=== PATIENT | male | born 1945 | race Caucasian/White ===

== ENCOUNTER 2019-09-26 16:03 | Emergency (ER) | payer OTHER ==
--- OUTSIDE RECORDS SUMMARY | 2019-09-26 16:05 | XMS REPORT ---
:1945 [facility] Address [address] [place] [address] Care Team Providers Name Role Phone Unavailable Unavailable Unavailable Problems This patient has no known problems. Allergies, Adverse Reactions, Alerts This patient has no known allergies or adverse reactions. Medications This patient has no known medications. Encounters Start End Encounter Admission Attending Care Care Encounter Date/Time Date/Time Type Type Clinicians Facility Department ID 2018-12-19 Outpatient [facility] CAR [id number] 15:19:24 2018-12-12 Inpatient [facility] CAR [id number] 06:06:00 2019-06-15 2019-06-15 Outpatient [facility] [id number] 09:59:00 09:59:00 2019-04-20 2019-04-20 Outpatient [facility] CAR [id number] 09:30:00 09:30:00 2019-01-12 2019-01-12 Outpatient [facility] CAR [id number] 08:48:00 08:48:00 2018-12-18 2018-12-18 Emergency [id number] 14:36:00 14:36:00 2018-11-20 2018-11-20 Out[facility] [id number] 06:55:00 06:55:00 2018-11-03 2018-11-03 Outpatient [facility] CAR [id number] 10:24:00 10:24:00 2018-10-24 2018-10-24 Outpatient [facility] CAR [id number] 10:00:00 10:00:00
[2019-09-26] MEDS ORDERED: LIDOCAINE 1% MPF 5 ML VIAL ONE (19:48)
[2019-09-26] MEDS ORDERED: TETANUS & DIPHTHERIA TOX,ADULT 0.5 ML VIAL ONE (19:48)
--- NOTE | 2019-09-26 20:32 | EDPHYS ---
Physician Documentation [facility] Name: Sadiq Arguelles IV Age: 74 yrs Sex: Male : 1945 Arrival Date: 09/26/2019 Time: 16:04 Bed 14 Private MD: ED Physician Luis Finney HPI: 09/26 19:07 This 74 yrs old Male presents to ER via Ambulatory with complaints of pm1 Laceration To Hand, Dizziness. 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 Historical: - Allergies: 16:56 PENICILLINS; aj1 16:56 Morphine; aj1 - PMHx: 16:56 Myocardial infarction; aortic valve replacement; cardiac stent; aj1 - Immunization history:: Last tetanus immunization: unknown, Flu vaccine is up to date. - Coronavirus screen:: The patient has NOT traveled to [place] in the past 14 days. - Social history:: Smoking status: Patient/guardian denies using tobacco. - Ebola Screening: : Patient denies travel to an Ebola-affected area in the 21 days before illness onset. ROS: 19:07 Constitutional: Negative for fever, chills, and weight loss, Cardiovascular: Negative pm1 for chest pain, palpitations, and edema, Respiratory: Negative for shortness of breath, cough, wheezing, and pleuritic chest pain, Back: Negative for injury and pain. 19:07 MS/extremity: Positive for laceration, of the Left first web space, Negative for decreased range of motion, deformity. 19:07 Skin: Positive for laceration(s), of the Left first web space. 19:07 Neuro: Negative for numbness, tingling. 19:07 All other systems are negative. Exam: 19:07 Constitutional: This is a well developed, well nourished patient who is awake, alert, pm1 and in no acute distress. Head/Face: Normocephalic, atraumatic. Chest/axilla: Normal chest wall appearance and motion. Nontender with no deformity. No lesions are appreciated. Cardiovascular: Regular rate and rhythm with a normal S1 and S2. No gallops, murmurs, or rubs. Normal PMI, no JVD. No pulse deficits. Respiratory: Lungs have equal breath sounds bilaterally, clear to auscultation and percussion. No rales, rhonchi or wheezes noted. No increased work of breathing, no retractions or nasal flaring. Back: No spinal tenderness. No costovertebral tenderness. Full range of motion. 19:07 Musculoskeletal/extremity: Extremities: grossly normal except: noted in the Left first web space: laceration, There is no evidence of decreased ROM, deformity. 19:07 Skin: Appearance: normal except for affected area, injury, laceration(s), the wound is approximately 2 cm(s), of the Left first web space, that can be described as clean, no foreign body, irregular, without bleeding. Vital Signs: 16:56 BP 123 / 70; Pulse 61; Resp 18; Temp 97.2; Pulse Ox 100% on R/A; Weight 72.57 kg (R); aj1 Height 5 ft. 10 in. (177.80 cm) (R); Pain 3/10; 16:56 Body Mass Index 22.96 (72.57 kg, 177.80 cm) aj1 Laceration: 20:29 Wound Repair of 2cm ( 0.8in ) subcutaneous laceration to Left first web space. pm1 Irregularly shaped.. Distal neuro/vascular/tendon intact. Anesthesia: Local anesthetic administered with 3 mls of 1% lidocaine. Wound prep: Extensive cleansing with hibiclenz by nurse, Wound irrigation with saline by nurse, Wound explored extensively, Copious irrigation. Skin closed with 6 5-0 Prolene using simple sutures and sterile technique. Dressed with Neosporin, 4x4's, thumb spica. Patient tolerated well. MDM: 18:56 Patient medically screened. pm1 20:29 Data reviewed: vital signs. Data interpreted: Pulse oximetry: on room air is 100 %. pm1 Interpretation: normal. Counseling: I had a detailed discussion with the patient and/or guardian regarding: the historical points, exam findings, and any diagnostic results supporting the discharge/admit diagnosis, radiology results, the need for outpatient follow up, suture removal in 10-14 days, to return to the emergency department if symptoms worsen or persist or if there are any questions or concerns that arise at home. 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 Exp: lp1 07/03/2021. Lot #: [id number]. } Route: IM; Site: right deltoid; 20:50 Follow up: Response: No adverse reaction lp1 20:13 Drug: Lidocaine (1 %) 5 ml Volume: 5 ml; Route: Infiltration; lp1 Disposition: 09/27 07:05 Co-signature as Attending Physician, Luis Finney MD. rn Disposition: 09/26/19 20:31 Discharged to Home. Impression: Laceration without foreign body of left hand. - Condition is Stable. - Discharge Instructions: Laceration Care, Adult. - Prescriptions for Doxycycline Hyclate 100 mg Oral Tablet - take 1 tablet by ORAL route every 12 hours; 20 tablet. - Medication Reconciliation Form, Thank You Letter, Antibiotic Education, Prescription Opioid Use form. - Follow up: Emergency Department; When: As needed; Reason: Recheck today's complaints, Continuance of care, Re-evaluation by your physician. Follow up: Private Physician; When: 2 - 3 days; Reason: Recheck today's complaints, Continuance of care, Re-evaluation by your physician. - Problem is new. - Symptoms have improved. Signatures: Dispatcher [employer] EDMS Katina Willett RN RN aj1 Luis Finney MD MD rn Pena, Laura, RN RN lp1 Aniceot Mcnally NP JEWELRY APPRAISER pm1 Corrections: (The following items were deleted from the chart) 09/26 20:53 20:31 09/26/2019 20:31 Discharged to Home. Impression: Laceration without foreign body lp1 of left hand. Condition is Stable. Forms are Medication Reconciliation Form, Thank You Letter, Antibiotic Education, Prescription Opioid Use. Follow up: Emergency Department; When: As needed; Reason: Recheck today's complaints, Continuance of care, Re-evaluation by your physician. Follow up: Private Physician; When: 2 - 3 days; Reason: Recheck today's complaints, Continuance of care, Re-evaluation by your physician. Problem is new. Symptoms have improved. pm1
--- NOTE | 2019-09-26 20:32 | ER ---
Nurse's Notes [facility] Name: Sadiq Arguelles IV Age: 74 yrs Sex: Male : 1945 Arrival Date: 09/26/2019 Time: 16:04 Bed 14 Private MD: Diagnosis: Laceration without foreign body of left hand Presentation: 09/26 16:55 Presenting complaint: Patient states: "I stuck a chisel in my hand" Laceration noted to aj1 left hand, not bleeding at this time. Transition of care: patient was not received from another setting of care. Complicating Factors: There are no complicating factors for this patient. Onset of symptoms was September 26, 2019. Risk Assessment: Do you want to hurt yourself or someone else? Patient reports no desire to harm self or others. Initial Sepsis Screen: Does the patient meet any 2 criteria? No. Patient's initial sepsis screen is negative. Does the patient have a suspected source of infection? No. Patient's initial sepsis screen is negative. Care prior to arrival: None. 16:55 Method Of Arrival: Ambulatory aj1 16:55 Acuity: BELLA 4 aj1 Triage Assessment: 16:56 General: Appears in no apparent distress. comfortable, Behavior is calm, cooperative, aj1 appropriate for age. Pain: Complains of pain in Left first web space. Neuro: Level of Consciousness is awake, alert, obeys commands. Cardiovascular: Patient's skin is warm and dry. Respiratory: Airway is patent Respiratory effort is even, unlabored, Respiratory pattern is regular, symmetrical. Injury Description: Laceration sustained to Left first web space. Historical: - Allergies: 16:56 PENICILLINS; aj1 16:56 Morphine; aj1 - PMHx: 16:56 Myocardial infarction; aortic valve replacement; cardiac stent; aj1 - Immunization history:: Last tetanus immunization: unknown, Flu vaccine is up to date. - Coronavirus screen:: The patient has NOT traveled to [place] in the past 14 days. - Social history:: Smoking status: Patient/guardian denies using tobacco. - Ebola Screening: : Patient denies travel to an Ebola-affected area in the 21 days before illness onset. Screenin:12 Abuse screen: Denies threats or abuse. Denies injuries from another. Nutritional lp1 screening: No deficits noted. Tuberculosis screening: No symptoms or risk factors identified. Fall Risk None identified. Assessment: 19:20 General: Appears in no apparent distress. Behavior is calm, cooperative, appropriate lp1 for age. Pain: Denies pain. Neuro: No deficits noted. Cardiovascular: No deficits noted. Respiratory: No deficits noted. GI: No signs and/or symptoms were reported involving the gastrointestinal system. : No signs and/or symptoms were reported regarding the genitourinary system. EENT: No signs and/or symptoms were reported regarding the EENT system. Derm: Wound noted Left first web space Wound is jagged laceration, not actively bleeding. Musculoskeletal: Circulation, motion, and sensation intact. Range of motion:. Injury Description: Laceration is jagged, 0.5 to 2.5 cm long, not bleeding. 20:12 Reassessment: Augustus Mcnally NP at bedside to laceration repair. lp1 20:52 Reassessment: suture site dressed with non-adherent pad and foam tape to left hand. lp1 Vital Signs: 16:56 BP 123 / 70; Pulse 61; Resp 18; Temp 97.2; Pulse Ox 100% on R/A; Weight 72.57 kg (R); aj1 Height 5 ft. 10 in. (177.80 cm) (R); Pain 3/10; 16:56 Body Mass Index 22.96 (72.57 kg, 177.80 cm) aj1 ED Course: 16:04 Patient arrived in ED. as 16:55 Triage completed. aj1 16:56 Arm band placed on Patient placed in waiting room, Patient notified of wait time. aj1 18:56 Aniceto Mcnally NP is PHCP. pm1 18:56 Luis Fniney MD is Attending Physician. pm1 19:30 Patient has correct armband on for positive identification. lp1 19:32 Ximena Petty, YAQUELIN is Primary Nurse. lp1 20:10 Wound care: to laceration located on Left first web space was irrigated with normal lp1 saline, Patient tolerated well. 20:50 No provider procedures requiring assistance completed. Patient did not have IV access lp1 during this emergency room visit. pre-formed thumb spica splint to left arm. 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 Exp: lp1 07/03/2021. Lot #: [id number]. } Route: IM; Site: right deltoid; 20:50 Follow up: Response: No adverse reaction lp1 20:13 Drug: Lidocaine (1 %) 5 ml Volume: 5 ml; Route: Infiltration; lp1 Outcome: 20:31 Discharge ordered by MD. pm1 20:51 Discharged to home ambulatory. lp1 20:51 Condition: good 20:51 Discharge instructions given to patient, Instructed on discharge instructions, follow up and referral plans. medication usage, Demonstrated understanding of instructions, follow-up care, medications, Prescriptions given X 1. 20:53 Patient left the ED. lp1 Signatures: Katina Willett RN RN aj1 Tamara Smith Laura, YAQUELIN RN lp1 Aniceto Mcnally, AVANI PERSONAL CARE AIDE pm1
--- NOTE | 2019-09-26 20:41 | RAD REPORT ---
EXAM DESCRIPTION: RAD - Hand Left 3 View - 09/26/2019 8:02 pm CLINICAL HISTORY: Left hand pain, laceration COMPARISON: None. FINDINGS: No fracture, dislocation or periosteal reaction noted. No acute bone or joint finding. Deg enerative calcifications are seen along the dorsal margin of the first carpal row. Site of left and l aceration is not noted. There is bandaging material in the soft tissues between the first and second metacarpal bones. This is the presumed laceration site. There is no foreign body. IMPRESSION: No foreign body. No acute bone or joint finding.
[2019-09-26 20:59] VITALS: BP 123/70; TEMP 97.2; O2SAT 100
== END 2019-09-26 20:53 | disposition home or self-care (01) ==
LOC: ER 16:03
PROC: 0JQK0ZZ Repair Left Hand Subcutaneous Tissue and Fascia, Open Approach (ICD-10-PCS; principal; 2019-09-26)
DX: S61.412A Laceration without foreign body of left hand, initial encounter (principal); W27.8XXA Contact with other nonpowered hand tool, initial encounter; Y93.89 Activity, other specified; Y92.019 Unspecified place in single-family (private) house as the place of occurrence of the external cause; Z23 Encounter for immunization
CPT/HCPCS: 90471; 90714; 99284

== ENCOUNTER 2020-04-02 10:15 | Emergency (ER) | payer OTHER ==
--- OUTSIDE RECORDS SUMMARY | 2020-04-02 10:18 | XMS REPORT | Clinical Summary ---
:1945 Author Organization [facility] Address [address] [place] [address] Care Team Providers Name Role Phone Avery Ross MD Primary Care Provider Allergies Active Allergy Reactions Severity Noted Date Comments Morphine Hives 03/22/2017 Penicillins Rash Low 03/22/2017 Medications Medication Sig Dispensed Refills Start Date End Date Status CYANOCOBALAMIN, Take by mouth. 0 Active VITAMIN B-12, (B-12 DOTS ORAL) COQ10, UBIQUINOL, Take by mouth. 0 Active ORAL cholecalciferol, Take 1,000 0 Ac tive vitamin D3, (VITAMIN Units by mouth D3) 1,000 unit daily. capsule aspirin (ECOTRIN) 81 Take 81 mg by 0 Active MG enteric coated mouth daily. tablet amLODIPine (NORVASC) Take 1 tablet 90 tablet 2 05/12/2018 Active 10 mg (10 mg total) tabletIndications: by mouth daily. Essential hypertension lisinopril Take 1 tablet 90 tablet 2 05/12/2018 Acti ve (PRINIVIL,ZESTRIL) 20 (20 mg total) mg tabletIndications: by mouth daily. Essential hypertension carvedilol CR (COREG Take 1 capsule 90 capsule 2 05/12/2018 Active CR) 20 MG 24 hr (20 mg total) capsuleIndications: by mouth daily. Essential hypertension atorvastatin TAKE ONE (1) 90 tablet 0 02/23/2019 Act rad (LIPITOR) 40 MG TABLET(S) BY tabletIndications: MOUTH ONCE A Coronary artery DAY. disease involving [place] heart with angina pectoris, unspecified vessel or lesion type (HCC), Aortic valve disorder atorvastatin Take 1 tablet 90 tablet 3 05/29/2018 05/29/2019 E xpired (LIPITOR) 40 MG (40 mg total) tabletIndications: by mouth daily. 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
--- OUTSIDE RECORDS SUMMARY | 2020-04-02 10:21 | XMS REPORT | Continuity of Care Document ---
:1945 Author Organization [employer] Care Team Providers Name Role Phone [employer] Unavailable Un available Problems Problem Status Onset Classification Date Comments Sourc e Date Reported PRESENCE OF Active [facility] PROSTHETIC HEART 020 [facility] VALVE Center 4 MONTH FOLLOW UP Active [address] 2 MOS F/U Active [address] 3MOS F/U Active [address] R19.09 - OTHER Active OP ID INTRA-ABDOMINAL AND [address] [place] [address] PELV ECHO Active [address] Pain in left leg 12/21/2018 [facility] LEG CRAMPS, POST Active [facility] orial SURGERY [facility] [place] FOLLOW UP Active [address] PREADMIT / TAVR / Active [facility] / TTE [address] [place] [address] AORTIC STNOSIS Active [address] 1 MONTH FOLLOW Active [facility] xa UP/ECHO [address] [place] [address] HOSPITAL D/C FOLLOW Active [address] CHEST PAIN Active [address] JERMAINE BILLING Active [address] Actinic Keratosis Active 10/28/2013 [facility] Aortic valve Resolved Problem 01/03/2020 [place] [facility] stenosis (disorder) [facility], Shashank Reyes nn Coronary Resolved Problem 01/03/2020 [facility] arteriosclerosis Med ical (disorder) Center, Shashank Reyes nn Hyperlipidemia Resolved Problem 01/03/2020 [place] (disorder) Medical [place], Shashank Reyes Hypertensive Resolved Problem 01/03/2020 [place] disorder, systemic M edical arterial (disorder) Center, Shashank Reyes nn 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) edical [place], Eric,Shashank EULOGIO Carreon nn Myocardial Resolved Problem 01/03/2020 [facility] infarction Medical (disorder) [place],[facility],Shashank EULOGIO [place] 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 Ct dicmt (disorder) [place], Eric,Shashank EULOGIO Carreon nn History of aortic Active Problem 01/03/2020 [facility] valve replacement [facility] (situation) [place] Medications Medication Details Route Status Patient Ordering Order Source Instructions Provider Date ticagrelor 90 mg 90 mg = 1 tab, Active [place] oral tablet PO, Q12H, # 180 2019 Medi gianni tab, 3 Center Refill(s), Pharmacy: [facility] lisinopril 5 mg 5 mg = 1 tab, Active [place] oral tablet PO, Daily, # 90 2019 Medi gianni tab, 3 Center Refill(s), Pharmacy: [facility] lisinopril 2.5 2.5 mg = 1 tab, Active 04/20/ M H [place] mg oral tablet PO, Daily, # 90 2019 M edical tab, 3 Center Refill(s), Pharmacy: [facility] spironolactone 12.5 mg = 0.5 Active [place] 25 mg oral tab, PO, Daily, 2019 Medic al tablet # 45 tab, 3 Center Refill(s), Pharmacy: [facility] 24 HR Metoprolol 25 mg = 0.5 Active [place] Tartrate 50 MG tab, PO, Daily, 2019 M edical Extended Release # 45 tab, [address] Tablet [Toprol] Refill(s), Pharmacy: [facility] ticagrelor 90 mg 90 mg = 1 tab, Active [place] oral tablet PO, Q12H, # 180 2019 Medi gianni tab, 3 Center Refill(s), Pharmacy: [facility] atorvastatin 40 40 mg = 1 tab, Active 04/20/ M H [place] mg oral tablet PO, Daily, # 90 2019 M edical tab, 3 Center Refill(s), Pharmacy: [facility] spironolactone 12.5 mg = 0.5 Active [place] 25 mg oral tab, PO, Daily, 2019 Medic al tablet # 45 tab, 3 Center Refill(s), Pharmacy: [facility] lisinopril 2.5 2.5 mg = 1 tab, Active H [place] mg oral tablet PO, Daily, # 90 2019 M edical tab, 3 Center Refill(s), Pharmacy: [facility] Saline Flush Notes: Same as: Inactive [place] 0.9% BD Posiflush 2019 Sterile Furosemide 40 MG 40 mg = 1 tab, Active [place] Oral Tablet PO, Daily, # 30 2019 Medi gianni [Lasix] tab, 0 Center Refill(s), given to patient clopidogrel Notes: (Same Inactive [place] As: Plavix) 2018 [facility] Aspirin 81 MG Notes: Do not Inactive [facility] Enteric Coated crush or chew. 2019 Ct dical Tablet (Same As: [place] Ecotrin) potassium Notes: (Same Inactive [facility] chloride 20 mEq as: K-Dur 20) 2019 Ct dical oral tablet, "Do Not Crush" Cent er extended release Give with food and full glass of water For patients unable to swallow tablet, dissolve in one half glass of water. Allow about 2 minutes for the tablets to disintegrate. Stir before giving to prepare slurry and administer. Please exclude Patient’s with feeding tube less than 14 Nigerien (Dobhoff, J-tube etc) and pediatric and patients. 24 HR Metoprolol Notes: (Same Inactive [facility] Tartrate 50 MG as: Toprol XL) 2018 Ct dical Extended Release May split tab, Center Tablet [Toprol] but do not crush. atorvastatin Notes: (Same Inactive [place] as: Lipitor) 2019 [facility] Brilinta Notes: (Same Inactive [place] as: Brilinta) [address] [place] [address] ticagrelor 90 mg 90 mg = 1 tab, Active [place] oral tablet PO, Q12H, # 180 2019 Medi gianni tab, 3 Center Refill(s) 24 HR Metoprolol 25 mg = 0.5 Active [facility] Tartrate 50 MG tab, PO, Daily, 2019 M edical Extended Release # 15 tab, [address] Tablet [Toprol] Refill(s) Aspirin 81 MG 81 mg = 1 tab, Active [place] [facility] Coated PO, Daily, # 90 2019 M edical Tablet tab, 3 Center Refill(s) atorvastatin 40 40 mg = 1 tab, Active H [place] mg oral tablet PO, Daily, # 90 2019 M edical tab, 0 Center Refill(s) tramadol Notes: Not to Inactive [place] hydrochloride 50 exceed 2019 Medical MG Oral Tablet 400mg/day. Center (Same As: Ultra) Tylenol Notes: Do not Inactive [place] exceed 4 2019 Medical gm/day. (Same Center as: Tylenol) Sodium Chloride 250 mL, Rate: No Longer [place]ge 0.9% IV 250 mL 20 ml/hr, Active 2018 Medical Infuse over: Center 12.5 hr, Route: IV, Dosing Weight 74.545 kg, Total Volume: 250, Start date: 12/12/18 12:52:00 CDT, Duration: 24 hr, Stop date: 12/13/18 12:51:00 CDT, 1.95, m2 heparin (ANES) Route: IV, Drug Inactive [place] form: INJ, 2018 Medical ONCE, Stop Center date: 12/12/18 12:02:00 CDT Naloxone Notes: Same as Inactive [place] Narcan 2019 [facility] Flumazenil Notes: (Same Inactive [place] as: Romazicon) 2019 [facility] Center Fentanyl Notes: (Same Inactive 12/[facility] Marge as: Sublimaze) 2019 Medical Preservative Center free. Ondansetron Notes: (Same Inactive [place] as as: Zofran) 2019 Medical MEDICATION Center WASTE Product Size: 4 mg Product Wasted: ___ mg fentaNYL (ANES) Route: IV, Drug Inactive [place] form: INJ, 2018 Medical ONCE, Stop Center date: 12/12/18 11:27:00 CDT ceFAZolin (ANES) Route: IV, Drug Inactive 12/12[facility] Marge form: INJ, 2018 Medical ONCE, Stop Center date: 12/12/18 11:27:00 CDT Naloxone Notes: Same as [place] Narcan 2019 [facility] Flumazenil Notes: (Same Inactive [place] as: Romazicon) 2019 Medical Center Ondansetron Notes: (Same Inactive [place] as as: Zofran) 2019 Medical MEDICATION Center WASTE Product Size: 4 mg Product Wasted: ___ mg Acetaminophen Notes: Max Inactive [place] as acetaminophen 2019 Medical 4000 mg/day (4 Center gm/day). (Same as: Tylenol Extra Strength) propofol (ANES) Route: IV, Drug Inactive [place] 10 mg form: INJ, 2019 Medical Start date: Center 12/12/18 10:41:00 CDT, Stop date: 12/12/18 11:41:00 CDT Sodium Chloride Route: IV, Inactive [place] 0.9% IV (ANES) Total Volume: 2018 Med ical 250 mL 250, Start Center date: 12/12/18 10:20:00 CDT, Stop date: 12/12/18 11:20:00 CDT Vitamin D3 2000 2,000 IntlUnit Active H [place] intl units oral = 1 cap, PO, 2019 Med ical capsule Daily, # 100 Center cap, 3 Refill(s) 24 HR Metoprolol 50 mg = 1 tab, Active [place] Tartrate 50 MG PO, Daily, # 30 2019 M edical Extended Release tab, 6 Center Tablet [Toprol] Refill(s), Pharmacy: [facility] atorvastatin 40 40 mg = 1 tab, Active H [place] mg oral tablet PO, Daily, 0 2019 Medi gianni Refill(s) [place] potassium 20 mEq = 1 tab, Active [place] chloride 20 mEq PO, Daily, # 90 2019 Medical oral tablet, tab, 1 Center extended release Refill(s) DME Prescription See Active Cristia s Instructions, 2019 Medical MISC, ONCE, [place] hepatic function panel on , 09/25/2018 Dx: Transaminitis, # 1 ea, 0 Refill(s) Aspirin 81 MG 81 mg = 1 tab, Active [place] [facility] Coated PO, Daily, # 90 2019 M edical Tablet tab, 3 Center Refill(s) ticagrelor 90 mg 90 mg = 1 tab, Active [place] oral tablet PO, Q12H, # 180 2019 Medi gianni tab, 3 Center Refill(s) metoprolol 25 mg = 1 tab, Active [place] as tartrate 25 mg PO, Q12H, # 60 [address] Ct dical oral tablet tab, 0 Center Refill(s) Furosemide 40 MG 40 mg = 1 tab, Active [place] Oral Tablet PO, BID, # 60 2019 Medica l tab, 0 Center Refill(s) Furosemide 40 MG Notes: (Same No Longer [place] Oral Tablet as: Lasix) December Active 2018 Medi gianni cause GI upset. Center Give with food or milk. Albuterol 0.833 Notes: (Same No Longer H [place] MG/ML / as: Duoneb) Active 2018 Medical Ipratropium [facility] [place] 0.167 MG/ML Inhalant Solution [DuoNeb] Calcium Notes: WASTE: No Longer [place] Gluconate F/P - Sink; E - Active [facility] Bin Magnesium Oxide Notes: (Same No Longer [place] as: Mag-Ox 400) Active 2018 [facility] Magnesium oxide Center [id number] elemental magnesium Dose=____mg magnesium oxide (___mg elemental magnesium) sodium phosphate Notes: Infuse No Longer [place] over 4 hour. Do Active 2018 Medical not infuse Center phosphorous concurrently in the same line as TPN or IVF that contains calcium. For double lumen central lines, phosphorous may be infused in a separate lumen from TPN. Magnesium Notes: WASTE: No Longer [place] as Sulfate F/P - Sink; E - Active 2018 Medical [facility] Trash Center Bin potassium Notes: (Same No Longer a s phosphate as: K Active 2019 Medical Phosphate.) Do Center not infuse phosphorous concurrently in the same line as TPN or IVF that contains calcium. For double lumen central lines, phosphorous may be infused in a separate lumen from TPN. 1 mMol phoshate has 1.47 mEq potassium Infuse over 4 hours Potassium Notes: (Same No Longer [place] Chloride as: K-Dur 20) Active 2019 Medical "Do Not Crush" Center Give with food and full glass of water For patients unable to swallow tablet, dissolve in one half glass of water. Allow about 2 minutes for the tablets to disintegrate. Stir before giving to prepare slurry and administer. Please exclude Patient’s with feeding tube less than 14 Nigerien (Dobhoff, J-tube etc) and pediatric and patients. potassium Notes: ([facility]odium as: Phos-NaK) Active 2018 edical phosphate 250 Each 1.5 gm pkt Ce nter mg-280 mg-160 mg has 250mg oral powder for phosphorous. reconstitution Mix w/2.5oz water and stir. Blistex Lip [place] Route: MISC, Inactive [facility] Dosing Weight 2019 [facility] 79.545, kg, Center BID, Start date: 09/21/18 9:00:00 JAVASCRIPT PROGRAMMER, Duration: 30 day, Stop date: 10/20/18 17:00:00 CDT allantoin/campho Notes: Same as: No Longer 09/21 [facility] r/phenol topical Blistex Active 2019 [facility] Furosemide Notes: (Same No Longer [facility] as as: Lasix) Active 2019 Medical MEDICATION Center WASTE Product Size: 40 mg Product Wasted: ___ mg K-Dur 20 Notes: (Same Inactive [facility] as: K-Dur 20) 2019 Medical "Do Not Crush" Center Give with food and full glass of water For patients unable to swallow tablet, dissolve in one half glass of water. Allow about 2 minutes for the tablets to disintegrate. Stir before giving to prepare slurry and administer. Please exclude Patient’s with feeding tube less than 14 Nigerien (Dobhoff, J-tube etc) and pediatric and patients. cefepime Notes: (Same No Longer [facility] As: Maxipime) Active 2019 Medical MEDICATION Center WASTE Product Size: 1000 mg Product Wasted: ___ mg Vancomycin 2001 mg: No Longer [facility] infuse over 2.5 Active 2019 [facility] hours Center Tylenol Notes: Max No Longer [facility] acetaminophen = Active 2019 Medical 4000mg/day (4 Center gm/day). (Same as: Tylenol) Albuterol 0.833 Notes: (Same Active [place] MG/ML / as: Duoneb) 2019 [facility] Ipratropium [place] 0.167 MG/ML Inhalant Solution [DuoNeb] Lasix Notes: (Same Inactive [place] as: Lasix) 2019 Medical Center Potassium Notes: (Same [facility] Chloride as: KCL) Active 2018 Medical Infuse no Center faster than 10 mEq/hr if given peripherally. sodium phosphate Notes: Infuse No Longer [place] over 4 hour. Do Active 2019 Medical not infuse Center phosphorous concurrently in the same line as TPN or IVF that contains calcium. For double lumen central lines, phosphorous may be infused in a separate lumen from TPN. potassium Notes: (Same [facility] Long[facility] phosphate as: K Active 2018 Medical Phosphate.) Do Center not infuse phosphorous concurrently in the same line as TPN or IVF that contains calcium. For double lumen central lines, phosphorous may be infused in a separate lumen from TPN. 1 mMol phoshate has 1.47 mEq potassium Infuse over 4 hours potassium Notes: (Same No Longer [facility] s phosphate-sodium as: Phos-NaK) Active 2018 edical phosphate 250 Each 1.5 gm pkt Ce nter mg-280 mg-160 mg has 250mg oral powder for phosphorous. reconstitution Mix w/2.5oz water and stir. Magnesium Notes: WASTE: No Longer [place] as Sulfate F/P - Sink; E - Active 2018 [facility] Trash Center Bin Calcium Notes: WASTE: No Longer [place] Gluconate F/P - Sink; E - Active 2018 Medica l [facility] [place] Bin Calcium Notes: (Same No Longer [place] Carbonate 500 MG As: Tums) Active 2018 Medic al Chewable Tablet Calcium Center Carbonate 500 mg = 200 mg elemental calcium Dose = mg calcium carbonate ( mg elemental calcium) Magnesium Oxide Notes: (Same No Longer H [place] as: Mag-Ox 400) Active 2018 [facility] Magnesium oxide [place] [id number] elemental magnesium Dose=____mg magnesium oxide (___mg elemental magnesium) Ticagrelor Notes: (Same No Longer [place] as as: Brilinta) Active 2019 [facility] Brilinta Notes: (Same Inactive [place] as: Brilinta) 2019 [facility] Aspirin 81 MG Notes: Do not No Longer [place] Enteric Coated crush or chew. Active 2019 Ct dical Tablet (Same As: [place] Ecotrin) Lovenox Notes: (Same No Longer [place] as: Lovenox) Active 2019 [facility] metoprolol Notes: (Same No Longer [place] as tartrate as: Lopressor) Active 2019 [facility] atorvastatin Notes: Same as No Longer [facility] Lipitor Active 2019 [facility] Saline Flush Notes: Same as: No Longer H [place] 0.9% BD Posiflush Active 2019 [facility] Saline Flush Notes: Same as: No Longer H [place] 0.9% BD Posiflush Active 2019 [facility] Sodium Chloride 500 mL, Rate: No Longer [place] 0.9% IV 500 mL 20 ml/hr, Active 2019 Medical Infuse over: 25 Center hr, Route: IV, Total Volume: 500, Start date: 09/17/18 12:35:00 JAVASCRIPT PROGRAMMER, Duration: 24 hr, Stop date: 09/18/18 12:34:00 JAVASCRIPT PROGRAMMER Ticagrelor 180 mg, Route: Inactive [place] PO, ONCE, kg, 2018 Medical Priority: NOW, Center Start date: 09/17/18 12:33:00 JAVASCRIPT PROGRAMMER, Stop date: 09/17/18 12:33:00 JAVASCRIPT PROGRAMMER Lisinopril TABS (Active) Active [facility] Aspirin TABS (Active) Active [facility] Allergies, Adverse Reactions, Alerts Substance Category Reaction Severity Reaction Status Date Comments S ource type Reported Penicillins drug drug Active [facility] allergy allergy Physicia n s Morphine drug drug Active [facility] Derivatives allergy allergy Phys ician s penicillin Assertion Drug Active [facility] morphine Assertion penicillin Drug Active [facility] Immunizations No Data Provided for This Section Results Order Name Results Value Reference Date Interpretation Comments [place] rce Range CARDIAC BNP 67 <=100 12/31 [facility] ENZYMES pg/mL [facility] CHEM PANEL Glucose Lvl 92 70 - 99 12/[address] CHEM PANEL BUN 19 7 - 22 12/[address] CHEM PANEL Creatinine 1.00 0.50 - 12/31 [facility] Lvl 1.40 /2019 [facility] CHEM PANEL Sodium Lvl 137 135 - 145 12/[address] CHEM PANEL Potassium 4.4 3.5 - 5.1 12/31 [facility] [place] [address] CHEM PANEL Chloride Lvl 106 95 - 109 12/[address] CHEM PANEL CO2 25 24 - 32 12/[address] CHEM PANEL Calcium Lvl 9.0 8.5 - 10.5 12/31 [facility] as [address] CHEM PANEL Total 7.5 6.4 - 8.4 12/31 [facility] Protein [address] CHEM PANEL Albumin Lvl 3.6 3.5 - 5.0 12/[address] CHEM PANEL ALT 43 0 - 65 12/[address] CHEM PANEL AST 28 0 - 37 12/[address] CHEM PANEL Alk Phos 91 39 - 136 12/[address] CHEM PANEL Bili Total 0.5 0.2 - 1.3 12/[address] CHEM PANEL AGAP 10.4 10.0 - 12/31 [facility] 20.0 /2019 [facility] CHEM PANEL B/C Ratio 19 6 - 25 12/[address] CHEM PANEL Globulin 3.9 2.7 - 4.2 12/[address] CHEM PANEL A/G Ratio 0.9 0.7 - 1.6 12/[address] CHEM PANEL eGFR 75 12/31 [place] [id number] Comment: The Medical eGFR is Center calculated using the CKD-EPI formula. In most young, healthy individuals the eGFR will be >90 mL/min/1.73m2 . The eGFR declines with age. An eGFR of 60-89 may be normal in some populations, particularly the elderly, for whom the CKD-EPI formula has not been extensively validated. Use of the eGFR is not recommended in the following populations:< br/>
Rylee viduals with unstable creatinine concentration s, including patients and those with serious co-morbid conditions.<b r/>
Patie nts with extremes in muscle mass or diet.

The data above are obtained from the National Kidney Disease Education Program (NKDEP) which additionally recommends that when the eGFR is used in patients with extremes of body mass index for purposes of drug dosing, the eGFR should be multiplied by the estimated BMI. HEMATOLOGY WBC 5.9 3.7 - 10.4 12/[address] HEMATOLOGY RBC 4.58 4.70 - 12/31 [place] 6.10 [facility] HEMATOLOGY Hgb 14.9 14.0 - 12/31 [place] 18.0 /2019 [facility] HEMATOLOGY Hct 44.8 42.0 - 12/31 [place] 54.0 /2019 [facility] HEMATOLOGY MCV 97.7 80.0 - 12/31 [facility] 94.0 2019 [facility] HEMATOLOGY MCH 32.5 27.0 - 12/31 [facility] 31.0 /2019 [facility] HEMATOLOGY MCHC 33.3 32.0 - 12/31 [place] 36.0 [facility] HEMATOLOGY RDW 13.7 11.5 - 12/31 [place] 14.5 /2019 [facility] HEMATOLOGY Platelet 176 133 - 450 12/[address] HEMATOLOGY MPV 11.5 7.4 - 10.4 12/[address] HEMATOLOGY Segs 52.5 45.0 - 12/31 [facility] 75.0 [facility] HEMATOLOGY Lymphocytes 28.8 20.0 - 12/31 [place] 40.0 [facility] HEMATOLOGY Monocytes 12.1 2.0 - 12.0 12/[address] HEMATOLOGY Eosinophils 6.0 0.0 - 4.0 12/[address] HEMATOLOGY Basophils 0.6 0.0 - 1.0 12/[address] HEMATOLOGY Neutrophils 3.1 1.5 - 8.1 12/31 [facility] /2019 [facility] HEMATOLOGY Lymphocytes 1.7 1.0 - 5.5 12/31 [facility] /2019 [facility] HEMATOLOGY Monocytes # 0.7 0.0 - 0.8 12/[address] HEMATOLOGY Eosinophils 0.4 0.0 - 0.5 12/31 [facility] /2019 [facility] CHEM PANEL Glucose Lvl 96 70 - 99 06/[address] CHEM PANEL BUN 16 7 - 22 06/[address] CHEM PANEL Creatinine 0.98 0.50 - 06/15 [place] Lvl 1.40 [facility] CHEM PANEL Sodium Lvl 138 135 - 145 06/[address] CHEM PANEL Potassium 4.2 3.5 - 5.1 06/15 [facility] [place] [address] CHEM PANEL Chloride Lvl 104 95 - 109 06/[address] CHEM PANEL CO2 28 24 - 32 06/[address] CHEM PANEL Calcium Lvl 9.5 8.5 - 10.5 06/15 [facility] CHEM PANEL Total 7.2 6.4 - 8.4 06/15 [facility] Protein [address] CHEM PANEL Albumin Lvl 3.6 3.5 - 5.0 06/15 [facility]2018 [facility] CHEM PANEL ALT 40 0 - 65 06/[address] CHEM PANEL AST 27 0 - 37 06/[address] CHEM PANEL Alk Phos 81 39 - 136 06/[address] CHEM PANEL Bili Total 0.4 0.2 - 1.3 06/[address] CHEM PANEL AGAP 10.2 10.0 - 06/15 [place] 20.0 [facility] CHEM PANEL B/C Ratio 16 6 - 25 06/[address] CHEM PANEL Globulin 3.6 2.7 - 4.2 06/[address] CHEM PANEL A/G Ratio 1.0 0.7 - 1.6 06/[address] CHEM PANEL eGFR 76 06/15 [facility] Comment: The Medical eGFR is Center calculated using the CKD-EPI formula. In most young, healthy individuals the eGFR will be >90 mL/min/1.73m2 . The eGFR declines with age. An eGFR of 60-89 may be normal in some populations, particularly the elderly, for whom the CKD-EPI formula has not been extensively validated. Use of the eGFR is not recommended in the following populations:< br/>
Rylee viduals with unstable creatinine concentration s, including patients and those with serious co-morbid conditions.<b r/>
Patie nts with extremes in muscle mass or diet.

The data above are obtained from the National Kidney Disease Education Program (NKDEP) which additionally recommends that when the eGFR is used in patients with extremes of body mass index for purposes of drug dosing, the eGFR should be multiplied by the estimated BMI. ELECTROLYTE AGAP 12.2 10.0 - 01/12 [facility] 20.0 [facility] ELECTROLYTE A/G Ratio 1.2 0.7 - 1.6 01/12 [facility] S /2018 [facility] ELECTROLYTE Globulin 3.3 2.7 - 4.2 01/12 [facility] S /2018 [facility] ELECTROLYTE B/C Ratio 22 6 - 25 01/12 [facility] S /2018 [facility] ELECTROLYTE eGFR 74 01/12 [facility] Comment: The Medical eGFR is Center calculated using the CKD-EPI formula. In most young, healthy individuals the eGFR will be >90 mL/min/1.73m2 . The eGFR declines with age. An eGFR of 60-89 may be normal in some populations, particularly the elderly, for whom the CKD-EPI formula has not been extensively validated. Use of the eGFR is not recommended in the following populations:< br/>
Rylee viduals with unstable creatinine concentration s, including patients and those with serious co-morbid conditions.<b r/>
Patie nts with extremes in muscle mass or diet.

The data above are obtained from the National Kidney Disease Education Program (NKDEP) which additionally recommends that when the eGFR is used in patients with extremes of body mass index for purposes of drug dosing, the eGFR should be multiplied by the estimated BMI. ELECTROLYTE Alk Phos 91 39 - 136 01/12 [facility] S /2018 [facility] ELECTROLYTE Bili Total 0.6 0.2 - 1.3 01/12 [facility] ELECTROLYTE Albumin Lvl 4.1 3.5 - 5.0 01/12 [place] [facility] S 2018 [facility] ELECTROLYTE Total 7.4 6.4 - 8.4 01/12 [facility] /2018 [facility] ELECTROLYTE Calcium Lvl 9.2 8.5 - 10.5 01/12 [place] /2018 [facility] ELECTROLYTE AST 20 0 - 37 01/12 [facility] S 2018 [facility] ELECTROLYTE ALT 28 0 - 65 01/12 [facility] S /2019 [facility] ELECTROLYTE Sodium Lvl 140 135 - 145 01/12 [facility] S /2019 [facility] ELECTROLYTE Potassium 4.2 3.5 - 5.1 01/12 [facility] S Lvl /2018 [facility] ELECTROLYTE CO2 27 24 - 32 01/12 [facility] S 2019 [facility] ELECTROLYTE Chloride Lvl 105 95 - 109 01/12 [facility] as S /2019 [facility] ELECTROLYTE Glucose Lvl 84 70 - 99 01/12 [facility] S /2019 [facility] ELECTROLYTE Creatinine 1.02 0.50 - 01/12 [facility] S Lvl 1.40 [facility] ELECTROLYTE BUN 22 7 - 22 01/12 [facility] S /2019 [facility] HEMATOLOGY Monocytes # 0.6 0.0 - 0.8 01/12 [facility] s /2019 [facility] HEMATOLOGY Eosinophils 0.3 0.0 - 0.5 01/12 [facility] /2019 [facility] HEMATOLOGY Lymphocytes 1.8 1.0 - 5.5 01/12 [facility] /2019 [facility] HEMATOLOGY Eosinophils 4.0 0.0 - 4.0 01/12 [facility] s /2019 [facility] HEMATOLOGY Neutrophils 3.7 1.5 - 8.1 01/12 [facility] /2019 [facility] HEMATOLOGY Basophils 0.5 0.0 - 1.0 01/12 [facility] HEMATOLOGY Monocytes 9.5 2.0 - 12.0 01/12 [facility]2019 [facility] HEMATOLOGY Segs 58.3 45.0 - 01/12 [facility] 75.0 [facility] HEMATOLOGY Lymphocytes 27.7 20.0 - 01/12 [place] 40.0 2019 [facility] HEMATOLOGY MPV 11.2 7.4 - 10.4 01/12 /2019 [facility] HEMATOLOGY Platelet 150 133 - 450 01/12 [facility]2018 [facility] HEMATOLOGY MCHC 32.4 32.0 - 01/12 [place] 36.0 2019 [facility] HEMATOLOGY RDW 14.3 11.5 - 01/12 [place] 14.5 /2019 [facility] HEMATOLOGY MCH 31.9 27.0 - 01/12 [place] 31.0 2019 [facility] HEMATOLOGY Hct 45.9 42.0 - 01/12 [place] 54.0 /2019 [facility] HEMATOLOGY MCV 98.2 80.0 - 01/12 [place] 94.0 /2019 [facility] HEMATOLOGY WBC 6.4 3.7 - 10.4 01/12 [place] [facility] HEMATOLOGY RBC 4.68 4.70 - 06 [place] 6.10 [facility] HEMATOLOGY Hgb 14.9 14.0 - 06 [facility] 18.0 [facility] CARDIAC Troponin-I 0.02 0.00 - 12/18 [facility] 0.40 /2018 [place] CARDIAC Total CK 97 12 - 191 12/18 [facility] /2018 [place] CHEM PANEL eGFR 81 12/18 [facility] [[email or web address] Comment: The [place] eGFR is calculated using the CKD-EPI formula. In most young, healthy individuals the eGFR will be >90 mL/min/1.73m2 . The eGFR declines with age. An eGFR of 60-89 may be normal in some populations, particularly the elderly, for whom the CKD-EPI formula has not been extensively validated. Use of the eGFR is not recommended in the following populations:< br/>
Rylee viduals with unstable creatinine concentration s, including patients and those with serious co-morbid conditions.<b r/>
Patie nts with extremes in muscle mass or diet.

The data above are obtained from the National Kidney Disease Education Program (NKDEP) which additionally recommends that when the eGFR is used in patients with extremes of body mass index for purposes of drug dosing, the eGFR should be multiplied by the estimated BMI. CHEM PANEL Albumin Lvl 3.4 3.5 - 5.0 12/18 [place] CHEM PANEL Total 7.6 6.4 - 8.4 12/18 [place] CHEM PANEL Calcium Lvl 9.1 8.5 - 10.5 12/18 [place] CHEM PANEL CO2 25 24 - 32 12/18 [place] CHEM PANEL Chloride Lvl 103 95 - 109 12/18 [place] CHEM PANEL Potassium 4.1 3.5 - 5.1 12/18 Lvl [place] CHEM PANEL Bili Total 0.9 0.2 - 1.3 12/18 [place] CHEM PANEL Alk Phos 91 39 - 136 12/18 [place] CHEM PANEL AST 19 0 - 37 12/18 [place] CHEM PANEL ALT 24 0 - 65 12/18 [place] CHEM PANEL Sodium Lvl 137 135 - 145 12/18 [place] CHEM PANEL Creatinine 0.94 0.50 - 05 [facility]vl 1.40 /2018 [place] CHEM PANEL BUN 28 7 - 22 12/18 [place] CHEM PANEL Glucose Lvl 95 70 - 99 12/18 [place] CHEM PANEL A/G Ratio 0.8 0.7 - 1.6 12/18 [place] CHEM PANEL B/C Ratio 30 6 - 25 12/18 [place] CHEM PANEL Globulin 4.2 2.7 - 4.2 12/18 [place] CHEM PANEL AGAP 13.1 10.0 - 05 [facility] 20.0 [place] HEMATOLOGY MCV 96.2 80.0 - 12/18 [facility] 94.0 [place] HEMATOLOGY Hct 40.0 42.0 - 12/18 [facility] 54.0 [place] HEMATOLOGY RBC 4.15 4.70 - 12/18 [facility] 6.10 [place] HEMATOLOGY Hgb 13.6 14.0 - 12/18 [facility] 18.0 [place] HEMATOLOGY MCHC 33.9 32.0 - 05 [facility] 36.0 [place] HEMATOLOGY MCH 32.7 27.0 - 12/18 [facility] 31.0 [place] HEMATOLOGY RDW 14.3 11.5 - 12/18 [facility] 14.5 [place] HEMATOLOGY Platelet 147 133 - 450 12/18 [place] HEMATOLOGY MPV 11.3 7.4 - 10.4 12/18 [place] HEMATOLOGY WBC 7.7 3.7 - 10.4 12/18 [place] HEMATOLOGY Eosinophils 0.3 0.0 - 0.5 12/18 [facility] # /2018 [place] HEMATOLOGY Monocytes # 0.9 0.0 - 0.8 12/18 [place] HEMATOLOGY Neutrophils 5.3 1.5 - 8.1 12/18 [facility] # /2018 [place] HEMATOLOGY Segs 68.5 45.0 - 05 [facility] 75.0 [place] HEMATOLOGY Lymphocytes 16.1 20.0 - 05 [facility] 40.0 [place] HEMATOLOGY Monocytes 11.1 2.0 - 12.0 12/18 [place] HEMATOLOGY Basophils 0.6 0.0 - 1.0 12/18 [place] HEMATOLOGY Lymphocytes 1.2 1.0 - 5.5 12/18 [place] HEMATOLOGY Eosinophils 3.7 0.0 - 4.0 12/18 [place] CHEM PANEL eGFR 92 12/13 Result Comment: The Medical eGFR is Center calculated using the CKD-EPI formula. In most young, healthy individuals the eGFR will be >90 mL/min/1.73m2 . The eGFR declines with age. An eGFR of 60-89 may be normal in some populations, particularly the elderly, for whom the CKD-EPI formula has not been extensively validated. Use of the eGFR is not recommended in the following populations:< br/>
Rylee viduals with unstable creatinine concentration s, including patients and those with serious co-morbid conditions.<b r/>
Patie nts with extremes in muscle mass or diet.

The data above are obtained from the National Kidney Disease Education Program (NKDEP) which additionally recommends that when the eGFR is used in patients with extremes of body mass index for purposes of drug dosing, the eGFR should be multiplied by the estimated BMI. CHEM PANEL CO2 22 24 - 32 12/13 [facility] CHEM PANEL Calcium Lvl 8.5 8.5 - 10.5 12/13 [facility] CHEM PANEL Chloride Lvl 114 95 - 109 12/13 [facility] CHEM PANEL Potassium 3.9 3.5 - 5.1 12/13 [facility] CHEM PANEL Creatinine 0.76 0.50 - 12/13 [facility] Lvl 1.40 [facility] CHEM PANEL Sodium Lvl 143 135 - 145 12/13 [facility] CHEM PANEL BUN 14 7 - 22 12/13 [facility] CHEM PANEL Glucose Lvl 98 70 - 99 12/13 [facility] CHEM PANEL AGAP 10.9 10.0 - 12/13 20.0 [facility] CHEM PANEL Magnesium 2.2 1.8 - 2.4 12/13 [facility] HEMATOLOGY Platelet 143 133 - 450 12/13 2018 [facility] HEMATOLOGY RDW 14.1 11.5 - 12/13 [place] 14.5 [facility] HEMATOLOGY MCHC 33.8 32.0 - 12/13 [place] 36.0 [facility] HEMATOLOGY MCV 98.0 80.0 - 0511 [place] 94.0 /2019 [facility] HEMATOLOGY MCH 33.2 27.0 - 05 [place] 31.0 2019 [facility] HEMATOLOGY MPV 11.8 7.4 - 10.4 12/13 [facility] HEMATOLOGY Hct 37.5 42.0 - 12/13 [place] 54.0 /2019 [facility] HEMATOLOGY WBC 9.1 3.7 - 10.4 12/13 [facility] HEMATOLOGY Hgb 12.7 14.0 - 05 [place] 18.0 /2019 [facility] HEMATOLOGY RBC 3.83 4.70 - 05 [place] 6.10 /2019 [facility] HEMATOLOGY INR 1.08 0.85 - 12/13 [place] 1.17 /2018 [facility] HEMATOLOGY PTT 28.0 22.9 - 12/13 [place] 35.8 /2019 [facility] HEMATOLOGY PT 13.8 12.0 - 12/13 [place] 14.7 /2019 [facility] HEMATOLOGY Eosinophils 0.2 0.0 - 0.5 12/13 [place] # /2019 [facility] HEMATOLOGY Monocytes # 0.8 0.0 - 0.8 12/13 [place]2019 [facility] HEMATOLOGY Basophils 0.4 0.0 - 1.0 12/13 [facility] HEMATOLOGY Eosinophils 2.2 0.0 - 4.0 12/13 [place] [facility] HEMATOLOGY Monocytes 8.5 2.0 - 12.0 12/13 2019 [facility] HEMATOLOGY Lymphocytes 1.5 1.0 - 5.5 12/13 [place] # /2019 [facility] HEMATOLOGY Neutrophils 6.7 1.5 - 8.1 12/13 [place] # /2019 [facility] HEMATOLOGY Segs 73.0 45.0 - 05 [place] 75.0 /2019 [facility] HEMATOLOGY Lymphocytes 15.9 20.0 - 0511 [place] 40.0 /2019 [facility] HEMATOLOGY MCV 98.7 80.0 - 05 [place] 94.0 /2019 [facility] HEMATOLOGY MCH 33.4 27.0 - 05 [place] 31.0 /2019 [facility] HEMATOLOGY Hgb 13.0 14.0 - 05 [place] 18.0 /2019 [facility] HEMATOLOGY Hct 38.4 42.0 - 05 [place] 54.0 /2019 [facility] HEMATOLOGY MCHC 33.9 32.0 - 12/12 [place] 36.0 [facility] HEMATOLOGY Platelet 175 133 - 450 12/12 [facility] HEMATOLOGY MPV 12.0 7.4 - 10.4 12/12 [facility] HEMATOLOGY RDW 14.0 11.5 - 12/12 [place] 14.5 [facility] HEMATOLOGY WBC 8.8 3.7 - 10.4 12/12 [facility] HEMATOLOGY RBC 3.89 4.70 - 12/12 [place] 6.10 [facility] HEMATOLOGY Monocytes 5.3 2.0 - 12.0 12/12 [facility] HEMATOLOGY Lymphocytes 24.2 20.0 - 12/12 [place] 40.0 [facility] HEMATOLOGY Eosinophils 2.7 0.0 - 4.0 12/12 [place] [facility] HEMATOLOGY Segs 67.3 45.0 - 12/12 [place] 75.0 [facility] HEMATOLOGY Basophils 0.5 0.0 - 1.0 12/12 [facility] HEMATOLOGY Eosinophils 0.2 0.0 - 0.5 12/12 [place] # /2018 [facility] HEMATOLOGY Monocytes # 0.5 0.0 - 0.8 12/12 [place] [facility] HEMATOLOGY Neutrophils 5.9 1.5 - 8.1 12/12 [place] # /2019 [facility] HEMATOLOGY Lymphocytes 2.1 1.0 - 5.5 12/12 [facility] BLOOD BANK FFP product Product available 12/12 [facility] RESULTS (12/12/18 6:35 AM) /2018 [facility] BLOOD BANK RBC product Product available 12/12 [facility] RESULTS (12/12/18 6:35 AM) /2018 [facility] BLOOD BANK ABO/Rh O POS 12/12 [facility] RESULTS /2018 [facility] BLOOD BANK Antibody Negative 12/12 [facility] RESULTS Scrn (12/12/18 6:35 AM) /2018 [facility] CHEM PANEL A/G Ratio 1.0 0.7 - 1.6 12/12 [facility] CHEM PANEL Globulin 3.7 2.7 - 4.2 12/12 [facility] CHEM PANEL B/C Ratio 19 6 - 25 12/12 [facility] CHEM PANEL AGAP 11.7 10.0 - 12/12 [facility] 20.0 [facility] CHEM PANEL Albumin Lvl 3.6 3.5 - 5.0 12/12 [facility] CHEM PANEL ALT 34 0 - 65 12/12 [facility]2018 [facility] CHEM PANEL Alk Phos 83 39 - 136 12/12 [facility]2018 [facility] CHEM PANEL AST 23 0 - 37 12/12 [facility]2018 [facility] CHEM PANEL Total 7.3 6.4 - 8.4 12/12 [facility] Protein [facility] CHEM PANEL Bili Total 0.4 0.2 - 1.3 12/12 [facility] CHEM PANEL eGFR 75 12/12 Result Comment: The Medical eGFR is Center calculated using the CKD-EPI formula. In most young, healthy individuals the eGFR will be >90 mL/min/1.73m2 . The eGFR declines with age. An eGFR of 60-89 may be normal in some populations, particularly the elderly, for whom the CKD-EPI formula has not been extensively validated. Use of the eGFR is not recommended in the following populations:< br/>
Rylee viduals with unstable creatinine concentration s, including patients and those with serious co-morbid conditions.<b r/>
Patie nts with extremes in muscle mass or diet.

The data above are obtained from the National Kidney Disease Education Program (NKDEP) which additionally recommends that when the eGFR is used in patients with extremes of body mass index for purposes of drug dosing, the eGFR should be multiplied by the estimated BMI. CHEM PANEL Calcium Lvl 9.5 8.5 - 10.5 12/12 [facility] CHEM PANEL CO2 27 24 - 32 12/12 [facility]2018 [facility] CHEM PANEL Chloride Lvl 107 95 - 109 12/12 [facility] CHEM PANEL Potassium 3.7 3.5 - 5.1 12/12 [facility] CHEM PANEL Glucose Lvl 93 70 - 99 12/[address] CHEM PANEL Creatinine 1.00 0.50 - 12/12 [facility] 1.40 [facility] CHEM PANEL Sodium Lvl 142 135 - 145 12/12 [facility]2018 [facility] CHEM PANEL BUN 19 7 - 22 05 [facility] CHEM PANEL Magnesium 2.2 1.8 - 2.4 05/ [place] Lvl /2019 [facility] HEMATOLOGY Basophils # 0.1 0.0 - 0.2 05 [place]2019 [facility] HEMATOLOGY Lymphocytes 24.6 20.0 - 0510 [place] 40.0 /2019 [facility] HEMATOLOGY Monocytes 9.5 2.0 - 12.0 05/10 /2019 [facility] HEMATOLOGY Eosinophils 3.7 0.0 - 4.0 05 [place]2019 [facility] HEMATOLOGY Basophils 0.8 0.0 - 1.0 05/ /2019 [facility] HEMATOLOGY Neutrophils 4.3 1.5 - 8.1 05 [place] # /2019 [facility] HEMATOLOGY Lymphocytes 1.7 1.0 - 5.5 12/12 [place] # /2019 [facility] HEMATOLOGY Monocytes # 0.7 0.0 - 0.8 12/12 [place] /2019 [facility] HEMATOLOGY Eosinophils 0.3 0.0 - 0.5 12/12 [place] # 2019 [facility] HEMATOLOGY Segs 61.4 45.0 - 0510 [place] 75.0 2019 [facility] HEMATOLOGY PT 13.6 12.0 - 05 [place] 14.7 2019 [facility] HEMATOLOGY PTT 27.0 22.9 - 0510 [place] 35.8 2019 [facility] HEMATOLOGY INR 1.06 0.85 - 12/12 [place] 1.17 2019 [facility] HEMATOLOGY Platelet 189 133 - 450 05 [facility] HEMATOLOGY MPV 11.5 7.4 - 10.4 05 [facility] HEMATOLOGY WBC 7.0 3.7 - 10.4 05 2019 [facility] HEMATOLOGY RBC 4.45 4.70 - 0510 [place] 6.10 2019 [facility] HEMATOLOGY Hgb 14.8 14.0 - 0510 [place] 18.0 /2019 [facility] HEMATOLOGY Hct 44.1 42.0 - 05/10 [place] 54.0 /2019 [facility] HEMATOLOGY MCH 33.2 27.0 - 05/10 [place] 31.0 /2019 [facility] HEMATOLOGY RDW 14.2 11.5 - 05/10 [place] 14.5 2019 [facility] HEMATOLOGY MCV 99.1 80.0 - 05/10 [facility] 94.0 [facility] HEMATOLOGY MCHC 33.5 32.0 - 12/12 [facility] 36.0 [facility] CHEM PANEL eGFR 86 11/20 Result Comment: The Medical eGFR is Center calculated using the CKD-EPI formula. In most young, healthy individuals the eGFR will be >90 mL/min/1.73m2 . The eGFR declines with age. An eGFR of 60-89 may be normal in some populations, particularly the elderly, for whom the CKD-EPI formula has not been extensively validated. Use of the eGFR is not recommended in the following populations:< br/>
Rylee viduals with unstable creatinine concentration s, including patients and those with serious co-morbid conditions.<b r/>
Patie nts with extremes in muscle mass or diet.

The data above are obtained from the National Kidney Disease Education Program (NKDEP) which additionally recommends that when the eGFR is used in patients with extremes of body mass index for purposes of drug dosing, the eGFR should be multiplied by the estimated BMI. CHEM PANEL POC 0.9 0.5 - 1.4 11/20 [facility] CHEM PANEL eGFR 88 09/22 Result Comment: The Medical eGFR is Center calculated using the CKD-EPI formula. In most young, healthy individuals the eGFR will be >90 mL/min/1.73m2 . The eGFR declines with age. An eGFR of 60-89 may be normal in some populations, particularly the elderly, for whom the CKD-EPI formula has not been extensively validated. Use of the eGFR is not recommended in the following populations:< br/>
Rylee viduals with unstable creatinine concentration s, including patients and those with serious co-morbid conditions.<b r/>
Patie nts with extremes in muscle mass or diet.

The data above are obtained from the National Kidney Disease Education Program (NKDEP) which additionally recommends that when the eGFR is used in patients with extremes of body mass index for purposes of drug dosing, the eGFR should be multiplied by the estimated BMI. CHEM PANEL Globulin 4.3 2.7 - 4.2 09/22 [facility] CHEM PANEL A/G Ratio 0.5 0.7 - 1.6 09/[address] CHEM PANEL BUN 22 7 - 22 09/22 [facility]2018 [facility] CHEM PANEL Glucose Lvl 106 70 - 99 09/[address] CHEM PANEL Potassium 3.5 3.5 - 5.1 09/22 [facility] /2018 [facility] CHEM PANEL Creatinine 0.85 0.50 - 09/22 [place] Lvl 1.40 [facility] CHEM PANEL Sodium Lvl 133 135 - 145 09/[address] CHEM PANEL Total 6.6 6.4 - 8.4 09/22 [facility] Protein [facility] CHEM PANEL ALT 102 0 - 65 09/[address] CHEM PANEL Albumin Lvl 2.3 3.5 - 5.0 09/22 [facility]2018 [facility] CHEM PANEL CO2 23 24 - 32 09/[address] CHEM PANEL Chloride Lvl 100 95 - 109 09/22 [facility]2018 [facility] CHEM PANEL Calcium Lvl 8.3 8.5 - 10.5 09/22 [facility] CHEM PANEL Bili Total 0.9 0.2 - 1.3 09/[address] CHEM PANEL B/C Ratio 26 6 - 25 09/[address] CHEM PANEL AGAP 13.5 10.0 - 09/22 [place] 20.0 [facility] CHEM PANEL Alk Phos 54 39 - 136 09/[address] CHEM PANEL AST 116 0 - 37 09/[address] CHEM PANEL Phosphorus 3.6 2.5 - 4.5 09/22 [facility]2018 [facility] CHEM PANEL Magnesium 2.3 1.8 - 2.4 09/22 [facility] /2018 [facility] HEMATOLOGY Hct 38.1 42.0 - 09/22 [place] 54.0 2019 [facility] HEMATOLOGY RBC 3.84 4.70 - 09/22 [place] 6.10 [facility] HEMATOLOGY Hgb 13.6 14.0 - 09/22 [place] 18.0 [facility] HEMATOLOGY WBC 7.2 3.7 - 10.4 09/[address] HEMATOLOGY MCV 99.3 80.0 - 09/22 [place] 94.0 [facility] HEMATOLOGY MCH 35.3 27.0 - 0218 [facility] 31.0 /2019 [facility] HEMATOLOGY Platelet 183 133 - 450 09/22 [facility] HEMATOLOGY MCHC 35.5 32.0 - 09/22 [facility] 36.0 /2018 [facility] HEMATOLOGY RDW 13.1 11.5 - 02 [facility] 14.5 /2018 [facility] HEMATOLOGY MPV 11.1 7.4 - 10.4 09/22 [facility]2018 [facility] HEMATOLOGY Basophils 0.5 0.0 - 1.0 09/22 [facility] /2018 [facility] HEMATOLOGY Lymphocytes 1.3 1.0 - 5.5 09/22 [facility] s # /2019 [facility] HEMATOLOGY Neutrophils 4.8 1.5 - 8.1 09/22 [facility] s # /2019 [facility] HEMATOLOGY Eosinophils 0.2 0.0 - 0.5 09/22 [facility] # /2018 [facility] HEMATOLOGY Monocytes # 0.8 0.0 - 0.8 09/22 [facility] /2018 [facility] HEMATOLOGY Monocytes 11.7 2.0 - 12.0 09/22 [facility] /2018 [facility] HEMATOLOGY Lymphocytes 18.1 20.0 - 09/22 [place] 40.0 [facility] HEMATOLOGY Eosinophils 2.8 0.0 - 4.0 09/22 [facility] s /2018 [facility] HEMATOLOGY Segs 66.9 45.0 - 09/22 [facility] 75.0 [facility] CARDIAC BNP 613 <=100 09/21 [facility] ENZYMES pg/mL [facility] CHEM PANEL Procalcitoni 0.21 0.00 - 09/21 [facility] n Lvl 0.10 [facility] CHEM PANEL Phosphorus 2.4 2.5 - 4.5 09/21 [facility] /2018 [facility] CHEM PANEL Magnesium 2.2 1.8 - 2.4 09/21 [facility] Lvl [facility] CHEM PANEL eGFR 78 09/21 [facility] Comment: The Medical eGFR is Center calculated using the CKD-EPI formula. In most young, healthy individuals the eGFR will be >90 mL/min/1.73m2 . The eGFR declines with age. An eGFR of 60-89 may be normal in some populations, particularly the elderly, for whom the CKD-EPI formula has not been extensively validated. Use of the eGFR is not recommended in the following populations:< br/>
Rylee viduals with unstable creatinine concentration s, including patients and those with serious co-morbid conditions.<b r/>
Patie nts with extremes in muscle mass or diet.

The data above are obtained from the National Kidney Disease Education Program (NKDEP) which additionally recommends that when the eGFR is used in patients with extremes of body mass index for purposes of drug dosing, the eGFR should be multiplied by the estimated BMI. CHEM PANEL Calcium Lvl 8.5 8.5 - 10.5 09/21 [facility] CHEM PANEL Chloride Lvl 100 95 - 109 09/21 [facility] s 2018 [facility] CHEM PANEL BUN 22 7 - 22 09/[address] CHEM PANEL Creatinine 0.97 0.50 - 09/21 [facility] Lvl 1.40 [facility] CHEM PANEL CO2 20 24 - 32 09/[address] CHEM PANEL Potassium 3.5 3.5 - 5.1 09/21 [facility] /2018 [facility] CHEM PANEL Sodium Lvl 132 135 - 145 09/[address] CHEM PANEL Glucose Lvl 118 70 - 99 09/[address] CHEM PANEL AGAP 15.5 10.0 - 09/21 [facility] 20.0 [facility] CHEM PANEL AST 96 0 - 37 09/[address] CHEM PANEL ALT 44 0 - 65 09/[address] CHEM PANEL Albumin Lvl 2.3 3.5 - 5.0 09/21 [facility]2018 [facility] CHEM PANEL Bili Total 0.9 0.2 - 1.3 09/[address] CHEM PANEL Alk Phos 53 39 - 136 09/[address] CHEM PANEL Bili Direct 0.1 0.0 - 0.3 09/[address] CHEM PANEL A/G Ratio 0.5 0.7 - 1.6 09/[address] CHEM PANEL Globulin 4.4 2.7 - 4.2 09/[address] CHEM PANEL Bili 0.8 0.0 - 1.0 09/21 [facility] Indirect [address] CHEM PANEL Total 6.7 6.4 - 8.4 09/21 [facility] [place] Protein /2018 [facility] HEMATOLOGY PTT 33.3 22.9 - 09/21 [place] 35.8 /2019 [facility] HEMATOLOGY PT 14.1 12.0 - 09/21 [place] 14.7 /2019 [facility] HEMATOLOGY INR 1.11 0.85 - 09/21 [place] 1.17 [facility] HEMATOLOGY MPV 11.0 7.4 - 10.4 09/21 /2018 [facility] HEMATOLOGY Platelet 154 133 - 450 09/21 [facility] HEMATOLOGY RDW 13.5 11.5 - 09/21 [place] 14.5 /2019 [facility] HEMATOLOGY Hct 40.8 42.0 - 09/21 [place] 54.0 /2019 [facility] HEMATOLOGY Hgb 14.0 14.0 - 09/21 [place] 18.0 /2019 [facility] HEMATOLOGY MCHC 34.3 32.0 - 09/21 [place] 36.0 /2019 [facility] HEMATOLOGY MCV 99.4 80.0 - 09/21 [place] 94.0 /2019 [facility] HEMATOLOGY MCH 34.1 27.0 - 09/21 [place] 31.0 /2019 [facility] HEMATOLOGY RBC 4.11 4.70 - 09/21 [place] 6.10 2019 [facility] HEMATOLOGY WBC 9.0 3.7 - 10.4 09/21 [facility] HEMATOLOGY Eosinophils 0.4 0.0 - 4.0 09/21 [facility] s /2018 [facility] HEMATOLOGY Lymphocytes 1.3 1.0 - 5.5 09/21 [place] # /2018 [facility] HEMATOLOGY Monocytes # 1.0 0.0 - 0.8 09/21 [facility] s [facility] HEMATOLOGY Basophils 0.2 0.0 - 1.0 09/21 [facility] HEMATOLOGY Lymphocytes 14.2 20.0 - 09/21 [place] 40.0 2019 [facility] HEMATOLOGY Neutrophils 6.7 1.5 - 8.1 09/21 [place] # /2018 [facility] HEMATOLOGY Monocytes 10.8 2.0 - 12.0 09/21 [facility] HEMATOLOGY Segs 74.4 45.0 - 09/21 [place] 75.0 /2019 [facility] CHEM PANEL eGFR 67 09/20 [facility] Comment: The Medical eGFR is Center calculated using the CKD-EPI formula. In most young, healthy individuals the eGFR will be >90 mL/min/1.73m2 . The eGFR declines with age. An eGFR of 60-89 may be normal in some populations, particularly the elderly, for whom the CKD-EPI formula has not been extensively validated. Use of the eGFR is not recommended in the following populations:< br/>
Rylee viduals with unstable creatinine concentration s, including patients and those with serious co-morbid conditions.<b r/>
Patie nts with extremes in muscle mass or diet.

The data above are obtained from the National Kidney Disease Education Program (NKDEP) which additionally recommends that when the eGFR is used in patients with extremes of body mass index for purposes of drug dosing, the eGFR should be multiplied by the estimated BMI. CHEM PANEL Calcium Lvl 8.2 8.5 - 10.5 09/20 [facility] CHEM PANEL Potassium 3.4 3.5 - 5.1 09/20 [facility] CHEM PANEL Chloride Lvl 96 95 - 109 09/20 [facility] CHEM PANEL CO2 20 24 - 32 09/[address] CHEM PANEL AGAP 16.4 10.0 - 09/20 [facility] 20.0 [facility] CHEM PANEL Glucose Lvl 151 70 - 99 09/[address] CHEM PANEL BUN 19 7 - 22 09/[address] CHEM PANEL Creatinine 1.10 0.50 - 09/20 [facility] Lvl 1.40 [facility] CHEM PANEL Sodium Lvl 129 135 - 145 09/[address] HEMATOLOGY Macrocyte 1+ None Seen 09/20 [facility] *ABN* /2018 [facility] (09/20/18 2:08 PM) [place] HEMATOLOGY Plt Morph See Note 1 09/20 Result [facility] (09/20/18 2:08 PM) Comment: Due M edical to Center occassional clumps, the actual count may be slightly higher. HEMATOLOGY Monocytes # 0.7 0.0 - 0.8 09/20 [facility] /2018 [facility] HEMATOLOGY Lymphocytes 0.9 1.0 - 5.5 09/20 [facility] s # [facility] HEMATOLOGY Neutrophils 9.5 1.5 - 8.1 09/20 [facility] # /2018 [facility] HEMATOLOGY Basophils 0.4 0.0 - 1.0 09/20 [facility] HEMATOLOGY Eosinophils 0.1 0.0 - 4.0 09/20 [facility] HEMATOLOGY Monocytes 6.0 2.0 - 12.0 09/20 [facility]2018 [facility] HEMATOLOGY Lymphocytes 8.4 20.0 - 09/20 [facility] 40.0 [facility] HEMATOLOGY Segs 85.1 45.0 - 09/20 [facility] 75.0 [facility] HEMATOLOGY RBC 4.16 4.70 - 09/20 [place] 6.10 2019 [facility] HEMATOLOGY Hgb 14.5 14.0 - 09/20 [facility] 18.0 [facility] HEMATOLOGY WBC 11.2 3.7 - 10.4 09/20 [facility]2018 [facility] HEMATOLOGY Platelet 171 133 - 450 09/20 [facility]2018 [facility] HEMATOLOGY MPV 10.9 7.4 - 10.4 09/20 [facility]2018 [facility] HEMATOLOGY RDW 13.0 11.5 - 09/20 [facility] 14.5 [facility] HEMATOLOGY MCH 34.9 27.0 - 09/20 [facility] 31.0 2019 [facility] HEMATOLOGY MCHC 34.7 32.0 - 09/20 [facility] 36.0 2019 [facility] HEMATOLOGY Hct 41.8 42.0 - 09/20 [facility] 54.0 2019 [facility] HEMATOLOGY MCV 100.5 80.0 - 09/20 [facility] 94.0 [facility] CHEM PANEL Bili Direct 0.2 0.0 - 0.3 09/20 [facility] CHEM PANEL Bili Total 1.2 0.2 - 1.3 09/20 [facility]2018 [facility] CHEM PANEL Bili 1.0 0.0 - 1.0 09/20 [facility] CHEM PANEL Globulin 4.1 2.7 - 4.2 09/[address] CHEM PANEL A/G Ratio 0.6 0.7 - 1.6 09/[address] CHEM PANEL Albumin Lvl 2.4 3.5 - 5.0 09/20 [facility]2018 [facility] CHEM PANEL Alk Phos 47 39 - 136 09/[address] CHEM PANEL ALT 37 0 - 65 09/[address] CHEM PANEL Total 6.5 6.4 - 8.4 09/20 [facility] Protein [facility] CHEM PANEL AST 109 0 - 37 09/20 [place] [facility] CARDIAC BNP 783 <=100 09/20 [facility] ENZYMES pg/mL [facility] CHEM PANEL Lactic Acid 1.6 0.5 - 2.2 09[place] [facility] CHEM PANEL Procalcitoni 0.16 0.00 - 09/20 [facility] n Lvl 0.10 [facility] CARDIAC BNP 514 <=100 09/19 [facility] ENZYMES pg/mL /2018 [facility] CHEM PANEL Procalcitoni 0.13 0.00 - 09/19 [facility] n Lvl 0.10 [facility] IMMUNOLOGY Hep C Ab Negative 09/19 [place] *NA* [facility] (09/19/18 5:03 PM) [place] IMMUNOLOGY Hep B Core Negative Negative 09/19 [facility] IgM *NA* [facility] (09/19/18 5:03 PM) Center IMMUNOLOGY Hep A IgM Negative Negative 09/19 [facility] *NA* [facility] (09/19/18 5:03 PM) Center IMMUNOLOGY Hep Bs Ag Negative Negative 09/19 [facility] *NA* [facility] (09/19/18 5:03 PM) Center CHEM PANEL Phosphorus 2.6 2.5 - 4.5 09/19 [facility] CHEM PANEL Magnesium 2.0 1.8 - 2.4 09/19 [facility] HEMATOLOGY INR 1.09 0.85 - 09/19 [facility] 1.17 [facility] HEMATOLOGY PT 13.9 12.0 - 09/19 [facility] 14.7 [facility] HEMATOLOGY PTT 33.0 22.9 - 09/19 [facility] 35.8 [facility] HEMATOLOGY Macrocyte 1+ None Seen 09/19 [facility] *ABN* Medical (09/19/18 12:07 AM) Cente r HEMATOLOGY Basophils # 0.1 0.0 - 0.2 09/19 [facility] s [facility] PARATHYROID Ca Ion WB 1.08 1.05 - 09/19 [place] PROFILE . [facility] PARATHYROID Ca Norm WB 1.11 1.05 - 09/19 [facility] PROFILE 08.29 [facility] CHEM PANEL Bili Direct 0.1 0.0 - 0.3 09/18 [facility] s [facility] CHEM PANEL Bili 0.6 0.0 - 1.0 09/18 [facility] Indirect [facility] PARATHYROID Ca Norm WB 1.14 1.05 - 09/18 [facility] PROFILE 08.29 [facility] PARATHYROID Ca Ion WB 1.14 1.05 - 09/18 [facility] PROFILE 08.29 [facility] CHEM PANEL LDH 650 98 - 192 09/18 [facility]2018 [facility] CHEM PANEL B/C Ratio 16 6 - 25 09/18 [facility] /2018 [facility] LIPIDS VLDL 26 09/18 [facility] LIPIDS Chol 164 <=199 09/18 [facility] mg/dL [facility] LIPIDS HDL 81 >=61 mg/dL 09/18 [facility] LIPIDS LDL 57 <=99 mg/dL 09/18 [facility] (Calculated) [facility] LIPIDS Trig 129 <=149 09/18 [facility] mg/dL [facility] LIPIDS CHD Risk 2.02 4.00 - 09/18 [facility] 7.30 [facility] SPECIAL Hgb A1C 5.9 <=5.6 % 09/18 [facility] CHEMISTRY [facility] BLOOD BANK Antibody Negative 09/17 [facility] RESULTS Scrn (09/17/18 12:57 PM) [facility] BLOOD BANK ABO/Rh O POS 09/17 [facility] RESULTS /2018 [facility] HEMATOLOGY PTT >200 22.9 - 09/17 Result [facility] seconds 35.8 /2019 Comment: [facility] Result(s) called to Nani Mccollum at 09/17/2018 14:14 byJP. Read back OK. HEMATOLOGY PT 14.7 12.0 - 09/17 [facility] 14.7 [facility] HEMATOLOGY INR 1.17 0.85 - 09/17 [place] 08.21 [facility] PARATHYROID Ca Ion WB 1.07 1.05 - 09/17 [facility] PROFILE 08.29 [facility] PARATHYROID Ca Norm WB 1.04 1.05 - 09/17 [facility] PROFILE 08.29 [facility] Pathology Reports No Data Provided for This Section Diagnostic Reports Report Value Date Source Ext Lower Arterial EXAM: US RIGHT LOWER EXTREMITY ARTERIAL DOPPL ER 12/25/2018 [facility] [place] Doppler unilat US DATE: 12/25/2018 11:20 CDT INDICATION: - EDEMA RIGHT GROIN ADDITIONAL INFORMATION: None. COMPARISON: None. TECHNIQUE: Multiplanar jose a tavia, color Doppler and spectral Doppler ultrasound of the right lower extremity arteries. FINDINGS: Atherosclerotic plaque is se en without any focal areas of narrowing or significantly increased velocities to indicate hemodynamically significant stenosis. Right Extremity Waveforms: Common Femoral Artery: Normal velocity. Triphasi c. Profunda Femoral Artery: Normal velocity. Tripha sic. Superficial Femoral Artery: Normal velocity. Tri phasic. Popliteal Artery: Normal velocity. Triphasic. Posterior Tibialis Artery: N ormal velocity. Monophasic with sharp upstrokes proximally, but more restricted flow distally. Anterior Tibialis Artery: Normal velocity. Monop hasic sharp upstrokes. Dorsalis Pedis Artery: Normal velocity. Triphasi c. Other: None. IMPRESSION: Right posterior tibialis mon ophasic waveforms with some restriction of flow distally. If the patient has symptoms of claudication, rest pain or non-healing wounds, further evaluation by the Intervention al Radiology division at [facility] is recommended for possible endovascular treatment. Ext Lower Venous Clinical Indication: - pain in limb. 9 [facility] Doppler Bilat US Comparison: None. TECHNIQUE: Sonographic evaluation of th e bilateral lower extremity veins was performed using high resolution B-mode imaging, along with pulse and color Doppler imaging. FINDINGS: Right lower extremity: The common femoral vein, sup erficial femoral vein, popliteal vein and visualized posterior tibial/calf veins are patent. There is no echogenic debris to suggest deep matthew ous thrombosis. The saphenofemoral junction is unremarkable. Left lower extremity: The common femoral vein, sup erficial femoral vein, popliteal vein and visualized posterior tibial/calf veins are patent. There is no echogenic debris to suggest deep matthew ous thrombosis. The saphenofemoral junction is unremarkable. IMPRESSION: 1. No deep venous thrombosis of bilateral lower extremities. REFERENCE: Deep veins include: common f emoral vein, superficial femoral vein (also can be referred to as 'femoral vein'), popliteal vein, posterior tibial vein Superficial veins include: greater and lesser sa phenous veins SL: MARU-M Chest 1view DX EXAM: XR CHEST 1 VIEW 12/12/2018 [facility] edical DATE: 12/12/2018 12:52 CDT Center INDICATION: Arrhythmias - Post TAVR COMPARISON: 09/21/2018 TECHNIQUE: AP chest. FINDINGS: Postsurgical changes followi ng TAVR. The cardiomediastinal silhouette is stable in size. No pleural effusions are pneumothorax. Mild bibasilar subsegmental atelectasis. IMPRESSION: 1. Postsurgical changes following TAVR. 2. Mild bibasilar subsegmental atelectasis. Chest/Abd/Pelvis TAVR EXAM: VIR CT angiogram thora x abdomen and pelvis. TAVR protocol 11/20/2018 [facility] CTA INDICATION: 73 years old Male with aortic stenos is Center TECHNIQUE: Following the adm inistration of intravenous contrast, 3 mm slices from the thoracic inlet through the pubic symphysis were obtained in arterial phase. Images are reviewed on 3D workstation. COMPARISON: None FINDINGS: Vascular Measurements: Ascending aorta: 39 mm x 40 mm Aortic arch: 31 mm Mid-descending thoracic aorta: 25 mm x 26 mm Aorta at diaphragm: 22 mm x 22 mm Aorta at celiac axis: 23 mm x 21 mm Aorta at superior mesenteric artery: 12 mm x 16 mm Mid-infrarenal aorta: 12 mm x 16 mm Right common iliac artery: 8 mm x 9 mm Right external iliac artery: 8 mm x 10 mm Right common femoral artery: 11 mm x 10 mm Left common iliac artery: 7 mm x 7 mm Left external iliac artery: 8 mm x 9 mm Left common femoral artery: 11 mm x 9 mm Right subclavian artery: 13 mm x 40 mm Left subclavian artery: 10 mm x 12 mm Calcific scores: Ascending aorta: 1 Aortic arch: 1 Descending thoracic aorta: 1 Aorta at diaphragm: 2 Suprarenal abdominal aorta: 3 Infrarenal abdominal aorta: 3 0 :none 1 :punctate calcifications 2 : <50% of vessel circumference is confluent ca lcification 3 : >50% of vessel circumference is confluent ca lcification Other vascular findings: Inc identally noted, the common hepatic artery arises from the superior mesenteric artery. Minimal subsegmental atelect asis is seen in the dependent portion of the lungs. There is a calcified granuloma in the left upper lobe. Bilateral predominantly subpleural <4 mm nodules noted. The heart is enlarged. There is a small pericardial effusion. Three-vessel coronary artery disease is present. For other findings within the heart, please refer to same date CT A heart/coronary arteries. Calcifications are seen at the aortic root. No thoracic lymphadenopathy. The liver, pancreas, gallbla dder, and adrenal glands are unremarkable. Multiple punctate chronic calcifications. Nonspecific subcentimeter le ft lower pole low-density lesion (22/50) too small to characterize. No hydronephrosis. The small and large bowel ar e normal in caliber. There is extensive diverticulosis without CT evidence of diverticulitis in the rectosigmoid colon. The prostate is enlarged and causes mass effect on the bladder. Minimal degenerative changes are seen within the spine. Hernia mesh repair is seen in the right lower qu adrant. Impression: 1. CTA performed for TAVR planning, with measur ements as indicated above. 2. Cardiomegaly with trace pericardial effusion . 3. Prostatomegaly with mass effect on the bladd er. 4. Diverticulosis of the rectosigmoid colon. 5. Bilateral predominantly subpleural <4 mm nod ules noted. I have reviewed these images and agree with the above findings. Heart/coronary art EXAM: CTA HEART WITH CONTRAST 11/20/2018 [facility] TAVR CTA DATE: 11/20/2018 8:18 CDT Center INDICATION: TAVR workup. Aortic stenosis COMPARISON: No available prior cardiac CTA for c omparison. TECHNIQUE: Contrast imaging was perform ed on a [employer] [address] scanner utilizing a single breath hold, at 760 mA and 100 kVp. Retrospective ECG gating was performed, at a heart rate of 70 bpm. Images were reformatted at 0.5 mm i ntervals and sent to the [employer] workstation for interpretation of both systolic and diastolic phases. IV contrast: 65 mL of Omnipa que 350 contrast was delivered intravenously at 5 mL/sec followed by a 50 mL normal saline bolus chaser. DLP: 257 mGy-cm STUDY QUALITY: Good FINDINGS: Aortic root landmarks (dimensions determined in systolic phases) Aortic valve: Trileaflet: as ymmetricallycalcified; bulky leaflet: No; right/left/noncoronary Aortic annulus: 32 x 27 mm; average 29 m m; area 6.4 sq cm; circumference 92 mm Sino-tubular junction: 36 x 34 mm; average 35 mm Ao annulus to coronary height: left main: 15 mm; right: 19 mm Ao annulus to STJ length: 23 mm Sinuses of Valsalva: width 36 mm Ascending aorta width at 40 mm from annulus: 38 mm Descending thoracic aorta: width: 24 mm Coplanar TAVR angle: TIJERINA 16 and CAUDAL 12 Coronary Arteries: This patient has a right dom inant system, with normal origins of the coronary arteries. Moderate calcifications are seen along the 3 coronary arteries. Further evaluation of the different stenotic segme nt cannot be adequately perf ormed mid as the study is not tailored for dedicated coronary artery evaluation. Correlation with coronary cath is recommended if clinically indicated Basal septal hypertrophy: Yes Severe hypertrophy (1.5 cm wall thickness): Yes, 1.6 cm Intracardiac masses: None. Other cardiac findings: Pacemaker: None. Artificial valve: No; Location: N/A Intracardiac closure device: No Trace pericardial effusion/pericardial thickenin g. Left ventricular function: Left ventricular ejection fraction: 32% Left ventricular end-diastolic volume: 166 mL Left ventricular end-systolic volume: 114 mL Left ventricular stroke volume: 52 mL IMPRESSION: 1. Trileaflet asymmetricall y calcified aortic valve and with aortic annular measurements as described above. 2. Moderately depressed left ventricular functi on with LVEF of 32%. 3. Moderate calcifications are seen along the 3 coronary arteries. Chest 1view DX EXAM: XR CHEST 1 VIEW 09/21/2018 [facility] edical DATE: 09/21/2018 7:25 AM [facility] Cent er INDICATION: - dyspnea COMPARISON: 09/20/2018 TECHNIQUE: AP chest. FINDINGS: There is interval improvemen t of bilateral patchy opacities with left lung predominance that may represent asymmetric edema, aspiration or multifocal pneumonia. Stable trace left pleural effusion. No pneumothorax. Stable enlarged cardiac mediastinal silhouette. IMPRESSION: 1. Interval improvement of bilateral patchy opacities with left lung predominance that may represent asymmetric edema, aspiration or multifocal infection. Chest 1view DX EXAM: XR CHEST 1 VIEW 09/20/2018 [facility] edical DATE: 09/20/2018 5:36 AM [facility]CRIPT PROGRAMMER Cent er INDICATION: - hypoxia COMPARISON: 09/19/2018 TECHNIQUE: AP chest. FINDINGS: Stable cardiomediastinal silhouette. Increased bilateral patchy o pacities with left lung predominance may represent asymmetric edema, aspiration or multifocal pneumonia. Trace left pleural effusion. No pneumothorax. IMPRESSION: 1. Increased bilateral patc hy opacities with left lung predominance may represent asymmetric edema, aspiration or multifocal pneumonia. Trace left pleural effusion. Abdomen RUQ US EXAM: US ABDOMEN LIMITED 09/19/2018 [facility] DATE: 09/19/2018 9:05 [employer] PROGRAMMER Center INDICATION: - evaluate for liver disease ADDITIONAL INFORMATION: None. COMPARISON: None. TECHNIQUE: Multiplanar jose a tavia and color Doppler ultrasound of the right upper quadrant. FINDINGS: Liver: Craniocaudal length: 16 cm. Echogenicity: Normal. Surface nodularity: Normal. Mass (size and location): None. Portal vein: Normal. Bile ducts: Common bile duct diameter: 0.7 cm. Intrahepatic ducts: Normal. Gallbladder: Gallstones: None. Gallbladder sludge: None. Gallbladder wall: 0.2 cm. Pericholecystic fluid: None. Sonographic Correa sign: Absent. Pancreas: Head and uncinate process: Normal. Body and tail: Not seen. Spleen: Craniocaudal length: 7.5 x 3.0 x 3.5 cm. Mass or focal lesion (size and location): None . Right kidney: Hydronephrosis: None. Size: 10.4 x 6.1 x 5.9 cm. Echogenicity: Normal. Mass/Stone/Cyst (size and location): None. Ascites: None. IMPRESSION: 1. Normal abdominal ultrasound. Chest 1view DX EXAM: XR CHEST 1 VIEW 09/19/2018 [facility] DATE: 09/19/2018 8:56 JAVASCRIPT PROGRAMMER Center INDICATION: - hypoxia COMPARISON: 09/17/2017 TECHNIQUE: AP chest. FINDINGS: Stable cardiac mediastinal silhouette. Trace left pleural effusion. Increased patchy opacities t hrough the left lung may represent infectious/inflammatory etiology such as pneumonia or aspiration or asymmetric edema. No pneumothorax. IMPRESSION: 1. Increased patchy opacities through the left lung. Chest 1 v for FINDINGS: 2 AP semierect vie ws of the chest are submitted without a prior study for comparison. 09/17/2018 [facility] DX The heart is not enlarged. T he lower lobe platelike atelectasis. No pleural effusions. Scattered thoracic spine osteophytes. Center IMPRESSION: Left lower lobe platelike atelectasi s. Consultation Notes No Data Provided for This Section Discharge Summaries No Data Provided for This Section History and Physicals No Data Provided for This Section Vital Signs Vital Sign Value Date Comments Source Systolic (mm Hg) 121 10/05/2019 [facility] dical [place] Diastolic (mm Hg) 77 10/05/2019 [facility] Heart Rate 65 10/05/2019 [facility] [place] [facility] Respitory Rate 18 10/05/2019 [facility] gianni Center Temperature Oral (F) 97.7 F 10/05/2019 [facility] Height 180.34 cm 10/05/2019 [facility] Weight 76.108 10/05/2019 [facility] BMI Calculated 23.4 10/05/2019 [facility] gianni Center Systolic (mm Hg) 115 06/15/2019 [facility] dical Center Diastolic (mm Hg) 70 [facility] 69 06/15/2019 [facility] Respitory Rate 18 06/15/2019 [facility] Center Temperature Oral (F) 98.0 F 06/15/2019 [facility] Height 180.09 cm 06/15/[facility] Weight 74.545 06/15/2019 [facility] BMI Calculated 22.98 06/15/2019 [facility] Center Systolic (mm Hg) 118 04/20/2019 [facility] dical Center Diastolic (mm Hg) 68 04/20/2019 [facility] Center Heart Rate 61 04/20/2019 [facility] Center Respitory Rate 18 04/20/2019 [facility] Center Temperature Oral (F) 98.0 F 04/20/2019 [facility] Height 180.34 cm 04/20/2019 [facility] Weight 73.665 04/20/2019 [facility] BMI Calculated 22.65 04/20/2019 [facility] BMI Calculated 23.28 01/12/2019 [facility] Center Weight 75.5 01/12/2019 [facility] Height 180.09 cm 01/12/2019 [facility] Respitory Rate 18 01/12/2019 [facility] Center Temperature Oral (F) 97.8 F 01/12/2019 [facility] Heart Rate 66 01/12/2019 [facility] Center Systolic (mm Hg) 109 01/12/2019 [facility]ical Center Diastolic (mm Hg) 65 01/12/2019 [facility] edical Center BMI Calculated 22.94 12/22/2018 [facility] Center Weight 74.409 12/22/2018 [facility] Height 180.09 cm 12/22/[facility] Respitory Rate 18 12/22/2018 [facility] Heart Rate 63 12/22/[facility] Temperature Oral (F) 98.3 F 12/22/2018 [facility] Systolic (mm Hg) 110 12/22/2018 [facility] dical Center Diastolic (mm Hg) 72 12/22/2018 [facility] edical Center Temperature Oral (F) 98.0 F 12/19/2018 [place] Heart Rate 65 12/19/2018 [place] Respitory Rate 17 12/19/2018 [place] Systolic (mm Hg) 125 12/19/2018 [place] Diastolic (mm Hg) 71 12/19/2018 [place] Heart Rate 62 12/18/2018 [facility] Temperature Oral (F) 97.7 F 12/18/2018 [place] Respitory Rate 18 12/18/2018 [place] Systolic (mm Hg) 129 12/18/2018 [place] Diastolic (mm Hg) 74 12/18/2018 [place] Systolic (mm Hg) 115 12/18/2018 [place] Diastolic (mm Hg) 68 12/18/2018 [place] Respitory Rate 18 12/18/2018 [place] Heart Rate 75 12/18/2018 [facility] Temperature Oral (F) 97.6 F 12/18/2018 [facility] Height 182.88 cm 12/18/2018 [facility] BMI Calculated 22.42 12/18/2018 [place] Weight 75 12/18/2018 [place] Respitory Rate 20 12/13/2018 [facility] Center Systolic (mm Hg) 122 12/13/2018 [facility] dical Center Diastolic (mm Hg) 68 12/13/2018 [facility] edical Center Respitory Rate 16 12/13/2018 [facility] Center Systolic (mm Hg) 109 12/13/2018 [facility] dical Center Diastolic (mm Hg) 56 12/13/2018 [facility] edical Center Systolic (mm Hg) 126 12/13/2018 [facility] dical Center Diastolic (mm Hg) 58 12/13/2018 [facility] edical Center Respitory Rate 17 12/13/2018 [facility] Temperature Oral (F) 97.6 F 12/13/2018 [facility] Temperature Oral (F) 98.5 F 12/13/2018 [facility] Center Temperature Oral (F) 97.8 F 12/13/2018 [facility] Center BMI Calculated 22.29 12/12/2018 [facility] Center Weight 74.545 12/12/2018 [facility] Height 182.88 cm 12/12/[facility] BMI Calculated 23.83 11/20/2018 [facility] Weight 77.273 11/20/2018 [facility] Height 180.09 cm 11/20/2018 [facility] Heart Rate 73 11/20/[facility] Respitory Rate 18 11/20/2018 [facility] Center Systolic (mm Hg) 103 11/20/2018 [facility] dical Center Diastolic (mm Hg) 69 11/20/2018 [facility] Temperature Oral (F) 97.1 F 11/20/2018 [facility] Height 182.88 cm 11/20/[facility] Weight 77.273 11/20/[facility] BMI Calculated 23.1 11/20/2018 [facility] Center Height 182.88 cm 11/03/2018 [facility] BMI Calculated 23.38 11/03/2018 [facility] Center Weight 78.182 11/03/2018 [facility] Heart Rate 74 11/03/2018 [facility] Respitory Rate 18 11/03/2018 [facility] Temperature Oral (F) 98.3 F 11/03/2018 [facility] Center Systolic (mm Hg) 107 11/03/2018 [facility] dical Center Diastolic (mm Hg) 66 11/03/2018 [facility] Center BMI Calculated 22.59 09/29/2018 [facility] Center Weight 75.54 09/29/2018 [facility] Height 182.88 cm 09/29/2018 [facility] Respitory Rate 18 09/29/2018 [facility] Center Temperature Oral (F) 97.3 F 09/29/2018 [facility] Heart Rate 76 09/29/2018 [facility] Center Systolic (mm Hg) 96 09/29/2018 [facility] dical Center Diastolic (mm Hg) 61 09/29/2018 [facility] edical Center Respitory Rate 16 09/22/2018 [facility] Center Systolic (mm Hg) 97 09/22/2018 [facility] d[facility] Center Diastolic (mm Hg) 61 [facility] Oral (F) 98.9 F 09/22/2018 [facility] Systolic (mm Hg) 101 09/22/2018 [facility] dical Center Diastolic (mm Hg) 59 09/22/2018 [facility] edical Center Respitory Rate 16 09/22/2018 [facility] Center Respitory Rate 18 09/22/2018 [facility] Center Systolic (mm Hg) 89 09/22/2018 [facility] dical Center Diastolic (mm Hg) 54 09/22/2018 [facility] Temperature Oral (F) 99.4 F 09/22/2018 [facility] [facility] Height 182.88 cm 09/22/2018 [facility] Temperature Oral (F) 98.2 F 09/22/2018 [facility] BMI Calculated 23.78 09/17/2018 [facility] Weight 79.545 09/17/2018 [facility] Height 182.88 cm 09/17/2018 [facility] Encounters Location Location Encounter Encounter Reason Attending ADM [place] Stat Source Details Type Number For Provider Date Date Visit AUDIT [id number] 02/17 /2012 [facility] AUDIT [id number] 02/19 /2012 [facility] EP1, [id number] 06/12 02/19 [place] Provider: Jacobo Garvey olyn, Status: Pen, Time: 8:50 AM AUDIT [id number] 10/09 /2013 [facility] AUDIT [id number] 10/16 /2013 Phys[facility] AUDIT [id number] 10/28 /2013 [facility] EP1, [id number] 01/08 10/28 [place] Provider: Jacobo Garvey olyn, Status: Pen, Time: 9:00 AM [facility] [id number] Velasquez 09/17 09/22 [facility] [id number] Marwan 09/29 09/30 [facility] [place] [facility] Advanced [facility] Outpatient [id number] Octwan 10/24 10/25 [facility] [place] [facility] [id number] Marwan 11/03 11/04 [facility] Advanced [facility] Outpatient [id number] Octwan 11/20 11/21 [facility] [place] [facility] [id number] Biswajit 12/12 12/13 [facility] Edy [facility] Emergency [id number] Meka Barbie 12/18 12/19 [facility] /2018 [facility] Outpatient [id number] Biswajit 12/22 12/23 [facility] Advanced Heart Failure [facility] Outpt Diag [id number] jit 12/25 12/26 [facility] for Outpatient [id number] Biswajit 01/12 01/13 [facility] Medical Failure [facility] Outpatient [id number] Octwan 04/20 04/21 [facility] Advanced [facility] Outpatient [id number] Marwan 06/15 06/16 [facility] Outpatient [id number] Octwan 10/04 10/05 [facility] Failure [facility] for [facility] [id number] Octwan 12/31 01/01 [facility] Procedures Procedure Code Date Perfomer Comments Source Bilateral inguinal [id number] Cristi as hernia repair [facility] [place] Cardiac [id number] [facility] catheterisation, Medical left heart Center, [facility] [place] Replacement of right [id number] [facility] ex knee joint [facility] Reconstruction of [id number] Teresa lucila ligament of knee Medical joint Center, Eric, EULOGIO High Assessment and Plan Assessment and Plan Date Source Extracted from:Title: AHF progress note 12/13/2018 [facility] Author: Radha Houston Date: 12/13/18 Impression and Plan Mr. Real is a pleasant 73 year-old gen tleman with past medical history significant for severe aortic stenosis, hypertension, hyperlipidemia and coronary artery disease with recent STEMI s/p PCI to pro ximal LAD on 09/17/18. He is s/p TAVR on 12/12/2018. #Severe aortic stenosis s/p TAVR 12/12/2018 - pre TAVR TTE hemodynamics: peak veloci ty of the AV is 4.01 m/sec, mean gradient of 40mmHg and VITOR, by VTI's, is calculated at 0.58cm2 - patient with some concern for expandin g hematoma of the right groin. S/p fem stop, currently appears stable. hemoglobin stable. - start heparin DVT prophylaxis from tomorrow morning, SCDs for now. - Transthoracic echocardiogram - reviewed. - ASA 81 mg po qday - Cardio-pulmonary rehabilitation after hospital discharge. #Coronary artery disease s/p PCI to proximal LAD on 09/17/18 - Continue DAPT, uninterrupted for at least 1 year. - Continue statin and beta garrett therapy. - continue with cardiac rehab. #Systolic heart failure - Compensated on exam today off diuretics. - slight decline in LVEF to 30-35%, continue beta blockade. #Hypertension - Well controlled, continue current regimen. #Hyperlipidemia - Continue statin therapy. discharge home today Extracted from:Title: Clinical Document Author: Kenan Montes MD Date: 12/12/18 DATE OF OPERATION/PROCEDURE: 12/12/18 *_*_* CARDIOVASCULAR SURGEON: Kenan Willingham M.D. INTERVENTIONAL CARDIOLOGY ATTENDING Frieda Snow M.D. PROCEDURES PERFORMED: 1. Antiembolic device placement. 2. Temporary transvenous pacemaker insertion. 3. Aortic root angiogram. 4. Transcatheter aortic valve replaceme nt with a 29 mm Elier 3 valve via right common femoral artery. 5. Peripheral angiography. 6. Right common femoral arteriotomy closure with a ProGlide closure device. INDICATIONS FOR THE PROCEDURE: Patient is a 73 y/o female with severe s ymptomatic and intermediate risk for SAVR PREOPERATIVE DIAGNOSIS: Severe symptomatic aortic stenosis. POSTOPERATIVE DIAGNOSIS: Severe symptomatic aortic stenosis. PROCEDURE IN DETAIL: The patient was brought to the cardiac c atheterization laboratory suite. Patient was placed in supine position. Sedation was provided and monitored by anesthesia team, and patient was prepped and drap ed in the usual sterile fashion. The ma in vascular access was the right common femoral artery. Please see [employer] note for further details. Basically, after rapid ventricular paci ng, a 29 mm Davis ELIER S3 valve, serial [id number] was depl oyed. I was present and available for the enti re procedure and after the Davis sheath was removed, they successfully closed the right common femoral artery with a ProGlide device. The peripheral angiograp hy showed patency of femoral artery and SFA with no extravasation. After the procedure, the patient was transferred to ICU in good condition. ESTIMATED BLOOD LOSS: 20 mm COMPLICATIONS: None. ATTESTATION: there was no resident of [facility] qualified for this procedure for the cardiovascular surgery portion. POSTOPERATIVE INSTRUCTIONS: Transferred to PACU for postoperative care. Extracted from:Title: Preoperative H&P: HF Surgery 9 [facility] Author: Harmony Toure Date: 11/20/18 73 y/o WM with hypertension, hyp derlipidemia, coronary artery disease with recent STEMI s/p PCI to proximal LAD on 09/17/18 (now on DAPT with ASA and Brillinta), new onset systolic heart failure (EF 30-35%), and aortic stenosis who was referred to our clinic by Dr. Stout for evaluation forTAVR vs SAVR. -Patient seen by and discussed with Dr. Zayas. -Patient is a better candidate for TAVR than SAVRgiven recent STEMI with DAMIR to LAD on dual antiplatelet therapy that should not be held for at least 1 year after stent placement, new onset systolic he art failure, and as he failed 2 of the f railty tests. Patient aware and agrees with this plan. -Details of the surgery/procedure inclu ding risks and benefits of TAVR versus SAVR have been explained to the patient. Discussion regarding anticoagulation, renal failure, respiratory failure, need for pacemaker/ICD, stroke, infection, bleed ing, and possibility of even were discussed in detail.Risk of surgical cutdown, alternative access, and emergent sternotomy were also discussed. Patient&apo s;s questions were all answered and were understood. TAVR coordinator will ensure we have a ll necessary diagnostic studies per protocol prior to scheduling for TAVR including but not limited to: CBC, CMP, TTE, PFTs, CTA chest/abdomen/pelvis, and CT with contrast heart. STS Risk Score (Isolated AVR) Case Timestamp: 2018 Mortality Risk: 1.696% Any Morbidity or Mortality Risk: 14.481% Long LOS Risk: 5.176% Short LOS Estimate: 43.419% Permanent Stroke Risk: 0.943% Prolonged Ventilation Risk: 8.239% Deep Sternal Wound Infection Risk: 0.431% Renal Failure Risk: 2.787% Reoperation Risk: 7.220% -Lao: No Aortic Insufficiency: Mild Aortic Stenosis: Yes Arrhythmia: No : No Atrial fib/flutter: NA CHF: Yes CVA When: NA Cardiogenic Shock: No Cerebrovascular Disease: No Chronic Lung Disease: Mild Creatinine: 0.85 mg/dl Diabetes: No Diabetes Control: NA Dialysis: No EF: 30 Endocarditis: No Endocarditis Type: NA Female: No Height: 182 cm : No Hypertension: Yes IABP: No IABP When: NA Immunosuppression: No Incidence: First Operation Left Main Disease: No IN: No IN When: NA Mitral Insufficiency: Mild Mitral Stenosis: No NYHA Class: I Number of Diseased Vessels: 0 PCI When: > 6 hours Patient Age: 73 Peripheral Vascular Disease: No Preoperative Inotropes: No Previous CABG: No Previous PCI: Yes Previous Valve: No Prior CVA: NA Procedure: Aortic Valve Replacement Resuscitation: No Status: Elective Tricuspid Insufficiency: Trivial Weight: 77 kg Addendum by Harmony Toure on 11/20/2018 16:14 CDT Corrected STS Risk Score (Isolated AVR) Case Timestamp: November Mortality Risk: 1.696% Any Morbidity or Mortality Risk: 14.481% Long LOS Risk: 5.176% Short LOS Estimate: 43.419% Permanent Stroke Risk: 0.943% Prolonged Ventilation Risk: 8.239% Deep Sternal Wound Infection Risk: 0.431% Renal Failure Risk: 2.787% Reoperation Risk: 7.220% -Lao: No Aortic Insufficiency: Mild Aortic Stenosis: Yes Arrhythmia: No : No Atrial fib/flutter: NA CHF: Yes CVA When: NA Cardiogenic Shock: No Cerebrovascular Disease: No Chronic Lung Disease: Mild Creatinine: 0.85 mg/dl Diabetes: No Diabetes Control: NA Dialysis: No EF: 30 Endocarditis: No Endocarditis Type: NA Female: No Height: 182 cm : No Hypertension: Yes IABP: No IABP When: NA Immunosuppression: No Incidence: First Operation Left Main Disease: No IN: Yes IN When: > 21 days Mitral Insufficiency: Mild Mitral Stenosis: No NYHA Class: II Number of Diseased Vessels: 0 PCI When: > 6 hours Patient Age: 73 Peripheral Vascular Disease: No Preoperative Inotropes: No Previous CABG: No Previous PCI: Yes Previous Valve: No Prior CVA: NA Procedure: Aortic Valve Replacement Resuscitation: No Status: Elective Tricuspid Insufficiency: Trivial Weight: 77 kg Plan of Care No Data Provided for This Section Social History Social History Date Source Social History TypeResponse 11/20/2018 E[facility]OG[facility] espinosa Substance Abuse Use: None. Alcohol Past, Type Beer, Wine, Liquor. Frequenc y: Daily. Alcohol use interferes with work or home: No. Drinks more than intended: No. Others hurt by drinking: No. Ready to change: Yes. Household alcohol concerns: No. Smoking Status Former smoker; Type: Cigarettes; Exposur e to Tobacco Smoke None; Cigarette Smoking Last 365 Days No; Reg Smoking Cessation Counseling No; Started at age: 42.0; Stopped at age: 67; entered on: 12/22/18 Social History TypeResponse 11/20/2018 [place] Substance Abuse Use: None. Alcohol Past, Type Beer, Wine, Liquor. Frequenc y: Daily. Alcohol use interferes with work or home: No. Drinks more than intended: No. Others hurt by drinking: No. Ready to change: Yes. Household alcohol concerns: No. Smoking Status Former smoker; Type: Cigarettes; Exposur e to Tobacco Smoke None; Cigarette Smoking Last 365 Days No; Reg Smoking Cessation Counseling No; Started at age: 42.0; Stopped at age: 67; entered on: 12/18/18 Social History TypeResponse 11/20/2018 [facility] Alcohol Past, Type Beer, Wine, Liquor. Frequenc y: Daily. Alcohol use interferes with work or home: No. Drinks more than intended: No. Others hurt by drinking: No. Ready to change: Yes. Household alcohol concerns: No. Substance Abuse Use: None. Smoking Status Former smoker; Type: Cigarettes; Exposur e to Tobacco Smoke None; Cigarette Smoking Last 365 Days No; Reg Smoking Cessation Counseling No; Started at age: 42.0; Stopped at age: 67; entered on: 10/05/19 Current Smoker (305.1); 10/28/2013 [facility] (Active) Former Smoker (V15.82); (Active) Family History No Data Provided for This Section Advance Directives Order Name Results Value Date Source Advance Directives Advance Directives No Advance 10/28/2013 [facility] Directives available. Advance Directives Advance Directives No Advance 10/17/2013 [facility] Directives available. Advance Directives Advance Directives No Advance 10/09/2013 [facility] Directives available. Advance Directives Advance Directives No Advance 02/19/2013 [facility] Directives available. Advance Directives Advance Directives No Advance 02/17/2013 [facility] Directives available. Functional Status No Data Provided for This Section
--- OUTSIDE RECORDS SUMMARY | 2020-04-02 10:22 | XMS REPORT | Summary of Care ---
:1945 Author Organization [facility] Address [address], [place] [address]- Encounter HQ Nelsonntr_[id number](FIN) [id number] Date(s): 01/01/20 - 01/01/20 [facility] [address] [place] [address]- [phone] Discharge Disposition: Home or Self Care Attending Physician: Velasquez Stout MD Referring Physician: Velasquez Stout MD Vital Signs No data available for this section Problem List Condition Effective Dates Status Health Status Informant Aortic stenosis(Confirmed) Resolved Coronary artery disease(Confirmed) Resolved 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) Hyperlipidemia(Confirmed) Resolved Hypertension(Confirmed) Resolved Myocardial infarction(Confirmed) Resolved Squamous cell skin cancer(Confirmed) Resolved Systolic heart failure(Confirmed) Resolved Allergies, Adverse Reactions, Alerts Substance Reaction Severity Status penicillin Active morphine penicillin Active Medications No data available for this section Results Most recent to oldest [Reference Range]: 1 Neutrophils # [1.5-8.1 K/CMM] 3.1 K/CMM (01/01/20 3:46 PM) Lymphocytes # [1.0-5.5 K/CMM] 1.7 K/CMM (01/01/20 3:46 PM) Monocytes # [0.0-0.8 K/CMM] 0.7 K/CMM (01/01/20 3:46 PM) Eosinophils # [0.0-0.5 K/CMM] 0.4 K/CMM (01/01/20 3:46 PM) BNP [<=100 pg/mL] 67 pg/mL (01/01/20 3:46 PM) eGFR 75 mL/min/1.73m2 1 *NA* (01/01/20 3:46 PM) A/G Ratio [0.7-1.6] 0.9 (01/01/20 3:46 PM) Albumin Lvl [3.5-5.0 g/dL] 3.6 g/dL (01/01/20 3:46 PM) Alk Phos [39-136 unit/L] 91 unit/L (01/01/20 3:46 PM) ALT [0-65 unit/L] 43 unit/L (01/01/20 3:46 PM) AGAP [10.0-20.0 mEq/L] 10.4 mEq/L (01/01/20 3:46 PM) AST [0-37 unit/L] 28 unit/L (01/01/20 3:46 PM) B/C Ratio [6-25] 19 (01/01/20 3:46 PM) Basophils [0.0-1.0 %] 0.6 % (01/01/20 3:46 PM) BUN [7-22 mg/dL] 19 mg/dL (01/01/20 3:46 PM) Calcium Lvl [8.5-10.5 mg/dL] 9.0 mg/dL (01/01/20 3:46 PM) Chloride Lvl [95-109 mEq/L] 106 mEq/L (01/01/20 3:46 PM) CO2 [24-32 mEq/L] 25 mEq/L (01/01/20 3:46 PM) Creatinine Lvl [0.50-1.40 mg/dL] 1.00 mg/dL (01/01/20 3:46 PM) Eosinophils [0.0-4.0 %] 6.0 % *HI* (01/01/20 3:46 PM) Globulin [2.7-4.2 g/dL] 3.9 g/dL (01/01/20 3:46 PM) Glucose Lvl [70-99 mg/dL] 92 mg/dL (01/01/20 3:46 PM) Hct [42.0-54.0 %] 44.8 % (01/01/20 3:46 PM) Hgb [14.0-18.0 g/dL] 14.9 g/dL (01/01/20 3:46 PM) Potassium Lvl [3.5-5.1 mEq/L] 4.4 mEq/L (01/01/20 3:46 PM) Lymphocytes [20.0-40.0 %] 28.8 % (01/01/20 3:46 PM) MCH [27.0-31.0 pg] 32.5 pg *HI* (01/01/20 3:46 PM) MCHC [32.0-36.0 g/dL] 33.3 g/dL (01/01/20 3:46 PM) MCV [80.0-94.0 fL] 97.7 fL *HI* (01/01/20 3:46 PM) Monocytes [2.0-12.0 %] 12.1 % *HI* (01/01/20 3:46 PM) MPV [7.4-10.4 fL] 11.5 fL *HI* (01/01/20 3:46 PM) Sodium Lvl [135-145 mEq/L] 137 mEq/L (01/01/20 3:46 PM) Platelet [133-450 K/CMM] 176 K/CMM (01/01/20 3:46 PM) Segs [45.0-75.0 %] 52.5 % (01/01/20 3:46 PM) Total Protein [6.4-8.4 g/dL] 7.5 g/dL (01/01/20 3:46 PM) RBC [4.70-6.10 M/CMM] 4.58 M/CMM *LOW* (01/01/20 3:46 PM) RDW [11.5-14.5 %] 13.7 % (01/01/20 3:46 PM) Bili Total [0.2-1.3 mg/dL] 0.5 mg/dL (01/01/20 3:46 PM) WBC [3.7-10.4 K/CMM] 5.9 K/CMM (01/01/20 3:46 PM) 1Result Comment: The eGFR is calculated using the CKD-EPI formula. In most young, healthy individualsthe eGFR will be >90 mL/min/1.73m2. The eGFR declines with age. An eGFR of 60-89 may be normal insome populations, particularly the elderly, for whom the CKD-EPI formula has not been extensively validated. Use of the eGFR is not recommended in the following populations: Individuals with unstable creatinine concentrations, including patients and those with serious co-morbid conditions. Patients with extremes in muscle mass or diet. The data above are obtained from the National Kidney Disease Education Program (NKDEP) which additionally recommends that when the eGFR is used in patients with extremes of body mass index for purposesof drug dosing, the eGFR should be multiplied by the estimated BMI. Immunizations No data available for this section Procedures Procedure Date Related Diagnosis Body Site Status Bilateral inguinal hernia repair Completed Cardiac catheterisation, left heart Completed Reconstruction of ligament of knee joint Completed Social History Social History Type Response Alcohol Past, Type Beer, Wine, Liquo r. Frequency: Daily. Alcohol use interferes with work or home : No. Drinks more than intended: No. Others hurt by drinking: No . Ready to change: Yes. Household alcohol concerns: No. Substance Abuse Use: None. Smoking Status Former smoker; Type: Cigaret karrie; Exposure to Tobacco Smoke None; Cigarette Smoking Last 365 Days No; Reg Smoking Cessation Counseling No; Started at age: 42.0; Stopped at age: 67; entered on: 10/05/19 Assessment and Plan No data available for this section
--- OUTSIDE RECORDS SUMMARY | 2020-04-02 10:25 | XMS REPORT | Continuity of Care Document ---
:1945 Author Organization [facility] t Address [address] [place] [address] Care Team Providers Name Role Phone Avery Ross MD Primary Care Physician Marcy Stout Attending Clinician Edy Attending Clinician Amy Valentin Attending Clinician Edy Admitting Clinician Marcy Stout Admitting Clinician Problems Condition Condition Condition Status Onset Resolution Last Treating Co mments Source Name Details Category Date Date Treatment Clinician Date PRESENCE Diagnosis Active 2020-01-01 M emoria OF -18 11:04:00 l PROSTHETIC PRESENCE 00:00: He rmann HEART OF 00 VALVE PROSTHETIC HEART VALVE Active 10/21/2019 [facility] 4 MONTH Diagnosis Active 2018-082019-10-05 Me moria FOLLOW UP -14 09:26:00 l 4 MONTH 00:00: [place] FOLLOW UP 00 Active 06/18/2019 [facility] 2 MOS F/U Diagnosis Active 2019-06-15 Memoria -16 09:59:00 l 2 MOS 00:00: [place] F/U 00 Active 04/20/2019 [facility] 3MOS F/U Diagnosis Active 2019-04-20 M emoria 6-10 09:30:00 l 3MOS F/U 00:00: Tom n 00 Active 01/12/2019 [facility] R19.09 - Diagnosis Active 2019-0 2019-04-20 M emoria OTHER 12-23 23:43:00 l INTRA-ABDO R19.09 - 00:01: He rmann KAYLEE AND OTHER 00 PELV INTRA-ABDO KAYLEE AND PELV Active 12/23/2018 [facility] [place] ECHO Diagnosis Active 2019-01-12 Mem oria 5-20 08:59:00 l ECHO 00:00: [place] 00 Active 12/22/2018 [facility] LEG Diagnosis Active 2018-12-18 Mem oria CRAMPS, 5-16 15:40:00 l POST LEG 00:00: [place] SURGERY CRAMPS, 00 POST SURGERY Active 12/18/2018 [facility] [place] FOLLOW UP Diagnosis Active 2018-12-22 Memoria 5- 13:28:00 l FOLLOW 00:00: [place] UP 00 Active 9 [facility] PREADMIT / Diagnosis Active 2018-12-18 Memoria TAVR / MAC 12-11 08:59:00 l / TTE PREADMIT 00:00: Tom n / TAVR / 00 MAC / TTE Active 12/11/2018 [facility] AORTIC Diagnosis Active 2018-11-20 Mem oria STNOSIS 4-15 09:12:00 l AORTIC 00:00: [place] STNOSIS 00 Active 11/17/2018 [facility] 1 MONTH Diagnosis Active 2018-11-03 Me moria FOLLOW 10-31 10:24:00 l UP/ECHO 1 MONTH 00:00: Tom n FOLLOW 00 UP/ECHO Active 10/31/2018 [facility] HOSPITAL Diagnosis Active 2018-09-29 M emoria D/C FOLLOW 09-23 09:43:00 l UP HOSPITAL 00:00: Tom n D/C FOLLOW 00 UP Active 9 [facility] CHEST PAIN Diagnosis Active 2018-09-24 Memoria 2- 15:47:00 l CHEST 00:00: [place] PAIN 00 Active 09/17/2018 [facility] JERMAINE Diagnosis Active 2018-09-24 Memoria BILLING 2-13 09:40:00 l 00:00: [place] JERMAINE 00 BILLING Active 09/17/2018 [facility] Aortic Aortic Disease Active Roger valve valve 8-18 Methodi disorder disorder 00:00: st 00 Aortic Aortic Disease Active Banks valve valve 2-07 Methodi disease disease 00:00: st 00 Aortic Problem Resolve 2020-01-03 Santos fletcher valve d 22:24:50 l stenosis Aortic Tom n (disorder) valve stenosis (disorder) Resolved Problem 01/03/2020 [facility] [place] Coronary Problem Resolve 2020-01-03 Me moria arterioscl d 22:24:50 l erosis Coronary Tom n (disorder) arterioscl erosis (disorder) Resolved Problem 01/03/2020 [facility] OPID [place] Hyperlipid Problem Resolve 2020-01-03 Memoria emia d 22:24:50 l (disorder) Tom n Hyperlipid emia (disorder) Resolved Problem 01/03/2020 [facility] OPIBillie [place] Hypertensi Problem Resolve 2020-01-03 Memoria ve d 22:24:50 l disorder, [place] systemic Hypertensi arterial ve (disorder) disorder, systemic arterial (disorder) Resolved Problem 01/03/2020 [facility] OPID [place] Systolic Problem Resolve 2020-01-03 Me moria heart d 22:24:50 l failure Systolic Velma nn (disorder) heart failure (disorder) Resolved Problem 01/03/2020 [facility] OPID [place] Myocardial Problem Resolve 2020-01-03 Memoria infarction d 22:24:50 l (disorder) Tom n Myocardial infarction (disorder) Resolved Problem 01/03/2020 [facility] OPID [place] 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 [facility] History of Problem Active 2020-01-03 M emoria aortic 22:24:50 l valve History [place] replacemen of aortic t valve (situation replacemen ) t (situation ) Active Problem 01/03/2020 [facility] Pain in Problem 2019-0 2018-12-21 2018-12-21 Memoria left leg 5-16 00:21:24 00:21:24 l Pain in 17:00: [place] left leg 00 9 12/21/2018 [facility] Allergies, Adverse Reactions, Alerts Allergy Allergy Status Severity Reaction(s) Onset Inactive Treating Comm ents Source Name Type Date Date Clinician Morphine Propensi Active Hives [place] ty to 03-22 Methodi adverse 00:00: st reaction 00 s to drug Penicill Propensi Active Rash [place] ins ty to 03-22 Methodi adverse 00:00: st reaction 00 s to drug Penicill Penicill Active Memori a ins ins l [place] Morphine Morphine Active Memori a Derivati Derivati l ves ves [place] penicill penicill Active Memori a in in l [place] morphine morphine Active Memori a l [place] Family History Family Member Diagnosis Comments Start Date Stop Date Source Natural father Heart attack [facility] Social History Social Habit Start Date Stop Date Quantity Comments Source History of Cigarette Smoker [facility] tobacco use Sex Assigned [facility] ethodist Alcohol intake 2018-03-21 2018-03-21 Current [facility] thodist 00:00:00 00:00:00 non-drinker of alcohol (finding) Social History 2013-10-28 2013-10-28 [facility] ermfrancisca 21:45:20 21:45:20 Smoking Status Start Date Stop Date Source Former smoker 2018-03-21 00:00:00 2018-03-21 00:00:00 [facility] Medications Ordered Filled Start Stop Current Ordering Indication Dosage Frequency Signature Comments Components Source Medication Medication Date Date Medication? Clinician (SIG) Name Name ticagrelor 2018-08 Yes 90 mg = 1 Me moria 90 mg oral 1-11 tab, PO, l tablet 16:59: Q12H, # [place] 12 180 tab, 3 Refill(s), Pharmacy: [facility] [place] lisinopril 2018-08 Yes 5 mg = 1 Mem oria 5 mg oral 1-11 tab, PO, l tablet 16:57: Daily, # [place] 00 90 tab, 3 Refill(s), Pharmacy: [facility] [place] lisinopril Yes 2.5 mg = 1 M emoria 2.5 mg oral 9-16 tab, PO, l tablet 15:26: Daily, # [place] 16 90 tab, 3 Refill(s), Pharmacy: [facility] spironolact Yes 12.5 mg = M emoria one 25 mg 9-16 0.5 tab, l oral tablet 15:25: PO, Daily, [place] 47 # 45 tab, 3 Refill(s), Pharmacy: [facility] 24 HR Yes 25 mg = Memoria Metoprolol 9-16 0.5 tab, l Tartrate 50 15:25: PO, Daily, [place] MG Extended 17 # 45 tab, Release 3 Tablet Refill(s), [Toprol] Pharmacy: [facility] ticagrelor Yes 90 mg = 1 Me moria 90 mg oral 9-16 tab, PO, l tablet 15:25: Q12H, # [place] 08 180 tab, 3 Refill(s), Pharmacy: [facility] atorvastati Yes 40 mg = 1 M emoria n 40 mg 9-16 tab, PO, l oral tablet 15:25: Daily, # He rmann 01 90 tab, 3 Refill(s), Pharmacy: [facility] atorvastati Yes Aortic TAKE ONE Roger n (LIPITOR) 7-22 valve (1) Methodi 40 MG 00:00: disorder TABLET(S) st tablet 00 BY MOUTH ONCE A DAY. spironolact Yes 12.5 mg = M emoria one 25 mg 6-10 0.5 tab, l oral tablet 16:34: PO, Daily, [place] 00 # 45 tab, 3 Refill(s), Pharmacy: [facility] lisinopril Yes 2.5 mg = 1 M emoria 2.5 mg oral 6-10 tab, PO, l tablet 16:34: Daily, # [place] 00 90 tab, 3 Refill(s), Pharmacy: [facility] Saline No Notes: Memoria Flush 0.9% 5-16 Same as: l 19:55: BD [place] 00 Posiflush Sterile Furosemide Yes 40 mg = 1 Me moria 40 MG Oral 5-12 tab, PO, l Tablet 12:55: Daily, # [place] [Lasix] 00 30 tab, 0 Refill(s), given to patient clopidogrel No Notes: Santos fletcher 5-11 (Same As: l 14:00: Plavix) Aspirin 81 No Notes: Do Me moria MG Enteric 5-11 not crush l Coated 14:00: or chew. [place] Tablet 00 (Same As: Ecotrin) potassium No Notes: Memori a chloride 20 5-11 (Same as: l mEq oral 14:00: K-Dur 20) Herm francisca tablet, 00 "Do Not extended Crush" release Give with food and full glass of water For patients unable to swallow tablet, dissolve in one half glass of water. Allow about 2 minutes for the tablets to disintegra te. Stir before giving to prepare slurry and administer . Please exclude Patient s with feeding tube less than 14 Burmese (Dobhoff, J-tube etc) and pediatric and patients. 24 HR No Notes: Memoria Metoprolol 5-11 (Same as: l Tartrate 50 14:00: Toprol XL) Dunn MG Extended 00 May split Release tab, but Tablet do not [Toprol] crush. atorvastati No Notes: Santos fletcher n 5-11 (Same as: l 14:00: Lipitor) 00 Brilinta No Notes: Memoria 5-11 (Same as: l 14:00: Brilinta) ticagrelor Yes 90 mg = 1 Me moria 90 mg oral 5-11 tab, PO, l tablet 13:17: Q12H, # [place] 37 180 tab, 3 Refill(s) 24 HR Yes 25 mg = Memoria Metoprolol 5-11 0.5 tab, l Tartrate 50 13:17: PO, Daily, Dunn MG Extended 27 # 15 tab, Release 6 Tablet Refill(s) [Toprol] Aspirin 81 Yes 81 mg = 1 Me moria MG Enteric 5-11 tab, PO, l Coated 13:17: Daily, # [place] Tablet 14 90 tab, 3 Refill(s) atorvastati Yes 40 mg = 1 M emoria n 40 mg 5-11 tab, PO, l oral tablet 13:17: Daily, # Jones rmann 00 90 tab, 0 Refill(s) tramadol No Notes: Not Mem oria hydrochlori -11 to exceed l de 50 MG 05:56: 400mg/day. Her khalil Oral Tablet 00 (Same As: Ultram) Tylenol No Notes: Do Memor ia 5-11 not exceed l 05:56: 4 gm/day. [place] (Same as: Tylenol) Sodium No 250 mL, Memoria Chloride 5-10 Rate: 20 l 0.9% IV 250 17:52: ml/hr, Herm francisca mL 00 Infuse over: 12.5 hr, Route: IV, Dosing Weight 74.545 kg, Total Volume: 250, Start date: 12/12/18 12:52:00 CDT, Duration: 24 hr, Stop date: 12/13/18 12:51:00 CDT, 1.95, m2 heparin No Route: IV, Santos fletcher (ANES) 5-10 Drug form: l 17:02: INJ, ONCE, Stop date: 12/12/18 12:02:00 CDT Naloxone No Notes: Memoria 5-10 Same as l 16:39: Narcan Flumazenil No Notes: Memor ia 5-10 (Same as: l 16:39: Romazicon) Fentanyl No Notes: Memoria 5-10 (Same as: l 16:39: Sublimaze) Preservat rad free. Ondansetron No Notes: Santos fletcher 5-10 (Same as: l 16:39: Zofran) MEDICATION WASTE Product Size: 4 mg Product Wasted: ___ mg fentaNYL No Route: IV, Mem oria (ANES) 5-10 Drug form: l 16:27: INJ, ONCE, Stop date: 12/12/18 11:27:00 CDT ceFAZolin No Route: IV, Me moria (ANES) 5-10 Drug form: l 16:27: INJ, ONCE, Stop date: 12/12/18 11:27:00 CDT Naloxone No Notes: Memoria 5-10 Same as l 15:57: Narcan Flumazenil No Notes: Memor ia 5-10 (Same as: l 15:57: Romazicon) Ondansetron No Notes: Santos fletcher 5-10 (Same as: l 15:57: Zofran) MEDICATION WASTE Product Size: 4 mg Product Wasted: ___ mg Acetaminoph No Notes: Max Memoria en 5-10 acetaminop l 15:57: hen 4000 [place] 00 mg/day (4 gm/day). (Same as: Tylenol Extra Strength) propofol No Route: IV, Mem oria (ANES) 10 5-10 Drug form: l mg 15:41: INJ, Start [place] 00 date: 12/12/18 10:41:00 CDT, Stop date: 12/12/18 11:41:00 CDT Sodium No Route: IV, Memor ia Chloride 5-10 Total l 0.9% IV 15:20: Volume: [place] (ANES) 250 00 250, Start mL date: 12/12/18 10:20:00 CDT, Stop date: 12/12/18 11:20:00 CDT Vitamin D3 Yes 2,000 Memori a 2000 intl 4-18 IntlUnit = l units oral 12:27: 1 cap, PO, H ermann capsule 00 Daily, # 100 cap, 3 Refill(s) 24 HR Yes 50 mg = 1 Memoria Metoprolol 2-25 tab, PO, l Tartrate 50 16:45: Daily, # He rmann MG Extended 00 30 tab, 6 Release Refill(s), Tablet Pharmacy: [[facility]] [facility] [place] atorvastati Yes 40 mg = 1 M emoria n 40 mg 2-25 tab, PO, l oral tablet 15:50: Daily, 0 He rmann 00 Refill(s) potassium Yes 20 mEq = 1 Me moria chloride 20 2-18 tab, PO, l mEq oral 18:44: Daily, # Velma nn tablet, 00 90 tab, 1 extended Refill(s) release DME Yes See Memoria Prescriptio 2-18 Instructio l n 17:54: ns, MISC, [place] 00 ONCE, hepatic function panel on , 09/25/2018 Dx: Transamini tis, # 1 ea, 0 Refill(s) Aspirin 81 Yes 81 mg = 1 Me moria MG Enteric 2-18 tab, PO, l Coated 17:43: Daily, # [place] Tablet 00 90 tab, 3 Refill(s) ticagrelor Yes 90 mg = 1 Me moria 90 mg oral 2-18 tab, PO, l tablet 17:43: Q12H, # [place] 00 180 tab, 3 Refill(s) metoprolol Yes 25 mg = 1 Me moria tartrate 25 2-18 tab, PO, l mg oral 17:43: Q12H, # 60 Herm francisca tablet 00 tab, 0 Refill(s) Furosemide Yes 40 mg = 1 Me moria 40 MG Oral 2-18 tab, PO, l Tablet 17:43: BID, # 60 Tom n 00 tab, 0 Refill(s) Furosemide No Notes: Memor ia 40 MG Oral 2-17 (Same as: l Tablet 23:00: Lasix) [place] 00 May cause GI upset. Give with food or milk. Albuterol No Notes: Memori a 0.833 MG/ML 2-17 (Same as: l / 17:48: Duoneb) [place] Ipratropium 00 [place] 0.167 MG/ML Inhalant Solution [DuoNeb] Calcium No Notes: Memoria Gluconate 2-17 WASTE: F/P l 16:47: - Sink; E Dunn 00 - Municipal Trash Bin Magnesium No Notes: Memori a Oxide 2-17 (Same as: l 16:47: Mag-Ox [place] 00 400) Magnesium oxide 395cb=150m g elemental magnesium Dose=____m g magnesium oxide (___mg elemental magnesium) sodium No Notes: Memoria phosphate 2-17 Infuse l 16:47: over 4 [place] 00 hour. Do not infuse phosphorou s concurrent ly in the same line as TPN or IVF that contains calcium. For double lumen central lines, phosphorou s may be infused in a separate lumen from TPN. Magnesium No Notes: Memori a Sulfate 2-17 WASTE: F/P l 16:47: - Sink; E - Municipal Trash Bin potassium No Notes: Memori a phosphate 2-17 (Same as: l 16:47: K Phosphate. ) Do not infuse phosphorou s concurrent ly in the same line as TPN or IVF that contains calcium. For double lumen central lines, phosphorou s may be infused in a separate lumen from TPN. 1 mMol phoshate has 1.47 mEq potassium Infuse over 4 hours Potassium No Notes: Memori a Chloride 2-17 (Same as: l 16:47: K-Dur ) "Do Not Crush" Give with food and full glass of water For patients unable to swallow tablet, dissolve in one half glass of water. Allow about 2 minutes for the tablets to disintegra te. Stir before giving to prepare slurry and administer . Please exclude Patient s with feeding tube less than 14 Burmese (Dobhoff, J-tube etc) and pediatric and patients. potassium No Notes: Memori a phosphate-s -17 (Same as: l odium 16:47: Phos-NaK) Each 1.5 250 mg-280 gm pkt has mg-160 mg 250mg oral powder phosphorou for s. Mix reconstitut w/2.5oz ion water and stir. Blistex Lip No Route: Santos fletcher [place] 2-17 MISC, l 15:00: Dosing Weight 79.545, kg, BID, Start date: 09/21/18 9:00:00 HEALTH POLICY ANALYST, Duration: 30 day, Stop date: 10/20/18 17:00:00 CDT allantoin/c No Notes: Santos fletcher amphor/phen 2-17 Same as: l ol topical 15:00: Blistex Furosemide No Notes: Memor ia 2-16 (Same as: l 22:00: Lasix) MEDICATION WASTE Product Size: 40 mg Product Wasted: ___ mg K-Dur 20 No Notes: Memoria 2-16 (Same as: l 20:50: K-Dur 20) "Do Not Crush" Give with food and full glass of water For patients unable to swallow tablet, dissolve in one half glass of water. Allow about 2 minutes for the tablets to disintegra te. Stir before giving to prepare slurry and administer . Please exclude Patient s with feeding tube less than 14 Burmese (Dobhoff, J-tube etc) and pediatric and patients. cefepime No Notes: Memoria 2-16 (Same As: l 06:00: Maxipime) MEDICATION WASTE Product Size: 1000 mg Product Wasted: ___ mg Vancomycin No 2000 mg: Me moria 2-16 infuse l 05:31: over 2.5 [place] 00 hours Tylenol No Notes: Max Santos fletcher 2-16 acetaminop l 03:00: hen = [place] 00 4000mg/day (4 gm/day). (Same as: Tylenol) Albuterol Yes Notes: Memori a 0.833 MG/ML 2-16 (Same as: l / 02:00: Duoneb) Ipratropium 00 [place] 0.167 MG/ML Inhalant Solution [DuoNeb] Lasix No Notes: Memoria 2-15 (Same as: l 22:48: Lasix) Potassium No Notes: Memori a Chloride 2-15 (Same as: l 08:50: KCL) Infuse no faster than 10 mEq/hr if given peripheral ly. sodium No Notes: Memoria phosphate 2-15 Infuse l 08:50: over 4 [place] 00 hour. Do not infuse phosphorou s concurrent ly in the same line as TPN or IVF that contains calcium. For double lumen central lines, phosphorou s may be infused in a separate lumen from TPN. potassium No Notes: Memori a phosphate 2-15 (Same as: l 08:50: K [place] 00 Phosphate. ) Do not infuse phosphorou s concurrent ly in the same line as TPN or IVF that contains calcium. For double lumen central lines, phosphorou s may be infused in a separate lumen from TPN. 1 mMol phoshate has 1.47 mEq potassium Infuse over 4 hours potassium No Notes: Memori a phosphate-s 2-15 (Same as: l odium 08:50: Phos-NaK) [place] phosphate 00 Each 1.5 250 mg-280 gm pkt has mg-160 mg 250mg oral powder phosphorou for s. Mix reconstitut w/2.5oz ion water and stir. Magnesium No Notes: Memori a Sulfate 2-15 WASTE: F/P l 08:50: - Sink; E [place] - Municipal Trash Bin Calcium No Notes: Memoria Gluconate 2-15 WASTE: F/P l 08:50: - Sink; E [place] - Municipal Trash Bin Calcium No Notes: Memoria Carbonate 2-15 (Same As: l 500 MG 08:50: Tums) [place] Chewable 00 Calcium Tablet Carbonate 500 mg = 200 mg elemental calcium Dose = mg calcium carbonate ( mg elemental calcium) Magnesium No Notes: Memori a Oxide 2-15 (Same as: l 08:50: Mag-Ox [place] 00 400) Magnesium oxide 596ob=469p g elemental magnesium Dose=____m g magnesium oxide (___mg elemental magnesium) Ticagrelor No Notes: Memor ia 2-15 (Same as: l 05:00: Brilinta) [place] Brilinta No Notes: Memoria 2-14 (Same as: l 15:00: Brilinta) [place] Aspirin 81 No Notes: Do Me moria MG Enteric 2-14 not crush l Coated 15:00: or chew. [place] Tablet 00 (Same As: Ecotrin) Lovenox No Notes: Memoria 2-14 (Same as: l 12:00: Lovenox) [place] metoprolol No Notes: Memor ia tartrate 2-14 (Same as: l 03:00: Lopressor) atorvastati No Notes: Santos fletcher n 2-14 Same as l 03:00: Lipitor [place] Saline No Notes: Memoria Flush 0.9% 2-14 Same as: l 03:00: BD Posiflush Sterile Saline No Notes: Memoria Flush 0.9% 2-13 Same as: l 19:55: BD [place] 00 Posiflush Sterile Sodium No 500 mL, Memoria Chloride 2- Rate: 20 l 0.9% IV 500 18:35: ml/hr, Herm francisca mL 00 Infuse over: 25 hr, Route: IV, Total Volume: 500, Start date: 09/17/18 12:35:00 HEALTH POLICY ANALYST, Duration: 24 hr, Stop date: 09/18/18 12:34:00 HEALTH POLICY ANALYST Ticagrelor No 180 mg, Santos fletcher 2-13 Route: PO, l 18:33: ONCE, kg, [place] 00 Priority: NOW, Start date: 09/17/18 12:33:00 HEALTH POLICY ANALYST, Stop date: 09/17/18 12:33:00 HEALTH POLICY ANALYST atorvastati 2017-08 2019- No Aortic 40mg QD Take [address] [facility] n (LIPITOR) 0-25 10-25 valve tablet (40 Methodi 40 MG 00:00: 23:59 disorder mg total) st tablet 00 :00 by mouth daily. amLODIPine 2017-08 Yes Essential 10mg QD Take 1 Banks (NORVASC) 0-08 hypertensio tablet (10 Methodi 10 mg 00:00: n mg total) st tablet 00 by mouth daily. lisinopril 2017-08 Yes Essential 20mg QD Take 1 [place] (PRINIVIL,Z 0-08 hypertensio tablet (20 Methodi ESTRIL) 20 00:00: n mg total) st mg tablet 00 by mouth daily. carvedilol 2017-08 Yes Essential 20mg QD Take 1 Banks CR (COREG 0-08 hypertensio capsule Methodi CR) 20 MG 00:00: n ([address] 24 hr 00 total) by capsule mouth daily. CYANOCOBALA Yes Take by Jhonatan yao MIN, 8-17 mouth. Methodi VITAMIN 08:38: st B-12, (B-12 56 DOTS ORAL) COQ10, Yes Take by Banks UBIQUINOL, 8-17 mouth. Methodi ORAL 08:38: st 56 cholecalcif Yes 1000U QD Take 1,000 Banks mildred, 8-17 Units by Methodi vitamin D3, 08:38: mouth st (VITAMIN 56 daily. D3) 1,000 unit capsule aspirin Yes 81mg QD Take 81 mg [place] (ECOTRIN) 8-17 by mouth Method i 81 MG 08:38: daily. st enteric 56 coated tablet Lisinopril Yes (Active) Me moria TABS 3-26 l 21:45: [place] 20 Aspirin Yes (Active) Memor ia TABS 3-26 l 21:45: [place] 20 Vital Signs Vital Name Observation Time Observation Value Comments Source Systolic (mm Hg) 2019-10-05 16:20:00 Santos rial [place] Diastolic (mm Hg) 2019-10-05 16:20:00 Mem orial [place] Heart Rate 2019-10-05 16:20:00 [facility] [place] Respitory Rate 2019-10-05 16:20:00 Memori al [place] Temperature Oral (F) 2019-10-05 16:20:00 97.7 F [facility] [place] Height 2019-10-05 16:20:00 180.34 cm [facility] [place] Weight 2019-10-05 16:20:00 [facility] [place] BMI Calculated 2019-10-05 16:20:00 Memori al [place] Systolic (mm Hg) 2019-06-15 18:11:00 Santos rial [place] Diastolic (mm Hg) 2019-06-15 18:11:00 Mem orial [place] Heart Rate 2019-06-15 18:11:00 [facility] [place] Respitory Rate 2019-06-15 18:11:00 Memori al [place] Temperature Oral (F) 2019-06-15 18:11:00 98.0 F [facility] [place] Height 2019-06-15 18:11:00 180.09 cm [facility] [place] Weight 2019-06-15 18:11:00 [facility] [place] BMI Calculated 2019-06-15 18:11:00 Memori al [place] Systolic (mm Hg) 2019-04-20 14:43:00 Santos rial [place] Diastolic (mm Hg) 2019-04-20 14:43:00 Mem orial [place] Heart Rate 2019-04-20 14:43:00 [facility] [place] Respitory Rate 2019-04-20 14:43:00 Memori al [place] Temperature Oral (F) 2019-04-20 14:43:00 98.0 F [facility] [place] Height 2019-04-20 14:43:00 180.34 cm [facility] [place] Weight 2019-04-20 14:43:00 [facility] [place] BMI Calculated 2019-04-20 14:43:00 Memori al [place] BMI Calculated 2019-01-12 14:19:00 Memori al [place] Weight 2019-01-12 14:19:00 [facility] [place] Height 2019-01-12 14:19:00 180.09 cm [facility] [place] Respitory Rate 2019-01-12 14:19:00 Memori al [place] Temperature Oral (F) 2019-01-12 14:19:00 97.8 F [facility] [place] Heart Rate 2019-01-12 14:19:00 [facility] [place] Systolic (mm Hg) 2019-01-12 14:19:00 Santos rial [place] Diastolic (mm Hg) 2019-01-12 14:19:00 Mem orial [place] BMI Calculated 2018-12-22 18:42:00 Memori al [place] Weight 2018-12-22 18:42:00 [facility] [place] Height 2018-12-22 18:42:00 180.09 cm [facility] [place] Respitory Rate 2018-12-22 18:42:00 Memori al [place] Heart Rate 2018-12-22 18:42:00 [facility] [place] Temperature Oral (F) 2018-12-22 18:42:00 98.3 F [facility] [place] Systolic (mm Hg) 2018-12-22 18:42:00 Santos rial [place] Diastolic (mm Hg) 2018-12-22 18:42:00 Mem orial [place] Temperature Oral (F) 2018-12-19 00:18:00 98.0 F [facility] [place] Heart Rate 2018-12-19 00:18:00 [facility] [place] Respitory Rate 2018-12-19 00:18:00 Memori al [place] Systolic (mm Hg) 2018-12-19 00:18:00 Santos rial [place] Diastolic (mm Hg) 2018-12-19 00:18:00 Mem orial [place] Heart Rate 2018-12-18 23:07:00 [facility] [place] Temperature Oral (F) 2018-12-18 23:07:00 97.7 F [facility] [place] Respitory Rate 2018-12-18 23:07:00 Memori al [place] Systolic (mm Hg) 2018-12-18 23:07:00 Santos rial [place] Diastolic (mm Hg) 2018-12-18 23:07:00 Mem orial [place] Systolic (mm Hg) 2018-12-18 19:48:00 Santos rial [place] Diastolic (mm Hg) 2018-12-18 19:48:00 Mem orial [place] Respitory Rate 2018-12-18 19:48:00 Memori al [place] Heart Rate 2018-12-18 19:48:00 [facility] [place] Temperature Oral (F) 2018-12-18 19:48:00 97.6 F [facility] [place] Height 2018-12-18 19:48:00 182.88 cm [facility] [place] BMI Calculated 2018-12-18 19:48:00 Memori al [place] Weight 2018-12-18 19:48:00 [facility] [place] Respitory Rate 2018-12-13 17:00:00 Memori al [place] Systolic (mm Hg) 2018-12-13 17:00:00 Santos rial [place] Diastolic (mm Hg) 2018-12-13 17:00:00 Mem orial [place] Respitory Rate 2018-12-13 16:00:00 Memori al [place] Systolic (mm Hg) 2018-12-13 16:00:00 Santos rial [place] Diastolic (mm Hg) 2018-12-13 16:00:00 Mem orial [place] Systolic (mm Hg) 2018-12-13 15:00:00 Santos rial [place] Diastolic (mm Hg) 2018-12-13 15:00:00 Mem orial [place] Respitory Rate 2018-12-13 15:00:00 Memori al [place] Temperature Oral (F) 2018-12-13 12:44:00 97.6 F [facility] Temperature Oral (F) 2018-12-13 09:00:00 98.5 F [facility] Temperature Oral (F) 2018-12-13 05:00:00 97.8 F [facility] BMI Calculated 2018-12-12 11:33:00 [facility] Weight 2018-12-12 11:33:00 [facility] Height 2018-12-12 11:33:00 182.88 cm [facility] BMI Calculated 2018-11-20 15:02:00 [facility] Weight 2018-11-20 15:02:00 [facility] Height 2018-11-20 15:02:00 180.09 cm [facility] Heart Rate 2018-11-20 15:02:00 [facility] Respitory Rate 2018-11-20 15:02:00 [facility] Systolic (mm Hg) 2018-11-20 15:02:00 [facility] Diastolic (mm Hg) 2018-11-20 15:02:00 [facility] Temperature Oral (F) 2018-11-20 15:02:00 97.1 F [facility] Height 2018-11-20 12:09:00 182.88 cm [facility] Weight 2018-11-20 12:09:00 [facility] BMI Calculated 2018-11-20 12:09:00 [facility] Height 2018-11-03 15:54:00 182.88 cm [facility] BMI Calculated 2018-11-03 15:54:00 [facility] Weight 2018-11-03 15:54:00 [facility] Heart Rate 2018-11-03 15:54:00 [facility] Respitory Rate 2018-11-03 15:54:00 [facility] Temperature Oral (F) 2018-11-03 15:54:00 98.3 F [facility] Systolic (mm Hg) 2018-11-03 15:54:00 [facility] Diastolic (mm Hg) 2018-11-03 15:54:00 [facility] BMI Calculated 2018-09-29 15:58:00 [facility] Weight 2018-09-29 15:58:00 [facility] Height 2018-09-29 15:58:00 182.88 cm [facility] Respitory Rate 2018-09-29 15:58:00 [facility] Temperature Oral (F) 2018-09-29 15:58:00 97.3 F [facility] Heart Rate 2018-09-29 15:58:00 [facility] Systolic (mm Hg) 2018-09-29 15:58:00 [facility] Diastolic (mm Hg) 2018-09-29 15:58:00 [facility] Respitory Rate 2018-09-22 18:00:00 [facility] Systolic (mm Hg) 2018-09-22 18:00:00 [facility] Diastolic (mm Hg) 2018-09-22 18:00:00 [facility] Temperature Oral (F) 2018-09-22 18:00:00 98.9 F [facility] Systolic (mm Hg) 2018-09-22 16:30:00 [facility] Diastolic (mm Hg) 2018-09-22 16:30:00 [facility] Respitory Rate 2018-09-22 16:30:00 [facility] Respitory Rate 2018-09-22 16:00:00 [facility] Systolic (mm Hg) 2018-09-22 16:00:00 [facility] Diastolic (mm Hg) 2018-09-22 16:00:00 [facility] Temperature Oral (F) 2018-09-22 14:00:00 99.4 F [facility] Height 2018-09-22 11:19:00 182.88 cm [facility] Temperature Oral (F) 2018-09-22 10:00:00 98.2 F [facility] BMI Calculated 2018-09-17 18:52:00 [facility] Weight 2018-09-17 18:52:00 [facility] Height 2018-09-17 18:52:00 182.88 cm [facility] Procedures Procedure Date / Time Performed Performing Clinician [facility] e Bilateral inguinal hernia [facility] repair Cardiac catheterisation, Niranjan [facility] left heart Replacement of right knee [facility] joint Reconstruction of ligament [facility] of knee joint Plan of Care Planned Activity Planned Date Details Comments Source Future Scheduled 2020-05-05 [facility]ACCINE [place] 00:00:00 [code = INFLUENZA VACCINE] Future Scheduled 2012 65+ PNEUMOCOCCAL [facility] 00:00:00 VACCINE (1 of 2 - PCV13) [code = 65+ PNEUMOCOCCAL VACCINE (1 of 2 - PCV13)] Future Scheduled 1997 COLONOSCOPY SCREENING [facility] 00:00:00 [code = COLONOSCOPY SCREENING] Future Scheduled 1997 SHINGLES VACCINES (#1) [facility] 00:00:00 [code = SHINGLES VACCINES (#1)] Encounters Start End Encounter Admission Attending Care Care Encounter Source Date/Time Date/Time Type Type Clinicians Facility Department ID 2018-12-19 Outpatient [facility] CAR [id number] MH 15:19:24 2018-12-12 Inpatient [facility] CAR [id number] [facility] 06:06:00 2020-01-01 2020-01-01 Out[facility], [facility] [id number] 11:00:00 23:59:00 Marwan 12 [facility] 2020-01-01 2020-01-01 Outpatient [facility] CAR [id number] [facility] 11:00:00 11:00:00 2019-10-05 2019-10-05 Outpatient [facility]gel[facility], [facility] [id number] 09:19:00 23:59:00 Marwan 10 [facility] 2019-10-05 2019-10-05 Outpatient [facility] CAR [id number] [facility] 09:19:00 09:19:00 2019-06-15 2019-06-15 Outpatient Argelia, [facility] [id number] 09:59:00 23:59:00 Marwan 09 [facility] 2019-06-15 2019-06-15 Outpatient [facility] CAR [id number] [facility] 09:59:00 09:59:00 2019-04-20 2019-04-20 Outpatient Argelia, [facility] [id number] 09:30:00 23:59:00 [facility] 2019-04-20 2019-04-20 Outpatient [facility] CAR [id number] [facility] 09:30:00 09:30:00 2019-01-12 2019-01-12 Outpatient Edy, [facility] [id number] 08:48:00 23:59:00 [facility] 2019-01-12 2019-01-12 Outpatient [facility] CAR [id number] [facility] 08:48:00 08:48:00 2018-12-25 2018-12-25 Outpatient Edy, [facility] [id number] 10:18:00 23:59:00 [facility] 2018-12-22 2018-12-22 Outpatient Edy, [facility] [id number] 13:28:00 23:59:00 wat 2018-12-18 2018-12-18 Outpatient Meka Valentin MHPL MHPL [id number] 14:36:34 19:23:00 Amy 2018-12-18 2018-12-18 Emergency E MHBL MHBL [id number] MHBL 14:36:00 14:36:00 2018-12-12 2018-12-13 Outpatient Edy [facility] [id number] 06:06:00 15:30:00 [place]2018-11-20 2018-11-20 Outpatient Argelia [facility] [id number] 06:55:00 23:59:00 Marwan 2018-11-20 2018-11-20 Outpatient [facility] CAR [id number] [facility] 06:55:00 06:55:00 2018-11-03 2018-11-03 Outpatient Argelia [facility] [id number] 10:24:00 23:59:00 Marwan Marcy 2018-11-03 2018-11-03 Outpatient [facility] CAR [id number] [facility] 10:24:00 10:24:00 2018-10-24 2018-10-24 [facility] [id number] 10:00:00 23:59:00 Marwan [facility] 2018-10-24 2018-10-24 Outpatient [facility] CAR [id number] [facility] 10:00:00 10:00:00 2018-09-29 2018-09-29 Outpatient Argelia [facility] [id number] 09:33:00 23:59:00 Marwan [facility] 2018-09-17 2018-09-22 [facility] [id number] 10:48:00 13:45:00 Velasquez [facility] 2013-10-28 2013-10-28 Outpatient MHIE [facility]IE [id number] 16:45:20 16:45:20 2013-10-16 2013-10-16 Outpatient MHIE [facility] [id number] 19:00:17 19:00:17 2013-10-09 2013-10-09 Outpatient MHIE [facility]IE [id number] 13:20:30 13:20:30 2013-02-19 2013-02-19 Outpatient MHIE [facility]IE [id number] 17:01:02 17:00:41 2013-02-17 2013-02-17 Outpatient MHIE MHIE [id number] 11:56:19 11:55:59 Results Test Description Test Time Test Comments Results Result Comments Source CARDIAC ENZYMES 2020-01-01 67 [facility] 20:46:08 CHEM PANEL 2020-01-01 92 [facility] 20:46:08 CHEM PANEL 2020-01-01 19 [facility] 20:46:08 CHEM PANEL 2020-01-01 1.00 [facility] 20:46:08 CHEM PANEL 2020-01-01 137 [facility] 20:46:08 CHEM PANEL 2020-01-01 4.4 [facility] 20:46:08 CHEM PANEL 2020-01-01 106 [facility] 20:46:08 CHEM PANEL 2020-01-01 25 [facility] 20:46:08 CHEM PANEL 2020-01-01 9.0 [facility] 20:46:08 CHEM PANEL 2020-01-01 7.5 [facility] 20:46:08 CHEM PANEL 2020-01-01 3.6 [facility] 20:46:08 CHEM PANEL 2020-01-01 43 [facility] 20:46:08 CHEM PANEL 2020-01-01 28 [facility] 20:46:08 CHEM PANEL 2020-01-01 91 [facility] 20:46:08 CHEM PANEL 2020-01-01 0.5 [facility] 20:46:08 CHEM PANEL 2020-01-01 10.4 [facility] 20:46:08 CHEM PANEL 2020-01-01 20:46:08 Test Item Value Reference Range Interpretation Comme nts B/C Ratio (test code = B/C Ratio) 19 1 6-25 [facility] TJMJB5240-39-27 20:46:083.9[facility]CHE[facility] PANEL 2020-01-01 20:46:08 Test Item Value Reference Range Interpretation Comments A/G Ratio (test code = A/G Ratio) 0.9 1 0.7-1.6 [facility] FOCBD2960-35-14 20:46:0875[facility]annHEMATOLOGY 2020-01-01 20:46:085.9[facility] LkbrlvuZFSXSHDPLZ3047-39-16 20:46:084.58[facility] FljjpntVOKORNOTNU6066-94-95 20:46:0814.9[facility] QatawqcFYIFBFWQNK8929-28-92 20:46:0844.8[facility] HmoktgeQGEEVMEFHM3314-38-81 20:46:0897.7[facility] DOPQVTFJXW4462-65-36 20:46:08 Test Item Value Reference Range Interpretation Comments MCH (test code = MCH) 32.5 pg 27.0-31.0 [facility] FyyqwqoFMYAPOYVKI3746-35-08 20:46:0833.3[facility]annHEMATOLOGY 2020-01-01 20:46:0813.7[facility] MvbgmwgUDVXJCJIIH0724-99-56 20:46:91156Xufcapjs IxpjzgcTERTUPLBGA2571-17-98 20:46:0811.5[facility] BzrlpdcZYKTBOCDTV5198-26-91 20:46:0852.5[facility] DrhktewRXJJRXOMNQ0148-54-59 20:46:0828.8[facility] JEHEFHLLHB2623-53-66 20:46:0812.1[facility] AgbxdgyUGQHZTHMSJ9098-13-15 20:46:08 6.0[facility] RjqqbssFWOWWXAPLV4819-26-17 20:46:080.6[facility]annHEMATOLOGY 2020-01-01 20:46:083.1[facility] PnlypirKDPQIGNPBC1766-91-65 20:46:081.7[facility] StckavzCGFOBINRMQ4330-60-59 20:46:080.7[facility] MnhtwlcIQHITLLGST0657-80-32 20:46:080.4[facility]annCHEM WIUCV6949-50-49 17:19:0096[facility]annCHEM OHMHW0360-79-47 17:19:0016[facility]annCHE[facility] WHVXJ0654-06-42 17:19:000.98 [facility] DGIIY5869-11-02 17:19:77479Ocejmwjr HermannCHEM PANEL 2019-06-15 17:19:004.2[facility]annCHE[facility] CGLKU3694-98-06 17:19:46220Hbghuijj HermannCHEM HTEIE1102-84-18 17:19:0028[facility]ann[facility] KKMJN8392-08-91 17:19:009.5[facility]annCHE[facility] TQHHO3206-19-39 17:19:007.2[facility]annCHE[facility] ODAUC9708-39-63 17:19:003.6[facility]annCHE[facility] DFREH4098-08-43 17:19:0040 [facility] NWLNB0735-50-53 17:19:0027[facility]annCHE[facility] PANEL 2019-06-15 17:19:0081[facility]annCHE[facility] BAGQN1750-84-18 17:19:000.4[facility]CHE[facility] SYVTE6787-21-49 17:19:0010.2[facility]ann[facility] AUWCL8724-25-50 17:19:00 Test Item Value Reference Range Interpretation Comments B/C Ratio (test code = B/C Ratio) 16 1 01-27 [facility] SBJPA1872-23-47 17:19:003.6[facility]annCHE[facility] PANEL 2019-06-15 17:19:00 Test Item Value Reference Range Interpretation Comments A/G Ratio (test code = A/G Ratio) 1.0 1 0.7-1.6 [facility] YODCJ5440-00-18 17:19:0076[facility]annELECTROLYTES 2019-01-12 16:37:0012.2[facility] XfbvirdODNHBHYRIILP8488-51-08 16:37:00 Test Item Value Reference Range Interpretation Comments A/G Ratio (test code = A/G Ratio) 1.2 1 0.7-1.6 [facility] NuszgqwKKEZHKZKSQHD3178-31-53 16:37:003.3[facility]annELECTROLYTES 2019-01-12 16:37:00 Test Item Value Reference Range Interpretation Comments B/C Ratio (test code = B/C Ratio) 22 1 01-27 [facility] FbtozvsTDJYXIHZWLIV5251-60-62 16:37:0074[facility]annELECTROLYTES 2019-01-12 16:37:0091[facility] AommnvfMNMINRMZZZDK6514-23-90 16:37:000.6[facility] MvonmjyRSHZQUCWLCXK2665-58-60 16:37:004.1[facility] ZzfaoaqNYMZCBKENDFN1304-56-57 16:37:007.4[facility] CogatucIIQVJLTVIHLH7146-36-35 16:37:009.2[facility] HFLMOYBSLTMO6602-34-01 16:37:0020[facility] JhdoyzdOFYYFSHCMQZH8002-17-75 16:37:00 28[facility] BjovzqlNRDMIWZJJDTB9215-96-35 16:37:33005Azleyxwe HermannELECTROLYTES 2019-01-12 16:37:004.2[facility] LpzklneSYQDKRWVNGQE6377-93-54 16:37:0027[facility] NaxahejOALBMRPJQDRC7189-88-85 16:37:69219Qayonuby KepkdxoNDSDGUGXFZVW9936-49-02 16:37:0084[facility] TweeuiyOETZRGUCHHFR2344-25-57 16:37:001.02[facility] OCUURWPJJYTD0539-11-99 16:37:0022[facility] ZmulnczFLWVMVDVKE5419-65-84 16:37:00 0.6[facility] TznwswpAWDLRWUARV2212-63-78 16:37:000.3[facility]annHEMATOLOGY 2019-01-12 16:37:001.8[facility] ZpfdromIWKSVWVWET5384-39-19 16:37:004.0[facility] EtmgxbjYFLNHKNNVV5511-88-62 16:37:003.7[facility] YcmlfsaBFDGZYGQFV2626-66-43 16:37:000.5[facility] RhytxjuIDBLGSHRNL2849-31-13 16:37:009.5[facility] YDMEVZUASR0961-56-58 16:37:0058.3[facility] KynqsyeIYCQOURYCU3421-15-47 16:37:00 27.7[facility] WimhymbNTQFZFTOOJ1026-05-11 16:37:0011.2[facility]annHEMATOLOGY 2019-01-12 16:37:39122Eizgcnre QhuctgbJJHGZKYIAA8235-66-78 16:37:0032.4[facility] FzpbyawHMAMWLDQJF0858-98-07 16:37:0014.3[facility] IebsckxCITEUHYLJB5077-65-84 16:37:00 Test Item Value Reference Range Interpretation Comments MCH (test code = MCH) 31.9 pg 27.0-31.0 [facility] QwsamcbVMPFBCWNHH4780-67-07 16:37:0045.9[facility]annHEMATOLOGY 2019-01-12 16:37:0098.2[facility] IyvsnhaWXHAYYLYZJ8569-43-79 16:37:006.4[facility] EjxgjtrQAPOVAGZNA9965-00-22 16:37:004.68[facility] XfwllpxWBXVOGUGUU0532-03-87 16:37:0014.9[facility] HermannCARDIAC IEGDQMX7701-12-87 20:44:000.02[facility]annCARDIAC ZZRHMSO7349-81-57 20:44:0097[facility]annCHEM VHELM3536-41-86 20:44:0081[facility]annCHEM BGIBY5976-04-76 20:44:003.4[facility]annCHEM OJYFE0982-82-45 20:44:007.6[facility]annCHEM DKKRH6750-50-66 20:44:009.1 [facility]annCHE[facility] LBDAL6119-21-26 20:44:0025[facility]annCHEM PANEL 2018-12-18 20:44:65585Ljdxtvfa HermannCHEM QENHA3529-20-61 20:44:004.1[facility]annCHE[facility] YFHWP2598-63-34 20:44:000.9[facility]annCHE[facility] VGNDU5558-76-51 20:44:0091[facility]annCHEM ILSWL4148-73-50 20:44:0019[facility]annCHEM ZOEDV5612-26-92 20:44:0024[facility]annCHE[facility] KTTQV4210-98-17 20:44:09476 [facility]CHE[facility] XGNEB4079-00-00 20:44:000.94[facility]annCHEM PANEL 2018-12-18 20:44:0028[facility]annCHE[facility] CSHZM4942-31-07 20:44:0095[facility]annCHE[facility] GWYBD2284-86-46 20:44:00 Test Item Value Reference Range Interpretation Comments A/G Ratio (test code = A/G Ratio) 0.8 1 0.7-1.6 [facility] YKHHF8409-84-34 20:44:00 Test Item Value Reference Range Interpretation Comments B/C Ratio (test code = B/C Ratio) 30 1 6-25 [facility] NSYSA5458-42-03 20:44:004.2[facility]annCHEM PANEL 2018-12-18 20:44:0013.1[facility] PaanohbWGTIRCVOLZ5980-65-31 20:44:0096.2[facility] SipbfdpSMONCDYKQG5820-42-49 20:44:0040.0[facility] SftsqxiAQGQDKRILW1294-16-98 20:44:004.15[facility] InsgzxqWITTYBTXIS4669-06-41 20:44:0013.6[facility] YQBNBBKWZP4602-53-67 20:44:0033.9[facility] XlmpwvsUAYNXEDLVN0220-59-66 20:44:00 Test Item Value Reference Range Interpretation Comments MCH (test code = MCH) 32.7 pg 27.0-31.0 [facility] VwkupcsXOOAZZLJDG9876-72-25 20:44:0014.3[facility]annHEMATOLOGY 2018-12-18 20:44:74540Yrqthpse IjvmvewRXVTGUHPSV8619-15-04 20:44:0011.3[facility] JnoygqhAAJKIPHUTS0553-55-92 20:44:007.7[facility] StnjxwhLDLFGTMQHT4291-25-52 20:44:000.3[facility] GctjuhhMNIJZLGITK5760-94-08 20:44:000.9[facility] TWIDFQHQHV3245-82-65 20:44:005.3[facility] NvpgvbgJUWAAHLEVO4318-22-60 20:44:00 68.5[facility] DstwrkkQUSQKUFFCQ7977-31-65 20:44:0016.1[facility]annHEMATOLOGY 2018-12-18 20:44:0011.1[facility] EilhqcuFUHZEQCPME6460-22-89 20:44:000.6[facility] TfqtullGRPBIVXLLU0062-61-23 20:44:001.2[facility] EntbjqdPCWMOQAYBX3699-67-18 20:44:003.7[facility]annCHEM RDQSM9242-81-57 11:49:0092[facility]annCHEM YKZPP5453-34-65 11:49:0022[facility]annCHE[facility] YPNAL6745-58-14 11:49:008.5 [facility]annCHE[facility] XUIAW8791-13-04 11:49:25496Bscmekql HermannCHEM PANEL 2018-12-13 11:49:003.9[facility]annCHEM MCYGH3276-64-50 11:49:000.76[facility]annCHEM BRBKS8510-41-11 11:49:06865Mpzjjnsy HermannCHEM YUQGD8654-42-04 11:49:0014[facility]annCHEM RFCHD1783-79-75 11:49:0098[facility]annCHEM YECYS3333-79-11 11:49:0010.9[facility]annCHEM JXIQO1429-63-56 11:49:002.2 [facility] BussuxiFYWVDCUSPR3713-75-83 11:49:76594Ksmolieg HermannHEMATOLOGY 2018-12-13 11:49:0014.1[facility] KzwfhhfJGEVWEPMTH6546-67-91 11:49:0033.8[facility] EfvwdycHRJBAHSUTQ4567-12-25 11:49:0098.0[facility] BxcpomsTNPNIILSOE5311-10-77 11:49:00 Test Item Value Reference Range Interpretation Comments MCH (test code = MCH) 33.2 pg 27.0-31.0 [facility] KrjnhzsEDRIEGXPVD3550-76-44 11:49:0011.8[facility]annHEMATOLOGY 2018-12-13 11:49:0037.5[facility] KtvwzdoVCEXTBWTBV3372-76-97 11:49:009.1[facility] XwojejlXYQCOZCPJU2976-27-23 11:49:0012.7[facility] UvbtmolSNRRBLXXWZ7529-56-05 11:49:003.83[facility] JebdxjgTREKJPFZXE8160-58-84 11:49:00 Test Item Value Reference Range Interpretation Comments INR (test code = INR) 1.08 1 0.85-1.17 [facility] BdjwubwRXUYOGGKWC1446-84-30 11:49:00 Test Item Value Reference Range Interpretation Comments PTT (test code = PTT) 28.0 s 22.9-35.8 [facility] AsezjddHWHNGBVJNU3537-14-56 11:49:00 Test Item Value Reference Range Interpretation Comments PT (test code = PT) 13.8 s 12.0-14.7 [facility] IyfothuCHHHMWUMDW0834-03-37 11:49:000.2[facility]annHEMATOLOGY 2018-12-13 11:49:000.8[facility] ZjymkxrVZJEBZJDKU7236-47-50 11:49:000.4[facility] SweogcjTBCTBKKJIN1554-71-88 11:49:002.2[facility] NaccnmrPFPYKHZCSW6003-93-09 11:49:008.5[facility] LgervckZQQABXPJVM2555-57-99 11:49:001.5[facility] TICGRTZXZS4003-37-32 11:49:006.7[facility] LyldvyjUPMJVMFYOS2793-44-19 11:49:00 73.0[facility] NcxwciwKCEPJUTPDF3840-68-68 11:49:0015.9[facility]annHEMATOLOGY 2018-12-12 20:21:0098.7[facility] DbeedlvNJMWGDPWUA6289-53-35 20:21:00 Test Item Value Reference Range Interpretation Comments MCH (test code = MCH) 33.4 pg 27.0-31.0 [facility] YpvujzuFVJPXPWXTP8822-13-69 20:21:0013.0[facility]annHEMATOLOGY 2018-12-12 20:21:0038.4[facility] BefdgwtFPBJTQIJXX3744-37-62 20:21:0033.9[facility] BftocuxLDTTSSMRJM4465-16-81 20:21:26515Cxojwdnx ZxymmhfTSORIFWESL6438-19-82 20:21:0012.0[facility] UvtghocFGQMAGLKDL4136-21-64 20:21:0014.0[facility] DEHBHLFAOW6435-54-37 20:21:008.8[facility] MhqvtvwICJVOWAJHW7063-13-61 20:21:00 3.89[facility] OiobsnhPKGKKIJPPZ8978-74-14 20:21:005.3[facility] HermannHEMATOLOGY 2018-12-12 20:21:0024.2[facility] HvibbnaFQAAVVXPWN5039-75-29 20:21:002.7[facility] CgewckjRJIRRRFUOK7131-40-77 20:21:0067.3[facility] SixhwavAISFQNEOKC5757-33-57 20:21:000.5[facility] KrcvpvrWUDHHQKPNR5909-15-89 20:21:000.2[facility] QHZWUAAYIX4034-25-07 20:21:000.5[facility] MgdsoxfMGPQGKJGRW8173-66-91 20:21:005.9 [facility] JbqhijjPSCGRODECM0304-93-10 20:21:002.1[facility]annBLOOD BANK UJOTHQL8574-38-02 11:35:00Product available (12/12/18 6:35 AM)[facility] BLO[facility] SYFNFNG9288-22-68 11:35:00Product available (12/12/18 6:35 AM)[facility] BWANVDL5025-71-33 11:35:00Negative (12/12/18 6:35 AM)[facility]annCHEM YLZUR2299-11-27 11:35:00 Test Item Value Reference Range Interpretation Comments A/G Ratio (test code = A/G Ratio) 1.0 1 0.7-1.6 [facility]annCHEM LIGUT2104-75-34 11:35:003.7[facility] HermannCHEM PANEL 2018-12-12 11:35:00 Test Item Value Reference Range Interpretation Comments B/C Ratio (test code = B/C Ratio) 19 1 6-25 [facility]annCHE[facility] GBTSF4483-07-16 11:35:0011.7[facility]annCHEM PANEL 2018-12-12 11:35:003.6[facility]annCHEM INRZC0201-99-98 11:35:0034[facility]annCHEM TLMDM8214-61-26 11:35:0083[facility]annCHEM FTXWG3451-56-76 11:35:0023[facility]annCHEM GDAFC1685-96-44 11:35:007.3[facility]annCHEM DAGVK1311-12-89 11:35:000.4[facility]annCHEM BRYXR7312-68-50 11:35:0075 [facility]annCHE[facility] PZNCU9444-36-56 11:35:009.5[facility]annCHEM PANEL 2018-12-12 11:35:0027[facility]annCHEM SMDCS2977-26-80 11:35:40406Rictsvkg HermannCHEM MCJOX0403-68-97 11:35:003.7[facility] HermannCHEM QLEDK1658-09-57 11:35:0093[facility]annCHEM YMCAK0767-68-85 11:35:001.00[facility] HermannCHEM GHUPA9877-67-73 11:35:05285Bettxegz HermannCHEM WPPFZ3536-81-96 11:35:0019 [facility]annCHEM VTGGM1521-61-51 11:35:002.2[facility] HermannHEMATOLOGY 2018-12-12 11:35:000.1[facility] BspsshhPFJZYDZNRU5734-64-91 11:35:0024.6[facility] LsalehtSZGGUHICZX3078-25-67 11:35:009.5[facility] HwysfmiNAUUXMZTUS8105-22-75 11:35:003.7[facility] ZofbwqkOODLQQNTGQ4201-97-97 11:35:000.8[facility] YOZNPRFJOF9641-17-44 11:35:004.3[facility] NqhzuudASCKEJUZFD1123-89-88 11:35:001.7 [facility] FctqoovUIUNSXPVOC8745-35-60 11:35:000.7[facility] HermannHEMATOLOGY 2018-12-12 11:35:000.3[facility] DmjyvirXJXYUYMFLW4327-21-00 11:35:0061.4[facility] WmwobsjRXOJNWSYLT8550-03-92 11:35:00 Test Item Value Reference Range Interpretation Comments PT (test code = PT) 13.6 s 12.0-14.7 [facility] TdfndagHKPQBFAYFA8525-51-68 11:35:00 Test Item Value Reference Range Interpretation Comments PTT (test code = PTT) 27.0 s 22.9-35.8 [facility] ZklvjggHRVJIPQVNI1687-49-38 11:35:00 Test Item Value Reference Range Interpretation Comments INR (test code = INR) 1.06 1 0.85-1.17 [facility] HhctfzhMYPPKCJSRO2476-50-53 11:35:88767Vcspoins HermannHEMATOLOGY 2018-12-12 11:35:0011.5[facility] QmghrzfMDKWZYVFNY4565-06-11 11:35:007.0[facility] FyvgymdDZOMETJHRB9945-79-57 11:35:004.45[facility] EvvkzcoXOIHGINXBO6306-10-51 11:35:0014.8[facility] LcnjsbuDXCZJWPPNP8620-60-55 11:35:0044.1[facility] EUECORCVQA9375-76-30 11:35:00 Test Item Value Reference Range Interpretation Comments MCH (test code = MCH) 33.2 pg 27.0-31.0 [facility] JhrawyyVIJYVTDMCS3354-29-03 11:35:0014.2[facility]annHEMATOLOGY 2018-12-12 11:35:0099.1[facility] WuaocsyVVGFEMDAMU7377-72-32 11:35:0033.5[facility]annCHEM AYMPH1403-04-56 12:45:0086[facility]annCHEM AVWGF3060-43-65 12:45:000.9[facility]annCHEM CWFCL1146-19-33 11:15:0088[facility]annCHEM VZNEH9132-07-94 11:15:004.3[facility]annCHEM VZJES2211-89-09 11:15:00 Test Item Value Reference Range Interpretation Comments A/G Ratio (test code = A/G Ratio) 0.5 1 0.7-1.6 [facility]annCHE[facility] OKNBN6782-25-93 11:15:0022[facility]annCHEM PANEL 2018-09-22 11:15:37184Zqeczybd HermannCHEM KYSFU8499-06-96 11:15:003.5[facility]annCHE[facility] GGDBQ3232-20-14 11:15:000.85[facility]annCHEM KDYPH0874-70-56 11:15:37949Vmfztaww [facility]annCHEM HNOFS8992-96-45 11:15:006.6[facility]annCHEM QGAWU5281-11-13 11:15:38824Yxosdrbz [facility]annCHE[facility] YLJXF4760-63-75 11:15:002.3 [facility]CHE[facility] UJBDW2096-92-85 11:15:0023[facility]annCHEM PANEL 2018-09-22 11:15:94812Ccxpcvhj HermannCHEM UENQI6664-66-41 11:15:008.3[facility]annCHEM KDLBS0795-90-32 11:15:000.9[facility]annCHEM XPEDH8522-11-96 11:15:00 Test Item Value Reference Range Interpretation Comments B/C Ratio (test code = B/C Ratio) 26 1 6-25 [facility]annCHE[facility] AMHRG8990-31-74 11:15:0013.5[facility]annCHEM PANEL 2018-09-22 11:15:0054[facility]annCHEM XBIQD0285-09-09 11:15:45788Sekrwzbf HermannCHEM RJWFE3481-21-31 11:15:003.6[facility]annCHEM FNBYF8961-08-38 11:15:002.3[facility] LcxtwxdJFVRUBHXOG2882-43-52 11:15:0038.1[facility] IZSQCHPIXU9835-12-57 11:15:003.84[facility] HwhvnbsFQDHDRDOGM4071-28-52 11:15:00 13.6[facility] BgtrxalACJCABEILP5005-52-92 11:15:007.2[facility]annHEMATOLOGY 2018-09-22 11:15:0099.3[facility] EjnqgivCDVSUYTBVM7461-16-91 11:15:00 Test Item Value Reference Range Interpretation Comments MCH (test code = MCH) 35.3 pg 27.0-31.0 [facility] XcnzhyyVDAOVTDPVK5946-01-72 11:15:72859Cpudvcqx HermannHEMATOLOGY 2018-09-22 11:15:0035.5[facility] QmwcwvzAPZVTRJQAE8248-23-39 11:15:0013.1[facility] AveahtnREUWDDUNXJ6807-03-56 11:15:0011.1[facility] TfvvdqhVBFAXTZJMS6222-66-73 11:15:000.5[facility] KjzjjdvFZATNKTUUV1500-45-30 11:15:001.3[facility] OXIEDVHGGM1987-39-28 11:15:004.8[facility] QixejocRIMJOCBQCX9806-46-96 11:15:000.2 [facility] KvvmihzAPBSNQONSZ4738-11-19 11:15:000.8[facility]annHEMATOLOGY 2018-09-22 11:15:0011.7[facility] AssoftgDSBFDSRATW8209-05-12 11:15:0018.1[facility] PqwfcfuLOZIJHFAWU9701-54-86 11:15:002.8[facility] WksxzqaCQODWDJWLL8504-12-65 11:15:0066.9[facility] HermannCARDIAC UOFEQEO2263-96-75 10:00:69407Hwcdgcto HermannCHEM LOUWX6272-54-52 10:00:000.21[facility]annCHEM VFRPG7253-53-25 10:00:002.4[facility]annCHEM LFLHQ5289-92-30 10:00:002.2[facility]annCHEM YVXUA1530-51-95 10:00:0078[facility]annCHEM FVYUC2224-39-90 10:00:008.5 [facility]annCHEM QNQYQ8559-93-67 10:00:51741Cjzuukgs HermannCHEM PANEL 2018-09-21 10:00:0022[facility]annCHEM VPGQO6903-16-38 10:00:000.97[facility]annCHEM KUCSW9614-66-30 10:00:0020[facility]annCHEM EKMXA7517-10-45 10:00:003.5[facility]annCHEM HSCDU3804-74-03 10:00:34870Abxufife HermannCHEM OEMTL9012-89-40 10:00:07944Fsbpdhvz HermannCHEM UBSMS1240-19-46 10:00:0015.5 [facility]annCHE[facility] OKDLD5131-66-05 10:00:0096[facility]annCHEM PANEL 2018-09-21 10:00:0044[facility]annCHEM XJILC9048-64-76 10:00:002.3[facility]annCHEM ARBPD6563-09-60 10:00:000.9[facility]annCHEM RCIXK3693-55-24 10:00:0053[facility]annCHEM AOZGQ6401-08-55 10:00:000.1[facility]annCHEM RIWIB1013-00-96 10:00:00 Test Item Value Reference Range Interpretation Comments A/G Ratio (test code = A/G Ratio) 0.5 1 0.7-1.6 [facility]annCHEM STYUP2615-62-34 10:00:004.4[facility]annCHEM PANEL 2018-09-21 10:00:000.8[facility] HermannCHEM VIWRC5258-56-50 10:00:006.7[facility] EmhmuadDLZWSXTZNK6747-15-85 10:00:00 Test Item Value Reference Range Interpretation Comments PTT (test code = PTT) 33.3 s 22.9-35.8 [facility] QkpkjtoPEAFDCNUUS6059-09-27 10:00:00 Test Item Value Reference Range Interpretation Comments PT (test code = PT) 14.1 s 12.0-14.7 [facility] PrnkvyaMBFIZWZJAM2924-24-71 10:00:00 Test Item Value Reference Range Interpretation Comments INR (test code = INR) 1.11 1 0.85-1.17 [facility] IyuvqvjNUDUMDOOHV8585-33-06 10:00:0011.0[facility]annHEMATOLOGY 2018-09-21 10:00:07355Lqabsaxt FuuvmzyCJONHDUXOK9670-69-74 10:00:0013.5[facility] QmeponzVUQXQNXVLI9650-45-15 10:00:0040.8[facility] YwpybxgSLUBOILKDZ6530-31-95 10:00:0014.0[facility] NgmfqnlFPKNSUDWOK8703-80-09 10:00:0034.3[facility] UMYYBOUQOX2187-22-84 10:00:0099.4[facility] BgqheanFMWFUSLMXE8862-38-52 10:00:00 Test Item Value Reference Range Interpretation Comments MCH (test code = MCH) 34.1 pg 27.0-31.0 [facility] IefzhgkIPJVSRKPVD6620-14-65 10:00:004.11[facility]annHEMATOLOGY 2018-09-21 10:00:009.0[facility] KuqcquiRVAXFQBNRL1382-45-23 10:00:000.4[facility] WqtbkqfKHXPUCRVCS1518-45-05 10:00:001.3[facility] HvfeudnSGOBCTJYEP2844-74-07 10:00:001.0[facility] VegmdloHRNHCLAIJP1010-60-54 10:00:000.2[facility] CIQUTEMDYZ6720-73-94 10:00:0014.2[facility] EfjghdxBHIHWIGREF5522-98-71 10:00:00 6.7[facility] SichvxnJAOIIDPTKM2791-50-58 10:00:0010.8[facility]annHEMATOLOGY 2018-09-21 10:00:0074.4[facility] HermannCHEM MVCZM6999-04-70 20:08:0067[facility]annCHEM JUWEN2141-68-31 20:08:008.2[facility]annCHEM HOTOJ0499-32-67 20:08:003.4[facility]annCHEM WBYYM7761-30-97 20:08:0096[facility]annCHEM VNBAZ4674-00-96 20:08:0020[facility]annCHEM DWROU3482-45-98 20:08:0016.4 [facility]annCHEM ONLIA8363-46-36 20:08:39577Qlsjzzdu HermannCHEM PANEL 2018-09-20 20:08:0019[facility]annCHEM RRDUP0780-04-03 20:08:001.10[facility]annCHEM IBNER9978-32-12 20:08:63634Kzanuzgx YivjxsjSVEPUKQMJF6785-60-17 20:08:001+ *ABN*(09/20/18 2:08 PM)[facility] BbyrxkoPUVOURARBD9331-02-61 20:08:00 See Note 1(09/20/18 2:08 PM)[facility] ZxhfamiEHRFVOWXXO6313-78-83 20:08:000.7 [facility] OuerafzANHCAWQBGJ0217-93-24 20:08:000.9[facility]annHEMATOLOGY 2018-09-20 20:08:009.5[facility] QroigteGIFTPAVLCU0308-92-35 20:08:000.4[facility] XhstzsoDZJPKCYLRB1236-71-42 20:08:000.1[facility] DsffyprUKPKXYFRKS8344-60-62 20:08:006.0[facility] RngyvmbZXCSFTGGVH1090-34-81 20:08:008.4[facility] ZJBVEZLGLQ9689-52-90 20:08:0085.1[facility] UbgejurZZCGOWVODH9133-80-35 20:08:00 4.16[facility] XsjdcyoIOPBUYMSQJ0004-91-67 20:08:0014.5[facility]annHEMATOLOGY 2018-09-20 20:08:0011.2[facility] PnjgxypLXFVJOMUGL1408-09-25 20:08:49255Vvusqzqz ZqksushLLGETVCULM3025-27-31 20:08:0010.9[facility] RwdwavzGLWKVHHOVR3525-97-74 20:08:0013.0[facility] RnerjemYXPHEVLPLG3200-28-45 20:08:00 Test Item Value Reference Range Interpretation Comments MCH (test code = MCH) 34.9 pg 27.0-31.0 [facility] NiezkfpGNIOGVJNAK1004-58-28 20:08:0034.7[facility]annHEMATOLOGY 2018-09-20 20:08:0041.8[facility] LxkdsdcRTVUCHRMTC3129-70-42 20:08:51486.5 [facility]annCHEM YXVUC9209-74-08 11:26:000.2[facility]annCHEM PANEL 2018-09-20 11:26:001.2[facility]annCHEM EMFFH8740-83-35 11:26:001.0[facility]annCHEM ZFTNO3117-18-05 11:26:004.1[facility]annCHEM IXLUR7518-64-25 11:26:00 Test Item Value Reference Range Interpretation Comments A/G Ratio (test code = A/G Ratio) 0.6 1 0.7-1.6 [facility]annCHE[facility] XAELP5479-56-37 11:26:002.4[facility]annCHEM PANEL 2018-09-20 11:26:0047[facility]annCHEM GCSYH1540-85-85 11:26:0037[facility]annCHEM DOGON7290-23-14 11:26:006.5[facility]annCHEM PUVYW3665-58-02 11:26:57401Kmzzezzu HermannCARDIAC DAKDIKC8310-68-82 06:09:57426Uvhkvily [facility] CHEM CRAYV6813-90-45 06:09:001.6[facility] HermannCHEM RCWHC5806-94-14 06:09:00 0.16[facility] HermannCARDIAC LUPOCOD3454-08-21 23:03:14351Dkqyxzhr HermannCHEM PVTHR2292-20-02 23:03:000.13[facility] ZmmzypiGQWCHBRLXG3225-33-42 23:03:00 Negative *NA*(09/19/18 5:03 PM)[facility] ZwhnyvdKPJUOMVAQF7367-34-10 23:03:00 Negative *NA*(09/19/18 5:03 PM)[facility] TzyttyzYHPRDQOPWE3250-12-19 23:03:00 Negative *NA*(09/19/18 5:03 PM)[facility] ZzdccxuYSPOKSLOKC0330-29-93 23:03:00 Negative *NA*(09/19/18 5:03 PM)[facility]annCHEM UZOYX1415-28-31 06:07:002.6 [facility]annCHEM PEVGS8341-60-74 06:07:002.0[facility]annHEMATOLOGY 2018-09-19 06:07:00 Test Item Value Reference Range Interpretation Comments INR (test code = INR) 1.09 1 0.85-1.17 [facility] NiltcjiSZDJPHZKHQ1366-03-64 06:07:00 Test Item Value Reference Range Interpretation Comments PT (test code = PT) 13.9 s 12.0-14.7 [facility] CugdxetWHAEZPTWNU8150-16-11 06:07:00 Test Item Value Reference Range Interpretation Comments PTT (test code = PTT) 33.0 s 22.9-35.8 [facility] UaoozduKOLBBZHVEA8026-13-89 06:07:001+ *ABN*(09/19/18 12:07 AM)[facility] GmtcftcPZCUQMEMWR0715-71-04 06:07:000.1[facility] HermannPARATHYROID PROFILE 2018-09-19 06:07:001.08[facility] HermannPARATHYROID DNREURW2690-08-88 06:07:00 1.11[facility] HermannCHEM QZLSR4262-18-87 12:21:000.1[facility] HermannCHEM PANEL 2018-09-18 12:21:000.6[facility] HermannPARATHYROID VYNTUVQ6376-94-73 09:14:001.14 [facility] HermannPARATHYROID VEZPXFE1368-84-25 09:14:001.14[facility] HermannCHEM QXUHO0847-68-10 01:10:19172Iqnrewjn HermannCHEM CEYIT3838-44-73 01:10:00 Test Item Value Reference Range Interpretation Comments B/C Ratio (test code = B/C Ratio) 16 1 6-25 [facility] DjuhyyrBMWSDS3319-94-97 01:10:00 Test Item Value Reference Range Interpretation Comments VLDL (test code = VLDL) 26 1 [facility] CnwrcfpCPOYZJ3211-43-75 01:10:12538Mldtmfcw PvflqgrNGADMB2885-40-36 01:10:0081[facility] EbsnrtjUSSQRD0046-70-09 01:10:0057[facility] HermannLIPIDS 2018-09-18 01:10:69958Upfgcthj UcpaskwTCFWRP2407-59-01 01:10:00 Test Item Value Reference Range Interpretation Comments CHD Risk (test code = CHD Risk) 2.02 1 4.00-7.30 [facility]ann[facility] POFCFXHON8511-36-29 01:10:005.9[facility] HermannBLOOD BANK IHFPMLV2374-45-31 18:57:00Negative (09/17/18 12:57 PM)[facility] OBTGFYQIFE3882-31-35 18:57:00 Test Item Value Reference Range Interpretation Comments PT (test code = PT) 14.7 s 12.0-14.7 [facility] QmtdwmySQHMKJPYPU5600-29-47 18:57:00 Test Item Value Reference Range Interpretation Comments INR (test code = INR) 1.17 1 0.85-1.17 [facility] HermannPARATHYROID TSWGTTC6484-11-11 18:57:001.07[facility] PARATHYROID YYCOXMJ6018-32-88 18:57:001.04[facility]
--- NOTE | 2020-04-02 11:20 | EDPHYS ---
Physician Documentation [facility] Name: Sadiq Arguelles IV Age: 74 yrs Sex: Male : 1945 Arrival Date: 04/02/2020 Time: 10:16 Bed 2 Private MD: ED Physician Yuri Turner HPI: 04/02 10:33 This 74 yrs old Male presents to ER via Ambulatory with complaints of cp Laceration. 10:33 The patient has a laceration occurred at home. cp 10:33 The laceration(s) is(are) located on the right arm, left arm and left leg. Onset: The cp symptoms/episode began/occurred just prior to arrival. 10:35 Patient reports shutter boards on home fell onto him causing injuries. cp Historical: - Allergies: 10:20 Morphine; hb 10:20 PENICILLINS; hb - PMHx: 10:20 aortic valve replacement; cardiac stent; Myocardial infarction; hb - Immunization history:: Adult Immunizations up to date. - Social history:: Smoking status: Patient denies any tobacco usage or history of. ROS: 10:35 Skin: Positive for of the right arm, left arm and left leg, multiple skin tears. cp 10:35 Constitutional: Negative for body aches, chills, fever. cp 10:35 Cardiovascular: Negative for chest pain. 10:35 Respiratory: Negative for shortness of breath, wheezing. 10:35 Neuro: Negative for altered mental status, headache, weakness. 10:35 All other systems are negative. Exam: 10:40 Constitutional: The patient appears in no acute distress, alert, awake, cp non-diaphoretic, well developed, well nourished. 10:40 Head/Face: Normocephalic, atraumatic. cp 10:40 Neck: C-spine: vertebral tenderness, is not appreciated, crepitus, is not appreciated, ROM/movement: is normal, is supple, without pain, no range of motions limitations, no nuchal rigidity. 10:40 Chest/axilla: Inspection: normal, Palpation: is normal, no crepitus, no tenderness. 10:40 Cardiovascular: Rate: normal. 10:40 Respiratory: the patient does not display signs of respiratory distress, Respirations: normal, no use of accessory muscles, no retractions, Breath sounds: are clear throughout. 10:40 Abdomen/GI: Inspection: abdomen appears normal, Palpation: abdomen is soft and non-tender, in all quadrants. 10:40 Back: vertebral tenderness, is not appreciated. 10:40 Musculoskeletal/extremity: Joints: the right elbow displays swelling, tenderness. 10:40 Skin: multiple ill defined skin tears noted to left arm and right arm and left leg with cp mild bleeding noted. Vital Signs: 10:25 BP 126 / 77; Pulse 88; Resp 16; Temp 98; Pulse Ox 99% ; sv MDM: 10:31 Patient medically screened. cp 11:20 Data reviewed: vital signs, nurses notes, and as a result, I will discharge patient. cp 11:20 Differential diagnosis: superficial laceration, skin tear, fracture, multiple trauma. cp 11:20 Counseling: I had a detailed discussion with the patient and/or guardian regarding: the cp historical points, exam findings, and any diagnostic results supporting the discharge/admit diagnosis, to return to the emergency department if symptoms worsen or persist or if there are any questions or concerns that arise at home. 11:20 ED course: VSS. Wounds cleaned and dressed. Patient reports tetanus is up to date. Will cp discharge to home for continued monitoring. 11:39 Test interpretation: by ED physician or midlevel provider: xrays of left elbow negative cp for fracture. 04/02 11:23 Order name: XRAY Elbow LEFT 3 view; Complete Time: 12:02 cp 04/02 12:02 Interpretation: Report reviewed. 04/02 10:18 Order name: Wound dressing: please clean and dress wounds; Complete Time: 11:21 cp Administered Medications: No medications were administered Disposition: 11:30 Chart complete. cp 13:29 Co-signature as Attending Physician, Yuri Turner MD. ma2 Disposition: 04/02/20 11:20 Discharged to Home. Impression: Multiple Skin Tears, left arm and right arm and right leg. - Condition is Stable. - Discharge Instructions: Skin Tear Care. - Medication Reconciliation Form, Thank You Letter, Antibiotic Education, Prescription Opioid Use form. - Follow up: Private Physician; When: 2 - 3 days; Reason: Wound Recheck. - Problem is new. - Symptoms have improved. Signatures: Dispatcher [facility] Fiordaliza Freeman RN RN Jose Trevino PA PA cp Baxter, Heather, RN RN Yuri Turner MD MD ma2 Corrections: (The following items were deleted from the chart) 12:09 11:20 04/02/2020 11:20 Discharged to Home. Impression: Multiple Skin Tears, left arm ss and right arm and right leg. Condition is Stable. Forms are Medication Reconciliation Form, Thank You Letter, Antibiotic Education, Prescription Opioid Use. Follow up: Private Physician; When: 2 - 3 days; Reason: Wound Recheck. Problem is new. Symptoms have improved. cp
--- NOTE | 2020-04-02 11:20 | ER ---
Nurse's Notes [facility] Name: Sadiq Arguelles IV Age: 74 yrs Sex: Male : 1945 Arrival Date: 04/02/2020 Time: 10:16 Bed 2 Private MD: Diagnosis: Multiple Skin Tears, left arm and right arm and right leg Presentation: 04/02 10:22 Chief complaint: Patient states: he was taking down his shutter boards and it was sv starting to fall on him and he didn't step back far enough and has mx skin tears to bilateral arms. Onset of symptoms was April 02, 2020. 10:22 Method Of Arrival: Ambulatory sv 10:22 Acuity: BELLA 3 sv 10:22 Coronavirus screen: Client denies travel out of the [place] in the last 14 days. At this sv time, the client does not indicate any symptoms associated with coronavirus-19. Ebola Screen: No symptoms or risks identified at this time. Complicating Factors: There are no complicating factors for this patient. Risk Assessment: Do you want to hurt yourself or someone else? Patient reports no desire to harm self or others. 10:25 Initial Sepsis Screen: Does the patient meet any 2 criteria? No. Patient's initial sv sepsis screen is negative. Does the patient have a suspected source of infection? No. Patient's initial sepsis screen is negative. Triage Assessment: 10:22 General: Appears in no apparent distress. comfortable, slender, Behavior is calm, sv cooperative, appropriate for age. Pain: Complains of pain in right arm, left arm and left leg. Neuro: Level of Consciousness is awake, alert, obeys commands, Oriented to person, place, time, situation, Moves all extremities. Full function Gait is steady, Speech is normal, Denies syncope. Respiratory: Airway is patent Respiratory effort is even, unlabored, Respiratory pattern is regular, symmetrical. Derm: Skin is fragile, is thin, with poor turgor has skin tears on right lower forearm, left upper and lower arm, and left knee Skin is pink, warm \T\ dry. Historical: - Allergies: 10:20 Morphine; hb 10:20 PENICILLINS; hb - PMHx: 10:20 aortic valve replacement; cardiac stent; Myocardial infarction; hb - Immunization history:: Adult Immunizations up to date. - Social history:: Smoking status: Patient denies any tobacco usage or history of. Screenin:20 Abuse screen: Denies threats or abuse. Denies injuries from another. Nutritional hb screening: No deficits noted. Tuberculosis screening: No symptoms or risk factors identified. Fall Risk None identified. Assessment: 11:27 Reassessment: Pt up for discharge but needs his xray done and resulted prior to sv discharge. 12:05 Reassessment: Patient appears in no apparent distress at this time. Patient and/or sv family updated on plan of care and expected duration. Pain level reassessed. Patient is alert, oriented x 3, equal unlabored respirations, skin warm/dry/pink. Patient states symptoms have improved. 12:08 Reassessment: florence wrap applied to bilateral arms. ss Vital Signs: 10:25 BP 126 / 77; Pulse 88; Resp 16; Temp 98; Pulse Ox 99% ; sv ED Course: 10:16 Patient arrived in ED. ds1 10:17 Jose Higginbotham PA is PHCP. cp 10:17 Yuri Turner MD is Attending Physician. cp 10:18 Patti Latif, YAQUELIN is Primary Nurse. sv 10:20 Patient has correct armband on for positive identification. Bed in low position. Call hb light in reach. Side rails up X 1. 10:22 Arm band placed on Patient placed in an exam room, on a stretcher. sv 10:23 Triage completed. sv 11:25 One-on-one care X 60 minutes. sv 11:25 Wound care: to multiple skin tears to the right lower forearm, left upper and lower sv arm, and left knee located on dorsal aspect of right forearm, palmar aspect of right forearm, left bicep, dorsal aspect of left forearm, left tricep, left elbow, palmar aspect of left forearm and lateral aspect of left knee was cleaned with with NS and gauze, dressed with Neosporin, Kerlix, steri-strips, non-adherent gauze., Patient tolerated well. 11:29 X-ray(s) taken. sv 11:42 XRAY Elbow LEFT 3 view In Process Unspecified. EDMS 12:08 No provider procedures requiring assistance completed. Patient did not have IV access ss during this emergency room visit. Administered Medications: No medications were administered Outcome: 11:20 Discharge ordered by . cp 12:08 Discharged to home ambulatory. 12:08 Condition: good 12:08 Discharge instructions given to patient, Instructed on discharge instructions, follow up and referral plans. wound care, Demonstrated understanding of instructions, follow-up care. 12:09 Patient left the ED. Signatures: Dispatcher [employer] Patti Johnson RN RN Gabbi Weiss ds1 Fiordaliza Azar RN RN Jose Higginbotham, Luisa Thomas cp, RN RN hb
--- NOTE | 2020-04-02 12:00 | RAD REPORT ---
EXAM DESCRIPTION: RAD - Elbow Left 3 View - 04/02/2020 11:41 am CLINICAL HISTORY: SWELLINGtrauma with skin laceration COMPARISON: None. FINDINGS: No fracture is identified and no elevated posterior fat pad. There is no dislocation or pe riosteal reaction noted. Soft tissue wounds are evident. No foreign body identified. IMPRESSION: Negative left elbow examination.
== END 2020-04-02 12:09 | disposition home or self-care (01) ==
LOC: ER 10:15
DX: S41.112A Laceration without foreign body of left upper arm, initial encounter (principal); S41.111A Laceration without foreign body of right upper arm, initial encounter; S81.811A Laceration without foreign body, right lower leg, initial encounter; W22.8XXA Striking against or struck by other objects, initial encounter; Y93.9 Activity, unspecified; Y92.009 Unspecified place in unspecified non-institutional (private) residence as the place of occurrence of the external cause; Z88.0 Allergy status to penicillin; Z88.5 Allergy status to narcotic agent; Z95.4 Presence of other heart-valve replacement; Z95.818 Presence of other cardiac implants and grafts
CPT/HCPCS: 99283

== ENCOUNTER 2020-04-03 10:43 | Emergency (ER) | payer OTHER ==
--- OUTSIDE RECORDS SUMMARY | 2020-04-03 10:45 | XMS REPORT | Clinical Summary ---
:1945 Author Organization [facility] Address [address] [place] [address] Care Team Providers Name Role Phone Avery [...] ONCE A Coronary artery DAY. disease involving [place] heart with angina pectoris, unspecified vessel or lesion type (HCC), Aortic valve disorder atorvastatin Take 1 tablet 90 tablet 3 05/29/2018 05/29/2019 E xpired (LIPITOR) 40 MG (40 mg total) tabletIndications: by mouth daily. 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
--- OUTSIDE RECORDS SUMMARY | 2020-04-03 10:49 | XMS REPORT | Continuity of Care Document ---
:1945 Author Organization [employer] Care Team Providers Name Role Phone [employer] Unavailable Un available Problems Problem Status Onset Classification Date Comments Sourc e Date Reported PRESENCE OF Active [facility] PROSTHETIC HEART 020 [facility] VALVE Center 4 MONTH FOLLOW UP Active [address] 2 MOS F/U Active [address] 3MOS F/U Active [address] R19.09 - OTHER Active OP ID INTRA-ABDOMINAL AND [address] [place] [address] PELV ECHO Active [address] Pain in left leg 12/21/2018 [facility] LEG CRAMPS, POST Active [facility] orial SURGERY [facility] [place] FOLLOW UP Active [address] PREADMIT / TAVR / Active [facility] / TTE [address] [place] [address] AORTIC STNOSIS Active [address] 1 MONTH FOLLOW Active [facility] xa UP/ECHO [address] [place] [address] HOSPITAL D/C FOLLOW Active [address] CHEST PAIN Active [address] JERMAINE BILLING Active [address] Actinic Keratosis Active 10/28/2013 [facility] Aortic valve Resolved Problem 01/03/2020 Cristi as stenosis (disorder) [facility], Shashank Reeys nn Coronary Resolved Problem 01/03/2020 [facility] arteriosclerosis Med ical (disorder) Center, Shashank Reyes nn Hyperlipidemia Resolved Problem 01/03/2020 [place] (disorder) Medical [place], Shashank Reyes Hypertensive Resolved Problem 01/03/2020 Cristi as disorder, systemic M edical arterial (disorder) Center, Shashank Reyes nn 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) edical [place], Eric,Shashank EULOGIO Carreon nn Myocardial Resolved Problem 01/03/2020 [facility] infarction Medical (disorder) [place],[facility],Shashank EULOGIO [place] nn 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 Mi dicde (disorder) [place], Eric,Shashank EULOGIO Carreon nn History of aortic Active Problem 01/03/2020 [facility] [place] valve replacement [facility] (situation) [place] Medications Medication Details Route Status Patient Ordering Order Source Instructions Provider Date ticagrelor 90 mg 90 mg = 1 tab, Active [place] oral tablet PO, Q12H, # 180 2019 Medi gianni tab, 3 Center Refill(s), Pharmacy: [facility] lisinopril 5 mg 5 mg = 1 tab, Active [place] oral tablet PO, Daily, # 90 2019 Medi gianni tab, 3 Center Refill(s), Pharmacy: [facility] lisinopril 2.5 2.5 mg = 1 tab, Active 04/20/ M [facility] [place] mg oral tablet PO, Daily, # 90 2019 M edical tab, 3 Center Refill(s), Pharmacy: [facility] spironolactone 12.5 mg = 0.5 Active [place] 25 mg oral tab, PO, Daily, 2019 Medic al tablet # 45 tab, 3 Center Refill(s), Pharmacy: [facility] 24 HR Metoprolol 25 mg = 0.5 Active [place] Tartrate 50 MG tab, PO, Daily, 2019 M edical Extended Release # 45 tab, [address] Tablet [Toprol] Refill(s), Pharmacy: [facility] [place] ticagrelor 90 mg 90 mg = 1 tab, Active [place] oral tablet PO, Q12H, # 180 2019 Medi gianni tab, 3 Center Refill(s), Pharmacy: [facility] atorvastatin 40 40 mg = 1 tab, Active 04/20/ M H [place] mg oral tablet PO, Daily, # 90 2019 M edical tab, 3 Center Refill(s), Pharmacy: [facility] spironolactone 12.5 mg = 0.5 Active [place] 25 mg oral tab, PO, Daily, 2019 Medic al tablet # 45 tab, 3 Center Refill(s), Pharmacy: [facility] [place] lisinopril 2.5 2.5 mg = 1 tab, Active H [place] mg oral tablet PO, Daily, # 90 2019 M edical tab, 3 Center Refill(s), Pharmacy: [facility] [place] Saline Flush Notes: Same as: Inactive [place] 0.9% BD Posiflush 2019 Sterile Furosemide 40 MG 40 mg = 1 tab, Active [place] Oral Tablet PO, Daily, # 30 2019 Medi gianni [Lasix] tab, 0 Center Refill(s), given to patient clopidogrel Notes: (Same Inactive Cristi as As: Plavix) 2018 [facility] Aspirin 81 MG Notes: Do not Inactive [facility] Enteric Coated crush or chew. 2019 Mi dical Tablet (Same As: [place] Ecotrin) potassium Notes: (Same Inactive [facility] chloride 20 mEq as: K-Dur 20) 2019 Mi dical oral tablet, "Do Not Crush" Cent er extended release Give with food and full glass of water For patients unable to swallow tablet, dissolve in one half glass of water. Allow about 2 minutes for the tablets to disintegrate. Stir before giving to prepare slurry and administer. Please exclude Patient’s with feeding tube less than 14 Bulgarian (Dobhoff, J-tube etc) and pediatric and patients. 24 HR Metoprolol Notes: (Same Inactive [facility] Tartrate 50 MG as: Toprol XL) 2018 Mi dical Extended Release May split tab, Center Tablet [Toprol] but do not crush. atorvastatin Notes: (Same Inactive [place] as: Lipitor) 2019 [facility] Brilinta Notes: (Same Inactive [place] as: Brilinta) [address] [place] [address] ticagrelor 90 mg 90 mg = 1 tab, Active [place] oral tablet PO, Q12H, # 180 2019 Medi gianni tab, 3 Center Refill(s) 24 [place] Metoprolol 25 mg = 0.5 Active [facility] Tartrate 50 MG tab, PO, Daily, 2019 M edical Extended Release # 15 tab, [address] Tablet [Toprol] Refill(s) Aspirin 81 MG 81 mg = 1 tab, Active [place] Enteric Coated PO, Daily, # 90 2019 [...] Same as Inactive [place] s Narcan 2019 [facility] Flumazenil Notes: (Same Inactive Teresa s as: Romazicon) 2019 [facility] Fentanyl Notes: (Same Inactive 12/12[facility] Marge as: Sublimaze) 2019 Medical Preservative Center free. Ondansetron Notes: (Same Inactive Cristi as as: Zofran) 2019 Medical MEDICATION Center WASTE Product Size: 4 mg Product Wasted: ___ mg fentaNYL (ANES) Route: IV, Drug Inactive Marge form: INJ, 2018 Medical ONCE, Stop Center date: 12/12/18 11:27:00 CDT ceFAZolin (ANES) Route: IV, Drug Inactive 12/12[facility] Marge form: INJ, 2018 Medical ONCE, [...] Vitamin D3 2000 2,000 IntlUnit Active H [place] intl units oral = 1 cap, PO, 2019 Med ical capsule Daily, # 100 Center cap, 3 Refill(s) 24 HR Metoprolol 50 mg = 1 tab, Active [place] Tartrate 50 MG PO, Daily, # 30 2019 M edical Extended Release tab, 6 Center Tablet [Toprol] Refill(s), Pharmacy: [facility] [place] atorvastatin 40 40 mg = 1 tab, Active H [place] mg oral tablet PO, Daily, 0 2019 Medi gianni Refill(s) [place] potassium 20 mEq = 1 tab, Active Cristi as chloride 20 mEq PO, Daily, # 90 2019 Medical oral tablet, tab, 1 Center extended release Refill(s) DME Prescription See Active Cristia s Instructions, 2019 Medical MISC, ONCE, [place] hepatic function panel on , 09/25/2018 Dx: [...] 25 mg PO, Q12H, # 60 2019 Mi dical oral tablet tab, 0 Center Refill(s) Furosemide 40 MG 40 mg = 1 tab, Active [place] Oral Tablet PO, BID, # 60 2019 Medica l tab, 0 Center Refill(s) Furosemide 40 MG Notes: (Same No Longer [place] Oral Tablet as: Lasix) December Active 2018 Medi gianni cause GI upset. Center Give with food or milk. Albuterol 0.833 Notes: (Same No Longer H [place] MG/ML / as: Duoneb) Active 2018 Medical Ipratropium Center [place] 0.167 MG/ML Inhalant Solution [DuoNeb] Calcium Notes: WASTE: No Longer [place] Gluconate F/P - Sink; E - [facility] Bin Magnesium Oxide Notes: (Same No Longer [place] as: Mag-Ox 400) Active 2018 [facility] Magnesium oxide Center [id number] elemental magnesium Dose=____mg magnesium oxide (___mg elemental [...] - Sink; E - Active 2018 Medical [facility] Trash Center Bin potassium Notes: (Same No [...] Patient’s with feeding tube less than 14 Bulgarian (Dobhoff, J-tube etc) and pediatric and patients. potassium Notes: ([facility]-sodium as: Phos-NaK) Active 2018 edical phosphate 250 Each 1.5 gm pkt Ce nter mg-280 mg-160 mg has 250mg oral powder for phosphorous. reconstitution Mix w/2.5oz water and stir. Blistex Lip [place] Route: MISC, Inactive [facility] Dosing Weight 2019 [facility] 79.545, kg, Center BID, Start date: 09/21/18 9:00:00 [facility] [employer], Duration: 30 day, Stop date: 10/20/18 17:00:00 CDT allantoin/campho Notes: Same as: No Longer 09/21 [facility] r/phenol topical Blistex Active 2019 [facility] Furosemide Notes: (Same No Longer [facility] as as: Lasix) Active 2019 Medical MEDICATION Center WASTE Product Size: 40 mg Product Wasted: ___ mg K-Dur 20 Notes: (Same Inactive [facility] as: K-Dur 20) 2019 Medical "Do Not Crush" Center Give with food and full glass of water For patients unable to swallow tablet, dissolve in one half glass of water. Allow about 2 minutes for the tablets to disintegrate. Stir before giving to prepare slurry and administer. Please exclude Patient’s with feeding tube less than 14 Bulgarian (Dobhoff, J-tube etc) and pediatric and patients. cefepime Notes: (Same No Longer [facility] As: Maxipime) Active 2019 Medical MEDICATION Center WASTE Product Size: 1000 mg Product Wasted: ___ mg Vancomycin 2001 mg: No Longer [facility] infuse over 2.5 Active 2019 [facility] hours Center Tylenol Notes: Max No Longer [facility] acetaminophen = Active 2019 Medical 4000mg/day (4 Center gm/day). (Same as: Tylenol) Albuterol 0.833 Notes: (Same Active [place] MG/ML / as: Duoneb) 2019 [facility] Ipratropium Center [place] 0.167 MG/ML Inhalant Solution [DuoNeb] Lasix Notes: (Same Inactive [place] as: Lasix) 2019 [facility] Center Potassium Notes: (Same No Long[facility] Chloride as: KCL) Active 2018 Medical Infuse no Center faster than 10 mEq/hr if given peripherally. sodium phosphate Notes: Infuse No Longer [place] over 4 hour. Do Active 2019 Medical not infuse Center phosphorous concurrently in the same line as TPN or IVF that contains calcium. For double lumen central lines, phosphorous may be infused in a separate lumen from TPN. potassium Notes: (Same No Longer [facility] phosphate as: K Active 2018 Medical Phosphate.) Do Center not infuse phosphorous concurrently in the same line as TPN or IVF that contains calcium. For double lumen central lines, phosphorous may be infused in a separate lumen from TPN. 1 mMol phoshate has 1.47 mEq potassium Infuse over 4 hours potassium Notes: (Same No Longer [facility] s phosphate-sodium as: Phos-NaK) Active 2018 edical phosphate 250 Each 1.5 gm pkt Ce nter mg-280 mg-160 mg has 250mg oral powder for phosphorous. reconstitution Mix w/2.5oz water and stir. Magnesium Notes: WASTE: No Longer Cristi as Sulfate F/P - Sink; E - Active 2018 [facility] Bin Calcium Notes: WASTE: No Longer [place] Gluconate F/P - Sink; E - Active 2018 [facility]ica l [facility] [place] Bin Calcium Notes: (Same No Longer [place] Carbonate 500 MG As: Tums) Active 2018 Medic al Chewable Tablet Calcium Center Carbonate 500 mg = 200 mg elemental calcium Dose = mg calcium carbonate ( mg elemental calcium) Magnesium Oxide Notes: (Same No Longer H [place] as: Mag-Ox 400) Active 2018 [facility] Magnesium oxide [place] [id number] elemental magnesium Dose=____mg magnesium oxide (___mg elemental magnesium) Ticagrelor Notes: (Same No Longer [place] as as: Brilinta) Active 2019 [facility] Brilinta Notes: (Same Inactive [place] as: Brilinta) 2019 [facility] Aspirin 81 MG Notes: Do not No Longer [place] Enteric Coated crush or chew. Active 2019 Mi dical Tablet (Same As: [place] Ecotrin) Lovenox Notes: (Same No Longer [place] as: Lovenox) Active 2019 [facility] metoprolol Notes: (Same No Longer Cristi as tartrate as: Lopressor) Active 2019 [facility] atorvastatin Notes: Same as No Longer [facility] Lipitor Active 2019 [facility] Saline Flush Notes: Same as: No Longer H [place] 0.9% BD Posiflush Active 2019 [facility] Saline Flush Notes: Same as: No Longer H [place] 0.9% BD Posiflush Active 2019 [facility] Sodium Chloride 500 mL, Rate: No Longer [place] 0.9% IV 500 mL 20 ml/hr, Active 2019 Medical Infuse over: 25 Center hr, Route: IV, Total Volume: 500, Start date: 09/17/18 12:35:00 [facility] [employer], Duration: 24 hr, Stop date: 09/18/18 12:34:00 [facility] [employer] Ticagrelor 180 mg, Route: Inactive [place] PO, ONCE, kg, 2018 Medical Priority: NOW, Center Start date: 09/17/18 12:33:00 [facility] [employer], Stop date: 09/17/18 12:33:00 [facility] [employer] Lisinopril TABS (Active) [facility] Aspirin TABS (Active) Active [facility] Allergies, Adverse Reactions, Alerts Substance Category Reaction Severity Reaction Status Date Comments S ource type Reported Penicillins drug drug Active [place] allergy allergy Physicia n s Morphine drug drug Active [place] Derivatives allergy allergy Phys ician s penicillin Assertion Drug Active [facility] morphine Assertion penicillin Drug Active [facility] Immunizations No Data Provided for This Section Results Order Name Results Value Reference Date Interpretation Comments Paloma rce Range CARDIAC BNP 67 <=100 12/31 [facility] ENZYMES pg/mL [facility] CHEM PANEL Glucose Lvl 92 70 - 99 12/[address] CHEM PANEL BUN 19 7 - 22 12/[address] CHEM PANEL Creatinine 1.00 0.50 - 12/31 [facility] Lvl 1.40 /2019 [facility] CHEM PANEL Sodium Lvl 137 135 - 145 12/[address] CHEM PANEL Potassium 4.4 3.5 - 5.1 12/31 [facility] [place] [address] CHEM PANEL Chloride Lvl 106 95 - 109 12/[address] CHEM PANEL CO2 25 24 - 32 12/[address] CHEM PANEL Calcium Lvl 9.0 8.5 - 10.5 12/31 [facility] as [address] CHEM PANEL Total 7.5 6.4 - 8.4 12/31 [facility] Protein [address] CHEM PANEL Albumin Lvl 3.6 3.5 - 5.0 12/[address] CHEM PANEL ALT 43 0 - 65 12/[address] CHEM PANEL AST 28 0 - 37 12/[address] CHEM PANEL Alk Phos 91 39 - 136 12/[address] CHEM PANEL Bili Total 0.5 0.2 - 1.3 12/[address] CHEM PANEL AGAP 10.4 10.0 - 12/31 [facility] 20.0 /2019 [facility] CHEM PANEL B/C Ratio 19 6 - 25 12/[address] CHEM PANEL Globulin 3.9 2.7 - 4.2 12/[address] CHEM PANEL A/G Ratio 0.9 0.7 - 1.6 12/[address] CHEM PANEL eGFR 75 12/31 [place] [id number] Comment: The Medical eGFR is Center calculated [...] HEMATOLOGY WBC 5.9 3.7 - 10.4 12/[address] HEMATOLOGY RBC 4.58 4.70 - 12/31 [place] 6.10 [facility] HEMATOLOGY Hgb 14.9 14.0 - 12/31 [place] 18.0 /2019 [facility] HEMATOLOGY Hct 44.8 42.0 - 12/31 [place] 54.0 /2019 [facility] HEMATOLOGY MCV 97.7 80.0 - 12/31 [facility] 94.0 2019 [facility] HEMATOLOGY MCH 32.5 27.0 - 12/31 [facility] 31.0 /2019 [facility] HEMATOLOGY MCHC 33.3 32.0 - 12/31 [place] 36.0 [facility] HEMATOLOGY RDW 13.7 11.5 - 12/31 [place] 14.5 /2019 [facility] HEMATOLOGY Platelet 176 133 - 450 12/[address] HEMATOLOGY MPV 11.5 7.4 - 10.4 12/[address] HEMATOLOGY Segs 52.5 45.0 - 12/31 [facility] 75.0 [facility] HEMATOLOGY Lymphocytes 28.8 20.0 - 12/31 [place] 40.0 [facility] HEMATOLOGY Monocytes 12.1 2.0 - 12.0 12/[address] HEMATOLOGY Eosinophils 6.0 0.0 - 4.0 12/[address] HEMATOLOGY Basophils 0.6 0.0 - 1.0 12/[address] HEMATOLOGY Neutrophils 3.1 1.5 - 8.1 12/31 [place] [facility] # /2019 [facility] HEMATOLOGY Lymphocytes 1.7 1.0 - 5.5 12/31 [facility] /2019 [facility] HEMATOLOGY Monocytes # 0.7 0.0 - 0.8 12/[address] HEMATOLOGY Eosinophils 0.4 0.0 - 0.5 12/31 [facility] /2019 [facility] CHEM PANEL Glucose Lvl 96 70 - 99 06/[address] CHEM PANEL BUN 16 7 - 22 06/[address] CHEM PANEL Creatinine 0.98 0.50 - 06/15 [place] Lvl 1.40 [facility] CHEM PANEL Sodium Lvl 138 135 - 145 06/[address] CHEM PANEL Potassium 4.2 3.5 - 5.1 06/15 [facility] /[address] [place] [address] CHEM PANEL Chloride Lvl 104 95 - 109 06/[address] CHEM PANEL CO2 28 24 - 32 06/[address] CHEM PANEL Calcium Lvl 9.5 8.5 - 10.5 06/15 [facility] CHEM PANEL Total 7.2 6.4 - 8.4 06/15 [facility] Protein [address] CHEM PANEL Albumin Lvl 3.6 3.5 - 5.0 06/15 [facility] CHEM PANEL ALT 40 0 - 65 06/[address] CHEM PANEL AST 27 0 - 37 06/[address] CHEM PANEL Alk Phos 81 39 - 136 06/[address] CHEM PANEL Bili Total 0.4 0.2 - 1.3 06/[address] CHEM PANEL AGAP 10.2 10.0 - 06/15 [place] 20.0 [facility] CHEM PANEL B/C Ratio 16 6 - 25 06/[address] CHEM PANEL Globulin 3.6 2.7 - 4.2 06/[address] CHEM PANEL A/G Ratio 1.0 0.7 - 1.6 06/[address] CHEM PANEL eGFR 76 06/15 [facility] Comment: The Medical eGFR is Center calculated [...] BMI. ELECTROLYTE AGAP 12.2 10.0 - 01/12 [facility] 20.0 [facility] ELECTROLYTE A/G Ratio 1.2 0.7 - 1.6 01/12 [facility] S /2018 [facility] ELECTROLYTE Globulin 3.3 2.7 - 4.2 01/12 [facility] S /2018 [facility] ELECTROLYTE B/C Ratio 22 6 - 25 01/12 [facility] S /2018 [facility] ELECTROLYTE eGFR 74 01/12 [facility] Comment: The Medical eGFR is Center [...] Alk Phos 91 39 - 136 01/12 [facility] S /2018 [facility] ELECTROLYTE Bili Total 0.6 0.2 - 1.3 01/12 [facility] /2018 [facility] ELECTROLYTE Albumin Lvl 4.1 3.5 - 5.0 01/12 Cristi as S 2018 [facility] ELECTROLYTE Total 7.4 6.4 - 8.4 01/12 [facility] /2018 [facility] ELECTROLYTE Calcium Lvl 9.2 8.5 - 10.5 01/12 [place] S /2018 [facility] ELECTROLYTE AST 20 0 - 37 01/12 [facility] S 2018 [facility] ELECTROLYTE ALT 28 0 - 65 01/12 [facility] S /2019 [facility] ELECTROLYTE Sodium Lvl 140 135 - 145 01/12 [facility] S /2019 [facility] ELECTROLYTE Potassium 4.2 3.5 - 5.1 01/12 [facility] S Lvl /2018 [facility] ELECTROLYTE CO2 27 24 - 32 01/12 [facility] S 2019 [facility] ELECTROLYTE Chloride Lvl 105 95 - 109 01/12 [facility] as S /2019 [facility] ELECTROLYTE Glucose Lvl 84 70 - 99 01/12 [facility] S /2019 [facility] ELECTROLYTE Creatinine 1.02 0.50 - 01/12 [facility] S Lvl 1.40 [facility] ELECTROLYTE BUN 22 7 - 22 01/12 [facility] S /2019 [facility] HEMATOLOGY Monocytes # 0.6 0.0 - 0.8 01/12 [facility] s /2019 [facility] HEMATOLOGY Eosinophils 0.3 0.0 - 0.5 01/12 [facility] /2019 [facility] HEMATOLOGY Lymphocytes 1.8 1.0 - 5.5 01/12 [facility] /2019 [facility] HEMATOLOGY Eosinophils 4.0 0.0 - 4.0 01/12 [facility] s /2019 [facility] HEMATOLOGY Neutrophils 3.7 1.5 - 8.1 01/12 [facility] /2019 [facility] HEMATOLOGY Basophils 0.5 0.0 - 1.0 01/12 [facility] HEMATOLOGY Monocytes 9.5 2.0 - 12.0 01/12 [facility]2019 [facility] HEMATOLOGY Segs 58.3 45.0 - 01/12 [facility] 75.0 [facility] HEMATOLOGY Lymphocytes 27.7 20.0 - 01/12 [place] 40.0 2019 [facility] HEMATOLOGY MPV 11.2 7.4 - 10.4 01/12 /2019 [facility] HEMATOLOGY Platelet 150 133 - 450 01/12 [facility]2018 [facility] HEMATOLOGY MCHC 32.4 32.0 - 01/12 [place] 36.0 2019 [facility] HEMATOLOGY RDW 14.3 11.5 - 01/12 [place] 14.5 /2019 [facility] HEMATOLOGY MCH 31.9 27.0 - 01/12 [place] 31.0 2019 [facility] HEMATOLOGY Hct 45.9 42.0 - 01/12 [place] 54.0 /2019 [facility] HEMATOLOGY MCV 98.2 80.0 - 01/12 [place] 94.0 /2019 [facility] HEMATOLOGY WBC 6.4 3.7 - 10.4 01/12 [place] [facility] HEMATOLOGY RBC 4.68 4.70 - 06 [place] 6.10 [facility] HEMATOLOGY Hgb 14.9 14.0 - 06 [facility] 18.0 [facility] CARDIAC Troponin-I 0.02 0.00 - 12/18 EN[facility] 0.40 /2018 [place] CARDIAC Total CK 97 12 - 191 12/18 EN[facility] /2018 [place] CHEM PANEL eGFR 81 12/18 [facility] Comment: The [place] eGFR is calculated using the CKD-EPI formula. [...] Albumin Lvl 3.4 3.5 - 5.0 12/18 [place] CHEM PANEL Total 7.6 6.4 - 8.4 12/18 [place] CHEM PANEL Calcium Lvl 9.1 8.5 - 10.5 12/18 [place] CHEM PANEL CO2 25 24 - 32 12/18 [place] CHEM PANEL Chloride Lvl 103 95 - 109 12/18 [place] CHEM PANEL Potassium 4.1 3.5 - 5.1 12/18 Lvl [place] CHEM PANEL Bili Total 0.9 0.2 - 1.3 12/18 [place] CHEM PANEL Alk Phos 91 39 - 136 12/18 [place] CHEM PANEL AST 19 0 - 37 12/18 [place] CHEM PANEL ALT 24 0 - 65 12/18 [place] CHEM PANEL Sodium Lvl 137 135 - 145 12/18 [place] CHEM PANEL Creatinine 0.94 0.50 - 05 [facility] Lvl 1.40 /2018 [place] CHEM PANEL BUN 28 7 - 22 12/18 [place] CHEM PANEL Glucose Lvl 95 70 - 99 12/18 [place] CHEM PANEL A/G Ratio 0.8 0.7 - 1.6 12/18 [place] CHEM PANEL B/C Ratio 30 6 - 25 12/18 [place] CHEM PANEL Globulin 4.2 2.7 - 4.2 12/18 [place] CHEM PANEL AGAP 13.1 10.0 - 05 MH 20.0 [place] HEMATOLOGY MCV 96.2 80.0 - 12/18 [facility] 94.0 [place] HEMATOLOGY Hct 40.0 42.0 - 12/18 [facility] 54.0 [place] HEMATOLOGY RBC 4.15 4.70 - 12/18 MH 6.10 [place] HEMATOLOGY Hgb 13.6 14.0 - 12/18 MH 18.0 [place] HEMATOLOGY MCHC 33.9 32.0 - 05 MH 36.0 [place] HEMATOLOGY MCH 32.7 27.0 - 12/18 MH 31.0 [place] HEMATOLOGY RDW 14.3 11.5 - 12/18 [facility] 14.5 [place] HEMATOLOGY Platelet 147 133 - 450 12/18 [place] HEMATOLOGY MPV 11.3 7.4 - 10.4 12/18 [place] HEMATOLOGY WBC 7.7 3.7 - 10.4 12/18 [place] HEMATOLOGY Eosinophils 0.3 0.0 - 0.5 12/18 [facility] # /2018 [place] HEMATOLOGY Monocytes # 0.9 0.0 - 0.8 12/18 [place] HEMATOLOGY Neutrophils 5.3 1.5 - 8.1 12/18 [facility] # /2018 [place] HEMATOLOGY Segs 68.5 45.0 - 05 MH 75.0 [place] HEMATOLOGY Lymphocytes 16.1 20.0 - 05 MH 40.0 [place] HEMATOLOGY Monocytes 11.1 2.0 - 12.0 12/18 [place] HEMATOLOGY Basophils 0.6 0.0 - 1.0 12/18 [place] HEMATOLOGY Lymphocytes 1.2 1.0 - 5.5 12/18 [place] HEMATOLOGY Eosinophils 3.7 0.0 - 4.0 12/18 [place] CHEM PANEL eGFR 92 12/13 Result Comment: [...] PANEL CO2 22 24 - 32 12/13 [facility] CHEM PANEL Calcium Lvl 8.5 8.5 - 10.5 12/13 Cristi [facility] CHEM PANEL Chloride Lvl 114 95 - 109 12/13 [facility] CHEM PANEL Potassium 3.9 3.5 - 5.1 12/13 [facility] [facility] CHEM PANEL Creatinine 0.76 0.50 - 12/13 [facility] Lvl 1.40 [facility] CHEM PANEL Sodium Lvl 143 135 - 145 12/13 [facility] CHEM PANEL BUN 14 7 - 22 12/13 [facility] CHEM PANEL Glucose Lvl 98 70 - 99 12/13 [facility] CHEM PANEL AGAP 10.9 10.0 - 12/13 20.0 [facility] CHEM PANEL Magnesium 2.2 1.8 - 2.4 12/13 [facility] HEMATOLOGY Platelet 143 133 - 450 12/13 2018 [facility] HEMATOLOGY RDW 14.1 11.5 - 12/13 [place] 14.5 [facility] HEMATOLOGY MCHC 33.8 32.0 - 12/13 [place] 36.0 [facility] HEMATOLOGY MCV 98.0 80.0 - 0511 [place] 94.0 /2019 [facility] HEMATOLOGY MCH 33.2 27.0 - 05 [place] 31.0 2019 [facility] HEMATOLOGY MPV 11.8 7.4 - 10.4 12/13 [facility] HEMATOLOGY Hct 37.5 42.0 - 12/13 [place] 54.0 /2019 [facility] HEMATOLOGY WBC 9.1 3.7 - 10.4 12/13 [facility] HEMATOLOGY Hgb 12.7 14.0 - 05 [place] 18.0 /2019 [facility] HEMATOLOGY RBC 3.83 4.70 - 05 [place] 6.10 /2019 [facility] HEMATOLOGY INR 1.08 0.85 - 12/13 [place] 1.17 /2018 [facility] HEMATOLOGY PTT 28.0 22.9 - 12/13 [place] 35.8 /2019 [facility] HEMATOLOGY PT 13.8 12.0 - 12/13 [place] 14.7 /2019 [facility] HEMATOLOGY Eosinophils 0.2 0.0 - 0.5 12/13 [place] # /2019 [facility] HEMATOLOGY Monocytes # 0.8 0.0 - 0.8 12/13 [place]2019 [facility] HEMATOLOGY Basophils 0.4 0.0 - 1.0 12/13 [facility] HEMATOLOGY Eosinophils 2.2 0.0 - 4.0 12/13 [place] [facility] HEMATOLOGY Monocytes 8.5 2.0 - 12.0 12/13 2019 [facility] HEMATOLOGY Lymphocytes 1.5 1.0 - 5.5 12/13 [place] # /2019 [facility] HEMATOLOGY Neutrophils 6.7 1.5 - 8.1 12/13 [place] # /2019 [facility] HEMATOLOGY Segs 73.0 45.0 - 05 [place] 75.0 /2019 [facility] HEMATOLOGY Lymphocytes 15.9 20.0 - 0511 [place] 40.0 /2019 [facility] HEMATOLOGY MCV 98.7 80.0 - 05 [place] 94.0 /2019 [facility] HEMATOLOGY MCH 33.4 27.0 - 05 [place] 31.0 /2019 [facility] HEMATOLOGY Hgb 13.0 14.0 - 05 [place] 18.0 /2019 [facility] HEMATOLOGY Hct 38.4 42.0 - 05 [place] 54.0 /2019 [facility] HEMATOLOGY MCHC 33.9 32.0 - 12/12 [place] 36.0 [facility] HEMATOLOGY Platelet 175 133 - 450 12/12 [facility] HEMATOLOGY MPV 12.0 7.4 - 10.4 12/12 [facility] HEMATOLOGY RDW 14.0 11.5 - 12/12 [place] 14.5 [facility] HEMATOLOGY WBC 8.8 3.7 - 10.4 12/12 [facility] HEMATOLOGY RBC 3.89 4.70 - 12/12 [place] 6.10 [facility] HEMATOLOGY Monocytes 5.3 2.0 - 12.0 12/12 [facility] HEMATOLOGY Lymphocytes 24.2 20.0 - 12/12 [place] 40.0 [facility] HEMATOLOGY Eosinophils 2.7 0.0 - 4.0 12/12 [place] [facility] HEMATOLOGY Segs 67.3 45.0 - 12/12 [place] 75.0 [facility] HEMATOLOGY Basophils 0.5 0.0 - 1.0 12/12 [facility] HEMATOLOGY Eosinophils 0.2 0.0 - 0.5 12/12 [place] # /2018 [facility] HEMATOLOGY Monocytes # 0.5 0.0 - 0.8 12/12 [place] [facility] HEMATOLOGY Neutrophils 5.9 1.5 - 8.1 12/12 [place] # /2019 [facility] HEMATOLOGY Lymphocytes 2.1 1.0 - 5.5 12/12 [place] [facility] # [facility] BLOOD BANK FFP product Product available 12/12 [facility] RESULTS (12/12/18 6:35 AM) /2018 [facility] BLOOD BANK RBC product Product available 12/12 [facility] RESULTS (12/12/18 6:35 AM) /2018 [facility] BLOOD BANK ABO/Rh O POS 12/12 [facility] RESULTS /2018 [facility] BLOOD BANK Antibody Negative 12/12 [facility] RESULTS Scrn (12/12/18 6:35 AM) /2018 [facility] CHEM PANEL A/G Ratio 1.0 0.7 - 1.6 12/12 [facility] CHEM PANEL Globulin 3.7 2.7 - 4.2 12/12 [facility] CHEM PANEL B/C Ratio 19 6 - 25 12/12 [facility] CHEM PANEL AGAP 11.7 10.0 - 12/12 [facility] 20.0 [facility] CHEM PANEL Albumin Lvl 3.6 3.5 - 5.0 12/12 [facility] CHEM PANEL ALT 34 0 - 65 12/12 [facility]2018 [facility] CHEM PANEL Alk Phos 83 39 - 136 12/12 [facility]2018 [facility] CHEM PANEL AST 23 0 - 37 12/12 [facility]2018 [facility] CHEM PANEL Total 7.3 6.4 - 8.4 12/12 [facility] Protein [facility] CHEM PANEL Bili Total 0.4 0.2 - 1.3 12/12 [facility] CHEM PANEL eGFR 75 12/12 Result [...] Calcium Lvl 9.5 8.5 - 10.5 12/12 [facility] CHEM PANEL CO2 27 24 - 32 12/12 [facility]2018 [facility] CHEM PANEL Chloride Lvl 107 95 - 109 12/12 [facility] CHEM PANEL Potassium 3.7 3.5 - 5.1 12/12 [facility] CHEM PANEL Glucose Lvl 93 70 - 99 12/[address] CHEM PANEL Creatinine 1.00 0.50 - 12/12 [facility] 1.40 [facility] CHEM PANEL Sodium Lvl 142 135 - 145 12/12 [facility]2018 [facility] CHEM PANEL BUN 19 7 - 22 05 [facility] CHEM PANEL Magnesium 2.2 1.8 - 2.4 05/ [place] Lvl /2019 [facility] HEMATOLOGY Basophils # 0.1 0.0 - 0.2 05 [place]2019 [facility] HEMATOLOGY Lymphocytes 24.6 20.0 - 0510 [place] 40.0 /2019 [facility] HEMATOLOGY Monocytes 9.5 2.0 - 12.0 05/10 /2019 [facility] HEMATOLOGY Eosinophils 3.7 0.0 - 4.0 05 [place]2019 [facility] HEMATOLOGY Basophils 0.8 0.0 - 1.0 05/ /2019 [facility] HEMATOLOGY Neutrophils 4.3 1.5 - 8.1 05 [place] # /2019 [facility] HEMATOLOGY Lymphocytes 1.7 1.0 - 5.5 12/12 [place] # /2019 [facility] HEMATOLOGY Monocytes # 0.7 0.0 - 0.8 12/12 [place]2019 [facility] HEMATOLOGY Eosinophils 0.3 0.0 - 0.5 12/12 [place] # 2019 [facility] HEMATOLOGY Segs 61.4 45.0 - 0510 [place] 75.0 2019 [facility] HEMATOLOGY PT 13.6 12.0 - 05 [place] 14.7 2019 [facility] HEMATOLOGY PTT 27.0 22.9 - 0510 [place] 35.8 2019 [facility] HEMATOLOGY INR 1.06 0.85 - 12/12 [place] 1.17 2019 [facility] HEMATOLOGY Platelet 189 133 - 450 05 [facility] HEMATOLOGY MPV 11.5 7.4 - 10.4 05 [facility] HEMATOLOGY WBC 7.0 3.7 - 10.4 05 2019 [facility] HEMATOLOGY RBC 4.45 4.70 - 0510 [place] 6.10 2019 [facility] HEMATOLOGY Hgb 14.8 14.0 - 0510 [place] 18.0 /2019 [facility] HEMATOLOGY Hct 44.1 42.0 - 05/10 [place] 54.0 /2019 [facility] HEMATOLOGY MCH 33.2 27.0 - 05/10 [place] 31.0 /2019 [facility] HEMATOLOGY RDW 14.2 11.5 - 05/10 [place] 14.5 2019 [facility] HEMATOLOGY MCV 99.1 80.0 - 05/10 [facility] 94.0 [facility] HEMATOLOGY MCHC 33.5 32.0 - 12/12 [facility] 36.0 [facility] CHEM PANEL eGFR 86 11/20 Result [...] PANEL POC 0.9 0.5 - 1.4 11/20 [facility] CHEM PANEL eGFR 88 09/22 Result [...] PANEL Globulin 4.3 2.7 - 4.2 09/22 [facility] CHEM PANEL A/G Ratio 0.5 0.7 - 1.6 09/[address] CHEM PANEL BUN 22 7 - 22 09/22 [facility]2018 [facility] CHEM PANEL Glucose Lvl 106 70 - 99 09/[address] CHEM PANEL Potassium 3.5 3.5 - 5.1 09/22 [facility] /2018 [facility] CHEM PANEL Creatinine 0.85 0.50 - 09/22 [place] Lvl 1.40 [facility] CHEM PANEL Sodium Lvl 133 135 - 145 09/[address] CHEM PANEL Total 6.6 6.4 - 8.4 09/22 [facility] Protein [facility] CHEM PANEL ALT 102 0 - 65 09/[address] CHEM PANEL Albumin Lvl 2.3 3.5 - 5.0 09/22 [facility]2018 [facility] CHEM PANEL CO2 23 24 - 32 09/[address] CHEM PANEL Chloride Lvl 100 95 - 109 09/22 [facility]2018 [facility] CHEM PANEL Calcium Lvl 8.3 8.5 - 10.5 09/22 [facility] CHEM PANEL Bili Total 0.9 0.2 - 1.3 09/[address] CHEM PANEL B/C Ratio 26 6 - 25 09/[address] CHEM PANEL AGAP 13.5 10.0 - 09/22 [place] 20.0 [facility] CHEM PANEL Alk Phos 54 39 - 136 09/[address] CHEM PANEL AST 116 0 - 37 09/[address] CHEM PANEL Phosphorus 3.6 2.5 - 4.5 09/22 [facility]2018 [facility] CHEM PANEL Magnesium 2.3 1.8 - 2.4 09/22 [facility] /2018 [facility] HEMATOLOGY Hct 38.1 42.0 - 09/22 [place] 54.0 2019 [facility] HEMATOLOGY RBC 3.84 4.70 - 09/22 [place] 6.10 [facility] HEMATOLOGY Hgb 13.6 14.0 - 09/22 [place] 18.0 [facility] HEMATOLOGY WBC 7.2 3.7 - 10.4 09/[address] HEMATOLOGY MCV 99.3 80.0 - 09/22 [place] 94.0 [facility] HEMATOLOGY MCH 35.3 27.0 - 0218 [facility] 31.0 /2019 [facility] HEMATOLOGY Platelet 183 133 - 450 09/22 [facility] HEMATOLOGY MCHC 35.5 32.0 - 09/22 [facility] 36.0 /2018 [facility] HEMATOLOGY RDW 13.1 11.5 - 02 [facility] 14.5 /2018 [facility] HEMATOLOGY MPV 11.1 7.4 - 10.4 09/22 [facility]2018 [facility] HEMATOLOGY Basophils 0.5 0.0 - 1.0 09/22 [facility] /2018 [facility] HEMATOLOGY Lymphocytes 1.3 1.0 - 5.5 09/22 [facility] s # /2019 [facility] HEMATOLOGY Neutrophils 4.8 1.5 - 8.1 09/22 [facility] s # /2019 [facility] HEMATOLOGY Eosinophils 0.2 0.0 - 0.5 09/22 [facility] # /2018 [facility] HEMATOLOGY Monocytes # 0.8 0.0 - 0.8 09/22 [facility] /2018 [facility] HEMATOLOGY Monocytes 11.7 2.0 - 12.0 09/22 [facility] /2018 [facility] HEMATOLOGY Lymphocytes 18.1 20.0 - 09/22 [place] 40.0 [facility] HEMATOLOGY Eosinophils 2.8 0.0 - 4.0 09/22 [facility] s /2018 [facility] HEMATOLOGY Segs 66.9 45.0 - 09/22 [facility] 75.0 [facility] CARDIAC BNP 613 <=100 09/21 [facility] ENZYMES pg/mL [facility] CHEM PANEL Procalcitoni 0.21 0.00 - 09/21 [facility] n Lvl 0.10 [facility] CHEM PANEL Phosphorus 2.4 2.5 - 4.5 09/21 [facility] /2018 [facility] CHEM PANEL Magnesium 2.2 1.8 - 2.4 09/21 [facility] Lvl [facility] CHEM PANEL eGFR 78 09/21 [facility] Comment: The Medical eGFR is Center calculated [...] Calcium Lvl 8.5 8.5 - 10.5 09/21 [facility] as [facility] CHEM PANEL Chloride Lvl 100 95 - 109 09/21 [facility] s 2018 [facility] CHEM PANEL BUN 22 7 - 22 09/[address] CHEM PANEL Creatinine 0.97 0.50 - 09/21 [facility] Lvl 1.40 [facility] CHEM PANEL CO2 20 24 - 32 09/[address] CHEM PANEL Potassium 3.5 3.5 - 5.1 09/21 [facility]2018 [facility] CHEM PANEL Sodium Lvl 132 135 - 145 09/[address] CHEM PANEL Glucose Lvl 118 70 - 99 09/[address] CHEM PANEL AGAP 15.5 10.0 - 09/21 [facility] 20.0 [facility] CHEM PANEL AST 96 0 - 37 09/[address] CHEM PANEL ALT 44 0 - 65 09/[address] CHEM PANEL Albumin Lvl 2.3 3.5 - 5.0 09/21 [facility]2018 [facility] CHEM PANEL Bili Total 0.9 0.2 - 1.3 09/[address] CHEM PANEL Alk Phos 53 39 - 136 09/[address] CHEM PANEL Bili Direct 0.1 0.0 - 0.3 09/[address] CHEM PANEL A/G Ratio 0.5 0.7 - 1.6 09/[address] CHEM PANEL Globulin 4.4 2.7 - 4.2 09/[address] CHEM PANEL Bili 0.8 0.0 - 1.0 09/21 [facility] Indirect [address] CHEM PANEL Total 6.7 6.4 - 8.4 09/21 [facility] [place] Protein /2018 [facility] HEMATOLOGY PTT 33.3 22.9 - 09/21 [place] 35.8 /2019 [facility] HEMATOLOGY PT 14.1 12.0 - 09/21 [place] 14.7 /2019 [facility] HEMATOLOGY INR 1.11 0.85 - 09/21 [place] 1.17 [facility] HEMATOLOGY MPV 11.0 7.4 - 10.4 09/21 /2018 [facility] HEMATOLOGY Platelet 154 133 - 450 09/21 [facility] HEMATOLOGY RDW 13.5 11.5 - 09/21 [place] 14.5 /2019 [facility] HEMATOLOGY Hct 40.8 42.0 - 09/21 [place] 54.0 /2019 [facility] HEMATOLOGY Hgb 14.0 14.0 - 09/21 [place] 18.0 /2019 [facility] HEMATOLOGY MCHC 34.3 32.0 - 09/21 [place] 36.0 /2019 [facility] HEMATOLOGY MCV 99.4 80.0 - 09/21 [place] 94.0 /2019 [facility] HEMATOLOGY MCH 34.1 27.0 - 09/21 [place] 31.0 /2019 [facility] HEMATOLOGY RBC 4.11 4.70 - 09/21 [place] 6.10 2019 [facility] HEMATOLOGY WBC 9.0 3.7 - 10.4 09/21 [facility] HEMATOLOGY Eosinophils 0.4 0.0 - 4.0 09/21 [facility] s /2018 [facility] HEMATOLOGY Lymphocytes 1.3 1.0 - 5.5 09/21 [place] # /2018 [facility] HEMATOLOGY Monocytes # 1.0 0.0 - 0.8 09/21 [facility] s [facility] HEMATOLOGY Basophils 0.2 0.0 - 1.0 09/21 [facility] HEMATOLOGY Lymphocytes 14.2 20.0 - 09/21 [place] 40.0 2019 [facility] HEMATOLOGY Neutrophils 6.7 1.5 - 8.1 09/21 [place] # /2018 [facility] HEMATOLOGY Monocytes 10.8 2.0 - 12.0 09/21 [facility] HEMATOLOGY Segs 74.4 45.0 - 09/21 [place] 75.0 /2019 [facility] CHEM PANEL eGFR 67 09/20 [facility] Comment: The Medical eGFR is Center calculated [...] Calcium Lvl 8.2 8.5 - 10.5 09/20 [facility] CHEM PANEL Potassium 3.4 3.5 - 5.1 09/20 [facility] CHEM PANEL Chloride Lvl 96 95 - 109 09/20 [facility] CHEM PANEL CO2 20 24 - 32 09/[address] CHEM PANEL AGAP 16.4 10.0 - 09/20 [facility] 20.0 [facility] CHEM PANEL Glucose Lvl 151 70 - 99 09/[address] CHEM PANEL BUN 19 7 - 22 09/[address] CHEM PANEL Creatinine 1.10 0.50 - 09/20 [facility] Lvl 1.40 [facility] CHEM PANEL Sodium Lvl 129 135 - 145 09/[address] HEMATOLOGY Macrocyte 1+ None Seen 09/20 [facility] *ABN* /2018 [facility] (09/20/18 2:08 PM) [place] HEMATOLOGY Plt Morph See Note 1 09/20 Result [facility] (09/20/18 2:08 PM) Comment: Due M edical to Center occassional clumps, the actual count may be slightly higher. HEMATOLOGY Monocytes # 0.7 0.0 - 0.8 09/20 [facility] /2018 [facility] HEMATOLOGY Lymphocytes 0.9 1.0 - 5.5 09/20 [facility] s # [facility] HEMATOLOGY Neutrophils 9.5 1.5 - 8.1 09/20 [facility] # /2018 [facility] HEMATOLOGY Basophils 0.4 0.0 - 1.0 09/20 [facility] HEMATOLOGY Eosinophils 0.1 0.0 - 4.0 09/20 [facility] HEMATOLOGY Monocytes 6.0 2.0 - 12.0 09/20 [facility]2018 [facility] HEMATOLOGY Lymphocytes 8.4 20.0 - 09/20 [facility] 40.0 [facility] HEMATOLOGY Segs 85.1 45.0 - 09/20 [facility] 75.0 [facility] HEMATOLOGY RBC 4.16 4.70 - 09/20 [place] 6.10 2019 [facility] HEMATOLOGY Hgb 14.5 14.0 - 09/20 [facility] 18.0 [facility] HEMATOLOGY WBC 11.2 3.7 - 10.4 09/20 [facility]2018 [facility] HEMATOLOGY Platelet 171 133 - 450 09/20 [facility]2018 [facility] HEMATOLOGY MPV 10.9 7.4 - 10.4 09/20 [facility]2018 [facility] HEMATOLOGY RDW 13.0 11.5 - 09/20 [facility] 14.5 [facility] HEMATOLOGY MCH 34.9 27.0 - 09/20 [facility] 31.0 2019 [facility] HEMATOLOGY MCHC 34.7 32.0 - 09/20 [facility] 36.0 2019 [facility] HEMATOLOGY Hct 41.8 42.0 - 09/20 [facility] 54.0 2019 [facility] HEMATOLOGY MCV 100.5 80.0 - 09/20 [facility] 94.0 [facility] CHEM PANEL Bili Direct 0.2 0.0 - 0.3 09/20 [facility] CHEM PANEL Bili Total 1.2 0.2 - 1.3 09/20 [facility]2018 [facility] CHEM PANEL Bili 1.0 0.0 - 1.0 09/20 [facility] CHEM PANEL Globulin 4.1 2.7 - 4.2 09/[address] CHEM PANEL A/G Ratio 0.6 0.7 - 1.6 09/[address] CHEM PANEL Albumin Lvl 2.4 3.5 - 5.0 09/20 [facility]2018 [facility] CHEM PANEL Alk Phos 47 39 - 136 09/[address] CHEM PANEL ALT 37 0 - 65 09/[address] CHEM PANEL Total 6.5 6.4 - 8.4 09/20 [facility] Protein [facility] CHEM PANEL AST 109 0 - 37 09/20 [place] [facility] CARDIAC BNP 783 <=100 09/20 [facility] ENZYMES pg/mL [facility] CHEM PANEL Lactic Acid 1.6 0.5 - 2.2 09/20 [place] [facility] CHEM PANEL Procalcitoni 0.16 0.00 - 09/20 [facility] n Lvl 0.10 [facility] CARDIAC BNP 514 <=100 09/19 [facility] ENZYMES pg/mL /2018 [facility] CHEM PANEL Procalcitoni 0.13 0.00 - 09/19 [facility] n Lvl 0.10 [facility] IMMUNOLOGY Hep C Ab Negative 09/19 [place] *NA* [facility] (09/19/18 5:03 PM) [place] IMMUNOLOGY Hep B Core Negative Negative 09/19 [facility] IgM *NA* [facility] (09/19/18 5:03 PM) Center IMMUNOLOGY Hep A IgM Negative Negative 09/19 [facility] *NA* [facility] (09/19/18 5:03 PM) Center IMMUNOLOGY Hep Bs Ag Negative Negative 09/19 [facility] *NA* [facility] (09/19/18 5:03 PM) Center CHEM PANEL Phosphorus 2.6 2.5 - 4.5 09/19 [facility] CHEM PANEL Magnesium 2.0 1.8 - 2.4 09/19 [facility] HEMATOLOGY INR 1.09 0.85 - 09/19 [facility] 1.17 [facility] HEMATOLOGY PT 13.9 12.0 - 09/19 [facility] 14.7 [facility] HEMATOLOGY PTT 33.0 22.9 - 09/19 [facility] 35.8 [facility] HEMATOLOGY Macrocyte 1+ None Seen 09/19 [facility] *ABN* Medical (09/19/18 12:07 AM) Cente r HEMATOLOGY Basophils # 0.1 0.0 - 0.2 09/19 [facility] s [facility] PARATHYROID Ca Ion WB 1.08 1.05 - 09/19 [place] PROFILE . [facility] PARATHYROID Ca Norm WB 1.11 1.05 - 09/19 [facility] PROFILE 08.29 [facility] CHEM PANEL Bili Direct 0.1 0.0 - 0.3 09/18 [facility] s [facility] CHEM PANEL Bili 0.6 0.0 - 1.0 09/18 [facility] Indirect [facility] PARATHYROID Ca Norm WB 1.14 1.05 - 09/18 [facility] PROFILE 08.29 [facility] PARATHYROID Ca Ion WB 1.14 1.05 - 09/18 [facility] PROFILE 08.29 [facility] CHEM PANEL LDH 650 98 - 192 09/18 [facility]2018 [facility] CHEM PANEL B/C Ratio 16 6 - 25 09/18 [facility] /2018 [facility] LIPIDS VLDL 26 09/18 [facility] LIPIDS Chol 164 <=199 09/18 [facility] mg/dL [facility] LIPIDS HDL 81 >=61 mg/dL 09/18 [facility] LIPIDS LDL 57 <=99 mg/dL 09/18 [facility] (Calculated) [facility] LIPIDS Trig 129 <=149 09/18 [facility] mg/dL [facility] LIPIDS CHD Risk 2.02 4.00 - 09/18 [facility] 7.30 [facility] SPECIAL Hgb A1C 5.9 <=5.6 % 09/18 [facility] CHEMISTRY [facility] BLOOD BANK Antibody Negative 09/17 [facility] RESULTS Scrn (09/17/18 12:57 PM) [facility] BLOOD BANK ABO/Rh O POS 09/17 [facility] RESULTS /2018 [facility] HEMATOLOGY PTT >200 22.9 - 09/17 Result [facility] seconds 35.8 /2019 Comment: [facility] Result(s) called to Nani Mccollum at 09/17/2018 14:14 byJP. Read back OK. HEMATOLOGY PT 14.7 12.0 - 09/17 [facility] 14.7 [facility] HEMATOLOGY INR 1.17 0.85 - 09/17 [place] 08.21 [facility] PARATHYROID Ca Ion WB 1.07 1.05 - 09/17 [facility] PROFILE 08.29 [facility] PARATHYROID Ca Norm WB 1.04 1.05 - 09/17 [facility] PROFILE 08.29 [facility] Pathology Reports No Data Provided for This Section Diagnostic Reports Report Value Date Source Ext Lower Arterial EXAM: US RIGHT LOWER EXTREMITY ARTERIAL DOPPL ER 12/25/2018 [facility] [place] Doppler unilat US DATE: 12/25/2018 11:20 CDT [...] by the Intervention al Radiology division at [facility] is recommended for possible endovascular treatment. Ext Lower Venous Clinical Indication: - pain in limb. 9 [facility] [place] Doppler Bilat US Comparison: None. TECHNIQUE: Sonographic [...] DX EXAM: XR CHEST 1 VIEW 12/12/2018 [facility] edical DATE: 12/12/2018 12:52 CDT Center INDICATION: Arrhythmias - Post TAVR COMPARISON: 09/21/2018 TECHNIQUE: AP chest. FINDINGS: Postsurgical changes followi ng TAVR. The cardiomediastinal silhouette is stable in size. No pleural effusions are pneumothorax. Mild bibasilar subsegmental atelectasis. IMPRESSION: 1. Postsurgical changes following TAVR. 2. Mild bibasilar subsegmental atelectasis. Chest/Abd/Pelvis TAVR EXAM: VIR CT angiogram thora x abdomen and pelvis. TAVR protocol 11/20/2018 [facility] CTA INDICATION: 73 years old Male [...] art EXAM: CTA HEART WITH CONTRAST 11/20/2018 [facility] TAVR CTA DATE: 11/20/2018 8:18 CDT Center INDICATION: TAVR workup. Aortic stenosis COMPARISON: No available prior cardiac CTA for c omparison. TECHNIQUE: Contrast imaging was perform ed on a [employer] scanner utilizing a single breath hold, at 760 mA and 100 kVp. Retrospective ECG gating was performed, at a heart rate of 70 bpm. Images were reformatted at 0.5 mm i ntervals and sent to the [employer] workstation for interpretation of both systolic and [...] DX EXAM: XR CHEST 1 VIEW 09/21/2018 [facility] edical DATE: 09/21/2018 7:25 AM [facility] er INDICATION: - dyspnea COMPARISON: 09/20/2018 [...] DX EXAM: XR CHEST 1 VIEW 09/20/2018 [facility] DATE: 09/20/2018 5:36 AM [facility] Cent er INDICATION: - hypoxia COMPARISON: 09/19/2018 [...] US EXAM: US ABDOMEN LIMITED 09/19/2018 [facility] DATE: 09/19/2018 9:05 [facility] Center INDICATION: - evaluate for liver disease [...] DX EXAM: XR CHEST 1 VIEW 09/19/2018 [facility] DATE: 09/19/2018 8:56 [facility] Center INDICATION: - hypoxia COMPARISON: 09/17/2017 TECHNIQUE: [...] without a prior study for comparison. 09/17/2018 [facility] DX The heart is not enlarged. T [...] Comments Source Systolic (mm Hg) 121 10/05/2019 [facility] [place] Diastolic (mm Hg) 77 10/05/2019 [facility] Heart Rate 65 10/05/2019 [facility] Respitory Rate 18 10/05/2019 [facility] gianni Center Temperature Oral (F) 97.7 F 10/05/2019 [facility] Height 180.34 cm 10/05/2019 [facility] Weight 76.108 10/05/2019 [facility] BMI Calculated 23.4 10/05/2019 [facility] gianni Center Systolic (mm Hg) 115 06/15/2019 [facility] Center Diastolic (mm Hg) 70 06/15/2019 [facility] Heart Rate 69 06/15/2019 [facility] Respitory Rate 18 06/15/2019 [facility] iganni Center Temperature Oral (F) 98.0 F 06/15/2019 [facility] Height 180.09 cm 06/15/2019 [facility] Weight 74.545 06/15/2019 [facility] BMI Calculated 22.98 06/15/2019 [facility] gianni Center Systolic (mm Hg) 118 04/20/2019 [facility] Center Diastolic (mm Hg) 68 04/20/2019 [facility] Heart Rate 61 04/20/2019 [facility] Respitory Rate 18 04/20/2019 [facility] gianni Center Temperature Oral (F) 98.0 F 04/20/2019 [facility] Height 180.34 cm 04/20/2019 [facility] Weight 73.665 04/20/2019 [facility] BMI Calculated 22.65 04/20/2019 [facility] gianni Center BMI Calculated 23.28 01/12/2019 [facility] gianni Center Weight 75.5 01/12/2019 [facility] Height 180.09 cm 01/12/2019 [facility] Respitory Rate 18 01/12/2019 [facility] gianni Center Temperature Oral (F) 97.8 F 01/12/2019 [facility] Heart Rate 66 01/12/2019 [facility] Systolic (mm Hg) 109 01/12/2019 [facility] dical Center Diastolic (mm Hg) 65 01/12/2019 [facility] Center BMI Calculated 22.94 12/22/2018 [facility] gianni Center Weight 74.409 12/22/2018 [facility] Height 180.09 cm 12/22/2018 [facility] Respitory Rate 18 12/22/2018 [facility] Heart Rate 63 12/22/2018 [facility] Temperature Oral (F) 98.3 F 12/22/2018 [facility] Systolic (mm Hg) 110 12/22/2018 [facility] Center Diastolic (mm Hg) 72 12/22/2018 [facility] Center Temperature Oral (F) 98.0 F 12/19/2018 [place] Heart Rate 65 12/19/2018 [place] Respitory Rate 17 12/19/2018 [place] Systolic (mm Hg) 125 12/19/2018 [place] Diastolic (mm Hg) 71 12/19/2018 [place] Heart Rate 62 12/18/2018 [facility] Temperature Oral (F) 97.7 F 12/18/2018 [place] Respitory Rate 18 12/18/2018 [place] Systolic (mm Hg) 129 12/18/2018 [place] Diastolic (mm Hg) 74 12/18/2018 [place] Systolic (mm Hg) 115 12/18/2018 [place] Diastolic (mm Hg) 68 12/18/2018 [place] Respitory Rate 18 12/18/2018 [place] Heart Rate 75 12/18/2018 [facility] Temperature Oral (F) 97.6 F 12/18/2018 [facility] Height 182.88 cm 12/18/2018 [facility] BMI Calculated 22.42 12/18/2018 [place] Weight 75 12/18/2018 [place] Respitory Rate 20 12/13/2018 [facility] gianni Center Systolic (mm Hg) 122 12/13/2018 [facility] Center Diastolic (mm Hg) 68 12/13/2018 [facility] ed[facility] Center Respitory Rate 16 12/13/2018 [facility] gianni Center Systolic (mm Hg) 109 12/13/2018 [facility] Center Diastolic (mm Hg) 56 12/13/2018 [facility] Center Systolic (mm Hg) 126 12/13/2018 [facility] Center Diastolic (mm Hg) 58 12/13/2018 [facility] edical Center Respitory Rate 17 12/13/2018 [facility] Temperature Oral (F) 97.6 F 12/13/2018 [facility] Temperature Oral (F) 98.5 F 12/13/2018 [facility] Temperature Oral (F) 97.8 F 12/13/2018 [facility] Center BMI Calculated 22.29 12/12/2018 [facility] gianni Center Weight 74.545 12/12/2018 [facility] Height 182.88 cm 12/12/2018 [facility] BMI Calculated 23.83 11/20/2018 [facility] gianni Center Weight 77.273 11/20/2018 [facility] Height 180.09 cm 11/20/2018 [facility] Heart Rate 73 11/20/2018 [facility] Respitory Rate 18 11/20/2018 [facility] gianni Center Systolic (mm Hg) 103 11/20/2018 [facility] Center Diastolic (mm Hg) 69 11/20/2018 [facility] Temperature Oral (F) 97.1 F 11/20/2018 [facility] Height 182.88 cm 11/20/2018 [facility] Weight 77.273 11/20/2018 [facility] BMI Calculated 23.1 11/20/2018 [facility] gianni Center Height 182.88 cm 11/03/2018 [facility] BMI Calculated 23.38 11/03/2018 [facility] gianni Center Weight 78.182 11/03/2018 [facility] Heart Rate 74 11/03/2018 [facility] Center Respitory Rate 18 11/03/2018 [facility] Temperature Oral (F) 98.3 F 11/03/2018 [facility] Center Systolic (mm Hg) 107 11/03/2018 [facility] Center Diastolic (mm Hg) 66 11/03/2018 [facility] BMI Calculated 22.59 09/29/2018 [facility] gianni Center Weight 75.54 09/29/2018 [facility] Height 182.88 cm 09/29/2018 [facility] Respitory Rate 18 09/29/2018 [facility] gianni Center Temperature Oral (F) 97.3 F 09/29/2018 [facility] Heart Rate 76 09/29/2018 [facility] Center Systolic (mm Hg) 96 09/29/2018 [facility] Center Diastolic (mm Hg) 61 09/29/2018 [facility] Center Respitory Rate 16 09/22/2018 [facility] gianni Center Systolic (mm Hg) 97 09/22/2018 [facility] Center Diastolic (mm Hg) 61 09/22/2018 [facility] Temperature Oral (F) 98.9 F 09/22/2018 [facility] Systolic (mm Hg) 101 09/22/2018 [facility] Center Diastolic (mm Hg) 59 09/22/2018 [facility] Center Respitory Rate 16 09/22/2018 [facility] gianni Center Respitory Rate 18 09/22/2018 [facility] gianni Center Systolic (mm Hg) 89 09/22/2018 [facility] Center Diastolic (mm Hg) 54 09/22/2018 [facility] Temperature Oral (F) 99.4 F 09/22/2018 [facility] Height 182.88 cm 09/22/2018 [facility] Temperature Oral (F) 98.2 F 09/22/2018 [facility] BMI Calculated 23.78 09/17/2018 [facility] Weight 79.545 09/17/2018 [facility] Height 182.88 cm 09/17/2018 [facility] Encounters Location Location Encounter Encounter Reason Attending ADM [place] Stat Source Details Type Number For Provider Date Date Visit AUDIT [id number] 02/17 /2012 [facility] AUDIT [id number] 02/19 /2012 [facility] EP1, [id number] 06/12 02/19 [place] Provider: Jacobo Garvey olyn, Status: Pen, Time: 8:50 AM AUDIT [id number] 10/09 /2013 [facility] AUDIT [id number] 10/16 /2013 [facility] AUDIT [id number] 10/28 /2013 [facility] EP1, [id number] 01/08 10/28 [place] Provider: Jacobo Garvey olyn, Status: Pen, Time: 9:00 AM [facility] [id number] Velasquez 09[facility]17 [facility] [id number] [place] 09/29 09/30 [facility] [place] [facility] Outpatient [id number] Octwan 10/24 10/25 [facility] [place] [facility] [id number] Marwan 11/03 11/04 [facility] [place] [facility] Outpatient [id number] Oct[place] 11/20 11/21 [facility] [place] [facility] [id number] Biswajit 12/12 12/13 [facility] Emergency [id number] Meka Barbie 12/18 12/19 [facility] /2018 [facility] Outpatient [id number] Biswajit 12/22 12/23 [facility] Outpt Diag [id number] jit 12/25 12/26 [facility] [id number] Biswajit 01/12 01/13 [facility] Adv Heart Ed[facility] Outpatient [id number] Octwan 04/20 04/21 [facility] Outpatient [id number] Marwan 06/15 06/16 [facility] Outpatient [id number] Oct[place] 10/04 10/05 [facility] [id number] [place] 12/31 01/01 [facility] Procedures Procedure Code Date Perfomer Comments Source Bilateral inguinal [id number] Cristi as hernia repair [facility] [place] [facility] [id number] [facility] catheterisation, Medical left heart Center, Eric [facility] [place] Replacement of right [id number] [facility] ex knee joint [facility] Reconstruction of [id number] Teresa lucila ligament of knee Medical joint Center, Eric, EULOGIO High Assessment and Plan Assessment and Plan Date Source Extracted from:Title: AHF progress note 12/13/2018 [facility] Author: Radha [place] Date: 12/13/18 Impression and [...] the right common femoral artery. Please see [employer] note for further details. Basically, after rapid ventricular paci ng, a 29 mm Davis ELIER S3 valve, serial [id number] was depl oyed. I was present and [...] Extracted from:Title: Preoperative H&P: HF Surgery 9 [facility] Author: Harmony Toure Date: 11/20/18 73 y/o [...] Renal Failure Risk: 2.787% Reoperation Risk: 7.220% -Cuban: No Aortic Insufficiency: Mild Aortic Stenosis: Yes [...] Incidence: First Operation Left Main Disease: No VT: No VT When: NA Mitral Insufficiency: Mild Mitral Stenosis: [...] Renal Failure Risk: 2.787% Reoperation Risk: 7.220% -Cuban: No Aortic Insufficiency: Mild Aortic Stenosis: Yes [...] Incidence: First Operation Left Main Disease: No VT: Yes VT When: > 21 days Mitral Insufficiency: Mild [...] entered on: 12/22/18 Social History TypeResponse 11/20/2018 [place] Substance Abuse Use: None. Alcohol Past, Type [...] entered on: 12/18/18 Social History TypeResponse 11/20/2018 [facility] Alcohol Past, Type Beer, Wine, Liquor. Frequenc [...] entered on: 10/05/19 Current Smoker (305.1); 10/28/2013 [facility] (Active) Former Smoker (V15.82); (Active) Family History No Data Provided for This Section Advance Directives Order Name Results Value Date Source Advance Directives Advance Directives No Advance 10/28/2013 [facility] Directives available. Advance Directives Advance Directives No Advance 10/17/2013 [facility] Directives available. Advance Directives Advance Directives No Advance 10/09/2013 [facility] Directives available. Advance Directives Advance Directives No Advance 02/19/2013 [facility] Directives available. Advance Directives Advance Directives No Advance 02/17/2013 [facility] Directives available. Functional Status No Data Provided for This Section
--- OUTSIDE RECORDS SUMMARY | 2020-04-03 10:52 | XMS REPORT | Continuity of Care Document ---
:1945 Author Organization [facility] t Address [address] [place] [address] Care Team Providers Name Role Phone Dayday Ross MD Primary Care Physician Marcy Stout Attending Clinician dEy Attending Clinician Amy Valentin Attending Clinician Edy Admitting Clinician Marcy Stout Admitting Clinician Problems Condition Condition Condition Status Onset Resolution Last Treating Co mments Source Name Details Category Date Date Treatment Clinician Date PRESENCE Diagnosis Active 2020-01-01 M emoria OF 10-20 11:04:00 l PROSTHETIC PRESENCE 00:00: Jones rmann HEART OF 00 VALVE PROSTHETIC HEART VALVE Active 10/21/2019 [facility] 4 MONTH Diagnosis Active 2018-082019-10-05 Me moria FOLLOW UP -14 09:26:00 l 4 MONTH 00:00: [place] FOLLOW UP 00 Active 06/18/2019 [facility] 2 MOS F/U Diagnosis Active 2019-06-15 Memoria -16 09:59:00 l 2 MOS 00:00: [place] F/U 00 Active 04/20/2019 [facility] 3MOS F/U Diagnosis Active 2019-04-20 M emoria 6-10 09:30:00 l 3MOS F/U 00:00: Tom n 00 Active 01/12/2019 [facility] R19.09 - Diagnosis Active 2019-04-20 M emoria OTHER - 23:43:00 l INTRA-ABDO R19.09 - 00:01: He rmann AKYLEE AND OTHER 00 PELV INTRA-ABDO KAYLEE AND PELV Active 12/23/2018 EULOGIO Reyes ECHO Diagnosis Active 2019-01-12 Mem oria 5-20 08:59:00 l ECHO 00:00: [place] 00 Active 12/22/2018 [facility] LEG Diagnosis Active 2018-12-18 Mem oria CRAMPS, 5-16 15:40:00 l POST LEG 00:00: [place] SURGERY CRAMPS, 00 POST SURGERY Active 12/18/2018 [facility] FOLLOW UP Diagnosis Active 2018-12-22 Memoria 5- 13:28:00 l FOLLOW 00:00: [place] UP 00 Active 9 [facility] PREADMIT / Diagnosis Active 2018-12-18 Memoria TAVR / MAC 12-11 08:59:00 l / TTE PREADMIT 00:00: Tom n / TAVR / 00 MAC / TTE Active 12/11/2018 [facility] AORTIC Diagnosis Active 2018-11-20 Mem oria STNOSIS 4-15 09:12:00 l AORTIC 00:00: [place] STNOSIS 00 Active 11/17/2018 [facility] 1 MONTH Diagnosis Active 2018-11-03 Me moria FOLLOW - 10:24:00 l UP/ECHO 1 MONTH 00:00: Tom n FOLLOW 00 UP/ECHO Active 10/31/2018 [facility] HOSPITAL Diagnosis Active 2018-09-29 M emoria D/C FOLLOW 09-23 09:43:00 l UP HOSPITAL 00:00: Tom n D/C FOLLOW 00 UP Active 9 [facility] CHEST PAIN Diagnosis Active 2018-09-24 Memoria 2-13 15:47:00 l CHEST 00:00: [place] PAIN 00 Active 09/17/2018 [facility] JERMAINE Diagnosis Active 2018-09-24 Memoria BILLING 2-13 09:40:00 l 00:00: [place] JERMAINE 00 BILLING Active 09/17/2018 [facility] Aortic Aortic Disease Active [facility] valve valve 8-18 [facility] disorder disorder 00:00: st 00 Aortic Aortic Disease Active [facility] valve valve 2-07 [facility] disease disease 00:00: st 00 Aortic Problem Resolve 2020-01-03 Santos fletcher valve d 22:24:50 l stenosis Aortic Tom n (disorder) valve stenosis (disorder) Resolved Problem 01/03/2020 [facility], Shashank Reyes OPIBillie [place] Coronary Problem Resolve 2020-01-03 Me moria arterioscl d 22:24:50 l erosis Coronary Tom n (disorder) arterioscl erosis (disorder) Resolved Problem 01/03/2020 [facility], [facility] [place] Hyperlipid Problem Resolve 2020-01-03 Memoria emia d 22:24:50 l (disorder) Tom n Hyperlipid emia (disorder) Resolved Problem 01/03/2020 [facility] [place] Hypertensi Problem Resolve 2020-01-03 Memoria ve d 22:24:50 l disorder, [place] systemic Hypertensi arterial ve (disorder) disorder, systemic arterial (disorder) Resolved Problem 01/03/2020 [facility], [facility] [place] Systolic Problem Resolve 2020-01-03 Me moria heart d 22:24:50 l failure Systolic Velma nn (disorder) heart failure (disorder) Resolved Problem 01/03/2020 [facility] [place] Myocardial Problem Resolve 2020-01-03 Memoria infarction d 22:24:50 l (disorder) Tom n Myocardial infarction (disorder) Resolved Problem 01/03/2020 [facility] [place] 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) Resolved Problem 01/03/2020 [facility], Eric Falguni OPID [place] 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 Santos fletcher 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 [facility] History of Problem Active 2020-01-03 M emoria aortic 22:24:50 l valve History [place] replacemen of aortic t valve (situation replacemen ) t (situation ) Active Problem 01/03/2020 [facility] Pain in Problem 2018-2018-12-21 2018-12-21 Memoria left leg 5-16 00:21:24 00:21:24 l Pain in 17:00: [place] left leg 00 9 12/21/2018 [facility] Allergies, Adverse Reactions, Alerts Allergy Allergy Status [...] Penicill Active Memori a ins ins l [place] Morphine Morphine Active Memori a Derivati Derivati l ves ves [place] penicill penicill Active Memori a in in l [place] morphine morphine Active Memori a l [place] Family History Family Member Diagnosis Comments Start Date Stop Date Source Natural father Heart attack [facility] Social History Social Habit Start Date Stop Date Quantity Comments Source History of Cigarette Smoker [facility] tobacco use Sex Assigned At [facility] ethodist Alcohol intake 2018-03-21 2018-03-21 Current [facility] thodist 00:00:00 00:00:00 non-drinker of alcohol (finding) Social History 2013-10-28 2013-10-28 [facility] ermann 21:45:20 21:45:20 Smoking Status Start Date Stop Date Source Former smoker 2018-03-21 00:00:00 2018-03-21 00:00:00 [facility] Medications Ordered Filled Start Stop Current Ordering Indication Dosage Frequency Signature Comments Components Source Medication Medication Date Date Medication? Clinician (SIG) Name Name ticagrelor 2018-08 Yes 90 mg = 1 Me moria 90 mg oral 1-11 tab, PO, l tablet 16:59: Q12H, # [place] 12 180 tab, 3 Refill(s), Pharmacy: [facility] [place] lisinopril 2018-08 Yes 5 mg = 1 Mem oria 5 mg oral 1-11 tab, PO, l tablet 16:57: Daily, # [place] 00 90 tab, 3 Refill(s), Pharmacy: [facility] [place] lisinopril Yes 2.5 mg = 1 M emoria 2.5 mg oral 9-16 tab, PO, l tablet 15:26: Daily, # [place] 16 90 tab, 3 Refill(s), Pharmacy: [facility] spironolact Yes 12.5 mg = M emoria one 25 mg 9-16 0.5 tab, l oral tablet 15:25: PO, Daily, [place] 47 # 45 tab, 3 Refill(s), Pharmacy: [facility] 24 HR Yes 25 mg = Memoria Metoprolol 9-16 0.5 tab, l Tartrate 50 15:25: PO, Daily, [place] MG Extended 17 # 45 tab, Release 3 Tablet Refill(s), [Toprol] Pharmacy: [facility] ticagrelor Yes 90 mg = 1 Me moria 90 mg oral 9-16 tab, PO, l tablet 15:25: Q12H, # [place] 08 180 tab, 3 Refill(s), Pharmacy: [facility] atorvastati Yes 40 mg = 1 M emoria n 40 mg 9-16 tab, PO, l oral tablet 15:25: Daily, # He rmann 01 90 tab, 3 Refill(s), Pharmacy: [facility] atorvastati Yes Aortic TAKE ONE Roger n (LIPITOR) 7-22 valve (1) Methodi 40 MG 00:00: disorder TABLET(S) st tablet 00 BY MOUTH ONCE A DAY. spironolact Yes 12.5 mg = M emoria one 25 mg 6-10 0.5 tab, l oral tablet 16:34: PO, Daily, [place] 00 # 45 tab, 3 Refill(s), Pharmacy: [facility] lisinopril Yes 2.5 mg = 1 M emoria 2.5 mg oral 6-10 tab, PO, l tablet 16:34: Daily, # [place] 00 90 tab, 3 Refill(s), Pharmacy: [facility] Saline No Notes: Memoria Flush 0.9% 5-16 Same as: l 19:55: BD [place] 00 Posiflush Sterile Furosemide Yes 40 mg = 1 Me moria 40 MG Oral 5-12 tab, PO, l Tablet 12:55: Daily, # [place] [Lasix] 00 30 tab, 0 Refill(s), given to patient clopidogrel No Notes: Santos fletcher 5-11 (Same As: l 14:00: Plavix) Aspirin 81 No Notes: Do Me moria MG Enteric 5-11 not crush l Coated 14:00: or chew. [place] Tablet 00 (Same As: Ecotrin) potassium No [...] s with feeding tube less than 14 [place] (Dobhoff, J-tube etc) and pediatric and patients. 24 HR No Notes: Memoria Metoprolol 5-11 (Same as: l Tartrate 50 14:00: Toprol XL) [place] MG Extended 00 May split Release tab, but Tablet do not [Toprol] crush. atorvastati No Notes: Santos fletcher n 5-11 (Same as: l 14:00: Lipitor) Brilinta No Notes: Memoria 5-11 (Same as: l 14:00: Brilinta) ticagrelor Yes 90 mg = 1 Me moria 90 mg oral 5-11 tab, PO, l tablet 13:17: Q12H, # [place] 37 180 tab, 3 Refill(s) 24 HR Yes 25 mg = Memoria Metoprolol 5-11 0.5 tab, l Tartrate 50 13:17: PO, Daily, [place] MG Extended 27 # 15 tab, Release 6 Tablet Refill(s) [Toprol] Aspirin 81 Yes 81 mg = 1 Me moria MG Enteric 5-11 tab, PO, l Coated 13:17: Daily, # [place] Tablet 14 90 tab, 3 Refill(s) atorvastati Yes 40 mg = 1 M emoria n 40 mg 5-11 tab, PO, l oral tablet 13:17: Daily, # He rmann 00 90 tab, 0 Refill(s) tramadol No Notes: Not Mem oria hydrochlori 5-11 to exceed l de 50 MG 05:56: 400mg/day. Her khalil Oral Tablet 00 (Same As: Ultram) Tylenol No Notes: Do Memor ia 5-11 not exceed l 05:56: 4 gm/day. [place] (Same as: Tylenol) Sodium No 250 mL, [...] en 5-10 acetaminop l 15:57: hen 4000 mg/day (4 gm/day). (Same as: Tylenol Extra Strength) propofol No Route: IV, Mem oria (ANES) 10 5-10 Drug form: l mg 15:41: INJ, Start [place] 00 date: 12/12/18 10:41:00 CDT, Stop date: 12/12/18 11:41:00 CDT Sodium No Route: IV, Memor ia Chloride 5-10 Total l 0.9% IV 15:20: Volume: [place] (ANES) 250 00 250, Start mL date: [...] 30 tab, 6 Release Refill(s), Tablet Pharmacy: [Crystalrol] [facility] [place] atorvastati Yes 40 mg = 1 M [...] # 1 ea, 0 Refill(s) Aspirin 81 2019- Yes 81 mg = 1 Me moria MG Enteric 2-18 tab, PO, l Coated 17:43: Daily, # [place] Tablet 00 90 tab, 3 Refill(s) ticagrelor Yes 90 mg = 1 Me moria 90 mg oral 2-18 tab, PO, l tablet 17:43: Q12H, # [place] 00 180 tab, 3 Refill(s) metoprolol Yes [...] 2-17 (Same as: l Tablet 23:00: Lasix) May cause GI upset. Give with food or milk. Albuterol No Notes: Memori a 0.833 MG/ML 2-17 (Same as: l / 17:48: Duoneb) Ipratropium 00 [place] 0.167 MG/ML Inhalant Solution [DuoNeb] Calcium No Notes: Memoria Gluconate 2-17 WASTE: F/P l 16:47: - Sink; E [place] 00 - Municipal Trash Bin Magnesium No Notes: Memori a Oxide 2-17 (Same as: l 16:47: Mag-Ox [place] 00 400) Magnesium oxide [id number] g elemental magnesium Dose=____m g magnesium oxide (___mg elemental magnesium) sodium No Notes: Memoria phosphate 2-17 Infuse l 16:47: over 4 [place] 00 hour. Do not infuse phosphorou s [...] Chloride 2-17 (Same as: l 16:47: K-Dur 20) "Do Not Crush" Give with food and full glass of water For patients unable to swallow tablet, dissolve in one half glass of water. Allow about 2 minutes for the tablets to disintegra te. Stir before giving to prepare slurry and administer . Please exclude Patient s with feeding tube less than 14 [place] (Dobhoff, J-tube etc) and pediatric and patients. potassium No Notes: Memori a phosphate-s -17 (Same as: l odium 16:47: Phos-NaK) Each 1.5 250 mg-280 gm pkt has mg-160 mg 250mg oral powder phosphorou for s. Mix reconstitut w/2.5oz ion water and stir. Blistex Lip No Route: Santos fletcher [place] 2-17 MISC, l 15:00: Dosing Weight 79.545, kg, BID, Start date: 09/21/18 9:00:00 YARD COUPLER, Duration: 30 day, Stop date: 10/20/18 17:00:00 [...] s with feeding tube less than 14 [place] (Dobhoff, J-tube etc) and pediatric and patients. cefepime No Notes: Memoria 2-16 (Same As: l 06:00: Maxipime) MEDICATION WASTE Product Size: 1000 mg Product Wasted: ___ mg Vancomycin No 2001 mg: Me moria 2-16 infuse l 05:31: over 2.5 [place] 00 hours Tylenol No Notes: Max Santos fletcher 2-16 acetaminop l 03:00: hen = 4000mg/day (4 gm/day). (Same as: Tylenol) Albuterol Yes Notes: Memori a 0.833 MG/ML -16 (Same as: l / 02:00: Duoneb) Ipratropium 00 [place] 0.167 MG/ML Inhalant Solution [DuoNeb] Lasix No Notes: Memoria 2-15 (Same as: l 22:48: Lasix) Potassium No Notes: Memori a Chloride 2-15 (Same as: l 08:50: KCL) Infuse no faster than 10 mEq/hr if given peripheral ly. sodium No Notes: Memoria phosphate 2-15 Infuse l 08:50: over 4 [place] 00 hour. Do not infuse phosphorou s concurrent ly in the same line as TPN or IVF that contains calcium. For double lumen central lines, phosphorou s may be infused in a separate lumen from TPN. potassium No Notes: Memori a phosphate 2-15 (Same as: l 08:50: K [place] 00 Phosphate. ) Do not infuse phosphorou s concurrent ly in the same line as TPN or IVF that contains calcium. For double lumen central lines, phosphorou s may be infused in a separate lumen from TPN. 1 mMol phoshate has 1.47 mEq potassium Infuse over 4 hours potassium No Notes: Memori a phosphate-s 2-15 (Same as: l odium 08:50: Phos-NaK) [place] phosphate 00 Each 1.5 250 mg-280 gm pkt has mg-160 mg 250mg oral powder phosphorou for s. Mix reconstitut w/2.5oz ion water and stir. Magnesium No Notes: Memori a Sulfate 2-15 WASTE: F/P l 08:50: - Sink; E [place] - Municipal Trash Bin Calcium No Notes: Memoria Gluconate 2-15 WASTE: F/P l 08:50: - Sink; E [place] - Municipal Trash Bin Calcium No Notes: Memoria Carbonate 2-15 (Same As: l 500 MG 08:50: Tums) [place] Chewable 00 Calcium Tablet Carbonate 500 mg = 200 mg elemental calcium Dose = mg calcium carbonate ( mg elemental calcium) Magnesium No Notes: Memori a Oxide 2-15 (Same as: l 08:50: Mag-Ox [place] 00 400) Magnesium oxide [id number] g elemental magnesium Dose=____m g magnesium oxide (___mg elemental magnesium) Ticagrelor No Notes: Memor ia 2-15 (Same as: l 05:00: Brilinta) Brilinta No Notes: Memoria 2-14 (Same as: l 15:00: Brilinta) Aspirin 81 No Notes: Do Me moria MG Enteric 2-14 not crush l Coated 15:00: or chew. [place] Tablet 00 (Same As: Ecotrin) Lovenox No Notes: Memoria 2-14 (Same as: l 12:00: Lovenox) metoprolol No Notes: Memor ia tartrate 2-14 (Same as: l 03:00: Lopressor) atorvastati No Notes: Santos fletcher n 2-14 Same as l 03:00: Lipitor Saline No Notes: Memoria Flush 0.9% 2-14 Same as: l 03:00: BD [place] Posiflush Sterile Saline 2019- No Notes: Memoria Flush 0.9% 2-13 Same as: l 19:55: BD [place] Posiflush Sterile Sodium 2018-0 No 500 mL, Memoria Chloride 2-13 Rate: 20 l 0.9% IV 500 18:35: ml/hr, Herm francisca mL 00 Infuse over: 25 hr, Route: IV, Total Volume: 500, Start date: 09/17/18 12:35:00 YARD COUPLER, Duration: 24 hr, Stop date: 09/18/18 12:34:00 YARD COUPLER Ticagrelor No 180 mg, Santos fletcher 2-13 Route: PO, l 18:33: ONCE, kg, [place] 00 Priority: NOW, Start date: 09/17/18 12:33:00 YARD COUPLER, Stop date: 09/17/18 12:33:00 YARD COUPLER atorvastati 2017-08 2019- No Aortic 40mg QD Take 1 [facility] (LIPITOR) 0-25 10-25 valve tablet (40 [facility] 40 MG 00:00: 23:59 disorder mg total) st tablet 00 :00 by mouth daily. amLODIPine 2017-08 Yes Essential 10mg QD Take 1 [facility] (NORVASC) 0-08 hypertensio tablet (10 [facility]i 10 mg 00:00: n mg total) st tablet 00 by mouth daily. lisinopril 2017-08 Yes Essential 20mg QD Take 1 [facility] (PRINIVIL,Z 0-08 hypertensio tablet (20 [facility] ESTRIL) 20 00:00: n mg total) st mg tablet 00 by mouth daily. carvedilol 2017-08 Yes Essential 20mg QD Take 1 [facility] CR (COREG 0-08 hypertensio capsule Methodi CR) 20 MG 00:00: n ([address] 24 hr 00 total) by capsule mouth daily. CYANOCOBALA Yes Take by Jhonatan yao MIN, 8-17 mouth. [facility] VITAMIN 08:38: st B-12, (B-12 56 DOTS ORAL) COQ10, Yes Take by [facility] UBIQUINOL, 8-17 mouth. [facility] ORAL 08:38: st 56 cholecalcif Yes 1000U QD Take 1,000 [facility] mildred, 8-17 Units by [facility] vitamin D3, 08:38: mouth st (VITAMIN 56 daily. D3) 1,000 unit capsule aspirin Yes 81mg QD Take 81 mg [place] (ECOTRIN) 8-17 by mouth Method i 81 MG 08:38: daily. st enteric 56 coated tablet Lisinopril Yes (Active) Me moria TABS 3-26 l 21:45: [place] 20 Aspirin Yes (Active) Memor ia TABS 3-26 l 21:45: [place] 20 Vital Signs Vital Name Observation Time Observation Value Comments Source Systolic (mm Hg) 2019-10-05 16:20:00 Santos rial [place] Diastolic (mm Hg) 2019-10-05 16:20:00 Mem orial [place] Heart Rate 2019-10-05 16:20:00 [facility] Respitory Rate 2019-10-05 16:20:00 Memori al [place] Temperature Oral (F) 2019-10-05 16:20:00 97.7 F [facility] [place] Height 2019-10-05 16:20:00 180.34 cm [facility] [place] Weight 2019-10-05 16:20:00 [facility] [place] BMI Calculated 2019-10-05 16:20:00 Memori al [place] Systolic (mm Hg) 2019-06-15 18:11:00 Santos rial [place] Diastolic (mm Hg) 2019-06-15 18:11:00 Mem orial [place] Heart Rate 2019-06-15 18:11:00 [facility] [place] Respitory Rate 2019-06-15 18:11:00 Memori al [place] Temperature Oral (F) 2019-06-15 18:11:00 98.0 F [facility] [place] Height 2019-06-15 18:11:00 180.09 cm [facility] [place] Weight 2019-06-15 18:11:00 [facility] [place] BMI Calculated 2019-06-15 18:11:00 Memori al [place] Systolic (mm Hg) 2019-04-20 14:43:00 Santos rial [place] Diastolic (mm Hg) 2019-04-20 14:43:00 Mem orial [place] Heart Rate 2019-04-20 14:43:00 [facility] [place] Respitory Rate 2019-04-20 14:43:00 Memori al [place] Temperature Oral (F) 2019-04-20 14:43:00 98.0 F [facility] [place] Height 2019-04-20 14:43:00 180.34 cm [facility] [place] Weight 2019-04-20 14:43:00 [facility] BMI Calculated 2019-04-20 14:43:00 Memori al [place] BMI Calculated 2019-01-12 14:19:00 Memori al [place] Weight 2019-01-12 14:19:00 [facility] [place] Height 2019-01-12 14:19:00 180.09 cm [facility] Respitory Rate 2019-01-12 14:19:00 Memori al [place] Temperature Oral (F) 2019-01-12 14:19:00 97.8 F [facility] [place] Heart Rate 2019-01-12 14:19:00 [facility] [place] Systolic (mm Hg) 2019-01-12 14:19:00 Santos rial [place] Diastolic (mm Hg) 2019-01-12 14:19:00 Mem orial [place] BMI Calculated 2018-12-22 18:42:00 Memori al [place] Weight 2018-12-22 18:42:00 [facility] [place] Height 2018-12-22 18:42:00 180.09 cm [facility] [place] Respitory Rate 2018-12-22 18:42:00 Memori al [place] Heart Rate 2018-12-22 18:42:00 [facility] [place] Temperature Oral (F) 2018-12-22 18:42:00 98.3 F [facility] [place] Systolic (mm Hg) 2018-12-22 18:42:00 Santos rial [place] Diastolic (mm Hg) 2018-12-22 18:42:00 Mem orial [place] Temperature Oral (F) 2018-12-19 00:18:00 98.0 F [facility] [place] Heart Rate 2018-12-19 00:18:00 [facility] [place] Respitory Rate 2018-12-19 00:18:00 Memori al [place] Systolic (mm Hg) 2018-12-19 00:18:00 Santos rial [place] Diastolic (mm Hg) 2018-12-19 00:18:00 Mem orial [place] Heart Rate 2018-12-18 23:07:00 [facility] [place] Temperature Oral (F) 2018-12-18 23:07:00 97.7 F [facility] [place] Respitory Rate 2018-12-18 23:07:00 Memori al [place] Systolic (mm Hg) 2018-12-18 23:07:00 Santos rial [place] Diastolic (mm Hg) 2018-12-18 23:07:00 Mem orial [place] Systolic (mm Hg) 2018-12-18 19:48:00 Santos rial [place] Diastolic (mm Hg) 2018-12-18 19:48:00 Mem orial [place] Respitory Rate 2018-12-18 19:48:00 Memori al [place] Heart Rate 2018-12-18 19:48:00 [facility] [place] Temperature Oral (F) 2018-12-18 19:48:00 97.6 F [facility] [place] Height 2018-12-18 19:48:00 182.88 cm [facility] [place] BMI Calculated 2018-12-18 19:48:00 Memori al [place] Weight 2018-12-18 19:48:00 [facility] [place] Respitory Rate 2018-12-13 17:00:00 Memori al [place] Systolic (mm Hg) 2018-12-13 17:00:00 Santos rial [place] Diastolic (mm Hg) 2018-12-13 17:00:00 Mem orial [place] Respitory Rate 2018-12-13 16:00:00 Memori al [place] Systolic (mm Hg) 2018-12-13 16:00:00 Santos rial [place] Diastolic (mm Hg) 2018-12-13 16:00:00 Mem orial [place] Systolic (mm Hg) 2018-12-13 15:00:00 Santos rial [place] Diastolic (mm Hg) 2018-12-13 15:00:00 Mem orial [place] Respitory Rate 2018-12-13 15:00:00 Memori al [place] Temperature Oral (F) 2018-12-13 12:44:00 97.6 F [facility] [place] Temperature Oral (F) 2018-12-13 09:00:00 98.5 F [facility] [place] Temperature Oral (F) 2018-12-13 05:00:00 97.8 F [facility] BMI Calculated 2018-12-12 11:33:00 Memori al [place] Weight 2018-12-12 11:33:00 [facility] [place] Height 2018-12-12 11:33:00 182.88 cm [facility] [place] BMI Calculated 2018-11-20 15:02:00 Memori al [place] Weight 2018-11-20 15:02:00 [facility] [place] Height 2018-11-20 15:02:00 180.09 cm [facility] [place] Heart Rate 2018-11-20 15:02:00 [facility] [place] Respitory Rate 2018-11-20 15:02:00 Memori al [place] Systolic (mm Hg) 2018-11-20 15:02:00 Santos rial [place] Diastolic (mm Hg) 2018-11-20 15:02:00 Mem orial [place] Temperature Oral (F) 2018-11-20 15:02:00 97.1 F [facility] [place] Height 2018-11-20 12:09:00 182.88 cm [facility] [place] Weight 2018-11-20 12:09:00 [facility] [place] BMI Calculated 2018-11-20 12:09:00 Memori al [place] Height 2018-11-03 15:54:00 182.88 cm [facility] [place] BMI Calculated 2018-11-03 15:54:00 Memori al [place] Weight 2018-11-03 15:54:00 [facility] [place] Heart Rate 2018-11-03 15:54:00 [facility] [place] Respitory Rate 2018-11-03 15:54:00 Memori al [place] Temperature Oral (F) 2018-11-03 15:54:00 98.3 F [facility] [place] Systolic (mm Hg) 2018-11-03 15:54:00 Santos rial [place] Diastolic (mm Hg) 2018-11-03 15:54:00 Mem orial [place] BMI Calculated 2018-09-29 15:58:00 Memori al [place] Weight 2018-09-29 15:58:00 [facility] [place] Height 2018-09-29 15:58:00 182.88 cm [facility] [place] Respitory Rate 2018-09-29 15:58:00 Memori al [place] Temperature Oral (F) 2018-09-29 15:58:00 97.3 F [facility] [place] Heart Rate 2018-09-29 15:58:00 [facility] [place] Systolic (mm Hg) 2018-09-29 15:58:00 Santos rial [place] Diastolic (mm Hg) 2018-09-29 15:58:00 Mem orial [place] Respitory Rate 2018-09-22 18:00:00 Memori al [place] Systolic (mm Hg) 2018-09-22 18:00:00 Santos rial [place] Diastolic (mm Hg) 2018-09-22 18:00:00 Mem orial [place] Temperature Oral (F) 2018-09-22 18:00:00 98.9 F [facility] [place] Systolic (mm Hg) 2018-09-22 16:30:00 Santos rial [place] Diastolic (mm Hg) 2018-09-22 16:30:00 Mem orial [place] Respitory Rate 2018-09-22 16:30:00 Memori al [place] Respitory Rate 2018-09-22 16:00:00 Memori al [place] Systolic (mm Hg) 2018-09-22 16:00:00 Santos rial [place] Diastolic (mm Hg) 2018-09-22 16:00:00 Mem orial [place] Temperature Oral (F) 2018-09-22 14:00:00 99.4 F [facility] [place] Height 2018-09-22 11:19:00 182.88 cm [facility] [place] Temperature Oral (F) 2018-09-22 10:00:00 98.2 F [facility] [place] BMI Calculated 2018-09-17 18:52:00 Memori al [place] Weight 2018-09-17 18:52:00 [facility] [place] Height 2018-09-17 18:52:00 182.88 cm [facility] [place] Procedures Procedure Date / Time Performed Performing Clinician [facility] fallon Bilateral inguinal hernia Memori al [place] repair Cardiac catheterisation, Larsoria l [place] left heart Replacement of right knee Memori al [place] joint Reconstruction of ligament Memor ial [place] of knee joint Plan of Care Planned Activity Planned Date Details Comments Source Future Scheduled 2020-05-05 INFLUENZA VACCINE [place] [facility] 00:00:00 [code = INFLUENZA VACCINE] Future Scheduled 2012 65+ PNEUMOCOCCAL Roger [facility] Test 00:00:00 VACCINE (1 of 2 - PCV13) [code = 65+ PNEUMOCOCCAL VACCINE (1 of 2 - PCV13)] Future Scheduled 1997 COLONOSCOPY SCREENING [place] [facility] 00:00:00 [code = COLONOSCOPY SCREENING] Future Scheduled 1997 SHINGLES VACCINES (#1) H yusuf [facility] 00:00:00 [code = SHINGLES VACCINES (#1)] Encounters Start End Encounter Admission Attending Care Care Encounter Source Date/Time Date/Time Type Type Clinicians Facility Department ID 2018-12-19 Outpatient [facility] CAR [id number] 15:19:24 2018-12-12 Inpatient [id number] 06:06:00 2020-01-01 2020-01-01 Outpatient Ar[facility] [id number] 11:00:00 23:59:00 Marwan 12 [facility] 2020-01-01 2020-01-01 Outpatient [id number] 11:00:00 11:00:00 2019-10-05 2019-10-05 Outpatient Argelia [facility] [id number] 09:19:00 23:59:00 Marwan 10 [facility] 2019-10-05 2019-10-05 Outpatient [id number] 09:19:00 09:19:00 2019-06-15 2019-06-15 Outpatient Argelia [facility] [id number] 09:59:00 23:59:00 Marwan 09 [facility] 2019-06-15 2019-06-15 Outpatient [facility] CAR [id number] [facility] 09:59:00 09:59:00 2019-04-20 2019-04-20 Outpatient Argelia [facility] [id number] 09:30:00 23:59:00 Marwa 08 [facility] 2019-04-20 2019-04-20 Outpatient [facility] CAR [id number] [facility] 09:30:00 09:30:00 2019-01-12 2019-01-12 Outpatient Edy, [facility] [id number] 08:48:00 23:59:00 [facility] 2019-01-12 2019-01-12 Outpatient [facility] CAR [id number] [facility] 08:48:00 08:48:00 2018-12-25 2018-12-25 Outpatient Edy, [facility] [id number] 10:18:00 23:59:00 [facility] 2018-12-22 2018-12-22 Outpatient Edy, [facility] [id number] 13:28:00 23:59:00 Biswat 2018-12-18 2018-12-18 Outpatient BarbieLukasy [facility] [id number] 14:36:34 19:23:00 Amy 2018-12-18 2018-12-18 Emergency E MHBL MHBL [id number] MHBL 14:36:00 14:36:00 2018-12-12 2018-12-13 Outpatient Edy [facility] [id number] 06:06:00 15:30:00 Biswaji2018-11-20 2018-11-20 Outpatient Argelia [facility] [id number] 06:55:00 23:59:00 Marwan 2018-11-20 2018-11-20 Outpatient [facility] CAR [id number] [facility] 06:55:00 06:55:00 2018-11-03 2018-11-03 Outpatient Argelia [facility] [id number] 10:24:00 23:59:00 Marwan [facility] 2018-11-03 2018-11-03 Outpatient [facility] CAR [id number] [facility] 10:24:00 10:24:00 2018-10-24 2018-10-24 Outpatient Argelia [facility] [id number] 10:00:00 23:59:00 Marwan [facility] 2018-10-24 2018-10-24 Outpatient [facility] CAR [id number] [facility] 10:00:00 10:00:00 2018-09-29 2018-09-29 [facility] [id number] 09:33:00 23:59:00 Marwan [facility] 2018-09-17 2018-09-22 Outpatient Argelia [facility] [id number] 10:48:00 13:45:00 Octrios [facility] 2013-10-28 2013-10-28 Outpatient MHIE [facility] [id number] 16:45:20 16:45:20 2013-10-16 2013-10-16 Outpatient MHIE [facility] [id number] 19:00:17 19:00:17 2013-10-09 2013-10-09 Outpatient MHIE [facility] [id number] 13:20:30 13:20:30 2013-02-19 2013-02-19 Outpatient MHIE [facility] [id number] 17:01:02 17:00:41 2013-02-17 2013-02-17 Outpatient MHIE [facility] [id number] 11:56:19 11:55:59 Results Test Description Test Time Test Comments Results Result Comments Source CARDIAC ENZYMES 2020-01-01 67 [facility] 20:46:08 CHEM PANEL 2020-01-01 92 [facility] [...] B/C Ratio) 19 1 6-25 [facility] PWUAE9130-30-55 20:46:083.9[facility]annCHE[facility] PANEL 2020-01-01 20:46:08 Test Item Value Reference Range Interpretation Comments A/G Ratio (test code = A/G Ratio) 0.9 1 0.7-1.6 [facility] XVLJN3081-76-68 20:46:0875[facility]annHEMATOLOGY 2020-01-01 20:46:085.9[facility] RqqlqfhDTKDNBNGTF7916-66-26 20:46:084.58[facility] PbkfuhjHPWYLDHOWE3197-73-05 20:46:0814.9[facility] ZhckfquIBMIJTONPA4647-12-23 20:46:0844.8[facility] TpfxbnsFWYCHQNAES4153-63-27 20:46:0897.7[facility] XXYGQYCAQA9094-37-37 20:46:08 Test Item Value Reference Range Interpretation Comments MCH (test code = MCH) 32.5 pg 27.0-31.0 [facility] UmxdzuuZEEIRRCMIF8048-09-41 20:46:0833.3[facility] HermannHEMATOLOGY 2020-01-01 20:46:0813.7[facility] QuahueoUJXTBERXUW7806-45-42 20:46:78148Bpjaskjc OqzkybfRKJZASDWFE3170-32-70 20:46:0811.5[facility] CarbudaFNYZCVRPHI2024-14-40 20:46:0852.5[facility] JpflbkkUQUJBCPSKU3260-31-70 20:46:0828.8[facility] NGDPAFRCFO4374-83-57 20:46:0812.1[facility] RmvuykbTMZCQFTHKO2539-77-40 20:46:08 6.0[facility] WtqnyfqHATYBCMTTN2835-07-45 20:46:080.6[facility] HermannHEMATOLOGY 2020-01-01 20:46:083.1[facility] RvdxhdpFDJMZRQFHE6571-57-27 20:46:081.7[facility] QzdzodaVOHQDMCTAQ5713-10-77 20:46:080.7[facility] FdrlonjXNQVOJDJHU4496-05-99 20:46:080.4[facility] HermannCHEM RQAMP3562-28-83 17:19:0096[facility]annCHEM CTKKB5172-00-26 17:19:0016[facility]annCHEM FAQAU9833-34-89 17:19:000.98 [facility]annCHE[facility] AZXSV9723-02-73 17:19:24553Erybitaz HermannCHEM PANEL 2019-06-15 17:19:004.2[facility] HermannCHEM TOJFE3467-20-87 17:19:36670Uomrturn HermannCHEM PNVAR2906-11-44 17:19:0028[facility]annCHEM DGTTO7291-11-86 17:19:009.5[facility]annCHEM POXOC6887-34-19 17:19:007.2[facility]annCHEM HUTZL0616-93-46 17:19:003.6[facility]annCHEM SBFAI8519-16-18 17:19:0040 [facility]annCHEM OWNEU0422-96-54 17:19:0027[facility] HermannCHEM PANEL 2019-06-15 17:19:0081[facility] HermannCHEM OCAVN2316-75-48 17:19:000.4[facility]annCHEM FZNEX2656-01-76 17:19:0010.2[facility]annCHEM QDTKP9744-71-96 17:19:00 Test Item Value Reference Range Interpretation Comments B/C Ratio (test code = B/C Ratio) 16 1 - [facility] HermannCHEM YWYXY0220-78-87 17:19:003.6[facility] HermannCHEM PANEL 2019-06-15 17:19:00 Test Item Value Reference Range Interpretation Comments A/G Ratio (test code = A/G Ratio) 1.0 1 0.7-1.6 [facility] HermannCHEM ILGRV4531-67-87 17:19:0076[facility] HermannELECTROLYTES 2019-01-12 16:37:0012.2[facility] GyeahcwEPKAPBWBYDZM0644-03-36 16:37:00 Test Item Value Reference Range Interpretation Comments A/G Ratio (test code = A/G Ratio) 1.2 1 0.7-1.6 [facility] PjsrjkmKRYROANHSUXZ9091-11-38 16:37:003.3[facility] HermannELECTROLYTES 2019-01-12 16:37:00 Test Item Value Reference Range Interpretation Comments B/C Ratio (test code = B/C Ratio) 22 1 01-27 [facility] MraswdhSPUJBWIVFWYE9482-40-65 16:37:0074[facility] HermannELECTROLYTES 2019-01-12 16:37:0091[facility] HpiccevSTRSOPCOYDBO1046-95-77 16:37:000.6[facility] EswmhbqFHYXGZOZRESE2040-18-15 16:37:004.1[facility] LrwzjopTBCLSITZKJHQ8058-89-51 16:37:007.4[facility] AbpemxjROGKRYPHENTD1903-78-43 16:37:009.2[facility] NYRUOQDREQFY6426-42-14 16:37:0020[facility] PnmtqgsNIOODTWMZJJV9513-83-44 16:37:00 28[facility] UnihergZDMFAINUEHHN9693-06-69 16:37:66647Urpqsbvv HermannELECTROLYTES 2019-01-12 16:37:004.2[facility] ToljrurXRMYLRMDKTDZ7970-36-97 16:37:0027[facility] FmkceavDNABALGRNDGU2129-23-10 16:37:95771Mcixvore XpnxbvtOCJAUJXCZHLK3879-66-80 16:37:0084[facility] BmjxofrDOFCMRXSEVYI4671-35-92 16:37:001.02[facility] KVQVFRHZHDEF2667-87-60 16:37:0022[facility] HawgzzqEOOARVAPRM9625-26-01 16:37:00 0.6[facility] EnfdvhrHBEHXQNZKK4985-18-93 16:37:000.3[facility] HermannHEMATOLOGY 2019-01-12 16:37:001.8[facility] HkqolcyUKOWMIAOBX3835-26-52 16:37:004.0[facility] LayxussYPVGYRWTFD9433-51-41 16:37:003.7[facility] PvhexiaVDXUKPPHFS9444-82-89 16:37:000.5[facility] AmwzshvWARIQYBBHM1104-45-68 16:37:009.5[facility] ACFVWEFNYU1537-62-33 16:37:0058.3[facility] VjdmtcfVZEMGLLZHZ8352-31-38 16:37:00 27.7[facility] YtwrlfdTCFTZEJPEX8484-72-67 16:37:0011.2[facility] HermannHEMATOLOGY 2019-01-12 16:37:50464Ebfkilsi CgxjiswURHGRPSYAK4143-33-61 16:37:0032.4[facility] KknpitpXYMQKUDPQP7440-24-03 16:37:0014.3[facility] XtymuqlUEJZNYUYJC8407-13-39 16:37:00 Test Item Value Reference Range Interpretation Comments MCH (test code = MCH) 31.9 pg 27.0-31.0 [facility] SiqdhgfDCLWGGEKKV0309-44-62 16:37:0045.9[facility] HermannHEMATOLOGY 2019-01-12 16:37:0098.2[facility] SbxywcgCHQSWOOIVH3713-64-69 16:37:006.4[facility] OixlruqCTGVLXHVBB2907-89-53 16:37:004.68[facility] RuimivbMEHGYIIHBX7818-81-14 16:37:0014.9[facility] HermannCARDIAC NBDEKVZ6486-23-38 20:44:000.02[facility] HermannCARDIAC DGZNQKA4384-59-49 20:44:0097[facility] HermannCHEM STGXU6755-44-39 20:44:0081[facility] HermannCHEM ZXWCY1260-08-15 20:44:003.4[facility] HermannCHEM QZRMM3977-04-94 20:44:007.6[facility] HermannCHEM LZQUT9696-76-31 20:44:009.1 [facility] HermannCHEM OZMAY4379-79-86 20:44:0025[facility] HermannCHEM PANEL 2018-12-18 20:44:96263Bykkcwda HermannCHEM WTDCH7367-29-84 20:44:004.1[facility] HermannCHEM UBABN8841-87-50 20:44:000.9[facility] HermannCHEM BUXQO4336-30-69 20:44:0091[facility] HermannCHEM NUGIB0508-76-44 20:44:0019[facility] HermannCHEM OXAFF9253-03-74 20:44:0024[facility] HermannCHEM ZSIDC2959-43-54 20:44:15932 [facility]annCHEM WVAVD3527-98-87 20:44:000.94[facility] HermannCHEM PANEL 2018-12-18 20:44:0028[facility] HermannCHEM RVQJW0322-86-40 20:44:0095[facility] HermannCHEM DXQDE2273-77-93 20:44:00 Test Item Value Reference Range Interpretation Comments A/G Ratio (test code = A/G Ratio) 0.8 1 0.7-1.6 [facility] HermannCHEM UOUVJ7553-73-19 20:44:00 Test Item Value Reference Range Interpretation Comments B/C Ratio (test code = B/C Ratio) 30 1 6-25 [facility]annCHE[facility] TGTXY4159-13-11 20:44:004.2[facility] HermannCHEM PANEL 2018-12-18 20:44:0013.1[facility] UwqjmdgFVDUUKSQMU6397-41-55 20:44:0096.2[facility] YvjsjmkOAOSBLAVJU9538-98-39 20:44:0040.0[facility] FsqdvrjESQTAFENMF3148-03-38 20:44:004.15[facility] WrabamyZCRUYRQASX1333-85-82 20:44:0013.6[facility] AXPXAFDWHZ4039-07-27 20:44:0033.9[facility] OabbhfcJLWZPRWSMG0070-25-76 20:44:00 Test Item Value Reference Range Interpretation Comments MCH (test code = MCH) 32.7 pg 27.0-31.0 [facility] HmvidtcCXRWRWFGNK5138-79-60 20:44:0014.3[facility] HermannHEMATOLOGY 2018-12-18 20:44:06047Kbqnhwof MmfnjgeEJQSPZGCDM6908-86-82 20:44:0011.3[facility] IepwplbEGNLAUHPUD0017-87-11 20:44:007.7[facility] EkkcsxuVNBSIFGHJD2155-89-42 20:44:000.3[facility] XrlqvbvIFSTPYABGA1676-65-83 20:44:000.9[facility] KNOADPUPTD8137-32-49 20:44:005.3[facility] BxxejngBREGQAKSYT5391-39-54 20:44:00 68.5[facility] TdmlqinCLZSKZVXKD7317-55-49 20:44:0016.1[facility] HermannHEMATOLOGY 2018-12-18 20:44:0011.1[facility] QausghrMEQVFGXHOB9941-25-86 20:44:000.6[facility] UousjenRSYZEINVLW5501-91-25 20:44:001.2[facility] GhmhmnyWCOQVINLSH7551-43-09 20:44:003.7[facility] HermannCHEM HTBIO6372-04-22 11:49:0092[facility] HermannCHEM RCHVU1476-71-73 11:49:0022[facility] HermannCHEM SSNUU2652-15-61 11:49:008.5 [facility] HermannCHEM YBECS0700-99-93 11:49:17712Fnwacrcn HermannCHEM PANEL 2018-12-13 11:49:003.9[facility] HermannCHEM FZFJB0992-58-35 11:49:000.76[facility] HermannCHEM MGCDT9161-04-41 11:49:81225Amefayqr HermannCHEM UBTZB3528-84-16 11:49:0014[facility] HermannCHEM DYFKK1043-13-55 11:49:0098[facility] HermannCHEM CTYZN7617-15-40 11:49:0010.9[facility] HermannCHEM QFLCF4082-15-33 11:49:002.2 [facility] LqnoqraULTUPLXOEW8061-22-49 11:49:61627Icrcusmx HermannHEMATOLOGY 2018-12-13 11:49:0014.1[facility] VgtvhdrIGVSJUIONP5328-90-95 11:49:0033.8[facility] ZcejqahMYMEGCJNOP5846-32-06 11:49:0098.0[facility] DxmdpckBPPUJGEGWR1515-66-64 11:49:00 Test Item Value Reference Range Interpretation Comments MCH (test code = MCH) 33.2 pg 27.0-31.0 [facility] LdzffwuWOOXJMHQLT7597-52-18 11:49:0011.8[facility] HermannHEMATOLOGY 2018-12-13 11:49:0037.5[facility] PsredieLNRPLXSELM3037-74-28 11:49:009.1[facility] LfbpcfeQDOYEPAVOT9107-73-83 11:49:0012.7[facility] HjuvyzoRGHAHWFBJF4271-68-02 11:49:003.83[facility] MfnlyixOIEYWNQAOM3397-56-86 11:49:00 Test Item Value Reference Range Interpretation Comments INR (test code = INR) 1.08 1 0.85-1.17 [facility] UfopvzuFVHHHRKYCV2194-61-55 11:49:00 Test Item Value Reference Range Interpretation Comments PTT (test code = PTT) 28.0 s 22.9-35.8 [facility] EvfxrypCPVDNLZBPK6443-93-01 11:49:00 Test Item Value Reference Range Interpretation Comments PT (test code = PT) 13.8 s 12.0-14.7 [facility] TlwzjeuOKONCMGHSA2324-41-72 11:49:000.2[facility] HermannHEMATOLOGY 2018-12-13 11:49:000.8[facility] PclhxvcGIDWNQCOLF4660-00-28 11:49:000.4[facility] HnyburdREMUVAYYPB6454-02-50 11:49:002.2[facility] QyihctdFXEDCGOACA9515-28-56 11:49:008.5[facility] JjuezruKRJUWLUJCM2215-24-37 11:49:001.5[facility] WFABKDKDHO5065-80-14 11:49:006.7[facility] UkdxwgjWPMTZLMEWJ1382-84-52 11:49:00 73.0[facility] VbazyhaIOGYQBFLRP1941-33-44 11:49:0015.9[facility] HermannHEMATOLOGY 2018-12-12 20:21:0098.7[facility] QrzmglgZMXFWMBDRX3646-03-85 20:21:00 Test Item Value Reference Range Interpretation Comments MCH (test code = MCH) 33.4 pg 27.0-31.0 [facility] NbvgtgoJFOCLSSPKZ7989-36-24 20:21:0013.0[facility] HermannHEMATOLOGY 2018-12-12 20:21:0038.4[facility] TsogbesWPPJBDIJGI8411-89-81 20:21:0033.9[facility] RppshdjCTOYPTOQHC6844-10-15 20:21:73578Mrhwhrwv QxrjidgRZYWNVNBLC2482-84-87 20:21:0012.0[facility] LwsccqgGCLABFGHJQ8305-87-40 20:21:0014.0[facility] FAUEECNCNV1080-45-79 20:21:008.8[facility] AvnohqaMGAUCNCEYI7252-49-89 20:21:00 3.89[facility] NivwphgOAEARFCVFP1225-25-64 20:21:005.3[facility] HermannHEMATOLOGY 2018-12-12 20:21:0024.2[facility] HuvnzuuLFOIWYYRJX0226-33-83 20:21:002.7[facility] StpilabYLMAEEEOGR5161-15-43 20:21:0067.3[facility] DihusawWEAMNFPWRD8082-29-32 20:21:000.5[facility] KnlcddbCYVETVFMTT9195-18-49 20:21:000.2[facility] NCJZAARQWY7506-41-07 20:21:000.5[facility] KykncwsMZWHYWGVCO9942-58-78 20:21:005.9 [facility] SbuhzzxDGNGXFCVKU1133-60-86 20:21:002.1[facility] HermannBLOOD BANK ZKGKOEF0388-35-12 11:35:00Product available (12/12/18 6:35 AM)[facility] BLOOD B[facility] LURUZSZ3196-13-15 11:35:00Product available (12/12/18 6:35 AM)[facility]annBL[facility] B[facility] VQBSKWC1595-79-37 11:35:00Negative (12/12/18 6:35 AM)[facility] HermannCHEM WRFPR5731-93-90 11:35:00 Test Item Value Reference Range Interpretation Comments A/G Ratio (test code = A/G Ratio) 1.0 1 0.7-1.6 [facility] HermannCHEM VYUOR8158-97-48 11:35:003.7[facility] HermannCHEM PANEL 2018-12-12 11:35:00 Test Item Value Reference Range Interpretation Comments B/C Ratio (test code = B/C Ratio) 19 1 6-25 [facility] HermannCHEM QYGJO1329-19-20 11:35:0011.7[facility] HermannCHEM PANEL 2018-12-12 11:35:003.6[facility] HermannCHEM ITBSE5169-32-27 11:35:0034[facility] HermannCHEM EEUYU9425-43-94 11:35:0083[facility] HermannCHEM FUVZI9610-97-33 11:35:0023[facility] HermannCHEM GYARZ5881-06-73 11:35:007.3[facility] HermannCHEM CHLIO2390-18-91 11:35:000.4[facility] HermannCHEM FVNDC4042-37-71 11:35:0075 [facility]annCHEM UIHRB1011-91-88 11:35:009.5[facility] HermannCHEM PANEL 2018-12-12 11:35:0027[facility] HermannCHEM JNAIF4616-44-39 11:35:05154Hlwbzydl HermannCHEM ESTTM3448-85-32 11:35:003.7[facility] HermannCHEM GLAKQ0816-33-96 11:35:0093[facility] HermannCHEM YXDIK4889-43-75 11:35:001.00[facility] HermannCHEM BDUEO4883-94-48 11:35:90204Mdezayeh HermannCHEM APHMY7365-37-62 11:35:0019 [facility]annCHEM VMIDL2767-71-79 11:35:002.2[facility] HermannHEMATOLOGY 2018-12-12 11:35:000.1[facility] ZqefoqlNGQXVMYTRI4788-90-92 11:35:0024.6[facility] SkostknWWINRBCRVY5524-07-79 11:35:009.5[facility] KjcjbiyRYCRHVFXBP6812-50-09 11:35:003.7[facility] WkkaembBVSQHLAHQR7577-00-65 11:35:000.8[facility] LVWQROBHFZ9988-87-43 11:35:004.3[facility] OsozwdsABWVCVCVWH2025-71-50 11:35:001.7 [facility] CqeoywsDKZAQILDWB9593-87-53 11:35:000.7[facility] HermannHEMATOLOGY 2018-12-12 11:35:000.3[facility] VpumeiwHRUTBYEUFB5517-58-07 11:35:0061.4[facility] MlybzoeGNWOAEJGPF7865-11-64 11:35:00 Test Item Value Reference Range Interpretation Comments PT (test code = PT) 13.6 s 12.0-14.7 [facility] DkadhpoHPYNNBPQPK0034-40-06 11:35:00 Test Item Value Reference Range Interpretation Comments PTT (test code = PTT) 27.0 s 22.9-35.8 [facility] TkojdmpPNHZIBZBXT6246-84-42 11:35:00 Test Item Value Reference Range Interpretation Comments INR (test code = INR) 1.06 1 0.85-1.17 [facility] DnnlxcuRPRRHNIKRU0427-94-99 11:35:91118Snjtwyyo HermannHEMATOLOGY 2018-12-12 11:35:0011.5[facility] FuhbtixVIFRGQBOBX5963-95-13 11:35:007.0[facility] TgdslgpISIHNAWIYR3966-37-64 11:35:004.45[facility] ZusbrrnRLDDMPJYQF0259-71-54 11:35:0014.8[facility] CetxrgtVGXAJHQKFO4819-39-23 11:35:0044.1[facility] IWVUOACJCJ9032-36-93 11:35:00 Test Item Value Reference Range Interpretation Comments MCH (test code = MCH) 33.2 pg 27.0-31.0 [facility] VdwhpsfGMQLSCLHXP9783-61-33 11:35:0014.2[facility] HermannHEMATOLOGY 2018-12-12 11:35:0099.1[facility] MqspyleAWPBNBMPFZ4537-60-96 11:35:0033.5[facility] HermannCHEM NNGTF7018-86-70 12:45:0086[facility] HermannCHEM AFIXF2973-41-76 12:45:000.9[facility] HermannCHEM JLTPI4598-02-61 11:15:0088[facility] HermannCHEM NYKUH8085-91-29 11:15:004.3[facility] HermannCHEM OGPKQ3358-63-93 11:15:00 Test Item Value Reference Range Interpretation Comments A/G Ratio (test code = A/G Ratio) 0.5 1 0.7-1.6 [facility]annCHEM QBGYF4829-80-40 11:15:0022[facility] HermannCHEM PANEL 2018-09-22 11:15:84437Nyndgndr HermannCHEM WAOCE6290-26-15 11:15:003.5[facility] HermannCHEM TFLTR7725-10-97 11:15:000.85[facility] HermannCHEM LWKCQ8704-92-55 11:15:80585Dxvqyoxs HermannCHEM JYOEF5971-99-23 11:15:006.6[facility] HermannCHEM OBKLO5061-55-91 11:15:75927Wohjrvvt HermannCHEM IVFMW2389-66-16 11:15:002.3 [facility] HermannCHEM ODPRQ1996-29-23 11:15:0023[facility] HermannCHEM PANEL 2018-09-22 11:15:94704Thhyfjmx HermannCHEM RNXLH5647-06-94 11:15:008.3[facility] HermannCHEM ETNPD5157-45-69 11:15:000.9[facility] HermannCHEM QISHB1433-90-63 11:15:00 Test Item Value Reference Range Interpretation Comments B/C Ratio (test code = B/C Ratio) 26 1 6-25 [facility] HermannCHEM RUKZT9244-92-64 11:15:0013.5[facility] HermannCHEM PANEL 2018-09-22 11:15:0054[facility] HermannCHEM SYOAO9839-75-09 11:15:35495Qqmdwyci HermannCHEM EWKTY8358-54-69 11:15:003.6[facility] HermannCHEM LKXEI2295-40-88 11:15:002.3[facility] CozjoyqLSVFVBKSOB9706-35-59 11:15:0038.1[facility] JPHJQVHKVP7401-62-30 11:15:003.84[facility] MexwcobESAYVCXXEH3075-19-10 11:15:00 13.6[facility] XnrtzygELORTFEGSR8901-42-56 11:15:007.2[facility] HermannHEMATOLOGY 2018-09-22 11:15:0099.3[facility] VnzczhcVRCKWNOEGQ7503-41-04 11:15:00 Test Item Value Reference Range Interpretation Comments MCH (test code = MCH) 35.3 pg 27.0-31.0 [facility] GpbylbiJXOANQQFBG2745-62-88 11:15:25292Dxnrcnnr HermannHEMATOLOGY 2018-09-22 11:15:0035.5[facility] WyxgjliHOTNKLHDNW0245-87-90 11:15:0013.1[facility] SjupwwkRNRNWSQJXK2648-97-95 11:15:0011.1[facility] SoyubypIACLAOCGAU3853-38-39 11:15:000.5[facility] TewkaytIKSQMWAZMA3848-47-17 11:15:001.3[facility] VSFZSJTCEO1463-26-67 11:15:004.8[facility] HjocyvgACHCYTFFFK8433-67-37 11:15:000.2 [facility] GnagnxcDZWYITDHNT0866-30-65 11:15:000.8[facility] HermannHEMATOLOGY 2018-09-22 11:15:0011.7[facility] BjfrlqtIWMCENQPRG9778-84-24 11:15:0018.1[facility] LbsqwhbRBOTUMTVEU5597-29-37 11:15:002.8[facility] WtnlepeRIEIQIZCLP8440-69-82 11:15:0066.9[facility] HermannCARDIAC XYFDGGX3058-18-02 10:00:52569Qzpdncqf HermannCHEM QHHPE9477-60-69 10:00:000.21[facility] HermannCHEM HLYBZ4972-15-39 10:00:002.4[facility] HermannCHEM UQFEN5108-72-59 10:00:002.2[facility] HermannCHEM HPFXZ1075-89-22 10:00:0078[facility] HermannCHEM OOKVW1293-24-99 10:00:008.5 [facility] HermannCHEM LQRKT6338-33-89 10:00:92656Hinjenrt HermannCHEM PANEL 2018-09-21 10:00:0022[facility] HermannCHEM QCFZT2083-25-63 10:00:000.97[facility] HermannCHEM EIXYJ5763-19-57 10:00:0020[facility] HermannCHEM KDVRB5773-02-08 10:00:003.5[facility] HermannCHEM PXNZR7737-65-12 10:00:94881Blegwivq HermannCHEM BYITM2693-20-02 10:00:89214Egolvgaq HermannCHEM XRUKE9340-16-69 10:00:0015.5 [facility]annCHE[facility] VZNQM9539-92-95 10:00:0096[facility] HermannCHEM PANEL 2018-09-21 10:00:0044[facility] HermannCHEM FBESS5602-63-72 10:00:002.3[facility]annCHEM DFYRG3341-75-93 10:00:000.9[facility]annCHEM EZTHT2398-10-59 10:00:0053[facility]annCHEM ZZAGQ2411-29-29 10:00:000.1[facility]annCHEM XHNTG8568-16-66 10:00:00 Test Item Value Reference Range Interpretation Comments A/G Ratio (test code = A/G Ratio) 0.5 1 0.7-1.6 [facility]annCHEM ESWVT3312-25-84 10:00:004.4[facility] HermannCHEM PANEL 2018-09-21 10:00:000.8[facility] HermannCHEM BNCDR2151-39-53 10:00:006.7[facility] KpggkxcBAQCFQCMJL6199-19-32 10:00:00 Test Item Value Reference Range Interpretation Comments PTT (test code = PTT) 33.3 s 22.9-35.8 [facility] DafvovoNZUZRLTFZO6556-75-92 10:00:00 Test Item Value Reference Range Interpretation Comments PT (test code = PT) 14.1 s 12.0-14.7 [facility] ZknllhwMCSLGDUUDI9508-29-02 10:00:00 Test Item Value Reference Range Interpretation Comments INR (test code = INR) 1.11 1 0.85-1.17 [facility] OldfucrDHCOIACYGW7791-56-22 10:00:0011.0[facility] HermannHEMATOLOGY 2018-09-21 10:00:79875Ptpfahxo EdarhuyLXFCSWPWHN5848-41-56 10:00:0013.5[facility] CvyhoscAINUPFSHGR2209-44-40 10:00:0040.8[facility] BspsneeJKLZXVHVOV3220-52-88 10:00:0014.0[facility] RlrusyzWAKOIEIQSC0611-06-15 10:00:0034.3[facility] LDWNBKSHHM9955-02-38 10:00:0099.4[facility] FojdznyFHAUJCKFPI4006-83-66 10:00:00 Test Item Value Reference Range Interpretation Comments MCH (test code = MCH) 34.1 pg 27.0-31.0 [facility] ZrkabzrGJYGFJPTQC3082-27-80 10:00:004.11[facility] HermannHEMATOLOGY 2018-09-21 10:00:009.0[facility] TibwfncEDNRQCWXSN0622-89-26 10:00:000.4[facility] DyynrkjVFUDJJGXGX8364-93-78 10:00:001.3[facility] WrkhoeyQYULODCVGA1549-59-92 10:00:001.0[facility] KtrndujMZVEONKRHK2036-15-77 10:00:000.2[facility] SFZJMDVTZY0415-13-60 10:00:0014.2[facility] PvmnlsbWMJMOXRRPN6802-00-62 10:00:00 6.7[facility] LatlfjoRUZIDTIGRO5388-76-50 10:00:0010.8[facility] HermannHEMATOLOGY 2018-09-21 10:00:0074.4[facility] HermannCHEM FWQNQ7796-77-53 20:08:0067[facility] HermannCHEM MKMCC7667-49-62 20:08:008.2[facility]annCHEM TJBVA8013-96-56 20:08:003.4[facility]annCHEM UETRS9970-43-16 20:08:0096[facility]annCHEM XXGNV4346-84-50 20:08:0020[facility] HermannCHEM AAXCR2673-28-88 20:08:0016.4 [facility]annCHEM PFYLG2612-18-81 20:08:40630Eegxwcyw HermannCHEM PANEL 2018-09-20 20:08:0019[facility]annCHEM WDMYJ7926-28-32 20:08:001.10[facility] HermannCHEM PNROH5322-99-18 20:08:55043Fiblyfvb WnlczndDLYYBVVWRM9391-07-63 20:08:001+ *ABN*(09/20/18 2:08 PM)[facility] DhozewvQGQZAIBRFN6080-28-15 20:08:00 See Note 1(09/20/18 2:08 PM)[facility] GrzpflgZGPTJDSUGA8308-20-19 20:08:000.7 [facility] WlxkxpbGWQYHUJCFC0813-78-67 20:08:000.9[facility] HermannHEMATOLOGY 2018-09-20 20:08:009.5[facility] EluyeiyCVQGZHKDIR2772-91-73 20:08:000.4[facility] AbsnvzsOBKYDVPPKU0082-32-65 20:08:000.1[facility] RdlfhojRLRRVNBIQD5472-11-39 20:08:006.0[facility] LvphlsnJALAWQATMF7631-86-25 20:08:008.4[facility] DDJRHSQBSR8984-68-05 20:08:0085.1[facility] OzjzqkxKJXZMYMTDT8559-32-56 20:08:00 4.16[facility] DiurmubYTXNJUOVNA3835-24-98 20:08:0014.5[facility] HermannHEMATOLOGY 2018-09-20 20:08:0011.2[facility] IyfgasbXBSVAAXYID0195-52-73 20:08:25605Dcyhsbgp NcxyhqwHNAGSOXCHK4663-54-09 20:08:0010.9[facility] IlvjstvNZIFMOUSBF9981-08-18 20:08:0013.0[facility] TaywfsvIUPXWLSFPI4900-47-46 20:08:00 Test Item Value Reference Range Interpretation Comments MCH (test code = MCH) 34.9 pg 27.0-31.0 [facility] YgidgtoSFFTRGUSMM6566-92-07 20:08:0034.7[facility] HermannHEMATOLOGY 2018-09-20 20:08:0041.8[facility] PmwmgjrVGXUBAJRHM1481-66-12 20:08:83433.5 [facility] HermannCHEM VOULI8207-39-80 11:26:000.2[facility] HermannCHEM PANEL 2018-09-20 11:26:001.2[facility] HermannCHEM AAMSU2984-43-88 11:26:001.0[facility] HermannCHEM ZALMD3682-39-55 11:26:004.1[facility] HermannCHEM YZSDS8983-33-70 11:26:00 Test Item Value Reference Range Interpretation Comments A/G Ratio (test code = A/G Ratio) 0.6 1 0.7-1.6 [facility]annCHEM JXJKT2803-30-12 11:26:002.4[facility] HermannCHEM PANEL 2018-09-20 11:26:0047[facility] HermannCHEM TCLEE0711-68-63 11:26:0037[facility] HermannCHEM GHUIF2841-03-37 11:26:006.5[facility] HermannCHEM ZGBAP6855-92-77 11:26:43167Ssthnkdx HermannCARDIAC JQIQLZF3960-62-55 06:09:69617Qrptvgpr [place] CHEM DMBBV7009-55-13 06:09:001.6[facility] HermannCHEM SKBGY3256-15-43 06:09:00 0.16[facility] HermannCARDIAC EZAPAPJ6555-93-92 23:03:51341Yjhyqkcc HermannCHEM DNQKX3118-01-41 23:03:000.13[facility] BsgnkieCZYFWPDOWX9965-43-16 23:03:00 Negative *NA*(09/19/18 5:03 PM)[facility] YiwrddhAWDVSWNNED4497-41-56 23:03:00 Negative *NA*(09/19/18 5:03 PM)[facility] UsuiebrIWZSKCKOIY8764-16-21 23:03:00 Negative *NA*(09/19/18 5:03 PM)[facility] PdgmuxbJFUPNTSVQS9921-51-78 23:03:00 Negative *NA*(09/19/18 5:03 PM)[facility] HermannCHEM IDZXO3157-43-56 06:07:002.6 [facility] HermannCHEM JBATC6120-32-36 06:07:002.0[facility] HermannHEMATOLOGY 2018-09-19 06:07:00 Test Item Value Reference Range Interpretation Comments INR (test code = INR) 1.09 1 0.85-1.17 [facility] PedzasmFMMVDIPQBL6775-00-30 06:07:00 Test Item Value Reference Range Interpretation Comments PT (test code = PT) 13.9 s 12.0-14.7 [facility] VkezabiPMOVSQMWVS5783-44-72 06:07:00 Test Item Value Reference Range Interpretation Comments PTT (test code = PTT) 33.0 s 22.9-35.8 [facility] KbsicziBCJHOHVNHK3178-15-91 06:07:001+ *ABN*(09/19/18 12:07 AM)[facility] FnbjwpaACPNJGFXVL9198-05-63 06:07:000.1[facility] HermannPARATHYROID PROFILE 2018-09-19 06:07:001.08[facility] HermannPARATHYROID [id number] 06:07:00 1.11[facility]annCHEM [id number] 12:21:000.1[facility] HermannCHEM PANEL 2018-09-18 12:21:000.6[facility] HermannPARATHYROID [id number] 09:14:001.14 [facility]annPARATHYROID [id number] 09:14:001.14[facility] HermannCHEM [id number] 01:10:14899Ebettqyd HermannCHEM [id number] 01:10:00 Test Item Value Reference Range Interpretation Comments B/C Ratio (test code = B/C Ratio) 16 1 6-25 [facility] [id number] 01:10:00 Test Item Value Reference Range Interpretation Comments VLDL (test code = VLDL) 26 1 [facility] [id number] 01:10:19988Sdmtmvfs [id number] 01:10:0081[facility] [id number] 01:10:0057[facility] HermannLIPIDS 2018-09-18 01:10:62796Nnzjgcnf [id number] 01:10:00 Test Item Value Reference Range Interpretation Comments CHD Risk (test code = CHD Risk) 2.02 1 4.00-7.30 [facility] HermannSPECIAL [id number] 01:10:005.9[facility] HermannBLOOD BANK [id number] 18:57:00Negative (09/17/18 12:57 PM)[facility] [id number] 18:57:00 Test Item Value Reference Range Interpretation Comments PT (test code = PT) 14.7 s 12.0-14.7 [facility] [id number] 18:57:00 Test Item Value Reference Range Interpretation Comments INR (test code = INR) 1.17 1 0.85-1.17 [facility] HermannPARATHYROID [id number] 18:57:001.07[facility] PARATHYROID [id number] 18:57:001.04[facility]
--- NOTE | 2020-04-03 11:54 | ER ---
Nurse's Notes [facility] Name: Sadiq Arguelles IV Age: 74 yrs Sex: Male : 1945 Arrival Date: 04/03/2020 Time: 10:45 Bed 17 Private MD: Dayday Ross Diagnosis: Encounter for change or removal of nonsurgical wound dressing-left elbow Presentation: 04/03 10:47 Chief complaint: Patient states: unable to take her left elbow dressing off from his sv skin tears yesterday. Was seen here yesterday. Coronavirus screen: Client denies travel out of the [place] in the last 14 days. At this time, the client does not indicate any symptoms associated with coronavirus-19. Ebola Screen: No symptoms or risks identified at this time. Risk Assessment: Do you want to hurt yourself or someone else? Patient reports no desire to harm self or others. Onset of symptoms was April 02, 2020. 10:47 Method Of Arrival: Ambulatory sv 10:47 Acuity: BELLA 4 sv 10:52 Initial Sepsis Screen: Does the patient meet any 2 criteria? No. Patient's initial sv sepsis screen is negative. Does the patient have a suspected source of infection? No. Patient's initial sepsis screen is negative. Triage Assessment: 10:51 General: Appears in no apparent distress. comfortable, slender, Behavior is calm, sv cooperative, appropriate for age. Pain: Denies pain. Neuro: Level of Consciousness is awake, alert, obeys commands, Oriented to person, place, time, situation, Moves all extremities. Full function Gait is steady. Respiratory: Respiratory effort is even, unlabored. Historical: - Allergies: 10:51 Morphine; sv 10:51 PENICILLINS; sv - PMHx: 10:51 cardiac stent; Myocardial infarction; aortic valve replacement; sv - Immunization history:: Adult Immunizations up to date. - Social history:: Smoking status: Patient denies any tobacco usage or history of. Screenin:25 Abuse screen: Denies threats or abuse. Nutritional screening: No deficits noted. em Tuberculosis screening: No symptoms or risk factors identified. Fall Risk None identified. Assessment: 12:15 General: Appears in no apparent distress. comfortable, Behavior is calm, cooperative, em appropriate for age, Denies fever. Pain: Denies pain. Neuro: Level of Consciousness is awake, alert, obeys commands, Oriented to person, place, time, situation, Appropriate for age. Cardiovascular: Capillary refill < 3 seconds Patient's skin is warm and dry. Respiratory: Airway is patent Respiratory effort is even, unlabored, Respiratory pattern is regular, symmetrical. GI: Abdomen is flat. Derm: Skin is intact, is fragile, is thin, has skin tears on noted to left elbow. Musculoskeletal: Capillary refill < 3 seconds, Range of motion: intact in all extremities. Vital Signs: 10:47 BP 109 / 65; Pulse 76; Resp 16; Temp 98.1; Pulse Ox 98% ; sv ED Course: 10:45 Patient arrived in ED. mr 10:45 Dayday Ross MD is Private Physician. mr 10:47 Arm band placed on. sv 10:48 Triage completed. sv 11:32 Cam Farooq RN is Primary Nurse. em 11:33 Jose Higginbotham PA is PHCP. cp 11:33 Yuri Turner MD is Attending Physician. cp 12:25 Patient has correct armband on for positive identification. Bed in low position. Call em light in reach. 12:25 No provider procedures requiring assistance completed. Patient did not have IV access em during this emergency room visit. Administered Medications: No medications were administered Outcome: 11:53 Discharge ordered by MD. cp 12:27 Discharged to home ambulatory. em 12:27 Condition: good 12:27 Discharge instructions given to patient, Instructed on discharge instructions, follow up and referral plans. medication usage, Demonstrated understanding of instructions, follow-up care, medications, Prescriptions given X 1. 12:28 Patient left the ED. em Signatures: Patti Latif RN RN Lillie Mathews mr Cam Farooq RN RN em Jose Higginbotham PA PA cp Corrections: (The following items were deleted from the chart) 10:52 10:47 Chief complaint: Patient states: unable to take her left elbow dressing off from sv his skin tears. sv
--- NOTE | 2020-04-03 11:54 | EDPHYS ---
Physician Documentation [facility] Name: Sadiq Arguelles IV Age: 74 yrs Sex: Male : 1945 Arrival Date: 04/03/2020 Time: 10:45 Bed 17 Private MD: Dayday Ross ED Physician Yuri Turner HPI: 04/03 11:50 This 74 yrs old Male presents to ER via Ambulatory with complaints of Wound cp Recheck. 11:50 Patient presents to ED for recheck of: skin tear. The affected area is on the left cp elbow. Previous treatment: The patient was initially treated yesterday, the care was rendered at [facility], Treatment type: The patient's original treatment included dressing, steri strips. Outpatient prescription(s): The patient was given prescription(s) for nothing. Progress: The patient reports mild bleeding with no erythema, purulent drainage or increased swelling. 11:50 Patient would like dressing changed. cp Historical: - Allergies: 10:51 Morphine; sv 10:51 PENICILLINS; sv - PMHx: 10:51 cardiac stent; Myocardial infarction; aortic valve replacement; sv - Immunization history:: Adult Immunizations up to date. - Social history:: Smoking status: Patient denies any tobacco usage or history of. ROS: 11:50 Skin: Positive for of the left elbow, skin tear. cp 11:50 All other systems are negative. cp Exam: 11:51 Skin: Wound recheck: skin tear of left elbow appears with mild bleeding, mild swelling cp and no erythema of purulent discharge. 11:51 Constitutional: The patient appears in no acute distress, alert, awake, well developed, cp well nourished. Vital Signs: 10:47 BP 109 / 65; Pulse 76; Resp 16; Temp 98.1; Pulse Ox 98% ; sv MDM: 11:45 Patient medically screened. cp 11:53 Data reviewed: vital signs, nurses notes, and as a result, I will discharge patient. cp 11:53 Counseling: I had a detailed discussion with the patient and/or guardian regarding: the cp historical points, exam findings, and any diagnostic results supporting the discharge/admit diagnosis, the need for outpatient follow up, a family practitioner, to return to the emergency department if symptoms worsen or persist or if there are any questions or concerns that arise at home. 04/03 11:52 Order name: Dressing - Wound: left elbow nonadherent dressing; Complete Time: 12:28 cp Administered Medications: No medications were administered Disposition: 12:00 Chart complete. cp Disposition: 04/03/20 11:53 Discharged to Home. Impression: Encounter for change or removal of nonsurgical wound dressing - left elbow. - Condition is Stable. - Discharge Instructions: How to Change Your Dressing, Nonsutured Laceration Care, Wound Check. - Prescriptions for Keflex 500 mg Oral Capsule - take 1 capsule by ORAL route every 8 hours for 7 days; 21 capsule. - Medication Reconciliation Form, Thank You Letter, Antibiotic Education, Prescription Opioid Use form. - Follow up: Private Physician; When: 2 - 3 days; Reason: Wound Recheck. - Problem is new. - Symptoms have improved. Signatures: Patti Latif RN RN Cam Farooq RN RN em Jose Higginbotham PA PA cp Corrections: (The following items were deleted from the chart) 12:28 11:53 04/03/2020 11:53 Discharged to Home. Impression: Encounter for change or removal em of nonsurgical wound dressing - left elbow. Condition is Stable. Forms are Medication Reconciliation Form, Thank You Letter, Antibiotic Education, Prescription Opioid Use. Follow up: Private Physician; When: 2 - 3 days; Reason: Wound Recheck. Problem is new. Symptoms have improved. cp 04/04 12:14 04/03 11:52 Data reviewed: vital signs, nurses notes, and as a result, I will admit cp patient, cp
[2020-04-06 16:23] VITALS: BP 109/65; TEMP 98.1; O2SAT 98
== END 2020-04-03 12:28 | disposition home or self-care (01) ==
LOC: ER 10:43
DX: Z48.00 Encounter for change or removal of nonsurgical wound dressing (principal)
CPT/HCPCS: 99282

== ENCOUNTER 2020-08-21 20:41 | Emergency (ER) | payer OTHER ==
--- OUTSIDE RECORDS SUMMARY | 2020-08-21 20:44 | XMS REPORT | Clinical Summary ---
:1945 Author Organization [facility] Address [address] [place] [address] Care Team Providers Name Role Phone Avery Ross MD Primary Care Provider Allergies Active Allergy Reactions Severity Noted Date Comments Morphine Hives 03/22/2017 Penicillins Rash Low 03/22/2017 Medications Medication Sig Dispensed Refills Start Date End Date Status CYANOCOBALAMIN, Take by mouth. 0 Active VITAMIN B-12, (B-12 DOTS ORAL) COQ10, UBIQUINOL, ORAL Take by mouth. 0 Active cholecalciferol, Take 1,000 Units 0 Active vitamin D3, (VITAMIN by mouth daily. D3) 1,000 unit capsule aspirin (ECOTRIN) 81 Take 81 mg by 0 Active MG enteric coated mouth daily. tablet amLODIPine (NORVASC) Take 1 tablet (10 90 tablet 2 05/12/2018 Active 10 mg mg total) by tabletIndications: mouth daily. Essential hypertension lisinopril Take 1 tablet (20 90 tablet 2 05/12/2018 Active (PRINIVIL,ZESTRIL) 20 mg total) by mg tabletIndications: mouth daily. Essential hypertension carvedilol CR (COREG Take 1 capsule 90 capsule 2 05/12/2018 Active CR) 20 MG 24 hr (20 mg total) by capsuleIndications: mouth daily. Essential hypertension atorvastatin (LIPITOR) TAKE ONE (1) 90 tablet 0 02/23/2019 Active 40 MG TABLET(S) BY tabletIndications: MOUTH ONCE A DAY. Coronary artery disease involving [place] heart with angina pectoris, unspecified vessel or lesion type (HCC), Aortic valve disorder Active Problems Problem Noted Date Aortic valve disorder 03/22/2017 Aortic valve disease 09/11/2016 Coronary artery disease involving [place] heart with an kail[place] pectoris 09/11/2016 Surgical History Surgery Date Site/Laterality Comments CORONARY ANGIOPLASTY Medical History Medical History Date Comments Valvular disease Coronary artery disease Hypertension Hyperlipidemia Family History Medical History Relation Name Comments Heart attack Father Relation Name Status Comments Father Social History Tobacco Use Types Packs/Day Years Used Date Former Smoker Cigarettes Smokeless Tobacco: Never Used Alcohol Use Drinks/Week oz/Week Comments No Sex Assigned at Date Recorded Not on file Last Filed Vital Signs Not on file Plan of Treatment Health Maintenance Due Date Last Done Comments COVID-19 VACCINE (1 of 2) 1963 COLONOSCOPY SCREENING 1997 SHINGLES VACCINES (#1) 1997 65+ PNEUMOCOCCAL VACCINE (1 of 1 - PPSV23) 2012 INFLUENZA VACCINE 03/05/2020 Results Not on fileafter 08/21/2019 Insurance Payer Benefit Plan / Subscriber ID Effective Dates Phone Addre ss Type Group HU[employer]NA MEDICARE HU[employer]NA MEDICARE [id number] 2016-Present PPO PPO/PFFS/[facility] Advance Directives For more information, please contact: [phone] Type Date Recorded Patient Radio Technician Explanati on Advance Directives, Living Will and Medical Power of Merchandise Flow Team Leader
--- OUTSIDE RECORDS SUMMARY | 2020-08-21 20:46 | XMS REPORT | Continuity of Care Document ---
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 [address] [place] [address] VALVE Center 6MTH FOLLOWUP Active [facility] as [address] [place] [address] 4 MONTH FOLLOW UP Active [address] 2 MOS F/U Active [address] 3MOS F/U Active [address] R19.09 - OTHER Active OP ID INTRA-ABDOMINAL AND [address] [place] [address] PELV ECHO Active [address] Pain in left leg 12/21/2018 [place] [id number] LEG CRAMPS, POST Active [facility] orial SURGERY [address] [place] [address] FOLLOW UP Active [address] PREADMIT / TAVR / Active [facility] / TTE [address] [place] [address] AORTIC STNOSIS Active [address] 1 MONTH FOLLOW Active [facility] xa UP/ECHO [address] [place] [address] HOSPITAL D/C FOLLOW Active [address] CHEST PAIN Active [address] JERMAINE BILLING Active [address] Actinic Keratosis Active 10/28/2013 [facility] Aortic valve Resolved Problem 05/01/2020 Cristi as stenosis (disorder) Medical [place], Shashank Reyes nn Coronary Resolved Problem 05/01/2020 [facility] arteriosclerosis Med ical (disorder) Center, Shashank Reyes nn Hyperlipidemia Resolved Problem 05/01/2020 [facility] [place] (disorder) [facility], Shashank Reyes nn Hypertensive Resolved Problem 05/01/2020 [place] disorder, systemic [facility] arterial (disorder) Center, Shashank Reyes EULOGIO [place] nn 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 [place]ical (disorder) [place], [place] EUL[place] nn History of aortic Active Problem 05/01/2020 [facility] valve replacement [facility] (situation) [place] Medications Medication Details Route Status Patient Ordering Order Source Instructions Provider Date ticagrelor 90 mg 90 mg = 1 tab, Active [place] oral tablet PO, Q12H, # 180 2019 Medi gianni tab, 3 Center Refill(s), Pharmacy: [facility] lisinopril 5 mg 5 mg = 1 tab, Active [place] oral tablet PO, Daily, # 90 2019 Medi gianni tab, 3 Center Refill(s), Pharmacy: [facility] lisinopril 2.5 2.5 mg = 1 tab, Active M H [place] mg oral tablet PO, Daily, # 90 2019 M edical tab, 3 Center Refill(s), Pharmacy: [facility] spironolactone 12.5 mg = 0.5 Active [place] 25 mg oral tab, PO, Daily, 2019 Medic al tablet # 45 tab, 3 Center Refill(s), Pharmacy: [facility] 24 HR Metoprolol 25 mg = 0.5 Active [place] Tartrate 50 MG tab, PO, Daily, 2019 M edical Extended Release # 45 tab, [address] Tablet [Toprol] Refill(s), Pharmacy: [facility] ticagrelor 90 mg 90 mg = 1 tab, Active [place] oral tablet PO, Q12H, # 180 2019 Medi gianni tab, 3 Center Refill(s), Pharmacy: [facility] atorvastatin 40 40 mg = 1 tab, Active 04/20/ M H [place] mg oral tablet PO, Daily, # 90 2019 M edical tab, 3 Center Refill(s), Pharmacy: [facility] spironolactone 12.5 mg = 0.5 Active [place] 25 mg oral tab, PO, Daily, 2019 Medic al tablet # 45 tab, 3 Center Refill(s), Pharmacy: [facility] lisinopril 2.5 2.5 mg = 1 tab, Active H [place] mg oral tablet PO, Daily, # 90 2019 M edical tab, 3 Center Refill(s), Pharmacy: [facility] Saline Flush Notes: Same as: Inactive [place] 0.9% BD Posiflush 2018 Sterile Furosemide 40 MG 40 mg = 1 tab, Active [facility] Oral Tablet PO, Daily, # 30 2019 Medi gianni [Lasix] tab, 0 Center Refill(s), given to patient clopidogrel Notes: (Same Inactive Cristi as As: Plavix) [address] [place] [address] Aspirin 81 MG Notes: Do not Inactive [facility] Enteric Coated crush or chew. 2019 Ne dical Tablet (Same As: Center Ecotrin) potassium Notes: (Same Inactive [facility] chloride 20 mEq as: K-Dur 20) 2019 Ne dical oral tablet, "Do Not Crush" Cent er extended release Give with food and full glass of water For patients unable to swallow tablet, dissolve in one half glass of water. Allow about 2 minutes for the tablets to disintegrate. Stir before giving to prepare slurry and administer. Please exclude Patient’s with feeding tube less than 14 Macanese (Dobhoff, J-tube etc) and pediatric and patients. 24 [place] Metoprolol Notes: (Same Inactive H [place] Tartrate 50 MG as: Toprol XL) 2019 Ne dical Extended Release May split tab, Center Tablet [Toprol] but do not crush. atorvastatin Notes: (Same Inactive [place] as: Lipitor) 2019 [facility] Brilinta Notes: (Same Inactive [place] as: Brilinta) [address] [place] [address] ticagrelor 90 mg 90 mg = 1 tab, Active [facility] oral tablet PO, Q12H, # 180 2019 Medi gianni tab, 3 Center Refill(s) 24 HR Metoprolol 25 mg = 0.5 Active [place] Tartrate 50 MG tab, PO, Daily, 2019 [...] MG Oral Tablet 400mg/day. Center (Same As: [facility]) Tylenol Notes: Do not Inactive [place] exceed 4 2019 Medical gm/day. (Same Center as: Tylenol) Sodium Chloride 250 mL, Rate: No Longer [place]ge 0.9% IV 250 mL 20 ml/hr, Active 2019 Medical Infuse over: Center 12.5 hr, Route: IV, Dosing Weight 74.545 kg, Total Volume: 250, Start date: 12/12/18 12:52:00 CDT, Duration: 24 hr, Stop date: 12/13/18 12:51:00 CDT, 1.95, m2 heparin (ANES) Route: IV, Drug Inactive [place] form: INJ, 2018 Medical ONCE, Stop Center date: 12/12/18 12:02:00 CDT Naloxone Notes: Same as Inactive Cristia s Narcan 2019 [facility] Flumazenil Notes: (Same Inactive [place] as: Romazicon) 2019 [facility] Fentanyl Notes: (Same Inactive [place] as: Sublimaze) 2019 Medical Preservative Center free. Ondansetron Notes: (Same Inactive [place] as as: Zofran) 2019 Medical MEDICATION Center WASTE Product Size: 4 mg Product Wasted: ___ mg fentaNYL (ANES) Route: IV, Drug Inactive [place] form: INJ, 2019 Medical ONCE, Stop Center date: 12/12/18 11:27:00 CDT ceFAZolin (ANES) Route: IV, Drug Inactive [place] form: INJ, 2019 Medical ONCE, Stop Center date: 12/12/18 11:27:00 CDT Naloxone Notes: Same as [place] Narcan 2019 [facility] Flumazenil Notes: (Same Inactive [place] as: Romazicon) 2019 Medical Center Ondansetron Notes: (Same Inactive [place] as as: Zofran) 2019 Medical MEDICATION Center WASTE Product Size: 4 mg Product Wasted: ___ mg Acetaminophen Notes: Max Inactive Crist[place] as acetaminophen 2019 Medical 4000 mg/day (4 Center gm/day). (Same as: Tylenol Extra Strength) propofol (ANES) Route: IV, Drug Inactive [place] 10 mg form: INJ, 2018 Medical Start date: Center 12/12/18 10:41:00 CDT, Stop date: 12/12/18 11:41:00 CDT Sodium Chloride Route: IV, Inactive [place] 0.9% IV (ANES) Total Volume: 2019 Med ical 250 mL 250, Start Center date: 12/12/18 10:20:00 CDT, Stop date: 12/12/18 11:20:00 CDT Vitamin D3 2000 2,000 IntlUnit Active H [place] intl units oral = 1 cap, PO, 2019 Med ical capsule Daily, # 100 Center cap, 3 Refill(s) 24 HR Metoprolol 50 mg = 1 tab, Active [place] Tartrate 50 MG PO, Daily, # 30 2019 edical Extended Release tab, 6 Center Tablet [Toprol] Refill(s), Pharmacy: [facility] atorvastatin 40 40 mg = 1 tab, Active M H [place] mg oral tablet PO, Daily, 0 2019 Medi gianni Refill(s) Center potassium 20 mEq = 1 tab, Active Cristi as chloride 20 mEq PO, Daily, # 90 2019 Medical oral tablet, tab, 1 Center extended release Refill(s) DME Prescription See Active Cristia s Instructions, 2019 Medical MISC, ONCE, [place] hepatic function panel on , 09/25/2018 Dx: Transaminitis, # 1 ea, 0 Refill(s) Aspirin 81 MG 81 mg = 1 tab, Active [place] Enteric Coated PO, Daily, # 90 2019 edical Tablet tab, 3 Center Refill(s) ticagrelor 90 mg 90 mg = 1 tab, Active [place] oral tablet PO, Q12H, # 180 2019 Medi gianni tab, 3 Center Refill(s) metoprolol 25 mg = 1 tab, Active Cristi as tartrate 25 mg PO, Q12H, # 60 2019 Ne dical oral tablet tab, 0 Center Refill(s) Furosemide 40 MG 40 mg = 1 tab, Active [place] Oral Tablet PO, BID, # 60 2019 Medica l tab, 0 Center Refill(s) Furosemide 40 MG Notes: (Same No Longer [place] Oral Tablet as: Lasix) December Medi gianni cause GI upset. Center Give with food or milk. Albuterol 0.833 Notes: (Same No Longer H [place] MG/ML / as: Duoneb) Active 2018 [facility] Ipratropium Center [place] 0.167 MG/ML Inhalant Solution [DuoNeb] Calcium Notes: WASTE: No Longer [place] Gluconate F/P - Sink; E - Active 2018 [facility] Bin Magnesium Oxide Notes: (Same No Longer H [place] as: Mag-Ox 400) Active 2018 [facility] Magnesium oxide Center [id number] elemental magnesium Dose=____mg magnesium oxide (___mg elemental magnesium) sodium phosphate Notes: Infuse No Longer [place] over 4 hour. Do Active 2019 Medical not infuse Center phosphorous concurrently in the same line as TPN or IVF that contains calcium. For double lumen central lines, phosphorous may be infused in a separate lumen from TPN. Magnesium Notes: WASTE: No Longer Cristi as Sulfate F/P - Sink; E - Active 2018 [facility] Bin potassium Notes: (Same No Longer [facility] phosphate as: K Active 2018 Medical [...] Patient’s with feeding tube less than 14 Macanese (Dobhoff, J-tube etc) and pediatric and patients. potassium Notes: (Same No Longer [place] phosphate-sodium as: Phos-NaK) Active 2018 edical phosphate 250 Each 1.5 gm pkt Ce nter mg-280 mg-160 mg has 250mg oral powder for phosphorous. reconstitution Mix w/2.5oz water and stir. 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 Furosemide Notes: (Same No Longer [place] as: Lasix) Active 2019 Medical MEDICATION Center WASTE Product Size: 40 mg Product Wasted: ___ mg K-Dur 20 Notes: (Same Inactive [place] as: K-Dur 20) 2019 Medical "Do Not Crush" Center Give with food and full glass of water For patients unable to swallow tablet, dissolve in one half glass of water. Allow about 2 minutes for the tablets to disintegrate. Stir before giving to prepare slurry and administer. Please exclude Patient’s with feeding tube less than 14 Macanese (Dobhoff, J-tube etc) and pediatric and patients. cefepime Notes: (Same No Longer [place] As: Maxipime) Active 2019 Medical MEDICATION Center WASTE Product Size: 1000 mg Product Wasted: ___ mg Vancomycin 2001 mg: No Longer [place] infuse over 2.5 Active 2019 Medical hours Center Tylenol Notes: Max No Longer [place] acetaminophen = Active 2018 Medical 4000mg/day (4 Center gm/day). (Same as: Tylenol) Albuterol 0.833 Notes: (Same Active [place] MG/ML / as: Duoneb) 2019 Medical Ipratropium Center [place] 0.167 MG/ML Inhalant Solution [DuoNeb] Lasix Notes: (Same Inactive [place] as: Lasix) 2019 Medical Center Potassium Notes: (Same No Longer [facility] Chloride as: KCL) Active 2018 Medical Infuse no Center faster than 10 mEq/hr if given peripherally. sodium phosphate Notes: Infuse No Longer [place] over 4 hour. Do Active 2018 Medical not infuse Center phosphorous concurrently in the same line as TPN or IVF that contains calcium. For double lumen central lines, phosphorous may be infused in a separate lumen from TPN. potassium Notes: (Same No Longer [facility] phosphate as: K Active 2018 Medical Phosphate.) Do Center not infuse phosphorous concurrently in the same line as TPN or IVF that contains calcium. For double lumen central lines, phosphorous may be infused in a separate lumen from TPN. 1 mMol phoshate has 1.47 mEq potassium Infuse over 4 hours potassium Notes: (Same No Longer [facility] phosphate-sodium as: Phos-NaK) Active 2018 edical phosphate 250 Each 1.5 gm pkt Ce nter mg-280 mg-160 mg has 250mg oral powder for phosphorous. reconstitution Mix w/2.5oz water and stir. Magnesium Notes: WASTE: No Longer Cristi as Sulfate F/P - Sink; E - Active 2018 Medical [facility] Bin Calcium Notes: WASTE: No Longer [place] Gluconate F/P - Sink; E - Active 2018 [facility] Bin Calcium Notes: (Same No Longer [place] Carbonate 500 MG As: Tums) Active 2018 Medic al Chewable Tablet Calcium Center Carbonate 500 mg = 200 mg elemental calcium Dose = mg calcium carbonate ( mg elemental calcium) Magnesium Oxide Notes: (Same No Longer H [place] as: Mag-Ox 400) Active 2019 [facility] Magnesium oxide Center [id number] elemental magnesium Dose=____mg magnesium oxide (___mg elemental magnesium) Ticagrelor Notes: (Same No Longer [place] as: Brilinta) Active 2019 Medical [place] Brilinta Notes: (Same Inactive [place] as: Brilinta) 2019 [facility] Aspirin 81 MG Notes: Do not No Longer [facility] Enteric Coated crush or chew. Active 2019 Me dical Tablet (Same As: Center Ecotrin) Lovenox Notes: (Same No Longer [place] as: Lovenox) Active 2019 [facility] metoprolol Notes: (Same No Longer [place]i as tartrate as: Lopressor) Active 2019 [facility] atorvastatin Notes: Same as No Longer [facility] Lipitor Active 2019 [facility] Saline Flush Notes: Same as: No Longer [facility] 0.9% BD Posiflush Active 2019 [facility] Saline Flush Notes: Same as: No Longer [facility] 0.9% BD Posiflush Active 2019 [facility] Sodium Chloride 500 mL, Rate: No Longer [place] 0.9% IV 500 mL 20 ml/hr, Active 2019 Medical Infuse over: 25 Center hr, Route: IV, Total Volume: 500, Start date: 09/17/18 12:35:00 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, Duration: 24 hr, Stop date: 09/18/18 12:34:00 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 Ticagrelor 180 mg, Route: Inactive [place] PO, ONCE, kg, 2019 Medical Priority: NOW, Center Start date: 09/17/18 12:33:00 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, Stop date: 09/17/18 12:33:00 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 Lisinopril TABS (Active) Active [facility] Aspirin TABS (Active) Active [facility] Allergies, Adverse Reactions, Alerts Substance Category Reaction Severity Reaction Status Date Comments S ource type Reported Penicillins drug drug Active [place] allergy allergy Physicia n s Morphine drug drug Active [place] Derivatives allergy allergy Phys ician s penicillin Assertion Drug Active [facility] morphine Assertion penicillin Drug Active [facility] Immunizations No Data Provided for This Section Results Order Name Results Value Reference Date Interpretation Comments Paloma rce Range CARDIAC BNP 67 <=100 12/31 [facility] ENZYMES pg/mL [facility] CHEM PANEL Glucose Lvl 92 70 - 99 12/[address] CHEM PANEL BUN 19 7 - 22 12/[address] CHEM PANEL Creatinine 1.00 0.50 - 12/31 [facility] Lvl 1.40 [facility] CHEM PANEL Sodium Lvl 137 135 - 145 12/[address] CHEM PANEL Potassium 4.4 3.5 - 5.1 12/31 [facility] Lvl [facility] CHEM PANEL Chloride Lvl 106 95 - 109 12/31 [facility] s [address] CHEM PANEL CO2 25 24 - 32 12/[address] CHEM PANEL Calcium Lvl 9.0 8.5 - 10.5 12/31 [facility]2019 [facility] CHEM PANEL Total 7.5 6.4 - 8.4 12/31 [facility] Protein 2019 [facility] CHEM PANEL Albumin Lvl 3.6 3.5 - 5.0 12/[address] CHEM PANEL ALT 43 0 - 65 12/[address] CHEM PANEL AST 28 0 - 37 12/[address] CHEM PANEL Alk Phos 91 39 - 136 12/[address] CHEM PANEL Bili Total 0.5 0.2 - 1.3 12/[address] CHEM PANEL AGAP 10.4 10.0 - 12/31 [facility] 20.0 /2019 [facility] CHEM PANEL B/C Ratio 19 6 - 25 12/[address] CHEM PANEL Globulin 3.9 2.7 - 4.2 12/[address] CHEM PANEL A/G Ratio 0.9 0.7 - 1.6 12/[address] CHEM PANEL eGFR 75 12/31 [place] [id number] Comment: The Medical eGFR is Center calculated [...] HEMATOLOGY WBC 5.9 3.7 - 10.4 12/31 [facility] HEMATOLOGY RBC 4.58 4.70 - 12/31 [place] 6.10 [facility] HEMATOLOGY Hgb 14.9 14.0 - 12/31 [place] 18.0 [facility] HEMATOLOGY Hct 44.8 42.0 - 12/31 [place] 54.0 /2019 [facility] HEMATOLOGY MCV 97.7 80.0 - 12/31 [place] 94.0 /2019 [facility] HEMATOLOGY MCH 32.5 27.0 - 12/31 [place] 31.0 [facility] HEMATOLOGY MCHC 33.3 32.0 - 12/31 [place] 36.0 /2019 [facility] HEMATOLOGY RDW 13.7 11.5 - 12/31 [place] 14.5 /2019 [facility] HEMATOLOGY Platelet 176 133 - 450 12/[address] HEMATOLOGY MPV 11.5 7.4 - 10.4 12/[address] HEMATOLOGY Segs 52.5 45.0 - 12/31 [place] 75.0 [facility] HEMATOLOGY Lymphocytes 28.8 20.0 - 12/31 [place] 40.0 [facility] HEMATOLOGY Monocytes 12.1 2.0 - 12.0 12/[address] HEMATOLOGY Eosinophils 6.0 0.0 - 4.0 12/31 [place] /2019 [facility] HEMATOLOGY Basophils 0.6 0.0 - 1.0 12/[address] HEMATOLOGY Neutrophils 3.1 1.5 - 8.1 12/31 [place] # /2019 [facility] HEMATOLOGY Lymphocytes 1.7 1.0 - 5.5 12/31 [place] # /2019 [facility] HEMATOLOGY Monocytes # 0.7 0.0 - 0.8 12/31 [place] /2019 [facility] HEMATOLOGY Eosinophils 0.4 0.0 - 0.5 12/31 [place] # [facility] CHEM PANEL Glucose Lvl 96 70 - 99 06/15 [facility]2018 [facility] CHEM PANEL BUN 16 7 - 22 06/15 [facility]2018 [facility] CHEM PANEL Creatinine 0.98 0.50 - 06/15 [place] Lvl 1.40 [facility] CHEM PANEL Sodium Lvl 138 135 - 145 06/15 [facility]2018 [facility] CHEM PANEL Potassium 4.2 3.5 - 5.1 06/15 [facility] CHEM PANEL Chloride Lvl 104 95 - 109 06/15 [facility] CHEM PANEL CO2 28 24 - 32 06/[address] CHEM PANEL Calcium Lvl 9.5 8.5 - 10.5 06/15 [facility] CHEM PANEL Total 7.2 6.4 - 8.4 06/15 [facility] Protein [facility] CHEM PANEL Albumin Lvl 3.6 3.5 - 5.0 06/15 [facility] CHEM PANEL ALT 40 0 - 65 06/[address] CHEM PANEL AST 27 0 - 37 06/[address] CHEM PANEL Alk Phos 81 39 - 136 06/[address] CHEM PANEL Bili Total 0.4 0.2 - 1.3 06/15 [facility]2018 [facility] CHEM PANEL AGAP 10.2 10.0 - 06/15 [place] 20.0 [facility] CHEM PANEL B/C Ratio 16 6 - 25 06/[address] CHEM PANEL Globulin 3.6 2.7 - 4.2 06/[address] CHEM PANEL A/G Ratio 1.0 0.7 - 1.6 06/[address] CHEM PANEL eGFR 76 06/15 [facility] Comment: The Medical eGFR is Center calculated [...] BMI. ELECTROLYTE AGAP 12.2 10.0 - 01/12 [facility] S 20.0 [facility] ELECTROLYTE A/G Ratio 1.2 0.7 - 1.6 01/12 [facility] S /2018 [facility] ELECTROLYTE Globulin 3.3 2.7 - 4.2 01/12 [facility] S /2018 [facility] ELECTROLYTE B/C Ratio 22 6 - 25 01/12 [facility] S /2018 [facility] ELECTROLYTE eGFR 74 01/12 [facility] Comment: The Medical eGFR is Center [...] Alk Phos 91 39 - 136 01/12 [facility] S /2018 [facility] ELECTROLYTE Bili Total 0.6 0.2 - 1.3 01/12 [facility]2018 [facility] ELECTROLYTE Albumin Lvl 4.1 3.5 - 5.0 01/12 Cristi as /2018 [facility] ELECTROLYTE Total 7.4 6.4 - 8.4 01/12 [facility] S [facility] ELECTROLYTE Calcium Lvl 9.2 8.5 - 10.5 01/12 [place] /2018 [facility] ELECTROLYTE AST 20 0 - 37 01/12 [facility] S /2019 [facility] ELECTROLYTE ALT 28 0 - 65 01/12 [facility] S /2018 [facility] ELECTROLYTE Sodium Lvl 140 135 - 145 01/12 [facility] S /2018 [facility] ELECTROLYTE Potassium 4.2 3.5 - 5.1 01/12 [facility] ELECTROLYTE CO2 27 24 - 32 01/12 [facility] S /2019 [facility] ELECTROLYTE Chloride Lvl 105 95 - 109 01/12 [facility] S [facility] ELECTROLYTE Glucose Lvl 84 70 - 99 01/12 [facility] ELECTROLYTE Creatinine 1.02 0.50 - 01/12 [facility] Lvl 1.40 [facility] ELECTROLYTE BUN 22 7 - 22 01/12 [facility] HEMATOLOGY Monocytes # 0.6 0.0 - 0.8 01/12 [facility] HEMATOLOGY Eosinophils 0.3 0.0 - 0.5 01/12 [facility] # [facility] HEMATOLOGY Lymphocytes 1.8 1.0 - 5.5 01/12 [facility] HEMATOLOGY Eosinophils 4.0 0.0 - 4.0 01/12 [facility] s [facility] HEMATOLOGY Neutrophils 3.7 1.5 - 8.1 01/12 [facility] HEMATOLOGY Basophils 0.5 0.0 - 1.0 01/12 [facility]2018 [facility] HEMATOLOGY Monocytes 9.5 2.0 - 12.0 01/12 2018 [facility] HEMATOLOGY Segs 58.3 45.0 - 01/12 [place] 75.0 [facility] HEMATOLOGY Lymphocytes 27.7 20.0 - 01/12 [place] 40.0 2019 [facility] HEMATOLOGY MPV 11.2 7.4 - 10.4 01/12 [facility]2018 [facility] HEMATOLOGY Platelet 150 133 - 450 01/12 /2018 [facility] HEMATOLOGY MCHC 32.4 32.0 - 01/12 [place] 36.0 2019 [facility] HEMATOLOGY RDW 14.3 11.5 - 01/12 [facility] 14.5 [facility] HEMATOLOGY MCH 31.9 27.0 - 01/12 [place] 31.0 2019 [facility] HEMATOLOGY Hct 45.9 42.0 - 01/12 [place] 54.0 [facility] HEMATOLOGY MCV 98.2 80.0 - 06 [place] 94.0 /2019 [facility] HEMATOLOGY WBC 6.4 3.7 - 10.4 01/12 [place] /2018 [facility] HEMATOLOGY RBC 4.68 4.70 - 01/12 [place] 6.10 2019 [facility] HEMATOLOGY Hgb 14.9 14.0 - 06 [place] 18.0 /2018 [facility] CARDIAC Troponin-I 0.02 0.00 - 12/18 [facility] 0.40 /2018 [place] CARDIAC Total CK 97 12 - 191 12/18 [facility] /2018 [place] CHEM PANEL eGFR 81 12/18 [facility] Comment: The [place] eGFR is calculated using the CKD-EPI formula. [...] Albumin Lvl 3.4 3.5 - 5.0 12/18 [place] CHEM PANEL Total 7.6 6.4 - 8.4 12/18 [place] CHEM PANEL Calcium Lvl 9.1 8.5 - 10.5 12/18 [place] CHEM PANEL CO2 25 24 - 32 12/18 [place] CHEM PANEL Chloride Lvl 103 95 - 109 12/18 [place] CHEM PANEL Potassium 4.1 3.5 - 5.1 12/18 Lvl [place] CHEM PANEL Bili Total 0.9 0.2 - 1.3 12/18 [place] CHEM PANEL Alk Phos 91 39 - 136 12/18 [place] CHEM PANEL AST 19 0 - 37 12/18 [place] CHEM PANEL ALT 24 0 - 65 05/16 /2018 [place] CHEM PANEL Sodium Lvl 137 135 - 145 05/ [place] CHEM PANEL Creatinine 0.94 0.50 - 05/16 MH Lvl 1.40 /2018 [place] CHEM PANEL BUN 28 7 - 22 05 [place] CHEM PANEL Glucose Lvl 95 70 - 99 12/18 [place] CHEM PANEL A/G Ratio 0.8 0.7 - 1.6 / [place] CHEM PANEL B/C Ratio 30 6 - 25 05/ [place] CHEM PANEL Globulin 4.2 2.7 - 4.2 / [place] CHEM PANEL AGAP 13.1 10.0 - 05 MH 20.0 [place] HEMATOLOGY MCV 96.2 80.0 - 05 MH 94.0 [place] HEMATOLOGY Hct 40.0 42.0 - 05 MH 54.0 [place] HEMATOLOGY RBC 4.15 4.70 - 12/18 MH 6.10 [place] HEMATOLOGY Hgb 13.6 14.0 - 05 MH 18.0 [place] HEMATOLOGY MCHC 33.9 32.0 - 05 MH 36.0 [place] HEMATOLOGY MCH 32.7 27.0 - 05 MH 31.0 [place] HEMATOLOGY RDW 14.3 11.5 - 05 MH 14.5 [place] HEMATOLOGY Platelet 147 133 - 450 12/18 [place] HEMATOLOGY MPV 11.3 7.4 - 10.4 12/18 /2018 [place] HEMATOLOGY WBC 7.7 3.7 - 10.4 16 MH /2018 [place] HEMATOLOGY Eosinophils 0.3 0.0 - 0.5 05/16 MH # /2018 [place] HEMATOLOGY Monocytes # 0.9 0.0 - 0.8 0516 MH [place] HEMATOLOGY Neutrophils 5.3 1.5 - 8.1 16 MH # /2018 [place] HEMATOLOGY Segs 68.5 45.0 - 05 MH 75.0 2019 [place] HEMATOLOGY Lymphocytes 16.1 20.0 - 0516 MH 40.0 [place] HEMATOLOGY Monocytes 11.1 2.0 - 12.0 05/16 [place] HEMATOLOGY Basophils 0.6 0.0 - 1.0 12/18 [place] HEMATOLOGY Lymphocytes 1.2 1.0 - 5.5 12/18 # [place] HEMATOLOGY Eosinophils 3.7 0.0 - 4.0 12/18 [place] CHEM PANEL eGFR 92 12/13 Result Comment: [...] PANEL CO2 22 24 - 32 12/13 [facility] CHEM PANEL Calcium Lvl 8.5 8.5 - 10.5 12/13 [place] [facility] CHEM PANEL Chloride Lvl 114 95 - 109 12/13 [facility] s [facility] CHEM PANEL Potassium 3.9 3.5 - 5.1 12/13 [facility] CHEM PANEL Creatinine 0.76 0.50 - 12/13 [facility] 1.40 [facility] CHEM PANEL Sodium Lvl 143 135 - 145 12/13 [facility] CHEM PANEL BUN 14 7 - 22 12/13 [facility] CHEM PANEL Glucose Lvl 98 70 - 99 12/13 [facility] CHEM PANEL AGAP 10.9 10.0 - 12/13 [facility] 20.0 [facility] CHEM PANEL Magnesium 2.2 1.8 - 2.4 12/13 [facility] HEMATOLOGY Platelet 143 133 - 450 12/13 [facility] HEMATOLOGY RDW 14.1 11.5 - 12/13 [facility] [place] 14.5 [facility] HEMATOLOGY MCHC 33.8 32.0 - 12/13 [place] 36.0 /2019 [facility] HEMATOLOGY MCV 98.0 80.0 - 12/[address] [place] [address] [facility] HEMATOLOGY MCH 33.2 27.0 - 12/[address] [place] [address] [facility] HEMATOLOGY MPV 11.8 7.4 - 10.4 12/13 [facility] HEMATOLOGY Hct 37.5 42.0 - 12/13 [place] 54.0 /2019 [facility] HEMATOLOGY WBC 9.1 3.7 - 10.4 12/13 [facility] HEMATOLOGY Hgb 12.7 14.0 - 12/[address] [place] [address] [facility] HEMATOLOGY RBC 3.83 4.70 - 12/13 [place] 6.10 2019 [facility] HEMATOLOGY INR 1.08 0.85 - 12/13 [place] 1.17 /2018 Medical [place] HEMATOLOGY PTT 28.0 22.9 - 12/13 [place] 35.8 /2019 [facility] HEMATOLOGY PT 13.8 12.0 - 12/13 [place] 14.7 /2019 [facility] HEMATOLOGY Eosinophils 0.2 0.0 - 0.5 12/13 [place] # /2019 [facility] HEMATOLOGY Monocytes # 0.8 0.0 - 0.8 12/13 [place]2019 [facility] HEMATOLOGY Basophils 0.4 0.0 - 1.0 12/13 [facility] HEMATOLOGY Eosinophils 2.2 0.0 - 4.0 12/13 [place]2019 [facility] HEMATOLOGY Monocytes 8.5 2.0 - 12.0 12/13 [facility] HEMATOLOGY Lymphocytes 1.5 1.0 - 5.5 12/13 [place] # /2019 [facility] HEMATOLOGY Neutrophils 6.7 1.5 - 8.1 12/13 [place] # /2019 [facility] HEMATOLOGY Segs 73.0 45.0 - 12/13 [place] 75.0 /2019 [facility] HEMATOLOGY Lymphocytes 15.9 20.0 - 12/13 [place] 40.0 /2019 [facility] HEMATOLOGY MCV 98.7 80.0 - 05 [place] 94.0 /2019 [facility] HEMATOLOGY MCH 33.4 27.0 - 05 [place] 31.0 /2019 [facility] HEMATOLOGY Hgb 13.0 14.0 - 12/12 [place] 18.0 [facility] HEMATOLOGY Hct 38.4 42.0 - 12/12 [place] 54.0 [facility] HEMATOLOGY MCHC 33.9 32.0 - 12/12 [place] 36.0 [facility] HEMATOLOGY Platelet 175 133 - 450 12/12 [facility] HEMATOLOGY MPV 12.0 7.4 - 10.4 12/12 [facility] HEMATOLOGY RDW 14.0 11.5 - 12/12 [place] 14.5 [facility] HEMATOLOGY WBC 8.8 3.7 - 10.4 12/12 [facility] HEMATOLOGY RBC 3.89 4.70 - 12/12 [place] 6.10 [facility] HEMATOLOGY Monocytes 5.3 2.0 - 12.0 12/12 [facility] HEMATOLOGY Lymphocytes 24.2 20.0 - 12/12 [place] 40.0 [facility] HEMATOLOGY Eosinophils 2.7 0.0 - 4.0 12/12 [facility] HEMATOLOGY Segs 67.3 45.0 - 12/12 [place] 75.0 [facility] HEMATOLOGY Basophils 0.5 0.0 - 1.0 12/12 [facility] HEMATOLOGY Eosinophils 0.2 0.0 - 0.5 12/12 [place] [facility] HEMATOLOGY Monocytes # 0.5 0.0 - 0.8 12[place]12 [place] [facility] HEMATOLOGY Neutrophils 5.9 1.5 - 8.1 12/12 [facility] # [facility] HEMATOLOGY Lymphocytes 2.1 1.0 - 5.5 12/12 [facility] s # [facility] BLOOD BANK FFP product Product available 12/12 [facility] RESULTS (12/12/18 6:35 AM) [facility] BLOOD BANK RBC product Product available 12/12 [facility] RESULTS (12/12/18 6:35 AM) /2018 [facility] BLOOD BANK ABO/Rh O POS 12/12 [facility] RESULTS /2018 [facility] BLOOD BANK Antibody Negative 12/12 [facility] RESULTS Scrn (12/12/18 6:35 AM) /2018 [facility] CHEM PANEL A/G Ratio 1.0 0.7 - 1.6 12/12 [facility] CHEM PANEL Globulin 3.7 2.7 - 4.2 [facility] CHEM PANEL B/C Ratio 19 6 - 25 / [facility] CHEM PANEL AGAP 11.7 10.0 - 12/12 [facility] 20.0 [facility] CHEM PANEL Albumin Lvl 3.6 3.5 - 5.0 12/12 [facility] CHEM PANEL ALT 34 0 - 65 / 2018 [facility] CHEM PANEL Alk Phos 83 39 - 136 / [facility] CHEM PANEL AST 23 0 - 37 05/ [facility]2018 [facility] CHEM PANEL Total 7.3 6.4 - 8.4 12/12 [facility] Protein [facility] CHEM PANEL Bili Total 0.4 0.2 - 1.3 12/12 [facility]2018 [facility] CHEM PANEL eGFR 75 / [facility] Comment: The Medical eGFR is Center calculated [...] Calcium Lvl 9.5 8.5 - 10.5 12/12 [facility] CHEM PANEL CO2 27 24 - 32 12/12 [facility] CHEM PANEL Chloride Lvl 107 95 - 109 12/12 [facility] CHEM PANEL Potassium 3.7 3.5 - 5.1 12/12 [facility] CHEM PANEL Glucose Lvl 93 70 - 99 12/12 [facility] CHEM PANEL Creatinine 1.00 0.50 - 12/12 [facility] 1.40 /2018 [facility] CHEM PANEL Sodium Lvl 142 135 - 145 05 2018 [facility] CHEM PANEL BUN 19 7 - 22 05 2018 [facility] CHEM PANEL Magnesium 2.2 1.8 - 2.4 05 [facility] Lvl /2019 [facility] HEMATOLOGY Basophils # 0.1 0.0 - 0.2 12/12 s [facility] HEMATOLOGY Lymphocytes 24.6 20.0 - 05 [place] 40.0 2019 [facility] HEMATOLOGY Monocytes 9.5 2.0 - 12.0 12/12 2018 [facility] HEMATOLOGY Eosinophils 3.7 0.0 - 4.0 12/12 [facility] s /2018 [facility] HEMATOLOGY Basophils 0.8 0.0 - 1.0 12/12 [facility] HEMATOLOGY Neutrophils 4.3 1.5 - 8.1 12/12 [facility] # /2018 [facility] HEMATOLOGY Lymphocytes 1.7 1.0 - 5.5 12/12 [facility] # /2018 [facility] HEMATOLOGY Monocytes # 0.7 0.0 - 0.8 12/12 [facility] s 2019 [facility] HEMATOLOGY Eosinophils 0.3 0.0 - 0.5 12/12 [facility] # [facility] HEMATOLOGY Segs 61.4 45.0 - 12/12 [place] 75.0 2019 [facility] HEMATOLOGY PT 13.6 12.0 - 05 [place] 14.7 [facility] HEMATOLOGY PTT 27.0 22.9 - 05 [place] 35.8 /2019 [facility] HEMATOLOGY INR 1.06 0.85 - 12/12 [place] 1.17 [facility] HEMATOLOGY Platelet 189 133 - 450 12/12 [facility] HEMATOLOGY MPV 11.5 7.4 - 10.4 05 [facility] HEMATOLOGY WBC 7.0 3.7 - 10.4 12/12 [facility] HEMATOLOGY RBC 4.45 4.70 - 0510 [place] 6.10 2019 [facility] HEMATOLOGY Hgb 14.8 14.0 - 12/12 [place] 18.0 2019 [facility] HEMATOLOGY Hct 44.1 42.0 - 0510 [place] 54.0 /2019 [facility] HEMATOLOGY MCH 33.2 27.0 - 0510 [place] 31.0 [facility] HEMATOLOGY RDW 14.2 11.5 - 12/12 [facility] 14. [facility] HEMATOLOGY MCV 99.1 80.0 - 12/12 [facility] 94.0 [facility] HEMATOLOGY MCHC 33.5 32.0 - 12/12 [facility] 36.0 [facility] CHEM PANEL eGFR 86 11/20 Result [...] PANEL POC 0.9 0.5 - 1.4 11/20 [facility] CHEM PANEL eGFR 88 09/22 Result [...] PANEL Globulin 4.3 2.7 - 4.2 09/[address] CHEM PANEL A/G Ratio 0.5 0.7 - 1.6 09/[address] CHEM PANEL BUN 22 7 - 22 09/[address] CHEM PANEL Glucose Lvl 106 70 - 99 09/[address] CHEM PANEL Potassium 3.5 3.5 - 5.1 09/22 [facility] /2018 [facility] CHEM PANEL Creatinine 0.85 0.50 - 09/22 [place] Lvl 1.40 /2018 [facility] CHEM PANEL Sodium Lvl 133 135 - 145 09/[address] CHEM PANEL Total 6.6 6.4 - 8.4 09/22 [facility] Protein 2018 [facility] CHEM PANEL ALT 102 0 - 65 09/[address] CHEM PANEL Albumin Lvl 2.3 3.5 - 5.0 09/[address] CHEM PANEL CO2 23 24 - 32 09/[address] CHEM PANEL Chloride Lvl 100 95 - 109 09/[address] CHEM PANEL Calcium Lvl 8.3 8.5 - 10.5 09/22 [facility] CHEM PANEL Bili Total 0.9 0.2 - 1.3 09/[address] CHEM PANEL B/C Ratio 26 6 - 25 09/[address] CHEM PANEL AGAP 13.5 10.0 - 09/22 [place] 20.0 [facility] CHEM PANEL Alk Phos 54 39 - 136 09/[address] CHEM PANEL AST 116 0 - 37 09/[address] CHEM PANEL Phosphorus 3.6 2.5 - 4.5 09/[address] CHEM PANEL Magnesium 2.3 1.8 - 2.4 09/22 [facility]2018 [facility] HEMATOLOGY Hct 38.1 42.0 - 09/22 [place] 54.0 2019 [facility] HEMATOLOGY RBC 3.84 4.70 - 09/22 [place] 6.10 [facility] HEMATOLOGY Hgb 13.6 14.0 - 09/22 [place] 18.0 [facility] HEMATOLOGY WBC 7.2 3.7 - 10.4 09/[address] HEMATOLOGY MCV 99.3 80.0 - 09/22 [place] 94.0 [facility] HEMATOLOGY MCH 35.3 27.0 - 09/22 [place] 31.0 [facility] HEMATOLOGY Platelet 183 133 - 450 09/22 [facility] /2018 [facility] HEMATOLOGY MCHC 35.5 32.0 - 09/22 [place] 36.0 [facility] HEMATOLOGY RDW 13.1 11.5 - 09/22 [facility] 14.5 [facility] HEMATOLOGY MPV 11.1 7.4 - 10.4 09/22 [facility] HEMATOLOGY Basophils 0.5 0.0 - 1.0 09/22 [facility] /2018 [facility] HEMATOLOGY Lymphocytes 1.3 1.0 - 5.5 09/22 [facility] /2018 [facility] HEMATOLOGY Neutrophils 4.8 1.5 - 8.1 09/22 [facility] /2018 [facility] HEMATOLOGY Eosinophils 0.2 0.0 - 0.5 09/22 [facility] /2019 [facility] HEMATOLOGY Monocytes # 0.8 0.0 - 0.8 09/22 [facility] /2018 [facility] HEMATOLOGY Monocytes 11.7 2.0 - 12.0 09/22 [facility] HEMATOLOGY Lymphocytes 18.1 20.0 - 09/22 [facility] 40.0 [facility] HEMATOLOGY Eosinophils 2.8 0.0 - 4.0 09/22 [facility] /2018 [facility] HEMATOLOGY Segs 66.9 45.0 - 09/22 [facility] 75.0 [facility] CARDIAC BNP 613 <=100 09/21 [facility] ENZYMES pg/mL [facility] CHEM PANEL Procalcitoni 0.21 0.00 - 09/21 [facility] n Lvl 0.10 [facility] CHEM PANEL Phosphorus 2.4 2.5 - 4.5 09/21 [facility]2018 [facility] CHEM PANEL Magnesium 2.2 1.8 - 2.4 09/21 [facility] Lvl /2018 [facility] CHEM PANEL eGFR 78 09/21 [facility] Comment: The Medical eGFR is Center calculated [...] Calcium Lvl 8.5 8.5 - 10.5 09/21 [facility] CHEM PANEL Chloride Lvl 100 95 - 109 09/[address] CHEM PANEL BUN 22 7 - 22 09/[address] CHEM PANEL Creatinine 0.97 0.50 - 09/21 [facility] 1.40 [facility] CHEM PANEL CO2 20 24 - 32 09/[address] CHEM PANEL Potassium 3.5 3.5 - 5.1 09/21 [facility] [address] [place] [address] CHEM PANEL Sodium Lvl 132 135 - 145 09/[address] CHEM PANEL Glucose Lvl 118 70 - 99 09/[address] CHEM PANEL AGAP 15.5 10.0 - 09/21 [facility] 20.0 [facility] CHEM PANEL AST 96 0 - 37 09/[address] CHEM PANEL ALT 44 0 - 65 09/[address] CHEM PANEL Albumin Lvl 2.3 3.5 - 5.0 09/[address] CHEM PANEL Bili Total 0.9 0.2 - 1.3 09/[address] CHEM PANEL Alk Phos 53 39 - 136 09/[address] CHEM PANEL Bili Direct 0.1 0.0 - 0.3 09/[address] CHEM PANEL A/G Ratio 0.5 0.7 - 1.6 09/[address] CHEM PANEL Globulin 4.4 2.7 - 4.2 09/[address] CHEM PANEL Bili 0.8 0.0 - 1.0 09/21 [facility] [place] Indirect /2018 [facility] CHEM PANEL Total 6.7 6.4 - 8.4 09/21 [facility] Protein /2018 [facility] HEMATOLOGY PTT 33.3 22.9 - 09/21 [place] 35.8 /2019 [facility] HEMATOLOGY PT 14.1 12.0 - 09/21 [place] 14.7 2019 [facility] HEMATOLOGY INR 1.11 0.85 - 09/21 [place] 1.17 [facility] HEMATOLOGY MPV 11.0 7.4 - 10.4 09/21 [place] /2018 [facility] HEMATOLOGY Platelet 154 133 - 450 09/21 [place] /2018 [facility] HEMATOLOGY RDW 13.5 11.5 - 09/21 [place] 14.5 [facility] HEMATOLOGY Hct 40.8 42.0 - 09/21 [place] 54.0 /2019 [facility] HEMATOLOGY Hgb 14.0 14.0 - 09/21 [place] 18.0 /2019 [facility] HEMATOLOGY MCHC 34.3 32.0 - 09/21 [place] 36.0 /2019 [facility] HEMATOLOGY MCV 99.4 80.0 - 09/21 [place] 94.0 /2019 [facility] HEMATOLOGY MCH 34.1 27.0 - 09/21 [place] 31.0 /2019 [facility] HEMATOLOGY RBC 4.11 4.70 - 09/21 [place] 6.10 2019 [facility] HEMATOLOGY WBC 9.0 3.7 - 10.4 09/21 [place] /2018 [facility] HEMATOLOGY Eosinophils 0.4 0.0 - 4.0 09/21 [place]2018 [facility] HEMATOLOGY Lymphocytes 1.3 1.0 - 5.5 09/21 [place] # /2018 [facility] HEMATOLOGY Monocytes # 1.0 0.0 - 0.8 09/21 [place] /2019 [facility] HEMATOLOGY Basophils 0.2 0.0 - 1.0 09/21 [place] 2019 [facility] HEMATOLOGY Lymphocytes 14.2 20.0 - 09/21 [place] 40.0 /2019 [facility] HEMATOLOGY Neutrophils 6.7 1.5 - 8.1 09/21 [place] # /2019 [facility] HEMATOLOGY Monocytes 10.8 2.0 - 12.0 09/21 [place] /2019 [facility] HEMATOLOGY Segs 74.4 45.0 - 09/21 [place] 75.0 /2019 [facility] CHEM PANEL eGFR 67 09/20 [facility] Comment: The Medical eGFR is Center calculated [...] Calcium Lvl 8.2 8.5 - 10.5 09/20 [facility] CHEM PANEL Potassium 3.4 3.5 - 5.1 09/20 [facility] CHEM PANEL Chloride Lvl 96 95 - 109 09/20 [facility] CHEM PANEL CO2 20 24 - 32 09/20 [facility]2018 [facility] CHEM PANEL AGAP 16.4 10.0 - 09/20 [facility] 20.0 [facility] CHEM PANEL Glucose Lvl 151 70 - 99 09/[address] CHEM PANEL BUN 19 7 - 22 09/[address] CHEM PANEL Creatinine 1.10 0.50 - 09/20 [facility] Lvl 1.40 [facility] CHEM PANEL Sodium Lvl 129 135 - 145 09/[address] HEMATOLOGY Macrocyte 1+ None Seen 09/20 [facility] *ABN* /2018 [facility] (09/20/18 2:08 PM) [place] HEMATOLOGY Plt Morph See Note 1 09/20 Result [facility] (09/20/18 2:08 PM) Comment: Due M edical to Center occassional clumps, the actual count may be slightly higher. HEMATOLOGY Monocytes # 0.7 0.0 - 0.8 09/20 [facility] s [facility] HEMATOLOGY Lymphocytes 0.9 1.0 - 5.5 09/20 [facility] s # [facility] HEMATOLOGY Neutrophils 9.5 1.5 - 8.1 09/20 [facility] s # [facility] HEMATOLOGY Basophils 0.4 0.0 - 1.0 09/20 [facility] HEMATOLOGY Eosinophils 0.1 0.0 - 4.0 09/20 [facility] s [facility] HEMATOLOGY Monocytes 6.0 2.0 - 12.0 09/20 [facility] HEMATOLOGY Lymphocytes 8.4 20.0 - 09/20 [place] 40.0 [facility] HEMATOLOGY Segs 85.1 45.0 - 09/20 [place] 75.0 2019 [facility] HEMATOLOGY RBC 4.16 4.70 - 09/20 [place] 6.10 [facility] HEMATOLOGY Hgb 14.5 14.0 - 09/20 [facility] 18.0 [facility] HEMATOLOGY WBC 11.2 3.7 - 10.4 09/20 [facility] HEMATOLOGY Platelet 171 133 - 450 09/20 [facility] HEMATOLOGY MPV 10.9 7.4 - 10.4 09/20 [facility] HEMATOLOGY RDW 13.0 11.5 - 09/20 [facility] 14.5 2019 [facility] HEMATOLOGY MCH 34.9 27.0 - 09/20 [facility] 31.0 2019 [facility] HEMATOLOGY MCHC 34.7 32.0 - 09/20 [facility] 36.0 2019 [facility] HEMATOLOGY Hct 41.8 42.0 - 09/20 [facility] 54.0 2019 [facility] HEMATOLOGY MCV 100.5 80.0 - 09/20 [facility] 94.0 [facility] CHEM PANEL Bili Direct 0.2 0.0 - 0.3 09/20 [facility] CHEM PANEL Bili Total 1.2 0.2 - 1.3 09/20 [facility]2018 [facility] CHEM PANEL Bili 1.0 0.0 - 1.0 09/20 [facility] Indirect [facility] CHEM PANEL Globulin 4.1 2.7 - 4.2 09/20 [facility]2018 [facility] CHEM PANEL A/G Ratio 0.6 0.7 - 1.6 09/[address] CHEM PANEL Albumin Lvl 2.4 3.5 - 5.0 09/20 [facility] CHEM PANEL Alk Phos 47 39 - 136 09/[address] CHEM PANEL ALT 37 0 - 65 09/20 [facility] CHEM PANEL Total 6.5 6.4 - 8.4 09/20 [facility] CHEM PANEL AST 109 0 - 37 09/20 [place] [facility] CARDIAC BNP 783 <=100 09/20 [facility] ENZYMES pg/mL [facility] CHEM PANEL Lactic Acid 1.6 0.5 - 2.2 09/20 [place] [facility] CHEM PANEL Procalcitoni 0.16 0.00 - 09/20 [facility] n Lvl 0.10 [facility] CARDIAC BNP 514 <=100 09/19 [facility] ENZYMES pg/mL [facility] CHEM PANEL Procalcitoni 0.13 0.00 - 09/19 [facility] [place] [facility] IMMUNOLOGY Hep C Ab Negative 09/19 [facility] *NA* [facility] (09/19/18 5:03 PM) Center IMMUNOLOGY Hep B Core Negative Negative 09/19 [facility] IgM *NA* [facility] (09/19/18 5:03 PM) Center IMMUNOLOGY Hep A IgM Negative Negative 09/19 [facility] *NA* [facility] (09/19/18 5:03 PM) [facility]s [facility]09/19/18 5:03 PM[facility] Center CHEM PANEL Phosphorus 2.6 2.5 - 4.5 09/19 [facility] CHEM PANEL Magnesium 2.0 1.8 - 2.4 09/19 [facility] HEMATOLOGY INR 1.09 0.85 - 09/19 [place] 1.17 [facility] HEMATOLOGY PT 13.9 12.0 - 09/19 [place] 14.7 [facility] HEMATOLOGY PTT 33.0 22.9 - 09/19 [place] 35.8 [facility] HEMATOLOGY Macrocyte 1+ None Seen 09/19 [facility] *ABN* Medical (09/19/18 12:07 AM) Cente r HEMATOLOGY Basophils # 0.1 0.0 - 0.2 09/19 [facility] PARATHYROID Ca Ion WB 1.08 1.05 - 09/19 [place] PROFILE 1.25 [facility] PARATHYROID Ca Norm WB 1.11 1.05 - 09/19 [facility] [place] PROFILE 1.25 /2019 [facility] CHEM PANEL Bili Direct 0.1 0.0 - 0.3 09/18 [place] [facility] CHEM PANEL Bili 0.6 0.0 - 1.0 09/18 [facility] Indirect /2018 [facility] PARATHYROID Ca Norm WB 1.14 1.05 - 09/18 [facility] PROFILE 08.29 [facility] PARATHYROID Ca Ion WB 1.14 1.05 - 09/18 [facility] PROFILE 08.29 [facility] CHEM PANEL LDH 650 98 - 192 09/18 [facility] /2018 [facility] CHEM PANEL B/C Ratio 16 6 - 25 09/18 [facility] /2018 [facility] LIPIDS VLDL 26 09/18 [facility] LIPIDS Chol 164 <=199 09/18 [facility] mg/dL [facility] LIPIDS HDL 81 >=61 mg/dL 09/18 [facility] LIPIDS LDL 57 <=99 mg/dL 09/18 [facility] (Calculated) [facility] LIPIDS Trig 129 <=149 09/18 [facility] mg/dL [facility] LIPIDS CHD Risk 2.02 4.00 - 09/18 [facility] 7. [facility] SPECIAL Hgb A1C 5.9 <=5.6 % 09/18 [facility] CHEMISTRY /2018 [facility] BLOOD BANK Antibody Negative 09/17 [facility] RESULTS Scrn (09/17/18 12:57 PM) [facility] BLOOD BANK ABO/Rh O POS 09/17 [facility] RESULTS /2018 [facility] HEMATOLOGY PTT >200 22.9 - 09/17 Result [facility] seconds 35.8 /2019 Comment: [facility] Result(s) called to Nani Mccollum at 09/17/2018 14:14 byJP. Read back OK. HEMATOLOGY PT 14.7 12.0 - 09/17 [place] 14.7 [facility] HEMATOLOGY INR 1.17 0.85 - 09/17 [place] 08.21 [facility] PARATHYROID Ca Ion WB 1.07 1.05 - 09/17 [facility] PROFILE 08.29 [facility] PARATHYROID Ca Norm WB 1.04 1.05 - 09/17 [facility] PROFILE 08.29 [facility] Pathology Reports No Data Provided for This Section Diagnostic Reports Report Value Date Source Ext Lower Arterial EXAM: US RIGHT LOWER EXTREMITY ARTERIAL DOPPL ER 12/25/2018 [facility] [place] Doppler unilat US DATE: 12/25/2018 11:20 CDT [...] by the Intervention al Radiology division at [facility] is recommended for possible endovascular treatment. Ext Lower Venous Clinical Indication: - pain in limb. 9 [facility] Bilat US Comparison: None. TECHNIQUE: Sonographic evaluation [...] greater and lesser sa phenous veins SL: [facility] Chest 1view DX EXAM: XR CHEST 1 VIEW 12/12/2018 [facility] edical DATE: 12/12/2018 12:52 CDT Center INDICATION: Arrhythmias - Post TAVR COMPARISON: 09/21/2018 TECHNIQUE: AP chest. FINDINGS: Postsurgical changes followi ng TAVR. The cardiomediastinal silhouette is stable in size. No pleural effusions are pneumothorax. Mild bibasilar subsegmental atelectasis. IMPRESSION: 1. Postsurgical changes following TAVR. 2. Mild bibasilar subsegmental atelectasis. Chest/Abd/Pelvis TAVR EXAM: VIR CT angiogram thora x abdomen and pelvis. TAVR protocol 11/20/2018 [facility] CTA INDICATION: 73 years old Male with [...] art EXAM: CTA HEART WITH CONTRAST 11/20/2018 [facility] TAVR CTA DATE: 11/20/2018 8:18 CDT Center INDICATION: TAVR workup. Aortic stenosis COMPARISON: No available prior cardiac CTA for c omparison. TECHNIQUE: Contrast imaging was perform ed on a [employer] [address] scanner utilizing a single breath hold, at 760 mA and 100 kVp. Retrospective ECG gating was performed, at a heart rate of 70 bpm. 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 09/17/2018 [facility] DX The heart is not enlarged. T he lower lobe platelike atelectasis. No pleural effusions. Scattered thoracic spine osteophytes. Center IMPRESSION: Left lower lobe platelike atelectasi s. Consultation Notes No Data Provided for This Section Discharge Summaries No Data Provided for This Section History and Physicals No Data Provided for This Section Vital Signs Vital Sign Value Date Comments Source Height 182.88 cm 04/29/2020 [facility] Weight 75 04/29/2020 [facility] [place] [facility] BMI Calculated 22.42 04/29/2020 [facility] Medi gianni Center Systolic (mm Hg) 118 04/18/2020 [facility] Me dical Center Diastolic (mm Hg) 64 04/18/2020 [facility] edical Center Heart Rate 58 04/18/2020 [facility] Medica l Center Respitory Rate 18 04/18/2020 [facility] gianni Center Height 177.8 cm 04/18/2020 [facility] Weight 77.273 04/18/2020 [facility] BMI Calculated 24.44 04/18/2020 [facility] Medi gianni Center Systolic (mm Hg) 121 10/05/2019 [facility] dical Center Diastolic (mm Hg) 77 [facility]05[facility] Heart Rate 65 10/05/2019 [facility] Center Respitory Rate 18 10/05/2019 [facility] gianni Center Temperature Oral (F) 97.7 F 10/05/2019 [facility] [place] Height 180.34 cm 10/05/2019 [facility] Weight 76.108 10/05/2019 [facility] BMI Calculated 23.4 10/05/2019 [facility] gianni Center Systolic (mm Hg) 115 06/15/2019 [facility] dical Center Diastolic (mm Hg) 70 06/15/2019 [facility] Heart Rate 69 06/15/2019 [facility] Med[facility] Center Respitory Rate 18 06/15/2019 [facility] gianni Center Temperature Oral (F) 98.0 F 06/15/2019 [facility] [place] Height 180.09 cm 06/15/2019 [facility] Weight 74.545 06/15/2019 [facility] BMI Calculated 22.98 06/15/2019 [facility] Medi gianni Center Systolic (mm Hg) 118 04/20/2019 [facility] dical Center Diastolic (mm Hg) 68 04/20/2019 [facility] edical Center Heart Rate 61 04/20/2019 [facility] Medica [facility] Center Respitory Rate 18 04/20/2019 [facility] gianni Center Temperature Oral (F) 98.0 F 04/20/2019 [facility] [place] Height 180.34 cm 04/20/2019 [facility] Med[facility] Center Weight 73.665 04/20/2019 [facility] BMI Calculated 22.65 04/20/2019 [facility] BMI Calculated 23.28 01/12/2019 [facility] Weight 75.5 01/12/2019 [facility] Height 180.09 cm 01/12/2019 [facility] Respitory Rate 18 01/12/2019 [facility] Temperature Oral (F) 97.8 F 01/12/2019 [facility] [place] Heart Rate 66 01/12/2019 [facility] Center Systolic (mm Hg) 109 01/12/2019 [facility] Diastolic (mm Hg) 65 01/12/2019 [facility] BMI Calculated 22.94 12/22/2018 [facility] Weight 74.409 12/22/2018 [facility] Height 180.09 cm 12/22/2018 [facility] Respitory Rate 18 12/22/2018 [facility] Heart Rate 63 12/22/2018 [facility] Temperature Oral (F) 98.3 F 12/22/2018 [facility] [place] Systolic (mm Hg) 110 12/22/2018 [facility] Diastolic (mm Hg) 72 12/22/2018 [facility] Temperature Oral (F) 98.0 F 12/19/2018 [place] Heart Rate 65 12/19/2018 [place] Respitory Rate 17 12/19/2018 [place] Systolic (mm Hg) 125 12/19/2018 [place] Diastolic (mm Hg) 71 12/19/2018 [place] Heart Rate 62 12/18/2018 [place] Temperature Oral (F) 97.7 F 12/18/2018 [place] Respitory Rate 18 12/18/2018 [place] Systolic (mm Hg) 129 12/18/2018 [place] Diastolic (mm Hg) 74 12/18/2018 [place] Systolic (mm Hg) 115 12/18/2018 [facility] [place] Diastolic (mm Hg) 68 12/18/2018 [place] Respitory Rate 18 12/18/2018 [place] Heart Rate 75 12/18/2018 [place] Temperature Oral (F) 97.6 F 12/18/2018 [place] Height 182.88 cm 12/18/2018 [place] BMI Calculated 22.42 12/18/2018 [facility] Weight 75 12/18/2018 [facility] Respitory Rate 20 12/13/2018 [facility] Center Systolic (mm Hg) 122 12/13/2018 [facility] dical Center Diastolic (mm Hg) 68 12/13/2018 [facility] Center Respitory Rate 16 12/13/2018 [facility] Systolic (mm Hg) 109 12/13/2018 [facility] dical Center Diastolic (mm Hg) 56 12/13/2018 [facility] edical Center Systolic (mm Hg) 126 12/13/2018 [facility] dical Center Diastolic (mm Hg) 58 12/13/2018 [facility] Center Respitory Rate 17 12/13/2018 [facility] Temperature Oral (F) 97.6 F 12/13/2018 [facility] [place] Temperature Oral (F) 98.5 F 12/13/2018 [facility] [place] Temperature Oral (F) 97.8 F 12/13/2018 [facility] [place] BMI Calculated 22.29 12/12/2018 [facility] Weight 74.545 12/12/2018 [facility] Height 182.88 cm 12/12/2018 [facility] BMI Calculated 23.83 11/20/2018 [facility] Weight 77.273 11/20/2018 [facility] Height 180.09 cm 11/20/2018 [facility] Heart Rate 73 11/20/2018 [facility] Respitory Rate 18 11/20/2018 [facility] Systolic (mm Hg) 103 11/20/2018 [facility] dical Center Diastolic (mm Hg) 69 11/20/2018 [facility] Temperature Oral (F) 97.1 F 11/20/2018 [facility] [place] Height 182.88 cm 11/20/2018 [facility] Weight 77.273 11/20/2018 [facility] BMI Calculated 23.1 11/20/2018 [facility] Height 182.88 cm 11/03/2018 [facility] BMI Calculated 23.38 11/03/2018 [facility] Weight 78.182 11/03/2018 [facility] Heart Rate 74 11/03/2018 [facility] Respitory Rate 18 11/03/2018 [facility] Temperature Oral (F) 98.3 F 11/03/2018 [facility] [place] Systolic (mm Hg) 107 11/03/2018 [facility] dical Center Diastolic (mm Hg) 66 11/03/2018 [facility] BMI Calculated 22.59 09/29/2018 [facility] Weight 75.54 09/29/2018 [facility] Height 182.88 cm 09/29/2018 [facility] Respitory Rate 18 09/29/2018 [facility] Temperature Oral (F) 97.3 F 09/29/2018 [facility] [place] Heart Rate 76 09/29/2018 [facility] Systolic (mm Hg) 96 09/29/2018 [facility] dical Center Diastolic (mm Hg) 61 09/29/2018 [facility] Center Respitory Rate 16 09/22/2018 [facility] Systolic (mm Hg) 97 09/22/2018 [facility] dical Center Diastolic (mm Hg) 61 09/22/2018 [facility] Temperature Oral (F) 98.9 F 09/22/2018 [facility] [place] Systolic (mm Hg) 101 09/22/2018 [facility] dical Center Diastolic (mm Hg) 59 09/22/2018 [facility] Rate 16 09/22/2018 [facility] Respitory Rate 18 09/22/2018 [facility] Systolic (mm Hg) 89 09/22/2018 [facility] dical Center Diastolic (mm Hg) 54 09/22/2018 [facility] Temperature Oral (F) 99.4 F 09/22/2018 [facility] [place] Height 182.88 cm 09/22/2018 [facility] Temperature Oral (F) 98.2 F 09/22/2018 [facility] [place] BMI Calculated 23.78 09/17/2018 [facility] Weight 79.545 09/17/2018 [facility] Height 182.88 cm 09/17/2018 [facility] Encounters Location Location Encounter Encounter Reason Attending ADM DC Stat us Source Details Type Number For Provider Date Date Visit AUDIT [id number] 02/17 [facility] AUDIT [id number] 02/19 /2012 [facility] EP1, [id number] 06/12 02/19 [place] Provider: Jacobo Garvey ns o[place], Status: Pen, Time: 8:50 AM AUDIT [id number] 10/09 /2013 [facility] AUDIT [id number] 10/16 [facility] AUDIT [id number] 10/28 /2013 [facility] EP1, [id number] 01/08 10/28 [place] Provider: Jacobo Garvey ns olyn, Status: Pen, Time: 9:00 AM [facility] Inpatient [id number] [place] 09/17 09/22 [facility] Outpatient [id number] Marwan 09/29 09/30 [facility] Advanced Heart Failure [facility] Outpatient [id number] Marwan 10/24 10/25 [facility] /2018 [facility] Advanced Heart Failure [facility] Outpatient [id number] Marwan 11/03 11/04 [facility] Advanced Heart Failure [id number] [facility] Advanced Heart Failure [facility] Inpatient [id number] Biswajit 12/12 12/13 [facility] Emergency [id number] Meka Barbie 12/18 12/19 [facility] /2018 [facility] Outpatient [id number] Biswajit 12/22 12/23 [facility] Advanced Heart Failure [facility] Outpt Diag [id number] Biswajit 12/25 12/26 [facility] Outpatient [id number] Biswajit 01/12 01/13 [facility] Heart [facility] Medical Failure [facility] Outpatient [id number] Marwan 04/20 04/21 [facility] Advanced Heart Failure [facility] Outpatient [id number] Octwa06/15 [facility] Advanced Heart Failure [facility] Outpatient [id number] Octwan 10/04 10/05 [facility] Heart Failure Center for Outpatient [id number] Octwan 12/31 01/01 [facility] Outpatient [id number] Octwa04/18 [facility] Heart [facility] Outpatient [id number] Octwan 04/29 04/30 [facility] Procedures Procedure Code Date Perfomer Comments Source Bilateral inguinal [id number] Cristi as hernia repair [facility], [place], EULOGIO [place] [facility]iac [id number] [facility] catheterisation, 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 Please see Lathmaker note for further details. Basically, after rapid ventricular paci ng, a 29 mm Davis ELIER S3 valve, serial [id number] was depl oyed. I was present and [...] Extracted from:Title: Preoperative H&P: HF Surgery 9 [facility] Author: Harmony Toure Date: 11/20/18 73 y/o [...] STS Risk Score (Isolated AVR) Case Timestamp: , A pril 2018 Mortality Risk: 1.696% Any Morbidity or Mortality Risk: 14.481% Long LOS Risk: 5.176% Short LOS Estimate: 43.419% Permanent Stroke Risk: 0.943% Prolonged Ventilation Risk: 8.239% Deep Sternal Wound Infection Risk: 0.431% Renal Failure Risk: 2.787% Reoperation Risk: 7.220% -Guinean: No Aortic Insufficiency: Mild Aortic Stenosis: Yes [...] Incidence: First Operation Left Main Disease: No [place]: No [place] When: NA Mitral Insufficiency: Mild Mitral Stenosis: [...] Renal Failure Risk: 2.787% Reoperation Risk: 7.220% -Guinean: No Aortic Insufficiency: Mild Aortic Stenosis: Yes [...] Incidence: First Operation Left Main Disease: No [place]: Yes [place] When: > 21 days Mitral Insufficiency: Mild [...] History Date Source Social History TypeResponse 11/20/2018 MAGNOLIA espinosa Substance Abuse Use: None. Alcohol Past, [...] entered on: 12/22/18 Social History TypeResponse 11/20/2018 [facility] Substance Abuse Use: None. Alcohol Past, Type [...] entered on: 12/18/18 Social History TypeResponse 11/20/2018 [facility] [place] Alcohol Past, Type Beer, Wine, Liquor. Frequenc [...] 40.0; Stopped at age: 67; entered on: 04/18/20 Current Smoker (305.1); 10/28/2013 [facility] (Active) Former Smoker (V15.82); (Active) Family History No Data Provided for This Section Advance Directives Order Name Results Value Date Source Advance Directives Advance Directives No Advance 10/28/2013 [facility] Directives available. Advance Directives Advance Directives No Advance 10/17/2013 [facility] Directives available. Advance Directives Advance Directives No Advance 10/09/2013 [facility] Directives available. Advance Directives Advance Directives No Advance 02/19/2013 [facility] Directives available. Advance Directives Advance Directives No Advance 02/17/2013 [facility] Directives available. Functional Status No Data Provided for This Section
--- OUTSIDE RECORDS SUMMARY | 2020-08-21 20:49 | XMS REPORT | Continuity of Care Document ---
:1945 Author Organization [facility] t Address [address] [place] [address] Care Team Providers Name Role Phone Dayday Ross MD Primary Care Physician Marcy Stout Attending Clinician Edy Attending Clinician Amy Valentin Attending Clinician Edy Admitting Clinician Marcy Stout Admitting Clinician Problems Condition Condition Condition Status Onset Resolution Last Treating Co mments Source Name Details Category Date Date Treatment Clinician Date CLAUDICATI Diagnosis Active 2020-04-29 Memoria ON 04-19 09:46:00 l 00:00: [place] CLAUDICATI 00 ON Active 0 [facility] PRESENCE Diagnosis Active 2020-01-01 M emoria OF 10-20 11:04:00 l PROSTHETIC PRESENCE 00:00: He rmann HEART OF 00 VALVE PROSTHETIC HEART VALVE Active 10/21/2019 [facility] 6MTH Diagnosis Active 2020-04-18 Mem oria FOLLOWUP 10-04 08:58:00 l 6MTH 00:00: [place] FOLLOWUP 00 Active 10/05/2019 [facility] 4 MONTH Diagnosis Active 2018-082019-10-05 Me moria FOLLOW UP - 09:26:00 l 4 MONTH 00:00: [place] FOLLOW UP 00 Active 06/18/2019 [facility] 2 MOS F/U Diagnosis Active 2019-06-15 Memoria 9-16 09:59:00 l 2 MOS 00:00: [place] F/U 00 Active 04/20/2019 [facility] 3MOS F/U Diagnosis Active 2019-04-20 M emoria 6-10 09:30:00 l 3MOS F/U 00:00: Tom n 00 Active 01/12/2019 [facility] R19.09 - Diagnosis Active 2019-04-20 M emoria OTHER 5- 23:43:00 l INTRA-ABDO R19.09 - 00:01: He rmann KAYLEE AND OTHER 00 PELV INTRA-ABDO KAYLEE AND PELV Active 12/23/2018 [facility] [place] ECHO Diagnosis Active 2019-01-12 Mem oria 5-20 08:59:00 l ECHO 00:00: [place] 00 Active 12/22/2018 [facility] LEG Diagnosis Active 2018-12-18 Mem oria CRAMPS, - 15:40:00 l POST LEG 00:00: [place] SURGERY CRAMPS, 00 POST SURGERY Active 12/18/2018 [facility] [place] FOLLOW UP Diagnosis Active 2018-12-22 Memoria 5-13 13:28:00 l FOLLOW 00:00: [place] UP 00 Active 9 [facility] PREADMIT / Diagnosis Active 2018-12-18 Memoria TAVR / MAC 12-11 08:59:00 l / TTE PREADMIT 00:00: Tom n / TAVR / 00 MAC / TTE Active 12/11/2018 [facility] AORTIC Diagnosis Active 2018-11-20 Mem oria STNOSIS 4-15 09:12:00 l AORTIC 00:00: [place] STNOSIS 00 Active 11/17/2018 [facility] 1 MONTH Diagnosis Active 2018-11-03 Me moria FOLLOW 10-31 10:24:00 l UP/ECHO 1 MONTH 00:00: Tom n FOLLOW 00 UP/ECHO Active 10/31/2018 [facility] HOSPITAL Diagnosis Active 2018-09-29 M emoria D/C FOLLOW - 09:43:00 l UP HOSPITAL 00:00: Tom n D/C FOLLOW 00 UP Active 9 [facility] CHEST PAIN Diagnosis Active 2018-09-24 Memoria 2-13 15:47:00 l CHEST 00:00: [place] PAIN 00 Active 09/17/2018 [facility] JERMAINE Diagnosis Active 2018-09-24 Memoria BILLING 2- 09:40:00 l 00:00: [place] JERMAINE 00 BILLING Active 09/17/2018 [facility] Aortic Aortic Disease Active [place] valve valve 8-18 [facility] disorder disorder 00:00: st 00 Aortic Aortic Disease Active [place] valve valve 2-07 [facility] disease disease 00:00: st 00 Aortic Problem Resolve 2020-05-01 Santos fletcher valve d 22:32:52 l stenosis Aortic Tom n (disorder) valve stenosis (disorder) Resolved Problem 05/01/2020 [facility], Shashank Reyes EULOGIO [place] Coronary Problem Resolve 2020-05-01 Me moria arterioscl d 22:32:52 l erosis Coronary Tom n (disorder) arterioscl erosis (disorder) Resolved Problem 05/01/2020 [facility], Shashank Reyes EULOGIO [place] Hyperlipid Problem Resolve 2020-05-01 Memoria emia d 22:32:52 l (disorder) Tom n Hyperlipid emia (disorder) Resolved Problem 05/01/2020 [facility], Shashank Reyes EULOGIO [place] Hypertensi Problem Resolve 2020-05-01 Memoria ve d 22:32:52 l disorder, [place] systemic Hypertensi arterial ve (disorder) disorder, systemic arterial (disorder) Resolved Problem 05/01/2020 [facility] Shashank Reyes OPIBillie [place] Systolic Problem Resolve 2020-05-01 Me moria heart d 22:32:52 l failure Systolic Velma nn (disorder) heart failure (disorder) Resolved Problem 05/01/2020 [facility] Shashank Reyes OPIBillie [place] Myocardial Problem Resolve 2020-05-01 Memoria infarction d 22:32:52 l (disorder) Tom n Myocardial infarction (disorder) Resolved Problem 05/01/2020 [facility] [place] 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) Resolved Problem 05/01/2020 [facility], Shashank Reyes H OPID [place] 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 Santos fletcher 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 [facility] History of Problem Active 2020-05-01 M emoria aortic 22:32:52 l valve History [place] replacemen of aortic t valve (situation replacemen ) t (situation ) Active Problem 05/01/2020 [facility] Pain in Problem 2018-0 2018-12-21 2018-12-21 Memoria left leg 5-16 00:21:24 00:21:24 l Pain in 17:00: [place] left leg 00 9 12/21/2018 Eric Allergies, Adverse Reactions, Alerts Allergy Allergy Status [...] [place] morphine morphine Active Memori a l [place] Family History Family Member Diagnosis Comments Start Date Stop Date Source Natural father Heart attack [facility] Social History Social Habit Start Date Stop Date Quantity Comments Source History of Cigarette Smoker [facility] tobacco use Sex Assigned At [facility] ethodist Tobacco use and 2018-03-21 2018-03-21 Never used [facility]ist exposure 00:00:00 00:00:00 Alcohol intake 2018-03-21 2018-03-21 Current [facility] thodist 00:00:00 00:00:00 non-drinker of alcohol (finding) Social History 2013-10-28 2013-10-28 [facility] david 21:45:20 21:45:20 Smoking Status Start Date Stop Date Source Former smoker 2018-03-21 00:00:00 2018-03-21 00:00:00 [facility] Medications Ordered Filled Start Stop Current Ordering Indication Dosage Frequency Signature Comments Components Source Medication Medication Date Date Medication? Clinician (SIG) Name Name ticagrelor 2018-08 Yes 90 mg = 1 Me moria 90 mg oral 1-11 tab, PO, l tablet 16:59: Q12H, # [place] 12 180 tab, 3 Refill(s), Pharmacy: [facility] lisinopril 2018-08 Yes 5 mg = 1 Mem oria 5 mg oral 1-11 tab, PO, l tablet 16:57: Daily, # [place] 00 90 tab, 3 Refill(s), Pharmacy: [facility] lisinopril Yes 2.5 mg = 1 M emoria 2.5 mg oral 9-16 tab, PO, l tablet 15:26: Daily, # [place] 16 90 tab, 3 Refill(s), Pharmacy: [facility] spironolact Yes 12.5 mg = M emoria one 25 mg 9-16 0.5 tab, l oral tablet 15:25: PO, Daily, [place] 47 # 45 tab, 3 Refill(s), Pharmacy: [facility] 24 HR Yes 25 mg = Memoria Metoprolol 9-16 0.5 tab, l Tartrate 50 15:25: PO, Daily, [place] MG Extended 17 # 45 tab, Release 3 Tablet Refill(s), [Toprol] Pharmacy: [facility] ticagrelor Yes 90 mg = 1 Me moria 90 mg oral 9-16 tab, PO, l tablet 15:25: Q12H, # [place] 08 180 tab, 3 Refill(s), Pharmacy: [facility] atorvastati Yes 40 mg = 1 M emoria n 40 mg 9-16 tab, PO, l oral tablet 15:25: Daily, # He rmann 01 90 tab, 3 Refill(s), Pharmacy: [facility] atorvastati Yes Aortic TAKE ONE Roger n (LIPITOR) 7-22 valve (1) Methodi 40 MG 00:00: disorder TABLET(S) st tablet 00 BY MOUTH ONCE A DAY. spironolact Yes 12.5 mg = M emoria one 25 mg 6-10 0.5 tab, l oral tablet 16:34: PO, Daily, [place] 00 # 45 tab, 3 Refill(s), Pharmacy: [facility] lisinopril Yes 2.5 mg = 1 M emoria 2.5 mg oral 6-10 tab, PO, l tablet 16:34: Daily, # [place] 00 90 tab, 3 Refill(s), Pharmacy: [facility] Saline No Notes: Memoria Flush 0.9% -16 Same as: l 19:55: BD Posiflush Sterile Furosemide Yes 40 mg = 1 Me moria 40 MG Oral 5-12 tab, PO, l Tablet 12:55: Daily, # [place] [Lasix] 00 30 tab, 0 Refill(s), given to patient clopidogrel No Notes: Santos fletcher 5-11 (Same As: l 14:00: Plavix) Aspirin 81 No Notes: Do Me moria MG Enteric 5-11 not crush l Coated 14:00: or chew. [place] Tablet 00 (Same As: Ecotrin) potassium No Notes: Memori a chloride 20 -11 (Same as: l mEq oral 14:00: K-Dur [...] s with feeding tube less than 14 Marshallese (Dobhoff, J-tube etc) and pediatric and patients. [...] tab, PO, l tablet 13:17: Q12H, # [place] 37 180 tab, 3 Refill(s) 24 HR Yes 25 mg = Memoria Metoprolol 5-11 0.5 tab, l Tartrate 50 13:17: PO, Daily, [place] MG Extended 27 # 15 tab, Release [...] 5-11 not exceed l 05:56: 4 gm/day. [place] (Same as: Tylenol) Sodium No 250 mL, [...] Drug form: l mg 15:41: INJ, Start date: 12/12/18 10:41:00 CDT, Stop date: 12/12/18 11:41:00 CDT Sodium No Route: IV, Memor ia Chloride 5-10 Total l 0.9% IV 15:20: Volume: [place] (ANES) 250 00 250, Start mL date: [...] 30 tab, 6 Release Refill(s), Tablet Pharmacy: [facility] atorvastati Yes 40 mg = 1 M [...] 2-18 Instructio l n 17:54: ns, MISC, [place] 00 ONCE, hepatic function panel on , 09/25/2018 Dx: Transamini tis, # 1 ea, 0 Refill(s) Aspirin 81 Yes 81 mg = 1 Me moria MG Enteric 2-18 tab, PO, l Coated 17:43: Daily, # [place] Tablet 00 90 tab, 3 Refill(s) ticagrelor Yes 90 mg = 1 Me moria 90 mg oral 2-18 tab, PO, l tablet 17:43: Q12H, # [place] 00 180 tab, 3 Refill(s) metoprolol Yes [...] No Notes: Memor ia 40 MG Oral -17 (Same as: l Tablet 23:00: Lasix) [place] 00 May cause GI upset. Give with food or milk. Albuterol No Notes: Memori a 0.833 MG/ML -17 (Same as: l / 17:48: Duoneb) [place] Ipratropium 00 Maple 0.167 MG/ML Inhalant Solution [DuoNeb] Calcium No Notes: Memoria Gluconate 2-17 WASTE: F/P l 16:47: - Sink; E [place] 00 - Municipal Trash Bin Magnesium No Notes: Memori a Oxide 2-17 (Same as: l 16:47: Mag-Ox [place] 400) Magnesium oxide 382lh=072h g elemental magnesium Dose=____m g magnesium oxide [...] WASTE: F/P l 16:47: - Sink; E [place] 00 - Municipal Trash Bin potassium No Notes: [...] s with feeding tube less than 14 [place]ese (Dobhoff, J-tube etc) and pediatric and patients. potassium No Notes: Memori a phosphate-s 2-17 (Same as: l odium 16:47: Phos-NaK) phosphate Each 1.5 250 mg-280 gm pkt has mg-160 mg 250mg oral powder phosphorou for s. Mix reconstitut w/2.5oz ion water and stir. Blistex Lip No Route: Santos fletcher [place] 2-17 MISC, l 15:00: Dosing Weight 79.545, kg, BID, Start date: 09/21/18 9:00:00 UG DESIGNER, Duration: 30 day, Stop date: 10/20/18 17:00:00 CDT allantoin/c No Notes: Santos fletcher amphor/phen -17 Same as: l ol topical 15:00: Blistex 00 Furosemide No Notes: Memor ia 2-16 (Same [...] s with feeding tube less than 14 [place]ese (Dobhoff, J-tube etc) and pediatric and patients. cefepime No Notes: Memoria 2-16 (Same As: l 06:00: Maxipime) MEDICATION WASTE Product Size: 1000 mg Product Wasted: ___ mg Vancomycin No 2001 mg: Me moria 2-16 infuse l 05:31: over 2.5 [place] 00 hours Tylenol No Notes: Max Santos fletcher 2-16 acetaminop l 03:00: hen = 00 4000mg/day (4 gm/day). (Same as: Tylenol) Albuterol Yes Notes: Memori a 0.833 MG/ML -16 (Same as: l / 02:00: Duoneb) Ipratropium 00 [place] 0.167 MG/ML Inhalant Solution [DuoNeb] Lasix No Notes: Memoria 2-15 (Same as: l 22:48: Lasix) Potassium No Notes: Memori a Chloride 2-15 (Same as: l 08:50: KCL) Infuse no faster than 10 mEq/hr if given peripheral ly. sodium No Notes: Memoria phosphate 2-15 Infuse l 08:50: over 4 [place] 00 hour. Do not infuse phosphorou s concurrent ly in the same line as TPN or IVF that contains calcium. For double lumen central lines, phosphorou s may be infused in a separate lumen from TPN. potassium No Notes: Memori a phosphate 2-15 (Same as: l 08:50: K [place] Phosphate. ) Do not infuse phosphorou s concurrent ly in the same line as TPN or IVF that contains calcium. For double lumen central lines, phosphorou s may be infused in a separate lumen from TPN. 1 mMol phoshate has 1.47 mEq potassium Infuse over 4 hours potassium No Notes: Memori a phosphate-s 2-15 (Same as: l odium 08:50: Phos-NaK) [place] phosphate 00 Each 1.5 250 mg-280 gm pkt has mg-160 mg 250mg oral powder phosphorou for s. Mix reconstitut w/2.5oz ion water and stir. Magnesium No Notes: Memori a Sulfate 2-15 WASTE: F/P l 08:50: - Sink; E [place] 00 - Municipal Trash Bin Calcium No Notes: Memoria Gluconate 2-15 WASTE: F/P l 08:50: - Sink; E [place] - Municipal Trash Bin Calcium No Notes: Memoria Carbonate 2-15 (Same As: l 500 MG 08:50: Tums) [place] Chewable 00 Calcium Tablet Carbonate 500 mg = 200 mg elemental calcium Dose = mg calcium carbonate ( mg elemental calcium) Magnesium No Notes: Memori a Oxide 2-15 (Same as: l 08:50: Mag-Ox [place] 00 400) Magnesium oxide 884yd=290y g elemental magnesium Dose=____m g magnesium oxide (___mg elemental magnesium) Ticagrelor No Notes: Memor ia 2-15 (Same as: l 05:00: Brilinta) [place] Brilinta No Notes: Memoria 2-14 (Same as: l 15:00: Brilinta) [place] Aspirin 81 No Notes: Do Me moria [...] 0.9% 2-14 Same as: l 03:00: BD [place] 00 Posiflush Sterile Saline No Notes: Memoria Flush 0.9% 2-13 Same as: l 19:55: BD Posiflush Sterile Sodium No 500 mL, Memoria Chloride 2-13 Rate: 20 l 0.9% IV 500 18:35: ml/hr, Herm francisca mL 00 Infuse over: 25 hr, Route: IV, Total Volume: 500, Start date: 09/17/18 12:35:00 UG DESIGNER, Duration: 24 hr, Stop date: 09/18/18 12:34:00 UG DESIGNER Ticagrelor No 180 mg, Santos fletcher 2-13 Route: PO, l 18:33: ONCE, kg, [place] 00 Priority: NOW, Start date: 09/17/18 12:33:00 UG DESIGNER, Stop date: 09/17/18 12:33:00 UG DESIGNER amLODIPine 2017-08 Yes Essential 10mg QD Take 1 [place] (NORVASC) 0-08 hypertensio tablet (10 Methodi 10 mg 00:00: n mg total) st tablet 00 by mouth daily. lisinopril 2017-08 Yes Essential 20mg QD Take 1 [place] (PRINIVIL,Z 0-08 hypertensio tablet (20 Methodi ESTRIL) 20 00:00: n mg total) st mg tablet 00 by mouth daily. carvedilol 2017-08 Yes Essential 20mg QD Take 1 [place] CR (COREG 0-08 hypertensio capsule Methodi CR) 20 MG 00:00: n ([address] 24 hr 00 total) by capsule mouth daily. CYANOCOBALA Yes Take by Jhonatan yao MIN, 8-17 mouth. [facility] VITAMIN 08:38: st B-12, (B-12 56 DOTS ORAL) COQ10, Yes Take by [place] UBIQUINOL, 8-17 mouth. [facility] ORAL 08:38: st 56 cholecalcif Yes 1000U QD Take 1,000 Roger mildred, 8-17 Units by Methodi vitamin D3, 08:38: mouth st (VITAMIN 56 daily. D3) 1,000 unit capsule aspirin Yes 81mg QD Take 81 mg [place] (ECOTRIN) 8-17 by mouth Method i 81 MG 08:38: daily. st enteric 56 coated tablet Lisinopril Yes (Active) Me moria TABS 3-26 l 21:45: [place] 20 Aspirin Yes (Active) Memor ia TABS 3-26 l 21:45: [place] 20 Vital Signs Vital Name Observation Time Observation Value Comments Source Height 2020-04-29 14:30:00 182.88 cm [facility] Weight 2020-04-29 14:30:00 [facility] BMI Calculated 2020-04-29 14:30:00 Memori al [place] Systolic (mm Hg) 2020-04-18 14:13:00 Santos rial [place] Diastolic (mm Hg) 2020-04-18 14:13:00 Mem orial [place] Heart Rate 2020-04-18 14:13:00 [facility] [place] Respitory Rate 2020-04-18 14:13:00 Memori al [place] Height 2020-04-18 14:13:00 177.8 cm [facility] Weight 2020-04-18 14:13:00 [facility] Calculated 2020-04-18 14:13:00 Memori al [place] Systolic (mm Hg) 2019-10-05 16:20:00 Santos rial [place] Diastolic (mm Hg) 2019-10-05 16:20:00 Mem orial [place] Heart Rate 2019-10-05 16:20:00 [facility] [place] Respitory Rate 2019-10-05 16:20:00 Memori al [place] Temperature Oral (F) 2019-10-05 16:20:00 97.7 F [facility] Height 2019-10-05 16:20:00 180.34 cm [facility] Weight 2019-10-05 16:20:00 [facility] BMI Calculated 2019-10-05 16:20:00 Memori al [place] Systolic (mm Hg) 2019-06-15 18:11:00 Santos rial [place] Diastolic (mm Hg) 2019-06-15 18:11:00 Mem orial [place] Heart Rate 2019-06-15 18:11:00 [facility] [place] Respitory Rate 2019-06-15 18:11:00 Memori al [place] Temperature Oral (F) 2019-06-15 18:11:00 98.0 F [facility] [place] Height 2019-06-15 18:11:00 180.09 cm [facility] [place] Weight 2019-06-15 18:11:00 [facility] [place] BMI Calculated 2019-06-15 18:11:00 Memori al [place] Systolic (mm Hg) 2019-04-20 14:43:00 Santos rial [place] Diastolic (mm Hg) 2019-04-20 14:43:00 Mem orial [place] Heart Rate 2019-04-20 14:43:00 [facility] [place] Respitory Rate 2019-04-20 14:43:00 Memori al [place] Temperature Oral (F) 2019-04-20 14:43:00 98.0 F [facility] [place] Height 2019-04-20 14:43:00 180.34 cm [facility] [place] Weight 2019-04-20 14:43:00 [facility] [place] BMI Calculated 2019-04-20 14:43:00 Memori al [place] BMI Calculated 2019-01-12 14:19:00 Memori al [place] Weight 2019-01-12 14:19:00 [facility] [place] Height 2019-01-12 14:19:00 180.09 cm [facility] [place] Respitory Rate 2019-01-12 14:19:00 Memori al [place] Temperature Oral (F) 2019-01-12 14:19:00 97.8 F [facility] [place] Heart Rate 2019-01-12 14:19:00 [facility] [place] Systolic (mm Hg) 2019-01-12 14:19:00 Santos rial [place] Diastolic (mm Hg) 2019-01-12 14:19:00 Mem orial [place] BMI Calculated 2018-12-22 18:42:00 Memori al [place] Weight 2018-12-22 18:42:00 [facility] [place] Height 2018-12-22 18:42:00 180.09 cm [facility] [place] Respitory Rate 2018-12-22 18:42:00 Memori al [place] Heart Rate 2018-12-22 18:42:00 [facility] [place] Temperature Oral (F) 2018-12-22 18:42:00 98.3 F [facility] [place] Systolic (mm Hg) 2018-12-22 18:42:00 Santos rial [place] Diastolic (mm Hg) 2018-12-22 18:42:00 Mem orial [place] Temperature Oral (F) 2018-12-19 00:18:00 98.0 F [facility] [place] Heart Rate 2018-12-19 00:18:00 [facility] [place] Respitory Rate 2018-12-19 00:18:00 Memori al [place] Systolic (mm Hg) 2018-12-19 00:18:00 Santos rial [place] Diastolic (mm Hg) 2018-12-19 00:18:00 Mem orial [place] Heart Rate 2018-12-18 23:07:00 [facility] [place] Temperature Oral (F) 2018-12-18 23:07:00 97.7 F [facility] [place] Respitory Rate 2018-12-18 23:07:00 Memori al [place] Systolic (mm Hg) 2018-12-18 23:07:00 Santos rial [place] Diastolic (mm Hg) 2018-12-18 23:07:00 Mem orial [place] Systolic (mm Hg) 2018-12-18 19:48:00 Santos rial [place] Diastolic (mm Hg) 2018-12-18 19:48:00 Mem orial [place] Respitory Rate 2018-12-18 19:48:00 Memori al [place] Heart Rate 2018-12-18 19:48:00 [facility] [place] Temperature Oral (F) 2018-12-18 19:48:00 97.6 F [facility] [place] Height 2018-12-18 19:48:00 182.88 cm [facility] [place] BMI Calculated 2018-12-18 19:48:00 Memori al [place] Weight 2018-12-18 19:48:00 [facility] [place] Respitory Rate 2018-12-13 17:00:00 Memori al [place] Systolic (mm Hg) 2018-12-13 17:00:00 Santos rial [place] Diastolic (mm Hg) 2018-12-13 17:00:00 Mem orial [place] Respitory Rate 2018-12-13 16:00:00 Memori al [place] Systolic (mm Hg) 2018-12-13 16:00:00 Santos rial [place] Diastolic (mm Hg) 2018-12-13 16:00:00 Mem orial [place] Systolic (mm Hg) 2018-12-13 15:00:00 Santos rial [place] Diastolic (mm Hg) 2018-12-13 15:00:00 Mem orial [place] Respitory Rate 2018-12-13 15:00:00 Memori al [place] Temperature Oral (F) 2018-12-13 12:44:00 97.6 F [facility] [place] Temperature Oral (F) 2018-12-13 09:00:00 98.5 F [facility] [place] Temperature Oral (F) 2018-12-13 05:00:00 97.8 F [facility] [place] BMI Calculated 2018-12-12 11:33:00 Memori al [place] Weight 2018-12-12 11:33:00 [facility] [place] Height 2018-12-12 11:33:00 182.88 cm [facility] [place] BMI Calculated 2018-11-20 15:02:00 Memori al [place] Weight 2018-11-20 15:02:00 [facility] [place] Height 2018-11-20 15:02:00 180.09 cm [facility] [place] Heart Rate 2018-11-20 15:02:00 [facility] [place] Respitory Rate 2018-11-20 15:02:00 Memori al [place] Systolic (mm Hg) 2018-11-20 15:02:00 Santos rial [place] Diastolic (mm Hg) 2018-11-20 15:02:00 Mem orial [place] Temperature Oral (F) 2018-11-20 15:02:00 97.1 F [facility] [place] Height 2018-11-20 12:09:00 182.88 cm [facility] [place] Weight 2018-11-20 12:09:00 [facility] [place] BMI Calculated 2018-11-20 12:09:00 Memori al [place] Height 2018-11-03 15:54:00 182.88 cm [facility] [place] BMI Calculated 2018-11-03 15:54:00 Memori al [place] Weight 2018-11-03 15:54:00 [facility] [place] Heart Rate 2018-11-03 15:54:00 [facility] [place] Respitory Rate 2018-11-03 15:54:00 Memori al [place] Temperature Oral (F) 2018-11-03 15:54:00 98.3 F [facility] [place] Systolic (mm Hg) 2018-11-03 15:54:00 Santos rial [place] Diastolic (mm Hg) 2018-11-03 15:54:00 Mem orial [place] BMI Calculated 2018-09-29 15:58:00 Memori al [place] Weight 2018-09-29 15:58:00 [facility] [place] Height 2018-09-29 15:58:00 182.88 cm [facility] [place] Respitory Rate 2018-09-29 15:58:00 Memori al [place] Temperature Oral (F) 2018-09-29 15:58:00 97.3 F [facility] [place] Heart Rate 2018-09-29 15:58:00 [facility] [place] Systolic (mm Hg) 2018-09-29 15:58:00 Santos rial [place] Diastolic (mm Hg) 2018-09-29 15:58:00 Mem orial [place] Respitory Rate 2018-09-22 18:00:00 Memori al [place] Systolic (mm Hg) 2018-09-22 18:00:00 Santos rial [place] Diastolic (mm Hg) 2018-09-22 18:00:00 Mem orial [place] Temperature Oral (F) 2018-09-22 18:00:00 98.9 F [facility] [place] Systolic (mm Hg) 2018-09-22 16:30:00 Santos rial [place] Diastolic (mm Hg) 2018-09-22 16:30:00 Mem orial [place] Respitory Rate 2018-09-22 16:30:00 Memori al [place] Respitory Rate 2018-09-22 16:00:00 Memori al [place] Systolic (mm Hg) 2018-09-22 16:00:00 Santos rial [place] Diastolic (mm Hg) 2018-09-22 16:00:00 Mem orial [place] Temperature Oral (F) 2018-09-22 14:00:00 99.4 F [facility] [place] Height 2018-09-22 11:19:00 182.88 cm [facility] [place] Temperature Oral (F) 2018-09-22 10:00:00 98.2 F [facility] [place] BMI Calculated 2018-09-17 18:52:00 Memori al [place] Weight 2018-09-17 18:52:00 [facility] [place] Height 2018-09-17 18:52:00 182.88 cm [facility] [place] Procedures Procedure Date / Time Performed Performing Clinician [facility] fallon Bilateral inguinal hernia Marni al [place] repair Cardiac catheterisation, Mememely l [place] left heart Replacement of right knee Memori al [place] joint Reconstruction of ligament Memor ial [place] of knee joint Plan of Care Planned Activity Planned Date Details Comments Source Future Scheduled 2020-03-05 INFLUENZA VACCINE [place] [facility] 00:00:00 [code = INFLUENZA VACCINE] Future Scheduled 2012 65+ PNEUMOCOCCAL [facility] 00:00:00 VACCINE (1 of 1 - PPSV23) [code = 65+ PNEUMOCOCCAL VACCINE (1 of 1 - PPSV23)] Future Scheduled 1997 COLONOSCOPY SCREENING [facility] 00:00:00 [code = COLONOSCOPY SCREENING] Future Scheduled 1997 SHINGLES VACCINES (#1) [place] [facility] 00:00:00 [code = SHINGLES VACCINES (#1)] Future Scheduled 1963 COVID-19 VACCINE (1 of [place] [facility] 00:00:00 2) [code = COVID-19 VACCINE (1 of 2)] Encounters Start End Encounter Admission Attending Care Care Encounter Source Date/Time Date/Time Type Type Clinicians Facility Department ID 2020-04-15 Outpatient [id number] 15:29:25 2018-12-19 Outpatient [id number] 15:19:24 2018-12-12 Inpatient [facility] [id number] [facility] 06:06:00 2020-04-29 2020-04-29 Outpatient Argelia [facility] [id number] 09:26:00 23:59:00 Marwaabigail 2020-04-29 2020-04-29 Outpatient [facility] [id number] [facility] 09:26:00 09:26:00 2020-04-18 2020-04-18 Outpatient Argelia [facility] [id number] 08:58:00 23:59:00 Marwan 11 2020-01-01 2020-01-01 Outpatient Argelia [facility] [id number] 11:00:00 23:59:00 Marwan 12 2020-01-01 2020-01-01 Outpatient [id number] [facility] 11:00:00 11:00:00 2019-10-05 2019-10-05 Outpatient [facility]gelia[facility] [id number] 09:19:00 23:59:00 [facility] 2019-10-05 2019-10-05 Outpatient [facility] CAR [id number] [facility] 09:19:00 09:19:00 2019-06-15 2019-06-15 Outpatient Argelia, [facility] [id number] 09:59:00 23:59:00 [facility] 2019-06-15 2019-06-15 Outpatient [facility] CAR [id number] [facility] 09:59:00 09:59:00 2019-04-20 2019-04-20 Outpatient Argelia, [facility] [id number] 09:30:00 23:59:00 [facility] 08 [facility] 2019-04-20 2019-04-20 Outpatient [facility] CAR [id number] [facility] 09:30:00 09:30:00 2019-01-12 2019-01-12 Outpatient Edy, [facility] [id number] 08:48:00 23:59:00 Biswaji 2019-01-12 2019-01-12 Outpatient [facility] CAR [id number] [facility] 08:48:00 08:48:00 2018-12-25 2018-12-25 Outpatient Edy, [facility] [id number] 10:18:00 23:59:00 Kellwat 2018-12-22 2018-12-22 Outpatient Edy, [facility] [id number] 13:28:00 23:59:00 Biswajit 2018-12-18 2018-12-18 Outpatient Meka Valentin [facility]PL MHPL [id number] 14:36:34 19:23:00 Amy 2018-12-18 2018-12-18 Emergency E MHBL MHBL [id number] MHBL 14:36:00 14:36:00 2018-12-12 2018-12-13 Outpatient Edy, [facility] [id number] 06:06:00 15:30:00 Biswajit 2018-11-20 2018-11-20 Outpatient Argelia, [facility] [id number] 06:55:00 23:59:00 [facility] 03 [facility] 2018-11-20 2018-11-20 Outpatient [facility] CAR [id number] [facility] 06:55:00 06:55:00 2018-11-03 2018-11-03 Outpatient Argelia [facility] [id number] 10:24:00 23:59:00 [facility] 2018-11-03 2018-11-03 Outpatient [facility] CAR [id number] [facility] 10:24:00 10:24:00 2018-10-24 2018-10-24 Outpatient Argelia [facility] [id number] 10:00:00 23:59:00 [facility] 2018-10-24 2018-10-24 Outpatient [facility] CAR [id number] [facility] 10:00:00 10:00:00 2018-09-29 2018-09-29 Outpatient Argelia [facility] [id number] 09:33:00 23:59:00 [facility] 2018-09-17 2018-09-22 Outpatient Argelia [facility] [id number] 10:48:00 13:45:00 [facility] 2013-10-28 2013-10-28 Outpatient MHIE MHIE [id number] 16:45:20 16:45:20 2013-10-16 2013-10-16 Outpatient MHIE [facility]IE [id number] 19:00:17 19:00:17 2013-10-09 2013-10-09 Outpatient MHIE [facility]IE [id number] 13:20:30 13:20:30 2013-02-19 2013-02-19 Outpatient MHIE MHIE [id number] 17:01:02 17:00:41 2013-02-17 2013-02-17 Outpatient MHIE MHIE [id number] 11:56:19 11:55:59 Results Test Description Test Time Test Comments Results Result Comments Source CARDIAC ENZYMES 2020-01-01 67 [facility] 20:46:08 CHEM PANEL 2020-01-01 92 [facility] [...] code = B/C Ratio) 19 1 6-25 [facility] HermannCHEM YTIAC8464-34-94 20:46:083.9[facility]annCHEM PANEL 2020-01-01 20:46:08 Test Item Value Reference Range Interpretation Comments A/G Ratio (test code = A/G Ratio) 0.9 1 0.7-1.6 [facility] HermannCHEM VCPWX9484-41-90 20:46:0875[facility]annHEMATOLOGY 2020-01-01 20:46:085.9[facility] CwvsftpVLGRIHKYNL8609-16-02 20:46:084.58[facility] VhafvoiYJGHPZZYSB6094-46-59 20:46:0814.9[facility] XsxgpbgAGHSJUONKP0157-85-53 20:46:0844.8[facility] LzbeenvSSFCRLDDZI6866-94-82 20:46:0897.7[facility] NQHSYOLDJN3815-37-72 20:46:08 Test Item Value Reference Range Interpretation Comments MCH (test code = MCH) 32.5 pg 27.0-31.0 [facility] AvvfnfeZWKTVNFZQZ0263-46-57 20:46:0833.3[facility] HermannHEMATOLOGY 2020-01-01 20:46:0813.7[facility] QcbaoaqOLEVYZBFKV8672-81-12 20:46:64155Vrvudwlk TkjbhtkOMUHNOCUDG7114-70-17 20:46:0811.5[facility] GvopcyxHAJBUHUDOO6480-14-07 20:46:0852.5[facility] DbbhenkLMYOEQGHQW3245-70-30 20:46:0828.8[facility] MUUTZNFUBQ4200-08-08 20:46:0812.1[facility] HodtofpEQBTBLZHSP2179-19-29 20:46:08 6.0[facility] XfhwytlDLNHMHYTZD7972-60-74 20:46:080.6[facility] HermannHEMATOLOGY 2020-01-01 20:46:083.1[facility] OzzutgeBBZOTVPSAV6877-23-06 20:46:081.7[facility] DyyhdjdXUBMTDQAZD8506-93-48 20:46:080.7[facility] StfhtsfSNRAIQAXPR8317-31-25 20:46:080.4[facility] HermannCHEM RVATY7029-48-97 17:19:0096[facility] HermannCHEM XILUB3755-17-82 17:19:0016[facility] HermannCHEM LMQWU8346-11-86 17:19:000.98 [facility] HermannCHEM PATLP7839-66-56 17:19:02481Vqamxwvx HermannCHEM PANEL 2019-06-15 17:19:004.2[facility] HermannCHEM CIEEI6119-52-71 17:19:31614Paqbexdm HermannCHEM MTVSO1700-38-50 17:19:0028[facility] HermannCHEM BVRRS5739-99-09 17:19:009.5[facility] HermannCHEM XFSFH0918-22-99 17:19:007.2[facility] HermannCHEM VUPEF1442-08-95 17:19:003.6[facility] HermannCHEM PFADJ0393-73-27 17:19:0040 [facility] HermannCHEM WTRCP5158-02-92 17:19:0027[facility] HermannCHEM PANEL 2019-06-15 17:19:0081[facility] HermannCHEM FZXIY0265-22-12 17:19:000.4[facility] HermannCHEM IJEAV3166-33-94 17:19:0010.2[facility] HermannCHEM ASERE5746-07-50 17:19:00 Test Item Value Reference Range Interpretation Comments B/C Ratio (test code = B/C Ratio) 16 01-27 [facility] HermannCHEM QVXUU7987-34-59 17:19:003.6[facility] HermannCHEM PANEL 2019-06-15 17:19:00 Test Item Value Reference Range Interpretation Comments A/G Ratio (test code = A/G Ratio) 1.0 1 0.7-1.6 [facility] HermannCHEM MNWCG5464-15-08 17:19:0076[facility] HermannELECTROLYTES 2019-01-12 16:37:0012.2[facility] KccmgrnNQBPQQMIAULP3515-36-91 16:37:00 Test Item Value Reference Range Interpretation Comments A/G Ratio (test code = A/G Ratio) 1.2 1 0.7-1.6 [facility] HrkpuidLMPLAVCCAHPU5085-41-20 16:37:003.3[facility] HermannELECTROLYTES 2019-01-12 16:37:00 Test Item Value Reference Range Interpretation Comments B/C Ratio (test code = B/C Ratio) 22 01-27 [facility] EiaixwhYVQCEQHGYJVI3805-37-76 16:37:0074[facility] HermannELECTROLYTES 2019-01-12 16:37:0091[facility] CndlwxfUWCNKOBRAPUB9269-80-11 16:37:000.6[facility] AmasdpxMDZDOPLQYINW8124-16-72 16:37:004.1[facility] IpcgrpaQOPZDLLUDNCR4441-39-41 16:37:007.4[facility] IulaiadXRIDFKYDHRJB9577-90-71 16:37:009.2[facility] JISWJCXZEIRR9483-47-65 16:37:0020[facility] NkhwbdvAJMABINTUOMG9586-15-50 16:37:00 28[facility] CuwvpmfHFBIPWNITJDM2337-74-26 16:37:23122Ltoetozh HermannELECTROLYTES 2019-01-12 16:37:004.2[facility] ZqztpozNOUSFLAMKNMO7406-37-30 16:37:0027[facility] LavmzwpMJYEGAVLERSP6250-56-72 16:37:44880Jsjsowfl TbehmobHGAYNJMQSUUP4109-05-28 16:37:0084[facility] TbcprfeCNAPKMBTASTO9273-38-65 16:37:001.02[facility] OEVKKPQPMHSH2837-57-54 16:37:0022[facility] ThtrbxfGXZPLXWTJQ6074-65-82 16:37:00 0.6[facility] NhonfihUNQZGNYYTV4033-75-47 16:37:000.3[facility] HermannHEMATOLOGY 2019-01-12 16:37:001.8[facility] OuwqthoIGYPWJGNDJ7754-72-83 16:37:004.0[facility] FnkcjaaWKJBMCWEGD9280-96-74 16:37:003.7[facility] OqeeaulNTGBSDMODN3735-59-85 16:37:000.5[facility] BoqnsngPLOYZVQTTZ3818-30-81 16:37:009.5[facility] MAHEJPRFTO7617-81-66 16:37:0058.3[facility] CtipdqbJUFJMKFRCV6607-30-28 16:37:00 27.7[facility] QcqyieiSIPMGGVVVL9569-72-67 16:37:0011.2[facility] HermannHEMATOLOGY 2019-01-12 16:37:43681Crofczld UqhebkfCLIBVKTSKW0649-70-82 16:37:0032.4[facility] YpigkzcWHODKGGZHF3660-18-42 16:37:0014.3[facility] HdlkkrnIOVHHNBJCW9526-07-85 16:37:00 Test Item Value Reference Range Interpretation Comments MCH (test code = MCH) 31.9 pg 27.0-31.0 [facility] XhgprxeTVMFVETVLI8966-72-20 16:37:0045.9[facility] HermannHEMATOLOGY 2019-01-12 16:37:0098.2[facility] XrfnsdlAKRDURNKNF7836-97-90 16:37:006.4[facility] ZqfnhqsQGWCDJRRQQ4494-59-54 16:37:004.68[facility] LdxghidDZYZPZPEKX4300-81-41 16:37:0014.9[facility] HermannCARDIAC PDGSQMN2335-37-05 20:44:000.02[facility] HermannCARDIAC SRFNYZQ8444-44-71 20:44:0097[facility] HermannCHEM ULJLE8370-17-30 20:44:0081[facility] HermannCHEM AEPUM7316-55-89 20:44:003.4[facility] HermannCHEM BIJGC5560-25-45 20:44:007.6[facility] HermannCHEM NJVNY7479-23-09 20:44:009.1 [facility] HermannCHEM YPVKY3999-65-56 20:44:0025[facility] HermannCHEM PANEL 2018-12-18 20:44:62471Bocbijkv HermannCHEM RUHEM9230-42-51 20:44:004.1[facility] HermannCHEM CLCBL8967-35-23 20:44:000.9[facility] HermannCHEM ORFLT7124-02-75 20:44:0091[facility] HermannCHEM QORKJ4838-70-61 20:44:0019[facility] HermannCHEM YYRIU6941-72-47 20:44:0024[facility] HermannCHEM VJNIY9018-94-01 20:44:89474 [facility] HermannCHEM GCTIZ8420-08-50 20:44:000.94[facility] HermannCHEM PANEL 2018-12-18 20:44:0028[facility] HermannCHEM YSQOW9258-11-75 20:44:0095[facility] HermannCHEM PYDOZ0504-23-22 20:44:00 Test Item Value Reference Range Interpretation Comments A/G Ratio (test code = A/G Ratio) 0.8 1 0.7-1.6 [facility] HermannCHEM YWPQS3013-91-72 20:44:00 Test Item Value Reference Range Interpretation Comments B/C Ratio (test code = B/C Ratio) 30 1 6-25 [facility] HermannCHEM YDETA8006-67-82 20:44:004.2[facility] HermannCHEM PANEL 2018-12-18 20:44:0013.1[facility] PcssqbgDPDQEVRMCW7241-24-22 20:44:0096.2[facility] JynwjsiICHLWGDBRR6959-68-99 20:44:0040.0[facility] ZkwwimaJRPCWGCUOL8375-60-82 20:44:004.15[facility] OzcnqrbPIIAAMJIYH4517-74-39 20:44:0013.6[facility] RDCLNSURET9340-64-66 20:44:0033.9[facility] MnrdvjmWSRFXLCFDT9553-71-26 20:44:00 Test Item Value Reference Range Interpretation Comments MCH (test code = MCH) 32.7 pg 27.0-31.0 [facility] KuwqtciURGPUCLHQT1241-34-23 20:44:0014.3[facility] HermannHEMATOLOGY 2018-12-18 20:44:70263Xdacxdrb YjiqgngXBWDWGEVWL2141-98-12 20:44:0011.3[facility] YhiakdwXCPCBXRHQZ7375-78-03 20:44:007.7[facility] LwjhyxcOARZQSPXZC7985-85-55 20:44:000.3[facility] NqlrtlkHZIACUDBLY0493-62-51 20:44:000.9[facility] AFUPYECQXO8196-72-62 20:44:005.3[facility] CmjehmdFJTVRTLIYG3589-08-42 20:44:00 68.5[facility] OhaefsrFKRCDTPMHY6633-56-71 20:44:0016.1[facility] HermannHEMATOLOGY 2018-12-18 20:44:0011.1[facility] XbciywoIFWOQGXHHZ2836-66-29 20:44:000.6[facility] YucmujmIYWUJVOAEC1387-59-98 20:44:001.2[facility] OiametdIJDFOCXSKI6657-36-97 20:44:003.7[facility] HermannCHEM TQWZY6414-31-38 11:49:0092[facility] HermannCHEM WNWPJ1280-54-15 11:49:0022[facility] HermannCHEM GRSZJ3778-77-10 11:49:008.5 [facility] HermannCHEM IPYYU9998-31-76 11:49:57442Trzvuxrm HermannCHEM PANEL 2018-12-13 11:49:003.9[facility] HermannCHEM HCNCL3196-02-15 11:49:000.76[facility] HermannCHEM CJFYK1265-59-28 11:49:96678Zpgfizsf HermannCHEM CIXZS4770-38-81 11:49:0014[facility] HermannCHEM WPYQJ5100-65-76 11:49:0098[facility] HermannCHEM JUTBK5472-11-64 11:49:0010.9[facility] HermannCHEM RUSKL8727-00-75 11:49:002.2 [facility] IbhykkpFPJHJLNDEV9761-38-55 11:49:08105Eqobzqkb HermannHEMATOLOGY 2018-12-13 11:49:0014.1[facility] TvvzxkhUYMTIFPERD3570-65-88 11:49:0033.8[facility] NelujwhPRBNCMCYVL4109-59-82 11:49:0098.0[facility] KuvswknXLMJAVLZQA8171-09-62 11:49:00 Test Item Value Reference Range Interpretation Comments MCH (test code = MCH) 33.2 pg 27.0-31.0 [facility]JfdhovqLTSQCWEQIB0506-23-37 11:49:0011.8[facility] HermannHEMATOLOGY 2018-12-13 11:49:0037.5[facility] ZejmlzlDMSSTWMANE4411-85-03 11:49:009.1[facility] ArbrumpXBLSNLKCPU3873-84-69 11:49:0012.7[facility] JpwmagyNZKNAXYSOM0448-67-00 11:49:003.83[facility] UhvgxxcJABSOZJOUG7812-72-02 11:49:00 Test Item Value Reference Range Interpretation Comments INR (test code = INR) 1.08 1 0.85-1.17 [facility]ennialOgoutgzSPQFVJGIJI2816-57-48 11:49:00 Test Item Value Reference Range Interpretation Comments PTT (test code = PTT) 28.0 s 22.9-35.8 [facility]ennialEvheoqgGDFJMATMUP8756-72-90 11:49:00 Test Item Value Reference Range Interpretation Comments PT (test code = PT) 13.8 s 12.0-14.7 [facility]ennialRdwumdoKFPIOXQSUJ0264-57-16 11:49:000.2[facility] HermannHEMATOLOGY 2018-12-13 11:49:000.8[facility] UwskoyhLLCJRIBKJJ5592-76-90 11:49:000.4[facility] AbaigivIWLIIVXUBO0022-33-16 11:49:002.2[facility] JhrlqpyJWKIUYNZMS8119-23-57 11:49:008.5[facility] GzjehhdDARCDLTKEI9360-99-61 11:49:001.5[facility] EKALNUWHYI9468-60-92 11:49:006.7[facility] CuktdjpYZYLKQDKFZ8175-11-61 11:49:00 73.0[facility] WzcixynZOQKYQHPIG0564-31-05 11:49:0015.9[facility] HermannHEMATOLOGY 2018-12-12 20:21:0098.7[facility] KhkdbwdWIFSJTGZMZ2316-27-78 20:21:00 Test Item Value Reference Range Interpretation Comments MCH (test code = MCH) 33.4 pg 27.0-31.0 [facility] RcnejqdHKIGBAHRLW7167-75-24 20:21:0013.0[facility] HermannHEMATOLOGY 2018-12-12 20:21:0038.4[facility] GeokusoWFUBEYPDLO9936-75-00 20:21:0033.9[facility] BsoeqecHVZUXYJXCR7205-95-60 20:21:32089Unqrazzv CpgnkdrGRLJNBDKDL2550-69-21 20:21:0012.0[facility] PgpeatcQHAHGRKZBL0779-86-52 20:21:0014.0[facility] FGGRNSMQTI7336-63-78 20:21:008.8[facility] RrwdeakIOGBVMTGCY2100-73-61 20:21:00 3.89[facility] DloqufpSLESWIADYQ9452-64-75 20:21:005.3[facility] HermannHEMATOLOGY 2018-12-12 20:21:0024.2[facility] RckppibGNTESSIYSS9105-98-44 20:21:002.7[facility] ZnmaiqvULAHRTDEYN0338-91-93 20:21:0067.3[facility] SxfqpjhGKSJRSTWFE8326-15-49 20:21:000.5[facility] FbslpagUXJBQGJBSB3778-76-87 20:21:000.2[facility] BYIVSCKFKF9870-20-82 20:21:000.5[facility] SmztqyaDPDVFYUHCP5448-87-00 20:21:005.9 [facility] IferkeuTQZKBGSOVL1457-45-09 20:21:002.1[facility] HermannBLOOD BANK NYKXFNN5677-42-31 11:35:00Product available (12/12/18 6:35 AM)[facility] BLOOD B[facility] KLWEEBF4538-15-18 11:35:00Product available (12/12/18 6:35 AM)[facility] SIJFCQR8701-96-52 11:35:00Negative (12/12/18 6:35 AM)[facility] HermannCHEM JCTZA9682-44-76 11:35:00 Test Item Value Reference Range Interpretation Comments A/G Ratio (test code = A/G Ratio) 1.0 1 0.7-1.6 [facility] HermannCHEM MSIZF5663-58-57 11:35:003.7[facility] HermannCHEM PANEL 2018-12-12 11:35:00 Test Item Value Reference Range Interpretation Comments B/C Ratio (test code = B/C Ratio) 19 1 6-25 [facility] HermannCHEM LFHEP4186-62-29 11:35:0011.7[facility] HermannCHEM PANEL 2018-12-12 11:35:003.6[facility] HermannCHEM KVPCO5011-32-89 11:35:0034[facility] HermannCHEM XLCOJ6072-52-16 11:35:0083[facility] HermannCHEM ZRLOS1200-55-63 11:35:0023[facility] HermannCHEM BIOFZ4086-40-91 11:35:007.3[facility] HermannCHEM ACCIN0006-61-74 11:35:000.4[facility] HermannCHEM AGKEM7617-78-09 11:35:0075 [facility]annCHEM NAWIA2453-19-65 11:35:009.5[facility] HermannCHEM PANEL 2018-12-12 11:35:0027[facility] HermannCHEM IJYHL3193-50-09 11:35:36824Swavedli HermannCHEM FTLWL6550-12-71 11:35:003.7[facility] HermannCHEM RYQMW6569-91-67 11:35:0093[facility] HermannCHEM WDILL7478-21-73 11:35:001.00[facility] HermannCHEM LCJHT3841-00-65 11:35:91298Fkcyqnut HermannCHEM TDIWJ9107-24-28 11:35:0019 [facility]annCHEM CPBRV9081-58-11 11:35:002.2[facility] HermannHEMATOLOGY 2018-12-12 11:35:000.1[facility] VrerxivPKSRBMGSDX2703-84-99 11:35:0024.6[facility] NuyxvfkQOZFFGLNAG2928-35-04 11:35:009.5[facility] SiwwcayPOVXWXSEYY4762-58-76 11:35:003.7[facility] WmqwmdrUGCADSCBJF1014-78-80 11:35:000.8[facility] JQGPHAGEKH0558-34-01 11:35:004.3[facility] KiowukfVUYSCCFQFO3323-53-71 11:35:001.7 [facility] VasrqarUEISWDFXLZ1231-52-18 11:35:000.7[facility] HermannHEMATOLOGY 2018-12-12 11:35:000.3[facility] HqudcdqJBXGKFVRSS6495-38-56 11:35:0061.4[facility] RdbezygZXDULSJAUU1750-62-02 11:35:00 Test Item Value Reference Range Interpretation Comments PT (test code = PT) 13.6 s 12.0-14.7 [facility] IqtcdwpBZHUKVXYCB0393-87-23 11:35:00 Test Item Value Reference Range Interpretation Comments PTT (test code = PTT) 27.0 s 22.9-35.8 [facility] BruuyriXSDAKCZCJO3488-41-47 11:35:00 Test Item Value Reference Range Interpretation Comments INR (test code = INR) 1.06 1 0.85-1.17 [facility] TqosluhRRDVEBDNGF7056-79-09 11:35:88769Fiopmcdp HermannHEMATOLOGY 2018-12-12 11:35:0011.5[facility] InxodduNNPSPZLDBP9239-67-44 11:35:007.0[facility] EzqzruxLKFMVDEJWW4482-87-51 11:35:004.45[facility] GtfvxroJYFKDTJTKV3617-45-38 11:35:0014.8[facility] RgrflkyPGWPSCQXUR1407-04-92 11:35:0044.1[facility] WYDEXYBPHG4048-05-42 11:35:00 Test Item Value Reference Range Interpretation Comments MCH (test code = MCH) 33.2 pg 27.0-31.0 [facility] XawrgkrCVTBSWNKEJ1252-15-76 11:35:0014.2[facility] HermannHEMATOLOGY 2018-12-12 11:35:0099.1[facility] GytmlmzBZBEOEQQST3773-66-20 11:35:0033.5[facility] HermannCHEM WPCMH4574-96-90 12:45:0086[facility] HermannCHEM UTWKU9089-63-38 12:45:000.9[facility] HermannCHEM ZSVSL0128-13-77 11:15:0088[facility] HermannCHEM FLPGD4092-25-53 11:15:004.3[facility] HermannCHEM AISOM3649-33-78 11:15:00 Test Item Value Reference Range Interpretation Comments A/G Ratio (test code = A/G Ratio) 0.5 1 0.7-1.6 [facility] HermannCHEM QCPQW5831-00-90 11:15:0022[facility] HermannCHEM PANEL 2018-09-22 11:15:76508Eizacsgr HermannCHEM DGJVG8037-19-11 11:15:003.5[facility] HermannCHEM TUQAJ5738-04-27 11:15:000.85[facility] HermannCHEM YYIPB2703-43-95 11:15:40846Mwuxrgwr HermannCHEM BPHFZ0009-65-93 11:15:006.6[facility] HermannCHEM UOANI5418-03-75 11:15:72190Wxrsvhok HermannCHEM ZQCUG8802-51-40 11:15:002.3 [facility] HermannCHEM DXSRG1771-73-52 11:15:0023[facility] HermannCHEM PANEL 2018-09-22 11:15:46545Jybtvjfv HermannCHEM PQZCE1684-31-87 11:15:008.3[facility] HermannCHEM TMURQ0015-39-54 11:15:000.9[facility] HermannCHEM GOMTZ4374-45-48 11:15:00 Test Item Value Reference Range Interpretation Comments B/C Ratio (test code = B/C Ratio) 26 1 6-25 [facility] HermannCHEM BOCYM1105-05-08 11:15:0013.5[facility] HermannCHEM PANEL 2018-09-22 11:15:0054[facility] HermannCHEM SKIEM4635-78-48 11:15:19798Upbbpjbz HermannCHEM QWYAU7552-40-30 11:15:003.6[facility] HermannCHEM UCPYU2335-09-06 11:15:002.3[facility] DlnjhhvFVUCOCAHSO7443-71-66 11:15:0038.1[facility] EGBDMTWHZH1980-65-96 11:15:003.84[facility] IlpuxdyRZQTKVLCZZ2475-23-35 11:15:00 13.6[facility] YdvnopzZLHQZYCCHE9901-31-90 11:15:007.2[facility] HermannHEMATOLOGY 2018-09-22 11:15:0099.3[facility] DuqinumEKRBLSTHEC2415-95-04 11:15:00 Test Item Value Reference Range Interpretation Comments MCH (test code = MCH) 35.3 pg 27.0-31.0 [facility] JfvaghaVVNAIIEKNT7818-59-06 11:15:84195Evzlqsxr HermannHEMATOLOGY 2018-09-22 11:15:0035.5[facility] BphbmxsYEDLBVXGIA3086-83-04 11:15:0013.1[facility] QcpyqtoZWPCGISRHC6428-59-56 11:15:0011.1[facility] HppycltQPXVKQEAUJ7466-42-25 11:15:000.5[facility] BeqsfkhOBFGZJQTXJ3337-21-82 11:15:001.3[facility] JSQMIFNAOI7488-81-13 11:15:004.8[facility] OcjiyknQWODOBPHBQ1026-86-55 11:15:000.2 [facility] EgedaexWQNGNVVHBT5992-57-71 11:15:000.8[facility] HermannHEMATOLOGY 2018-09-22 11:15:0011.7[facility] CleqeogNUONNEMRZL1130-41-36 11:15:0018.1[facility] CnmrzmjQMXGYWFBCU6988-09-53 11:15:002.8[facility] OpqsjdkGYGYVRJAWS1173-67-77 11:15:0066.9[facility] HermannCARDIAC WVAHCZS3584-13-11 10:00:71375Tasqfwxu HermannCHEM XYTTM9673-60-28 10:00:000.21[facility] HermannCHEM FROQZ1919-64-00 10:00:002.4[facility] HermannCHEM ZBQXS8634-69-25 10:00:002.2[facility] HermannCHEM AQMJN4391-41-83 10:00:0078[facility] HermannCHEM HCHOC9982-20-76 10:00:008.5 [facility] HermannCHEM GSGTC2699-96-80 10:00:23648Smcpbaui HermannCHEM PANEL 2018-09-21 10:00:0022[facility] PBURF9794-80-30 10:00:000.97[facility] CUBQN1652-02-66 10:00:0020[facility] WDIUU6375-29-87 10:00:003.5[facility] XTYIK8024-74-63 10:00:39618Iqvtywtd HermannCHEM KNYEA5709-67-49 10:00:33709Yfaenkfq HermannCHEM MNVDW6764-07-63 10:00:0015.5 [facility] PMMOY8148-78-72 10:00:0096[facility]annCHE[facility] PANEL 2018-09-21 10:00:0044[facility] HRCUC4140-47-17 10:00:002.3[facility]CHE[facility] JOJNR7588-13-14 10:00:000.9[facility]CHE[facility] PAMQV8921-00-29 10:00:0053[facility] BEEJW4835-48-28 10:00:000.1[facility] WWCIF8964-37-93 10:00:00 Test Item Value Reference Range Interpretation Comments A/G Ratio (test code = A/G Ratio) 0.5 1 0.7-1.6 [facility] SANDJ5875-49-48 10:00:004.4[facility]annCHE[facility] PANEL 2018-09-21 10:00:000.8[facility]CHE[facility] JATAH8832-21-46 10:00:006.7[facility] RyucypxUZCHNIMLEK3670-05-99 10:00:00 Test Item Value Reference Range Interpretation Comments PTT (test code = PTT) 33.3 s 22.9-35.8 [facility] UttnbzvXUACEOHYFI0162-55-51 10:00:00 Test Item Value Reference Range Interpretation Comments PT (test code = PT) 14.1 s 12.0-14.7 [facility] QolyuynWSPAENWDQE7676-81-26 10:00:00 Test Item Value Reference Range Interpretation Comments INR (test code = INR) 1.11 1 0.85-1.17 [facility] AmicgfpPSAKGMYPAK6988-55-20 10:00:0011.0[facility]annHEMATOLOGY 2018-09-21 10:00:94640Qvyvywfl HzmtpmxATIBBKFKLC6179-45-96 10:00:0013.5[facility] DpiiwvkGLHKFIRKNT9091-47-72 10:00:0040.8[facility] OpkgfjlGEWMONALOW5588-77-07 10:00:0014.0[facility] RfjbkxgZHEJFIUVZU4670-18-70 10:00:0034.3[facility] OZUXGFGZGP4073-36-20 10:00:0099.4[facility] AtsyjsiMVOWMYKHIU3351-86-23 10:00:00 Test Item Value Reference Range Interpretation Comments MCH (test code = MCH) 34.1 pg 27.0-31.0 [facility] EtvaaanRVCTSXGJHZ7120-16-15 10:00:004.11[facility]annHEMATOLOGY 2018-09-21 10:00:009.0[facility] GyylhwmLHETKZIFPO6794-08-52 10:00:000.4[facility] UsaiumtWFHPCLMKAM9867-16-32 10:00:001.3[facility] GykmycyZQFISUROFU1641-73-91 10:00:001.0[facility] AaxnnevIERHJUFMOC6309-89-22 10:00:000.2[facility] FIEWASCBPG5883-06-65 10:00:0014.2[facility] DhwiwzgWBMVEKYNAO2587-82-79 10:00:00 6.7[facility] ErnnwahYIHPNDBYOE2093-31-83 10:00:0010.8[facility]annHEMATOLOGY 2018-09-21 10:00:0074.4[facility]annCHEM RITLX1922-92-64 20:08:0067[facility]annCHE[facility] JPKSG0307-14-15 20:08:008.2[facility]annCHE[facility] HBMAQ7434-72-05 20:08:003.4[facility]annCHE[facility] CSFTV8218-87-03 20:08:0096[facility]CHE[facility] DQFDG9862-72-67 20:08:0020[facility] PVXBF6206-37-39 20:08:0016.4 [facility]CHE[facility] UCYDB2981-72-37 20:08:53821Facpnmvy HermannCHEM PANEL 2018-09-20 20:08:0019[facility]annCHE[facility] ILKTH1918-95-68 20:08:001.10[facility]annCHEM KGJSS4548-22-26 20:08:89941Yukeuegt QqrpfhcJKBJFNBXKK1665-08-89 20:08:001+ *ABN*(09/20/18 2:08 PM)[facility] RfdvjrvGNRDYCTBVX0432-00-29 20:08:00 See Note 1(09/20/18 2:08 PM)[facility] GqqqznkPEPCDGRLMG8325-82-46 20:08:000.7 [facility] NovsilhIJPDBRNKWX6076-25-75 20:08:000.9[facility]annHEMATOLOGY 2018-09-20 20:08:009.5[facility] NnsrwxgZGSGXTCSJX9516-90-87 20:08:000.4[facility] DcjlbcbBYRQGDIZHU6945-34-25 20:08:000.1[facility] LawncahLHCJNNAWUW4845-32-19 20:08:006.0[facility] XpfzttsPTNDUKGNOA4390-42-37 20:08:008.4[facility] ODTOQSEBTA2621-21-19 20:08:0085.1[facility] UozzofrVSMFAPZENE0018-07-70 20:08:00 4.16[facility] DsvibmhFJJRTOQEPC9541-61-67 20:08:0014.5[facility]annHEMATOLOGY 2018-09-20 20:08:0011.2[facility] MpjjlpgRXDWMUSZOL4948-52-65 20:08:67615Swewsdda OanmhoaQJSUFGPKOL2671-63-11 20:08:0010.9[facility] BcmyprxSNRUBUNOPC7621-66-33 20:08:0013.0[facility] MbuznsqMASQLQVWTP9386-71-15 20:08:00 Test Item Value Reference Range Interpretation Comments MCH (test code = MCH) 34.9 pg 27.0-31.0 [facility] OcczxsvEZAUABMZIB8751-47-79 20:08:0034.7[facility]annHEMATOLOGY 2018-09-20 20:08:0041.8[facility] MkxrevdKXTWEXYHJD9357-79-86 20:08:72459.5 [facility]annCHEM OMGOO6013-38-30 11:26:000.2[facility]annCHEM PANEL 2018-09-20 11:26:001.2[facility]annCHEM QOISN3838-54-87 11:26:001.0[facility]annCHEM HZQBF6097-39-87 11:26:004.1[facility]annCHEM JZTFE7378-83-70 11:26:00 Test Item Value Reference Range Interpretation Comments A/G Ratio (test code = A/G Ratio) 0.6 1 0.7-1.6 [facility]CHE[facility] SMNYZ2825-42-68 11:26:002.4[facility]annCHEM PANEL 2018-09-20 11:26:0047[facility]annCHEM AMCWT9591-91-88 11:26:0037[facility]annCHEM KVXTO0664-25-19 11:26:006.5[facility]annCHEM FJXKV1954-54-03 11:26:31210Oyigqybe HermannCARDIAC KMWILAH9880-53-88 06:09:74820Wbpjcjde [place] CHEM HNOSI5838-88-44 06:09:001.6[facility]annCHEM LKWME4343-31-28 06:09:00 0.16[facility] HermannCARDIAC OABJVJG9101-76-91 23:03:05289Zzjdfhol HermannCHEM MUTIQ4275-75-67 23:03:000.13[facility] WrlvwgoZNUNZTCLQZ3774-86-73 23:03:00 Negative *NA*(09/19/18 5:03 PM)[facility] PtrlkvcYKTTMGLQXD5419-23-15 23:03:00 Negative *NA*(09/19/18 5:03 PM)[facility] YdahfacXMZHSCWSPR3836-10-36 23:03:00 Negative *NA*(09/19/18 5:03 PM)[facility] VvseeqcUXPFTGNIRO4999-20-07 23:03:00 Negative *NA*(09/19/18 5:03 PM)[facility]annCHE[facility] IKOFR9227-80-07 06:07:002.6 [facility]annCHE[facility] KGZMW6011-93-35 06:07:002.0[facility]annHEMATOLOGY 2018-09-19 06:07:00 Test Item Value Reference Range Interpretation Comments INR (test code = INR) 1.09 1 0.85-1.17 [facility] EhgstfbLTYPPBOPJZ9297-19-71 06:07:00 Test Item Value Reference Range Interpretation Comments PT (test code = PT) 13.9 s 12.0-14.7 [facility] LjgbsteKUKSKCGZSP8620-47-36 06:07:00 Test Item Value Reference Range Interpretation Comments PTT (test code = PTT) 33.0 s 22.9-35.8 [facility] [id number] 06:07:001+ *ABN*(09/19/18 12:07 AM)[facility] [id number] 06:07:000.1[facility] HermannPARATHYROID PROFILE 2018-09-19 06:07:001.08[facility]annPARATHYROID [id number] 06:07:00 1.11[facility] HermannCHEM [id number] 12:21:000.1[facility] HermannCHEM PANEL 2018-09-18 12:21:000.6[facility] HermannPARATHYROID [id number] 09:14:001.14 [facility]annPARATHYROID [id number] 09:14:001.14[facility] HermannCHEM [id number] 01:10:31929Uiliuivs HermannCHEM [id number] 01:10:00 Test Item Value Reference Range Interpretation Comments B/C Ratio (test code = B/C Ratio) 16 1 6-25 [facility] [id number] 01:10:00 Test Item Value Reference Range Interpretation Comments VLDL (test code = VLDL) 26 1 [facility] [id number] 01:10:44599Okdqhove [id number] 01:10:0081[facility] [id number] 01:10:0057[facility] HermannLIPIDS 2018-09-18 01:10:69079Ocsleefw [id number] 01:10:00 Test Item Value Reference Range Interpretation Comments CHD Risk (test code = CHD Risk) 2.02 1 4.00-7.30 [facility]annSPECIAL [id number] 01:10:005.9[facility] HermannBLOOD BANK [id number] 18:57:00Negative (09/17/18 12:57 PM)[facility] [id number] 18:57:00 Test Item Value Reference Range Interpretation Comments PT (test code = PT) 14.7 s 12.0-14.7 [facility] [id number] 18:57:00 Test Item Value Reference Range Interpretation Comments INR (test code = INR) 1.17 1 0.85-1.17 [facility]annPARATHYROID [id number] 18:57:001.07[facility] PARATHYROID [id number] 18:57:001.04[facility]
[2020-08-21 22:30] LABS: SARS-COV-2 RT PCR POSITIVE (NEGATIVE)
--- NOTE | 2020-08-21 22:31 | ER ---
Nurse's Notes [facility] Name: Sadiq Arguelles IV Age: 75 yrs Sex: Male : 1945 Arrival Date: 08/21/2020 Time: 20:44 Bed 20 Private MD: Diagnosis: Coronavirus infection, unspecified Presentation: 08/21 20:57 Chief complaint: Patient states: C/O fever that started yesterday. 102 highest at home. Pt took Tylenol 20 minutes ago. Also C/O dry cough occasionally. Coronavirus screen: Client denies travel out of the [place] in the last 14 days. cough unrelated to allergies, fever, Client presents with at least one sign or symptom that may indicate coronavirus-19. Standard/surgical mask placed on the client. Ebola Screen: Patient negative for fever greater than or equal to 101.5 degrees Fahrenheit, and additional compatible Ebola Virus Disease symptoms Patient denies exposure to infectious person. Initial Sepsis Screen: Does the patient meet any 2 criteria? No. Patient's initial sepsis screen is negative. Does the patient have a suspected source of infection? Yes: Other: Fever. Risk Assessment: Do you want to hurt yourself or someone else? Patient reports no desire to harm self or others. Onset of symptoms was August 21, 2020. 20:57 Method Of Arrival: Ambulatory 20:57 Acuity: BELLA 4 Historical: - Allergies: 21:05 Morphine; 21:05 PENICILLINS; - Home Meds: 21:05 spironolactone 12.5 mg Oral once daily [Active]; aspirin 81 mg Oral chew 1 tab once wh daily [Active]; BRILINTA 90 mg oral tab 1 tab 2 times per day [Active]; metoprolol tartrate 25 mg Oral tab 1 tab once daily [Active]; lisinopril 5 mg oral tab 1 tab once daily [Active]; atorvastatin 40 mg oral tab 1 tab once daily [Active]; Vitamin D Oral 1,000 unit daily [Active]; - PMHx: 21:05 aortic valve replacement; cardiac stent; Myocardial infarction; Hypertension; - PSHx: 21:05 Hernia repair; Knee surgery; - Immunization history:: Adult Immunizations up to date. - Social history:: Smoking status: Patient/guardian denies using. Screenin:05 Abuse screen: Denies threats or abuse. Denies injuries from another. Nutritional screening: No deficits noted. Tuberculosis screening: No symptoms or risk factors identified. Fall Risk None identified. Assessment: 21:05 General: Appears in no apparent distress. Behavior is calm, cooperative, appropriate wh for age. Pain: Denies pain. Neuro: Level of Consciousness is awake, alert, obeys commands, Oriented to person, place, time, situation, Appropriate for age. Cardiovascular: Capillary refill < 3 seconds. Respiratory: Reports cough that is Airway is patent Respiratory effort is even, unlabored, Respiratory pattern is regular, symmetrical. GI: Abdomen is flat, non-distended. : No signs and/or symptoms were reported regarding the genitourinary system. EENT: No signs and/or symptoms were reported regarding the EENT system. Derm: Skin is intact, is healthy with good turgor, Skin is pink, warm \T\ dry. normal. Musculoskeletal: Circulation, motion, and sensation intact. 22:30 Reassessment: Patient appears in no apparent distress at this time. No changes from previously documented assessment. Patient and/or family updated on plan of care and expected duration. Pain level reassessed. Patient is alert, oriented x 3, equal unlabored respirations, skin warm/dry/pink. Vital Signs: 20:57 BP 120 / 65; Pulse 73; Resp 18; Temp 99.3; Pulse Ox 98% ; Weight 72.57 kg; Height 6 ft. wh 0 in. (182.88 cm); 22:30 BP 99 / 57; Pulse 63; Resp 18; Pulse Ox 96% on R/A; wh 20:57 Body Mass Index 21.70 (72.57 kg, 182.88 cm) ED Course: 20:44 Patient arrived in ED. ag3 20:57 Crow Wilson, RN is Primary Nurse. 20:59 Triage completed. 21:05 Lindsey Palumbo FNP-C is PHCP. kb 21:05 Ford Sandoval MD is Attending Physician. kb 21:06 Patient has correct armband on for positive identification. Bed in low position. Call light in reach. Side rails up X 1. Pulse ox on. NIBP on. 21:06 Arm band placed on right wrist. wh 22:25 Chest Single View XRAY In Process Unspecified. EDMS 22:52 No provider procedures requiring assistance completed. Patient did not have IV access during this emergency room visit. Administered Medications: No medications were administered Outcome: 22:30 Discharge ordered by . feliciano 22:52 Discharged to home ambulatory. 22:52 Condition: stable 22:52 Discharge instructions given to patient, Instructed on discharge instructions, follow up and referral plans. POC Demonstrated understanding of instructions, follow-up care, POC 22:53 Patient left the ED. Signatures: Dispatcher [employer] EDMS Lindsey Palumbo, HIGHWAY MAINTENANCE WORKER-C HIGHWAY MAINTENANCE WORKER-Crow Almeida, RN RN Kim Solis ag3
--- NOTE | 2020-08-21 22:31 | EDPHYS ---
Physician Documentation [facility] Name: Sadiq Arguelles IV Age: 75 yrs Sex: Male : 1945 Arrival Date: 08/21/2020 Time: 20:44 Bed 20 Private MD: ED Physician Ford Sandoval HPI: 08/21 21:44 This 75 yrs old Male presents to ER via Ambulatory with complaints of Fever. kb 21:44 The patient reports fever, that was measured at 102 degrees Fahrenheit, with an kb emergency department temperature of 99.3 degrees Fahrenheit. Onset: The symptoms/episode began/occurred yesterday. Modifying factors: there are no obvious modifying factors. Associated signs and symptoms: Pertinent positives: cough. Severity of symptoms: At their worst the symptoms were mild in the emergency department the symptoms are unchanged. The patient has not experienced similar symptoms in the past. The patient has not recently seen a physician. Pt reports fever since yesterday afternoon. States he has a very slight cough and some intermittent drainage. Denies any other symptoms. . Historical: - Allergies: 21:05 Morphine; 21:05 PENICILLINS; - Home Meds: 21:05 spironolactone 12.5 mg Oral once daily [Active]; aspirin 81 mg Oral chew 1 tab once wh daily [Active]; BRILINTA 90 mg oral tab 1 tab 2 times per day [Active]; metoprolol tartrate 25 mg Oral tab 1 tab once daily [Active]; lisinopril 5 mg oral tab 1 tab once daily [Active]; atorvastatin 40 mg oral tab 1 tab once daily [Active]; Vitamin D Oral 1,000 unit daily [Active]; - PMHx: 21:05 aortic valve replacement; cardiac stent; Myocardial infarction; Hypertension; - PSHx: 21:05 Hernia repair; Knee surgery; - Immunization history:: Adult Immunizations up to date. - Social history:: Smoking status: Patient/guardian denies using. ROS: 21:44 Cardiovascular: Negative for chest pain, palpitations, and edema, Abdomen/GI: Negative kb for abdominal pain, nausea, vomiting, diarrhea, and constipation, MS/Extremity: Negative for injury and deformity, Skin: Negative for injury, rash, and discoloration, Neuro: Negative for headache, weakness, numbness, tingling, and seizure. 21:44 Constitutional: Positive for fever. 21:44 Respiratory: Positive for cough, Negative for dyspnea on exertion, hemoptysis, orthopnea, pleurisy, shortness of breath, sputum production, wheezing. Exam: 21:44 Constitutional: This is a well developed, well nourished patient who is awake, alert, kb and in no acute distress. Head/Face: Normocephalic, atraumatic. Chest/axilla: Normal chest wall appearance and motion. Nontender with no deformity. No lesions are appreciated. Cardiovascular: Regular rate and rhythm with a normal S1 and S2. No gallops, murmurs, or rubs. Normal PMI, no JVD. No pulse deficits. Respiratory: Lungs have equal breath sounds bilaterally, clear to auscultation and percussion. No rales, rhonchi or wheezes noted. No increased work of breathing, no retractions or nasal flaring. Abdomen/GI: Soft, non-tender, with normal bowel sounds. No distension or tympany. No guarding or rebound. No evidence of tenderness throughout. Skin: Warm, dry with normal turgor. Normal color with no rashes, no lesions, and no evidence of cellulitis. MS/ Extremity: Pulses equal, no cyanosis. Neurovascular intact. Full, normal range of motion. Neuro: Awake and alert, GCS 15, oriented to person, place, time, and situation. Cranial nerves II-XII grossly intact. Motor strength 5/5 in all extremities. Sensory grossly intact. Cerebellar exam normal. Normal gait. Vital Signs: 20:57 BP 120 / 65; Pulse 73; Resp 18; Temp 99.3; Pulse Ox 98% ; Weight 72.57 kg; Height 6 ft. wh 0 in. (182.88 cm); 22:30 BP 99 / 57; Pulse 63; Resp 18; Pulse Ox 96% on R/A; wh 20:57 Body Mass Index 21.70 (72.57 kg, 182.88 cm) MDM: 21:05 Patient medically screened. kb 21:43 Data reviewed: vital signs, nurses notes. Data interpreted: Pulse oximetry: on room air kb is 98 %. Interpretation: normal. Counseling: I had a detailed discussion with the patient and/or guardian regarding: the historical points, exam findings, and any diagnostic results supporting the discharge/admit diagnosis, lab results, the need for outpatient follow up, a family practitioner, to return to the emergency department if symptoms worsen or persist or if there are any questions or concerns that arise at home. 08/21 21:44 Order name: Chest Single View XRAY kb 08/21 22:30 Order name: COVID-19/FLU A+B; Complete Time: 22:31 EDMS Administered Medications: No medications were administered Disposition: 08/22 04:04 Co-signature as Attending Physician, Frod Sandoval MD. [email or web address] Disposition: 08/21/20 22:30 Discharged to Home. Impression: Coronavirus infection, unspecified. - Condition is Stable. - Discharge Instructions: Viral Respiratory Infection, Heqj-Qo-Pims, COVID-19. - Medication Reconciliation Form, Thank You Letter, Antibiotic Education, Prescription Opioid Use form. - Follow up: Emergency Department; When: As needed; Reason: Worsening of condition. Follow up: Private Physician; When: 2 - 3 days; Reason: Recheck today's complaints, Continuance of care, Re-evaluation by your physician. Signatures: Dispatcher [employer] [facility] Lindsey Palumbo, INVENTORY CONTROL SUPERVISOR-C INVENTORY CONTROL SUPERVISOR-Crow Almeida RN RN Ford Sandoval MD MD [email or web address] Corrections: (The following items were deleted from the chart) 08/21 21:34 21:06 CORONAVIRUS+MR.LAB.BRZ ordered. [facility] 21:35 21:06 Influenza Screen (A \T\ B)+BA.LAB.BRZ ordered. [facility] 22:53 22:30 08/21/2020 22:30 Discharged to Home. Impression: Coronavirus infection, wh unspecified. Condition is Stable. Forms are Medication Reconciliation Form, Thank You Letter, Antibiotic Education, Prescription Opioid Use. Follow up: Emergency Department; When: As needed; Reason: Worsening of condition. Follow up: Private Physician; When: 2 - 3 days; Reason: Recheck today's complaints, Continuance of care, Re-evaluation by your physician. kb
[2020-08-21 23:21] VITALS: TEMP 99.3
[2020-08-21 23:22] VITALS: BP 99/57; O2SAT 96
--- NOTE | 2020-08-22 08:51 | RAD REPORT ---
EXAM DESCRIPTION: RAD - Chest Single View - 08/21/2020 10:25 pm CLINICAL HISTORY: Cough;Fever COMPARISON: Two view chest January 2014 TECHNIQUE: AP portable chest image was obtained 08/21/2020 10:25 pm . FINDINGS: No focal mass or consolidation. Interstitial pattern matches comparison. Heart and vascula ture are normal. No measurable pleural effusion and no pneumothorax. No acute bony abnormality seen. No acute aortic findings suspected. IMPRESSION: No acute cardiopulmonary process. No significant change from comparison study.
== END 2020-08-21 22:53 | disposition home or self-care (01) ==
LOC: ER 20:41
DX: U07.1 COVID-19 (principal); I10 Essential (primary) hypertension; Z95.4 Presence of other heart-valve replacement; Z95.818 Presence of other cardiac implants and grafts; Z79.82 Long term (current) use of aspirin; Z88.0 Allergy status to penicillin; Z88.5 Allergy status to narcotic agent
CPT/HCPCS: 0240U; 71045; 99283

== ENCOUNTER 2022-04-05 10:26 | Emergency (ER) | payer OTHER ==
--- NOTE | 2022-04-05 11:26 | RAD REPORT ---
EXAM DESCRIPTION: CT - Lower Ext Wo Con W/ Mpr - 04/05/2022 11:04 am CLINICAL HISTORY: ? Fracture on x-ray, Left foot and ankle pain COMPARISON: Foot Left 3 View dated 04/04/2022; Ankle Left 3 View dated 04/04/2022 TECHNIQUE: Axial noncontrast 2 millimeter thick images were obtained of the left foot and ankle. Sag ittal and coronal reconstruction images were generated and reviewed. All CT scans are performed using dose optimization technique as appropriate and may include automate d exposure control or mA/KV adjustment according to patient size. FINDINGS: The distal fibula is fractured. There is a coronal oriented fracture plane and begins appr oximately 7 cm above the ankle joint line in a slightly angled posterior to anterior orientation. No significant distraction or angulation deformity seen. There is an additional coronal oriented fractur e line through the posterior malleolus of the tibia. There is no distraction at this fracture line. M edial malleolus is intact. Talus and calcaneus are intact. Small accessory ossicles are seen along th e posterior margin of the tibiocalcaneal joint line. Bones of the midfoot are intact. The metatarsals and phalanges show no acute findings. Soft tissues are edematous along the lateral margin of the ankle joint. No foreign body seen. IMPRESSION: Nondisplaced fractures of the distal fibula and posterior malleolus of the tibia.
--- NOTE | 2022-04-05 12:24 | ER ---
Nurse's Notes [facility] Name: Sadiq Arguelles IV Age: 76 yrs Sex: Male : 1945 Arrival Date: 04/05/2022 Time: 10:30 Bed 12 Private MD: Diagnosis: Nondisplaced fracture of lateral malleolus of left fibula;Posterior malleolus fracture;fall Presentation: 04/05 11:01 Note Called pt from [facility] for triage, pt in radiology. 11:12 Chief complaint: Patient states: Fell through attic/ceiling yesterday, states, " I ph didn't fall all the way through but I landed on top of my L foot w/ my butt." C/O pain to L foot, worse w/ ambulation. Coronavirus screen: Vaccine status: Patient reports receiving the 2nd dose of the covid vaccine. Ebola Screen: No symptoms or risks identified at this time. Initial Sepsis Screen: Does the patient meet any 2 criteria? No. Patient's initial sepsis screen is negative. Does the patient have a suspected source of infection? No. Patient's initial sepsis screen is negative. Risk Assessment: Do you want to hurt yourself or someone else? Patient reports no desire to harm self or others. Onset of symptoms was April 05, 2022. 11:12 Method Of Arrival: Wheelchair ph 11:12 Acuity: BELLA 4 ph Triage Assessment: 11:15 General: Appears in no apparent distress. comfortable, slender, well groomed, Behavior ph is calm, cooperative, appropriate for age. Pain: Complains of pain in left foot. Neuro: Level of Consciousness is awake, alert, obeys commands, Oriented to person, place, time, situation. Cardiovascular: Capillary refill < 3 seconds in bilateral fingers Patient's skin is warm and dry. Respiratory: Airway is patent Respiratory effort is even, unlabored. Derm: Bruising that is dark purple, on left foot. Musculoskeletal: Circulation, motion, and sensation intact. Range of motion: intact in all extremities. Historical: - Allergies: 11:14 Morphine; ph 11:14 PENICILLINS; ph - Home Meds: 11:14 aspirin 81 mg Oral chew 1 tab once daily [Active]; atorvastatin 40 mg Oral tab 1 tab ph once daily [Active]; BRILINTA 90 mg Oral tab 1 tab 2 times per day [Active]; lisinopril 5 mg Oral tab 1 tab once daily [Active]; metoprolol tartrate 25 mg Oral tab 1 tab once daily [Active]; Spironolactone 12.5 mg Oral once daily [Active]; Vitamin D Oral 1000 unit daily [Active]; - PMHx: 11:14 aortic valve replacement; cardiac stent; Hypertension; Myocardial infarction; ph - Immunization history:: Adult Immunizations up to date. - Social history:: Smoking status: Patient denies any tobacco usage or history of. Screenin:11 Abuse screen: Denies threats or abuse. Denies injuries from another. Nutritional ph screening: No deficits noted. Tuberculosis screening: No symptoms or risk factors identified. Fall Risk None identified. Assessment: 12:18 Reassessment: Patient appears in no apparent distress at this time. Patient and/or hb family updated on plan of care and expected duration. Pain level reassessed. Patient is alert, oriented x 3, equal unlabored respirations, skin warm/dry/pink. Vital Signs: 11:12 BP 142 / 72; Pulse 64; Resp 18; Temp 98.0; Pulse Ox 99% on R/A; Height 6 ft. 0 in. ph (182.88 cm); Pain 2/10; ED Course: 10:30 Patient arrived in ED. rg4 10:33 Avery Hussein is PHCP. jl9 10:33 Jesús Yang DO is Attending Physician. jl9 11:01 Patient's name was called from [facility]. ph 11:02 Bhumi Sepulveda, RN is Primary Nurse. ph 11:06 Lower Ext Wo Con W/ Mpr In Process Unspecified. EDMS 11:14 Triage completed. ph 11:15 Arm band placed on Patient placed in an exam room. ph 11:15 Patient has correct armband on for positive identification. Bed in low position. Call ph light in reach. Door closed. Noise minimized. 12:23 Kevin Arnold MD is Referral Physician. ms3 13:13 Crutch training done. Orthoglass splint: Posterior short lleg splint applied on stirrup ss splint applied on left leg. 13:35 No provider procedures requiring assistance completed. Patient did not have IV access ph during this emergency room visit. Administered Medications: No medications were administered Medication: 12:45 VIS not applicable for this client. Outcome: 12:24 Discharge ordered by MD. ms3 13:38 Patient left the ED. 6 13:38 Discharged to home with family. 13:38 Condition: good 13:38 Discharge instructions given to patient, Instructed on discharge instructions, follow up and referral plans. Demonstrated understanding of instructions, follow-up care. Signatures: Dispatcher [employer] EDMS Fiordaliza Azar RN RN Bhumi Sepulveda RN RN Luisa Kelley RN RN Eliana Gibson rg4 Jesús Yang, DO ms3 Jackeline Nevarez RN RN jh6 Avery Hussein jl9
--- NOTE | 2022-04-05 12:24 | EDPHYS ---
Physician Documentation [facility] Name: Sadiq Arguelles IV Age: 76 yrs Sex: Male : 1945 Arrival Date: 04/05/2022 Time: 10:30 Bed 12 Private MD: ED Physician Jesús Yang HPI: 04/05 10:54 This 76 yrs old Male presents to ER via Unassigned with complaints of Ankle Injury. ms3 10:54 76-year-old male presents for left ankle and foot pain after stepping off the willy ms3 in his attic and falling onto the attic willy yesterday. Patient states he landed on his left foot. Patient denies current pain. Patient states the pain is worse with walking or standing. The pain is better when patient is resting his foot and does not have weight applied to the area. Patient denies neck pain back pain, hip pain. Patient saw his primary care physician, Dr. Dhillon, yesterday and x-rays were performed. Dr. Dhillon called the emergency department stating he was sending the patient to the emergency department as patient had questionable fracture of his ankle and calcaneus. Dr. Dhillon would like CT of the ankle and foot performed.. Historical: - Allergies: 11:14 Morphine; ph 11:14 PENICILLINS; ph - Home Meds: 11:14 aspirin 81 mg Oral chew 1 tab once daily [Active]; atorvastatin 40 mg Oral tab 1 tab ph once daily [Active]; BRILINTA 90 mg Oral tab 1 tab 2 times per day [Active]; lisinopril 5 mg Oral tab 1 tab once daily [Active]; metoprolol tartrate 25 mg Oral tab 1 tab once daily [Active]; Spironolactone 12.5 mg Oral once daily [Active]; Vitamin D Oral 1000 unit daily [Active]; - PMHx: 11:14 aortic valve replacement; cardiac stent; Hypertension; Myocardial infarction; ph - Immunization history:: Adult Immunizations up to date. - Social history:: Smoking status: Patient denies any tobacco usage or history of. ROS: 10:56 Constitutional: Negative for fever, and chills. Neck: Negative for injury, pain, and ms3 swelling, Cardiovascular: Negative for chest pain, and palpitations. Respiratory: Negative for shortness of breath, cough, wheezing, and pleuritic chest pain, Abdomen/GI: Negative for abdominal pain, nausea, vomiting, diarrhea, and constipation. 10:56 MS/extremity: Positive for Left ankle and foot pain. 10:56 All other systems are negative. ms3 Exam: 10:56 Constitutional: This is a well developed, well nourished patient who is awake, alert, ms3 and in no acute distress. Neck: Trachea midline, no cervical lymphadenopathy. Supple, full range of motion without nuchal rigidity, or vertebral point tenderness. No Meningismus. Chest/axilla: Normal chest wall appearance and motion. Nontender with no deformity. Cardiovascular: Regular rate and rhythm with a normal S1 and S2. No gallops, murmurs, or rubs. Normal PMI, no JVD. No pulse deficits. Respiratory: Lungs have equal breath sounds bilaterally, clear to auscultation and percussion. No rales, rhonchi or wheezes noted. No increased work of breathing, no retractions or nasal flaring. Abdomen/GI: Soft, non-tender, with normal bowel sounds. No distension or tympany. No guarding or rebound. No evidence of tenderness throughout. Skin: Warm, dry with normal turgor. Normal color with no rashes, no lesions, and no evidence of cellulitis. 10:56 Musculoskeletal/extremity: Extremities: noted in the Left ankle: contusion, pain, swelling, tenderness, Lateral malleolus , ROM: no acute changes, Valiente test negative. Vital Signs: 11:12 BP 142 / 72; Pulse 64; Resp 18; Temp 98.0; Pulse Ox 99% on R/A; Height 6 ft. 0 in. ph (182.88 cm); Pain 2/10; MDM: 10:33 Patient medically screened. jl9 10:56 Differential diagnosis: fracture, sprain, arthritis. ms3 15:34 Data reviewed: vital signs, nurses notes, radiologic studies, and as a result, I will ms3 discharge patient. Counseling: I had a detailed discussion with the patient and/or guardian regarding: the historical points, exam findings, and any diagnostic results supporting the discharge/admit diagnosis, radiology results, the need for outpatient follow up, to return to the emergency department if symptoms worsen or persist or if there are any questions or concerns that arise at home. Special discussion: I discussed with the patient/guardian in detail that at this point there is no indication for admission to the hospital. It is understood, however, that if the symptoms persist or worsen the patient needs to return immediately for re-evaluation. ED course: CT scan was discussed with patient. Patient placed in posterior with sugar-tong splint and was neurovascularly intact status post splint placement. Patient to follow-up with orthopedics as discussed. All questions were answered. Return precautions discussed include worsening symptoms, or any other concerns.. 04/05 10:55 Order name: Lower Ext Wo Con W/ Mpr; Complete Time: 11:58 EDMS 04/05 12:23 Order name: Splint - Long Leg: Posterior w/ Stirrup; Complete Time: 13:13 ms3 04/05 12:23 Order name: Crutches; Complete Time: 13:13 ms3 04/05 12:23 Order name: Crutch Training; Complete Time: 13:12 ms3 Administered Medications: No medications were administered Disposition Summary: 04/05/22 12:24 Discharge Ordered Location: Home ms3 Condition: Stable ms3 Diagnosis - Nondisplaced fracture of lateral malleolus of left fibula ms3 - Posterior malleolus fracture ms3 - fall ms3 Followup: ms3 - With: - When: 2 - 3 days - Reason: Recheck today's complaints, Re-evaluation by your physician Discharge Instructions: - Discharge Summary Sheet ms3 - Ankle Fracture ms3 - Crutch Use, Adult ms3 Forms: - Medication Reconciliation Form ms3 - Thank You Letter ms3 - Antibiotic Education ms3 - Prescription Opioid Use ms3 Signatures: Dispatcher [employer] EDBhumi Gtz RN RN Jesús Hopson DO DO ms3 Avery Hussein [email or web address] Corrections: (The following items were deleted from the chart) 10:55 10:50 CT-LOWER EXTREMITY W/O CONTR ordered. [facility] EDMS
[2022-04-05 13:44] VITALS: BP 142/72; TEMP 98; O2SAT 99
== END 2022-04-05 13:38 | disposition home or self-care (01) ==
LOC: ER 10:26
PROC: 2W3RX1Z Immobilization of Left Lower Leg using Splint (ICD-10-PCS; principal; 2022-04-05)
DX: S82.65XA Nondisplaced fracture of lateral malleolus of left fibula, initial encounter for closed fracture (principal); S82.892A Other fracture of left lower leg, initial encounter for closed fracture; W19.XXXA Unspecified fall, initial encounter; I10 Essential (primary) hypertension; Z95.4 Presence of other heart-valve replacement; Z79.82 Long term (current) use of aspirin; Z88.0 Allergy status to penicillin; Z88.5 Allergy status to narcotic agent
CPT/HCPCS: 73700; 76377; 99283